=== PATIENT | female | born 1965 | race African-American/Black ===

== ENCOUNTER 2016-05-31 12:00 | Inpatient (IN) ==
[2016-05-31] MEDS ORDERED: FUROSEMIDE 40 MG/4 ML VIAL IV STA (12:17)
[2016-05-31 12:36] LABS: Basophils % 0.5 % (0.0-0.8); Eosinophils # 0.1 10*3/uL (0.0-0.87); Eosinophils % 2.2 % (0.00-10.9); Hematocrit 29.2 VOL% (35.7-47.0); Immature Granulocytes % 0.2 %; Immature Granulocytes Absolute 0.01 #; Lymphocytes # 0.8 10*3/uL (1.4-4.0); Lymphocytes % 12.9 % (21.3-54.2); Mean Corpuscular HGB Conc 30.8 GM/DL (32-36); Mean Corpuscular Hemoglobin 29 PG (27-34); Mean Corpuscular Volume 95.1 FL (87-102); Mean Platelet Volume 9.9 FL (9.6-12.0); Monocytes # 0.4 10*3/uL (0.11-0.8); Monocytes % 6.7 % (1.7-12.7); Neutrophils # 4.9 10*3/uL (1.4-7.4); Neutrophils % 77.5 % (38.7-73.9); Platelet Count 226 10*3/uL (130-400); Red Blood Count 3.07 10*6/uL (3.8-5.5); Red Cell Distribution Width 15.6 % (9.3-17.3); White Blood Count 6.3 10*3/uL (4.5-13.71)
[2016-05-31] MEDS ORDERED: FUROSEMIDE 40 MG/4 ML VIAL ONE (12:42)
--- NOTE | 2016-05-31 12:50 | XRay Report ---
Exam: XR chest 1V portable Indication: Cardiomegaly, shortness of breath, history of heart failure Comparison study: 03/14/16 chest radiograph Findings: Cardiac silhouette is enlarged, similar to prior. Patchy perihilar and basilar interstitial and airspace opacities are similar to slightly increased from prior and likely represent edema changes. There is no pneumothorax or significant pleural effusion identified. Osseous structures appear stable from prior. Impression: Similar cardiomegaly with findings suggestive of underlying interstitial edema. Infectious or inflammatory infiltrates can't be excluded but favored to be less likely. PROCEDURE INTERPRETED AT [facility] DEPARTMENT OF RADIOLOGY Final Report Signed by: Derek Neff
[2016-05-31 13:17] LABS: Calcium 8.5 MG/DL (8.5-10.1); Magnesium 2.5 MG/DL (1.8-2.4); Osmolality,Calculated 299.1 MOS/KG (273-304); Potassium 4.8 MMOL/L (3.5-5.1)
[2016-05-31 13:36] LABS: Apearance,Urine Slightly Hazy (Clear); Bacteria,Urine Many /HPF (Few); Bilirubin,Urine Negative (Negative); Blood, Urine Moderate mg/dL (Negative); Glucose,Urine (UA) 150 mg/dL (Negative); Ketones,Urine Negative (Negative); Mucus,Urine Occasional /LPF (Occasional); Nitrite,Urine Negative (Negative); Protein,Urine >=500 MG/DL; RBC,Urine 35 /HPF (0-4); Urine Color Yellow (Yellow); Urine Specific Gravity 1.012 (1.001-1.035); Urine Urobilinogen < 2.0 EU/DL (0.2-1.0); WBC,Urine 9 /HPF (0-6)
[2016-05-31] MEDS ORDERED: hydrALAZINE 20 MG/1 ML VIAL IV STA (13:53)
[2016-05-31] MEDS ORDERED: hydrALAZINE 20 MG/1 ML VIAL ONE ×2 (13:54→15:49)
--- NOTE | 2016-05-31 14:16 | Emergency Department Note ---
Stanley Romero Brooke, am scribing for, and in the presence of, Robert Huddleston M.D. 12:24. Karo Romero Howard T, M.D., personally performed the services described in this documentation, ascribed by Lana Angel in my presence, and it is both accurate and complete [id number] . Arrival - Arrival Chief Complaint: Shortness of Breath Stated Complaint: dyspnea times 4 days ED Nursing Triage Note: Patient reports shortness of breath times four days which increased today. She does not wear oxygen at home. she reports persistent coughing and wheezing. She does have a history of chronic bronchitis Mode of Arrival: Stretcher Limitations: No Limitations Source: Patient, RN Notes Reviewed Time Seen by Provider: 05/31/16 12:11 - History of Present Illness HPI Narrative: Patient is a 50 year old female who presents to the ED with c/o SOB. Patient says she has been having trouble with the SOB for a "while" but it just recently worsened. She says she feels like she is smothering. Patient says she has breathing treatments and an inhaler that she does use, at home, but does not have home oxygen. Patient says she has heart failure "sometimes" and is currently "full of fluid." She takes 40mg lasix TID and has already taken two doses today. Patient also complains of having a cough and chills but denies having any fever. She says her abdomen is sore from coughing so much. She denies any recent sickness and says she has had her flu shot. Patient has PMHx of CHF, HTN, congenital heart disease, depression, diabetes, dyslipidemia, RA, peripheral neuropathy, bronchitis, COPD, obstructive sleep apnea, PE, pneumonia , renal failure, bladder problems, GERD, and osteoporosis. Patient says she is up to date on all of her medications. Her Contact Lens Lathe Operator is Dr. Ashley. Allergies/Adverse Reactions: Allergies Allergy/AdvReac Type Severity Reaction Status Date / Time daptomycin Allergy RASH Verified 03/14/16 22:32 Home Medications: Home Medications Medication Instructions Recorded Confirmed Type Allopurinol [Zyloprim] 100 mg PO DAILY 01/03/15 03/15/16 History Apixaban [Eliquis] 5 mg PO BID 01/03/15 03/15/16 History Carvedilol [Coreg] 25 mg PO BID 01/03/15 03/15/16 History Efavirenz [Sustiva] 600 mg PO BEDTIME 01/03/15 03/15/16 History Fluticasone/Salmeterol 250-50 2 puff INH PRN PRN 01/03/15 03/15/16 History [Advair 250-50] Gabapentin Cap/Tab [Neurontin 300 mg PO TID 01/03/15 03/15/16 History Cap/Tab] Glimepiride [Amaryl] 8 mg PO BID W/MEALS 01/03/15 03/15/16 History HYDROcodone/ACETAMIN 10-325 [[place] 1 tablet PO QID PRN 01/03/15 03/15/16 History 10-325] lamiVUDine TAB [Epivir Tab] 300 mg PO DAILY 01/03/15 03/15/16 History Albuterol Sulfate [Ventolin HFA] 2 puff INH Q4H PRN #1 inhaler 01/06/15 Rx Isosorbide Mononitrate [Imdur] 60 mg PO DAILY #30 tablet 01/06/15 03/15/16 Rx Insulin Glargine [Lantus] 40 unit SUBCUT BEDTIME 03/13/15 03/15/16 History guaiFENesin/CODEINE [Robitussin AC] 10 ml PO Q4H PRN #120 ml 03/17/15 03/15/16 Rx Bumetanide Tab [Bumex Tab] 2 mg PO TID 04/27/15 03/15/16 History Cyclobenzaprine [Flexeril] 10 mg PO TID PRN 04/27/15 03/15/16 History Tenofovir Disoproxil Fumarate 300 mg PO DAILY W/BREAKFAST 04/27/15 03/15/16 History [Viread] hydrALAZINE TAB [Apresoline Tab] 100 mg PO BID 04/27/15 03/15/16 History Ciprofloxacin Tab [Cipro Tab] 500 mg PO DAILY #10 tablet 03/18/16 Rx Review of System - Review of System 12 point system: reviewed and no additional remarkable complaints except as stated - Review of System Constitutional: Present: chills. Absent: fever Respiratory: Present: cough, respiratory distress (SOB) Cardiovascular: Present: edema ("Full of fluid") Gastrointestinal: Present: abdominal pain (sore from coughing) Skin: Absent: rash Medical,Surgical,& Family Hx - Medical History Cardio: History of: Congenital Heart Disease, CHF, Hypertension No history of: Pacemaker, PVD, Valvular Heart Disease, Cardiovascular Problems Psychological: History of: Depression No history of: Anxiety Disorders, ADHD, Behavior Problems, Bipolar Disorder, Previous Suicide Attempt, Psychiatric/Substance Abuse Tx, Schizophrenia, Violent Behavior, Psychiatric Problems Neurology: History of: Peripheral Neuropathy No history of: Brain Aneurysm, Cerebral Hemorrhage, Cerebrovascular Accident , Cerebral Palsy, Dementia, Migraine, Multiple Sclerosis, Parkinson's Disease, Seizures, TIA, Vertigo, Neurologocal Cancer Endocrine: History of: Diabetes Mellitus (IDDM), Diabetes Mellitus (NIDDM), Dyslipidemia No history of: Thyroid Disorder, Endocrine Cancer, Endocrine Problems Rheumatology: History of;: Rheumatoid Arthritis No history of;: Psoriasis, Sjogrens, Systemic Lupus Erythematosus Respiratory: History of: Bronchitis, COPD, Obstructive Sleep Apnea, Pulmonary Embolism, Pneumonia, Respiratory Problems No history of: Intubation, Lung Cancer Renal: History of: Renal Failure No history of: Renal (Kidney) Cancer, Dialysis, Renal Problems Genitourinary: History of: Bladder Problem No history of: Kidney Stones, Recurring Urinary Tract Infections, Genitourinary Cancer, Problems Gastrointestinal: History of: GERD No history of: Crohn's Disease, Diverticulitis/ Diverticulosis, Esophageal Varices, Gastrointestinal Bleed, Liver Problems, Pancreatitis, Polyps, Gastrointestinal Cancer, GI Problems Musculoskeletal: History of: Back/Neck Problems, Osteoporosis No history of: Amputation Hematology: No history of: Anemia, Blood Transfusion Reaction (blood transfusions but no reactions), Bleeding Problems, Clotting Problems, Sickle Cell Disease, Hematologic Cancer, Blood Disorders Reproductive: History of: Sexually Transmitted Disorders (HIV Pos.) Other: No history of: Anesthesia Reactions, Anaphylaxis, Cancer, Eczema, HIV, Malignant Hyperthermia, MRSA, Vancomycin-Resistant Enterococci, Skin Problems, Miscellaneous Medical Problems - Surgical History Cardiac Surgeries: Patient Denies: Femoral-Popliteal Bypass Graft, Cardiac Catheterization, Cardiac Surgery, Carotid Endarterectomy, Internal Defibrillator, Vascular Access Devices Thoracic Surgeries: Patient denies;: Kidney (Renal Surgery), Lithotripsy, Nephrectomy, Organ Transplant, Lobectomy Neurologic Surgeries: Patient denies: Brain Aneurysm, Cerebral Hemorrhage, Neurologic Surgery HEENT Surgeries: Patient denies: Carotid Endarterectomy, Thyroid Surgery Abdominal Surgeries: Surgical HX of: Abdominal Surgery Patient denies: Appendectomy, Cholecystectomy, Colonoscopy, Gastric Bypass Surgery, EGD, Hernia Repair, Splenectomy Reproductive Surgeries: Surgical HX of;: Breast Surgery (multiple abcesses), Section Patient denies;: Cystoscopy, Dilation and Curettage, Genitourinary Surgery, Gynecologic Surgery, Hysterectomy, Tubal Ligation Orthopedic Surgeries: Patient denies;: Implanted Devices, Orthopedic Surgery, Spinal Surgery, Total Hip Replacement, Total Knee Replacement - Family History Family History: Reports;: Family Diabetes (MOTHER), Family Hypertension Denies;: Family Anesthesia Reaction, Family Psychiatric Problems, Family Stroke - Social History Smoking Status: Never smoker Frequency of Alcohol Use: None Type of Drug Use: None Exam Vital Signs: Vital Signs Temperature 98.0 F 05/31/16 12:01 Pulse Rate 93 H 05/31/16 13:52 Respiratory Rate 24 05/31/16 13:52 Blood Pressure 205/106 05/31/16 13:52 O2 Sat by Pulse Oximetry 100 05/31/16 13:52 - General General appearance: alert, in no apparent distress - Head Head exam: Present: atraumatic, normocephalic - Eye Eye exam: Present: normal appearance, PERRL, EOMI - ENT ENT exam: Present: normal exam - Neck Neck exam: Present: normal inspection - Chest Chest inspection: Present: normal inspection, symmetric chest wall rise - Respiratory Respiratory exam: Present: rales - Cardiovascular Cardiovascular exam: Present: regular rate, normal rhythm, normal heart sounds - Abdominal Exam Abdominal exam: Present: soft. Absent: distention, tenderness - Extremities Exam Extremities exam: Present: normal inspection - Back Exam Back exam: Present: normal inspection - Neurological Exam Neurological exam: Present: alert, oriented X3 - Psychiatric Psychiatric exam: Present: normal affect, normal mood - Skin Skin exam: Present: warm, dry, intact, normal color Course Course Narrative: Medical surgeon making: Patient appears stable for now but given symptoms and history will recommend overnight observation and treatment to provide additional breathing treatments and maximize home treatment. Discussed with hospitalist to evaluate the patient. Results - Labs CBC & BMP: 05/31/16 12:33 05/31/16 12:33 Lab Results: I have reviewed the patients labs Labs: Laboratory Tests 05/31/16 12:33 RBC 3.07 L Hgb 9.0 L Hct 29.2 L MCHC 30.8 L Neut % (Auto) 77.5 H Lymph % (Auto) 12.9 L Lymph # (Auto) 0.8 L Laboratory Tests 05/31/16 05/31/16 12:33 12:33 BUN 39 H Creatinine 1.90 H Glucose 235 H Magnesium 2.5 H B-Natriuretic Peptide 647 H Laboratory Tests 05/31/16 12:22 Urine Urobilinogen < 2.0 H - Diagnostic Findings Procedure: Chest x-ray: report reviewed by me (Similar cadiomegaly with findings suggestive of underlying interstitial edema. Infectious or inflammatory infiltrates can't be excluded but favored to be less likely.) Disposition Clinical Impression: Acute exacerbation of chronic obstructive airways disease, Dyspnea or other respiratory complaints Case discussed with: patient Disposition: Disch/Xfer-Ipshort Term Hos Condition: Stable Time of Disposition: 14:16
[2016-05-31] MEDS ORDERED: ONDANSETRON 4 MG/2 ML VIAL IV PRN (14:41)
[2016-05-31] MEDS ORDERED: ACETAMINOPHEN 325 MG TABLET PO PRN (14:41)
[2016-05-31] MEDS ORDERED: hydrALAZINE 20 MG/1 ML VIAL IV PRN (14:41)
[2016-05-31] MEDS ORDERED: ALBUTEROL 2.5 MG/3 ML NEB RESP TX PRN (15:43)
[2016-05-31] MEDS ORDERED: ACETAMINOPHEN 325 MG TABLET ONE (15:55)
[2016-05-31] MEDS ORDERED: GLUCAGON 1 MG VIAL IM PRN (15:57)
[2016-05-31] MEDS ORDERED: DEXTROSE 50% 25 GM/50 ML VIAL IV PRN (15:57)
--- NOTE | 2016-05-31 15:58 | Hospitalist History & Physical ---
<Michelle North - Last Filed: 05/31/16 15:50> Assessment and Plan - Time spent with patient Time spent with patient: Greater than 30 minutes (due to assessment, plan and documentation.) (1) Fluid overload Status: Acute Assessment and plan: lasix 80 mg IV BID cardiology consultation echo Current Visit: Yes (2) CKD (chronic kidney disease) stage 3, GFR 30-59 ml/min Status: Acute Current Visit: Yes (3) HIV (human immunodeficiency virus infection) Status: Chronic Assessment and plan: continue home medications Current Visit: No (4) Morbid obesity Status: Chronic Current Visit: No Qualifiers: Obesity type: with alveolar hypoventilation Qualified Code(s): E66.2 - Morbid (severe) obesity with alveolar hypoventilation History of Present Illness Chief complaint: sob History of present illness: Ms. Jalloh is a 50 year old female who presented today with shortness of breath. She states that her Shortness of breath started on Saturday and is worse today. She has audible wheezing noted. She does give a history of being type 2 diabetic, hypertensive, arthritic, and HIV +. She states that she has been cold but no documented fever. She is coughing up thick brown sputum. She is hypertensive at 230/134 today. She denies taking her medication this morning. She has a stage 2 decubitus to her left breast. She has recently had a Mammogram and subsequent biopsy. She gives a history of questionable CHF and saw Dr. Brown and states that she was told that she has no CHF and changed her BP medications. Her sugars typically run 160's to 170's per her report but was 260 this morning. She takes 70/30, Lantus, and glipizide for diabetic management. She states that "nothing makes her breathing better". She has expiratory wheezes noted to right side and left sided rhonchi in the bases and diminished lung sounds throughout. Heart sounds normal. She does complain of some left lower quadrant abdominal tenderness and states that she recently had an ultrasound done for "swelling". Blanco has been placed and is draining clear yellow urine. She does complain of some abdominal tenderness but relates this to coughing. She lives at home by herself, but does not work as she is disabled. She will be admitted and given IV lasix 80 mg IV BID, labs in AM, cardiology consultation. Further plan and addendum to follow by Dr. Viktoriya Sanchez. Home Medications Medication Instructions Recorded Confirmed Type Allopurinol [Zyloprim] 100 mg PO DAILY 01/03/15 05/31/16 History Apixaban [Eliquis] 5 mg PO BID 01/03/15 05/31/16 History Carvedilol [Coreg] 25 mg PO BID W/MEALS 01/03/15 05/31/16 History Efavirenz [Sustiva] 600 mg PO BEDTIME 01/03/15 05/31/16 History Gabapentin Cap/Tab [Neurontin 300 mg PO TID 01/03/15 05/31/16 History Cap/Tab] Glimepiride [Amaryl] 8 mg PO BID W/MEALS 01/03/15 05/31/16 History HYDROcodone/ACETAMIN 10-325 [[place] 1 tablet PO QID PRN 01/03/15 05/31/16 History 10-325] lamiVUDine TAB [Epivir Tab] 300 mg PO DAILY 01/03/15 05/31/16 History Albuterol Sulfate [Ventolin HFA] 2 puff INH Q4H PRN #1 inhaler 01/06/15 Rx Insulin Glargine [Lantus] 20 unit SUBCUT BEDTIME 03/13/15 05/31/16 History Cyclobenzaprine [Flexeril] 10 mg PO TID PRN 04/27/15 05/31/16 History Tenofovir Disoproxil Fumarate 300 mg PO DAILY W/BREAKFAST 04/27/15 05/31/16 History [Viread] Isosorb Dinit/Hydralazine HCl 1 tablet PO TID 05/31/16 05/31/16 History [Bidil Tablet] hydrALAZINE TAB [Apresoline Tab] 50 mg PO BID 05/31/16 05/31/16 History Allergies Allergy/AdvReac Type Severity Reaction Status Date / Time daptomycin Allergy RASH Verified 03/14/16 22:32 Medical,Surgical,& Family Hx - Medical History Cardio: History of: Congenital Heart Disease, CHF, Hypertension No history of: Pacemaker, PVD, Valvular Heart Disease, Cardiovascular Problems Psychological: History of: Depression No history of: Anxiety Disorders, ADHD, Behavior Problems, Bipolar Disorder, Previous Suicide Attempt, Psychiatric/Substance Abuse Tx, Schizophrenia, Violent Behavior, Psychiatric Problems Neurology: History of: Peripheral Neuropathy No history of: Brain Aneurysm, Cerebral Hemorrhage, Cerebrovascular Accident , Cerebral Palsy, Dementia, Migraine, Multiple Sclerosis, Parkinson's Disease, Seizures, TIA, Vertigo, Neurologocal Cancer Endocrine: History of: Diabetes Mellitus (IDDM), Diabetes Mellitus (NIDDM), Dyslipidemia No history of: Thyroid Disorder, Endocrine Cancer, Endocrine Problems Rheumatology: History of;: Rheumatoid Arthritis No history of;: Psoriasis, Sjogrens, Systemic Lupus Erythematosus Respiratory: History of: Bronchitis, COPD, Obstructive Sleep Apnea, Pulmonary Embolism, Pneumonia, Respiratory Problems No history of: Intubation, Lung Cancer Renal: History of: Renal Failure No history of: Renal (Kidney) Cancer, Dialysis, Renal Problems Genitourinary: History of: Bladder Problem No history of: Kidney Stones, Recurring Urinary Tract Infections, Genitourinary Cancer, Problems Gastrointestinal: History of: GERD No history of: Crohn's Disease, Diverticulitis/ Diverticulosis, Esophageal Varices, Gastrointestinal Bleed, Liver Problems, Pancreatitis, Polyps, Gastrointestinal Cancer, GI Problems Musculoskeletal: History of: Back/Neck Problems, Osteoporosis No history of: Amputation Hematology: No history of: Anemia, Blood Transfusion Reaction (blood transfusions but no reactions), Bleeding Problems, Clotting Problems, Sickle Cell Disease, Hematologic Cancer, Blood Disorders Reproductive: History of: Sexually Transmitted Disorders (HIV Pos.) Other: No history of: Anesthesia Reactions, Anaphylaxis, Cancer, Eczema, HIV, Malignant Hyperthermia, MRSA, Vancomycin-Resistant Enterococci, Skin Problems, Miscellaneous Medical Problems - Surgical History Cardiac Surgeries: Patient Denies: Femoral-Popliteal Bypass Graft, Cardiac Catheterization, Cardiac Surgery, Carotid Endarterectomy, Internal Defibrillator, Vascular Access Devices Thoracic Surgeries: Patient denies;: Kidney (Renal Surgery), Lithotripsy, Nephrectomy, Organ Transplant, Lobectomy Neurologic Surgeries: Patient denies: Brain Aneurysm, Cerebral Hemorrhage, Neurologic Surgery HEENT Surgeries: Patient denies: Carotid Endarterectomy, Thyroid Surgery Abdominal Surgeries: Surgical HX of: Abdominal Surgery Patient denies: Appendectomy, Cholecystectomy, Colonoscopy, Gastric Bypass Surgery, EGD, Hernia Repair, Splenectomy Reproductive Surgeries: Surgical HX of;: Breast Surgery (multiple abcesses), Section Patient denies;: Cystoscopy, Dilation and Curettage, Genitourinary Surgery, Gynecologic Surgery, Hysterectomy, Tubal Ligation Orthopedic Surgeries: Patient denies;: Implanted Devices, Orthopedic Surgery, Spinal Surgery, Total Hip Replacement, Total Knee Replacement - Family History Family History: Reports;: Family Diabetes (MOTHER), Family Hypertension Denies;: Family Anesthesia Reaction, Family Psychiatric Problems, Family Stroke - Social History Smoking Status: Never smoker Frequency of Alcohol Use: None Type of Drug Use: None Marital Status: Single Lives With:: Alone Functional capacity: independent ambulation - Constitutional Constitutional: Present: chills. Absent: fever(s) - EENT Eyes: Present: blurry vision. Absent: diplopia Ears: Absent: decreased hearing, tinnitus Nose, mouth and throat: Absent: dysphagia, headache(s) - Cardiovascular Cardiovascular: Present: dyspnea, dyspnea on exertion, edema. Absent: chest pain at rest, palpitations - Respiratory Respiratory: Absent: cough, dyspnea, hemoptysis - Gastrointestinal Gastrointestinal: Present: abdominal pain (LLQ tenderness. ). Absent: nausea, vomiting - Genitourinary Genitourinary: Absent: dysuria, flank pain - Musculoskeletal Musculoskeletal: Absent: arthralgias, back pain - Neurological Neurological: Absent: confusion, dizziness - Psychiatric Psychiatric: Absent: anxiety, confusion, depression - Endocrine Endocrine: Absent: cold intolerance, heat intolerance - Hematologic/Lymphatic Hematologic/Lymphatic: Absent: easy bleeding, easy bruising Exam - Constitutional Vitals: Period Temp Pulse Resp BP Sys/[place] Pulse Ox Last 24 Hr 98.0 F-98.0 F 91-97 19-26 160-207/92-130 96-100 General appearance: mild distress, morbidly obese - Head Head exam: Present: normal inspection, normocephalic - Eye Eye exam: Present: EOMI. Absent: scleral icterus Pupils: Present: JARAD, normal accommodation - ENT ENT exam: Present: normal exam, normal oropharynx - Neck Neck exam: Present: normal inspection. Absent: lymphadenopathy - Respiratory Respiratory exam: Present: decreased breath sounds, prolonged expiratory phase, rhonchi, wheezes - Cardiovascular Cardiovascular exam: Present: JVD, tachycardia. Absent: carotid bruit - GI/Abdominal GI/Abdominal exam: Present: normal bowel sounds, tenderness (LLQ tenderness. ) - Extremities Exam Extremities exam: Present: normal inspection, edema - Back Exam Back exam: Present: normal inspection. Absent: muscle spasm - Neurological Exam Neurological exam: Present: alert, oriented X3 - Psychiatric Psychiatric exam: Present: normal affect, normal mood - Skin Skin exam: Present: normal color, warm, dry, intact Results - Labs CBC & BMP: 05/31/16 12:33 05/31/16 12:33 Lab Results: I have reviewed the past 24 hour labs Quality Measures - VTE Contraindication to Pharmacological VTE Prophylaxis: Already on Theraputic Agent , No Prophylaxis Needed <Viktoriya Sanchez - Last Filed: 05/31/16 16:34> Assessment and Plan - Time spent with patient Time spent with patient: Greater than 30 minutes (1) Abscess of breast, right Status: Acute Assessment and plan: Consider surgery consult. Add antibiotics Current Visit: Yes (2) Acute exacerbation of congestive heart failure Status: Acute Assessment and plan: start lasix and aldactone. cardiology consult EF 2014 was 40% Current Visit: Yes Qualifiers: Congestive heart failure type: combined Qualified Code(s): I50.43 - Acute on chronic combined systolic (congestive) and diastolic (congestive) heart failure (3) Dyspnea Status: Acute Current Visit: Yes Qualifiers: Dyspnea type: shortness of breath Qualified Code(s): R06.02 - Shortness of breath (4) HIV (human immunodeficiency virus infection) Status: Chronic Current Visit: No (5) Morbid obesity Status: Chronic Current Visit: No Qualifiers: Obesity type: with alveolar hypoventilation Qualified Code(s): E66.2 - Morbid (severe) obesity with alveolar hypoventilation (6) Diabetes mellitus Status: Chronic Current Visit: No Qualifiers: Diabetes mellitus type: type 2 Diabetes mellitus complication status: with kidney complications Diabetes mellitus complication detail: with chronic kidney disease Diabetes mellitus terminal block assembler insulin use: with mcfp use Chronic kidney disease stage: stage 3 (moderate) Qualified Code(s): E11.22 - Type 2 diabetes mellitus with diabetic chronic kidney disease; N18.3 - Chronic kidney disease, stage 3 (moderate); Z79.4 - group home (current) use of insulin (7) CKD (chronic kidney disease) stage 3, GFR 30-59 ml/min Status: Chronic Current Visit: Yes History of Present Illness History of present illness: Ms. Jalloh is a 50 year old female presented to the emergency department today with shortness of breath and lower extremity edema. She was found to be very hypertensive. She has a echocardiogram from December 2014 showing an ejection fraction of 40% with hypokinesis globally. She reports being on Bumex at home in the past. She appears to have acute decompensated systolic congestive heart failure with pulmonary edema and shortness of breath. She is working hard to breathe and is in moderate respiratory distress. She is requiring supplemental oxygen. She has received IV Lasix 80 mg in the emergency department and has good urine output in the Blanco catheter. She is being admitted to the hospitalist service to monitored bed with a consultation for cardiology and repeat doses of IV Lasix for continued diuresis. I also added Aldactone. Repeat cardiac enzymes in a.m. labs have been ordered. The patient has chronic kidney disease stage III with a baseline creatinine of approximately 2. Her medical history is complicated by diabetes hypertension questionable congestive heart failure as well as HIV. I have seen and examined the patient in dependently in the emergency department at the time of her admission. I agree with the above history of present illness as well as the physical exam and assessment and plan as dictated by Michelle North. 12 point system: reviewed and no additional remarkable complaints except as stated Exam - Constitutional Vitals: Period Temp Pulse Resp BP Sys/[place] Pulse Ox Last 24 Hr 98.0 F-99.8 F 91-97 19-26 160-207/92-130 96-100 - Respiratory Respiratory exam: Present: other (left breast with induration, open wound, drainage and pain. ) - Extremities Exam Extremities exam: Present: edema - Psychiatric Psychiatric exam: Present: anxious - Skin Skin exam: Present: diaphoretic Results - Labs CBC & BMP: 05/31/16 12:33 05/31/16 12:33 Lab Results: I have reviewed the past 24 hour labs - Diagnostic Findings Procedure: Chest x-ray: image reviewed by me, report reviewed by me
[2016-05-31] MEDS: CARVEDILOL 25 MG TABLET PO SCH (17:52)
[2016-05-31] MEDS: GLIMEPIRIDE 4 MG TABLET PO SCH (17:52)
[2016-05-31] MEDS: FUROSEMIDE 40 MG/4 ML VIAL IV SCH (17:52)
[2016-05-31] MEDS: cefTRIAXone 1,000 MG in SODIUM CHLORIDE 0.9% 100 ML IV SCH (17:53)
[2016-05-31] MEDS: INSULIN LISPRO 100 UNIT/ML SUBCUT SCH ×2 (17:53→22:22)
[2016-05-31 19:05] LABS: Troponin I Only 0.018 NG/ML (0.00-0.045)
[2016-05-31 19:38] LABS: Troponin I Only 0.016 NG/ML (0.00-0.045)
--- NOTE | 2016-05-31 19:39 | Cardiology Consult Note ---
History of Present Illness - Data of Consult Patient: new to practice Consult date: 05/31/16 - Consult Narrative History of present illness: Cardiology consult 50-year-old woman morbidly obese, admitted with congestive heart failure and anasarca. The patient weighs 470 pounds. Chest x-ray shows cardiomegaly with cephalization of flow and CHF. BNP level 647. The patient has a documented cardiomyopathy. Echo Doppler done January 03, 2015 when she was last admitted with heart failure showed ejection fraction of 40% with a dilated right ventricle PA pressure 45 and mildly dilated left atrium. EKG shows sinus rhythm with ST-T wave changes only. The patient is HIV positive. She has a history of pulmonary embolus and takes Eliquis 5 mg twice daily. The patient has chronic hypertension. She is a type II diabetic. The Patient is a lifetime non-smoker and nondrinker. The patient is 5 feet 9 inches tall weighs 470 pounds. She had a left breast biopsy last Saturday and is waiting to hear the results. She has chronic renal failure. Creatinine 1.9 BUN 39 today. The patient lives in [place]. She never . She spends most of her time in bed. She can walk a few steps with a walker only. She does have daytime sleepiness and frequent headaches. Sleep apnea is suspected. Lab data today shows Sodium 142 potassium 4.8 chloride 107 CO2 25 BUN 39 creatinine 1.9 Magnesium 2.5 BNP 647 Hemoglobin 9.0 hematocrit 29.2 white count 6.3 Blood pressure is 160/80. O2 sat 98% on 2 L. She is awake and alert. She is edentulous. Neck veins cannot be assessed. No carotid bruit. Decreased breath sounds with rhonchi in the bases. Rhythm is regular. Heart tones distant. No murmur. The abdomen is morbidly obese with multiple striae A. Liver edge cannot be palpated. Femoral pulses are 1+ and deep. She has anasarca of both legs. Impression Recurrent CHF Cardiomyopathy with EF 40% by echo January 03, 2015 Morbid obesity, 5 feet 9 inches tall, 470 pounds Chronic hypertension Type 2 diabetes Status post left breast biopsy last May 23 HIV-positive Arthritis Anasarca Chronic debility Chronic renal failure BUN 39 creatinine 1.9 History of pulmonary embolus on Eliquis 5 mg twice daily Obstructive sleep apnea suspected Plan IV Lasix Supplemental O2 as needed Echo Doppler BMP in a.m. Consult Dr. Lerner for sleep study evaluation CC: Viktoriya Sanchez MD - Home Medications and Allergies Home Medications: Home Medications Medication Instructions Recorded Confirmed Type Allopurinol [Zyloprim] 100 mg PO DAILY 01/03/15 05/31/16 History Apixaban [Eliquis] 5 mg PO BID 01/03/15 05/31/16 History Carvedilol [Coreg] 25 mg PO BID W/MEALS 01/03/15 05/31/16 History Efavirenz [Sustiva] 600 mg PO BEDTIME 01/03/15 05/31/16 History Gabapentin Cap/Tab [Neurontin 300 mg PO TID 01/03/15 05/31/16 History Cap/Tab] Glimepiride [Amaryl] 8 mg PO BID W/MEALS 01/03/15 05/31/16 History HYDROcodone/ACETAMIN 10-325 [[place] 1 tablet PO QID PRN 01/03/15 05/31/16 History 10-325] lamiVUDine TAB [Epivir Tab] 300 mg PO DAILY 01/03/15 05/31/16 History Albuterol Sulfate [Ventolin HFA] 2 puff INH Q4H PRN #1 inhaler 01/06/15 Rx Insulin Glargine [Lantus] 20 unit SUBCUT BEDTIME 03/13/15 05/31/16 History Cyclobenzaprine [Flexeril] 10 mg PO TID PRN 04/27/15 05/31/16 History Tenofovir Disoproxil Fumarate 300 mg PO DAILY W/BREAKFAST 04/27/15 05/31/16 History [Viread] Insulin Aspart Prot/Asp 70/30 45 unit SUBCUT QPM 05/31/16 05/31/16 History [NovoLOG Mix 70/30] Insulin Aspart Prot/Asp 70/30 50 unit SUBCUT QAM 05/31/16 05/31/16 History [NovoLOG Mix 70/30] Isosorb Dinit/Hydralazine HCl 1 tablet PO TID 05/31/16 05/31/16 History [Bidil Tablet] hydrALAZINE TAB [Apresoline Tab] 50 mg PO BID 05/31/16 05/31/16 History Allergies/Adverse Reactions: Allergies Allergy/AdvReac Type Severity Reaction Status Date / Time daptomycin Allergy RASH Verified 03/14/16 22:32 Medical,Surgical,& Family Hx - Medical History Cardio: History of: Congenital Heart Disease, CHF, Hypertension No history of: Pacemaker, PVD, Valvular Heart Disease, Cardiovascular Problems Psychological: History of: Depression No history of: Anxiety Disorders, ADHD, Behavior Problems, Bipolar Disorder, Previous Suicide Attempt, Psychiatric/Substance Abuse Tx, Schizophrenia, Violent Behavior, Psychiatric Problems Neurology: History of: Peripheral Neuropathy No history of: Brain Aneurysm, Cerebral Hemorrhage, Cerebrovascular Accident , Cerebral Palsy, Dementia, Migraine, Multiple Sclerosis, Parkinson's Disease, Seizures, TIA, Vertigo, Neurologocal Cancer Endocrine: History of: Diabetes Mellitus (IDDM), Diabetes Mellitus (NIDDM), Dyslipidemia No history of: Thyroid Disorder, Endocrine Cancer, Endocrine Problems Rheumatology: History of;: Rheumatoid Arthritis No history of;: Psoriasis, Sjogrens, Systemic Lupus Erythematosus Respiratory: History of: Bronchitis, COPD, Obstructive Sleep Apnea, Pulmonary Embolism, Pneumonia, Respiratory Problems No history of: Intubation, Lung Cancer Renal: History of: Renal Failure No history of: Renal (Kidney) Cancer, Dialysis, Renal Problems Genitourinary: History of: Bladder Problem No history of: Kidney Stones, Recurring Urinary Tract Infections, Genitourinary Cancer, Problems Gastrointestinal: History of: GERD No history of: Crohn's Disease, Diverticulitis/ Diverticulosis, Esophageal Varices, Gastrointestinal Bleed, Liver Problems, Pancreatitis, Polyps, Gastrointestinal Cancer, GI Problems Musculoskeletal: History of: Back/Neck Problems, Osteoporosis No history of: Amputation Hematology: No history of: Anemia, Blood Transfusion Reaction (blood transfusions but no reactions), Bleeding Problems, Clotting Problems, Sickle Cell Disease, Hematologic Cancer, Blood Disorders Reproductive: History of: Sexually Transmitted Disorders (HIV Pos.) Other: No history of: Anesthesia Reactions, Anaphylaxis, Cancer, Eczema, HIV, Malignant Hyperthermia, MRSA, Vancomycin-Resistant Enterococci, Skin Problems, Miscellaneous Medical Problems - Surgical History Cardiac Surgeries: Patient Denies: Femoral-Popliteal Bypass Graft, Cardiac Catheterization, Cardiac Surgery, Carotid Endarterectomy, Internal Defibrillator, Vascular Access Devices Thoracic Surgeries: Patient denies;: Kidney (Renal Surgery), Lithotripsy, Nephrectomy, Organ Transplant, Lobectomy Neurologic Surgeries: Patient denies: Brain Aneurysm, Cerebral Hemorrhage, Neurologic Surgery HEENT Surgeries: Patient denies: Carotid Endarterectomy, Thyroid Surgery Abdominal Surgeries: Surgical HX of: Abdominal Surgery Patient denies: Appendectomy, Cholecystectomy, Colonoscopy, Gastric Bypass Surgery, EGD, Hernia Repair, Splenectomy Reproductive Surgeries: Surgical HX of;: Breast Surgery (multiple abcesses), Section Patient denies;: Cystoscopy, Dilation and Curettage, Genitourinary Surgery, Gynecologic Surgery, Hysterectomy, Tubal Ligation Orthopedic Surgeries: Patient denies;: Implanted Devices, Orthopedic Surgery, Spinal Surgery, Total Hip Replacement, Total Knee Replacement - Family History Family History: Reports;: Family Diabetes (MOTHER), Family Hypertension Denies;: Family Anesthesia Reaction, Family Psychiatric Problems, Family Stroke - Social History Smoking Status: Never smoker Frequency of Alcohol Use: None Type of Drug Use: None Physical Examination Vital Signs Temp Pulse Resp BP Pulse Ox 98.0 F 95 H 22 175/108 96 05/31/16 12:01 05/31/16 12:01 05/31/16 12:01 05/31/16 12:01 05/31/16 12:01 Result/EKG - Labs CBC & BMP: 05/31/16 12:33 05/31/16 12:33 Labs: Laboratory Results - last 24 hr 05/31/16 05/31/16 17:44 18:22 POC Glucose 217 H Total Creatine Kinase 173 CK-MB (CK-2) < 1.0 Troponin I 0.018 Quality Measures - VTE Contraindication to Pharmacological VTE Prophylaxis: Already on Theraputic Agent , No Prophylaxis Needed Specialty Discharge - Follow Up or Referrals - Discharge Medications No Action lamiVUDine TAB [Epivir Tab] 300 mg PO DAILY Efavirenz [Sustiva] 600 mg PO BEDTIME Carvedilol [Coreg] 25 mg PO BID W/MEALS Apixaban [Eliquis] 5 mg PO BID Allopurinol [Zyloprim] 100 mg PO DAILY HYDROcodone/ACETAMIN 10-325 [[place] 10-325] 1 tablet PO QID PRN PRN Reason: Pain Glimepiride [Amaryl] 8 mg PO BID W/MEALS Gabapentin Cap/Tab [Neurontin Cap/Tab] 300 mg PO TID Albuterol Sulfate [Ventolin HFA] 2 puff INH Q4H PRN #1 inhaler PRN Reason: Shortness Of Breath/Wheezing Insulin Glargine [Lantus] 20 unit SUBCUT BEDTIME Tenofovir Disoproxil Fumarate [Viread] 300 mg PO DAILY W/BREAKFAST Cyclobenzaprine [Flexeril] 10 mg PO TID PRN PRN Reason: Pain hydrALAZINE TAB [Apresoline Tab] 50 mg PO BID Isosorb Dinit/Hydralazine HCl [Bidil Tablet] 1 tablet PO TID Insulin Aspart Prot/Asp 70/30 [NovoLOG Mix 70/30] 50 unit SUBCUT QAM Insulin Aspart Prot/Asp 70/30 [NovoLOG Mix 70/30] 45 unit SUBCUT QPM
[2016-05-31] MEDS ORDERED: hydrALAZINE 25 MG TABLET PO SCH (21:00)
[2016-05-31] MEDS ORDERED: EFAVIRENZ 600 MG PO SCH (21:00)
[2016-05-31] MEDS: SPIRONOLACTONE 50 MG TABLET PO SCH (21:25)
[2016-05-31] MEDS: APIXABAN 5 MG TABLET PO SCH (21:25)
[2016-05-31] MEDS: INSULIN GLARGINE 100 UNIT/ML SUBCUT SCH (21:25)
[2016-05-31] MEDS: GABAPENTIN 300 MG CAPSULE PO SCH (21:25)
[2016-05-31] MEDS: ISOSORBIDE DINITRATE 20 MG TABLET PO SCH (22:22)
[2016-05-31 22:56] LABS: Troponin I Only 0.016 NG/ML (0.00-0.045)
[2016-06-01 05:28] LABS: Basophils % 0.2 % (0.0-0.8); Eosinophils # 0.1 10*3/uL (0.0-0.87); Hematocrit 25.6 VOL% (35.7-47.0); Hemoglobin 7.7 GM/DL (12.0-16.0); Immature Granulocytes % 0.2 %; Immature Granulocytes Absolute 0.01 #; Mean Corpuscular HGB Conc 30.1 GM/DL (32-36); Mean Corpuscular Hemoglobin 29 PG (27-34); Mean Corpuscular Volume 95.2 FL (87-102); Mean Platelet Volume 10.1 FL (9.6-12.0); Monocytes # 0.5 10*3/uL (0.11-0.8); Monocytes % 12.1 % (1.7-12.7); Neutrophils # 2.8 10*3/uL (1.4-7.4); Neutrophils % 63.5 % (38.7-73.9); Platelet Count 201 10*3/uL (130-400); Red Blood Count 2.69 10*6/uL (3.8-5.5); Red Cell Distribution Width 15.7 % (9.3-17.3); White Blood Count 4.5 10*3/uL (4.5-13.71)
[2016-06-01 06:08] LABS: Albumin 2.8 G/DL (3.4-5.0); Bilirubin,Total 0.4 MG/DL (0.2-1.0); Calcium 7.9 MG/DL (8.5-10.1); Magnesium 2.4 MG/DL (1.8-2.4); Potassium 4.9 MMOL/L (3.5-5.1); Risk Ratio 2.4; VLDL CHOLESTEROL 14.8 MG/DL
[2016-06-01 06:09] LABS: Troponin I Only 0.017 NG/ML (0.00-0.045)
[2016-06-01 06:24] LABS: Free T4 (Free Thyroxine) 0.93 NG/DL (0.76-1.46); Thyroid Stimulating Hormone 1.41 uIU/ml (0.358-3.74)
[2016-06-01] MEDS ORDERED: TENOFOVIR DISOPROXIL FUMARATE 300 MG PO SCH (08:00)
--- NOTE | 2016-06-01 08:29 | XRay Report ---
Referring Physician: Viktoriya Sanchez Exam: XR chest 1V portable Date: June 01, 2016 at 7:16 AM Reason: Shortness of breath Comparison: Chest one view portable May 31, 2016 Findings: The cardiac silhouette is again enlarged. The pulmonary vasculature and interstitial markings are prominent bilaterally, suggesting mild pulmonary edema. However, an infectious process is not excluded. No pneumothorax is identified, but there may be minimal bilateral pleural fluid. The osseous structures appear stable. Impression: There has been no significant change. PROCEDURE INTERPRETED AT [facility] [place] DEPARTMENT OF RADIOLOGY Final Report Signed by: Dr. Duke Garcia
[2016-06-01] MEDS ORDERED: LAMIVUDINE 300 MG PO SCH (09:00)
[2016-06-01] MEDS ORDERED: FUROSEMIDE 40 MG/4 ML VIAL IV SCH (09:00)
[2016-06-01] MEDS ORDERED: AZITHROMYCIN 250 MG TABLET PO ONE (09:32)
--- NOTE | 2016-06-01 09:35 | Hospitalist Progress Note ---
Assessment and Plan (1) Abscess of breast, right Status: Acute Assessment and plan: Consider surgery consult. Add antibiotics Current Visit: Yes (2) Acute exacerbation of congestive heart failure Status: Acute Assessment and plan: Continue lasix and aldactone. cardiology consult reviewed EF 2014 was 40% Current Visit: Yes Qualifiers: Congestive heart failure type: combined Qualified Code(s): I50.43 - Acute on chronic combined systolic (congestive) and diastolic (congestive) heart failure (3) Dyspnea Status: Acute Assessment and plan: Improving with diuresis with Lasix. Current Visit: Yes Qualifiers: Dyspnea type: shortness of breath Qualified Code(s): R06.02 - Shortness of breath (4) HIV (human immunodeficiency virus infection) Status: Chronic Assessment and plan: Continue home medications Current Visit: No (5) Morbid obesity Status: Chronic Current Visit: No Qualifiers: Obesity type: with alveolar hypoventilation Qualified Code(s): E66.2 - Morbid (severe) obesity with alveolar hypoventilation (6) Diabetes mellitus Status: Chronic Current Visit: No Qualifiers: Diabetes mellitus type: type 2 Diabetes mellitus complication status: with kidney complications Diabetes mellitus complication detail: with chronic kidney disease Diabetes mellitus long-term insulin use: with terminal operations manager use Chronic kidney disease stage: stage 3 (moderate) Qualified Code(s): E11.22 - Type 2 diabetes mellitus with diabetic chronic kidney disease; N18.3 - Chronic kidney disease, stage 3 (moderate); Z79.4 - intermediate project manager (current) use of insulin (7) CKD (chronic kidney disease) stage 3, GFR 30-59 ml/min Status: Chronic Current Visit: Yes Hospitalist: Subjective Interval history: Seen and examined. She continues to have shortness of breath. She is responding well to Lasix. Chest x-ray without significant improvement. Cardiology consult reviewed. Temperatures have been mildly elevated 99.6. Exam - Constitutional Vitals: Period Temp Pulse Resp BP Sys/[place] Pulse Ox Last 24 Hr 99.0 F-100.9 F 82-98 14-28 127-218/68-133 98-100 General appearance: mild distress, morbidly obese - Head Head exam: Present: normal inspection, normocephalic - Eye Eye exam: Present: EOMI Pupils: Present: JARAD - Respiratory Respiratory exam: Present: rales, wheezes - Cardiovascular Cardiovascular exam: Present: regular rate and rhythm - GI/Abdominal GI/Abdominal exam: Present: normal bowel sounds, soft. Absent: tenderness - Extremities Exam Extremities exam: Present: edema - Neurological Exam Neurological exam: Present: alert, oriented X3 - Psychiatric Psychiatric exam: Present: normal affect, normal mood - Skin Skin exam: Present: normal color, warm Results - Labs CBC & BMP: 06/01/16 04:19 06/01/16 04:19 Lab Results: I have reviewed the past 24 hour labs Quality Measures - VTE Contraindication to Pharmacological VTE Prophylaxis: Already on Theraputic Agent , No Prophylaxis Needed Specialty Discharge - Follow Up or Referrals - Discharge Medications No Action RX: lamiVUDine TAB [Epivir Tab] 300 mg PO DAILY RX: Efavirenz [Sustiva] 600 mg PO BEDTIME RX: Carvedilol [Coreg] 25 mg PO BID W/MEALS RX: Apixaban [Eliquis] 5 mg PO BID RX: Allopurinol [Zyloprim] 100 mg PO DAILY RX: HYDROcodone/ACETAMIN 10-325 [[place] 10-325] 1 tablet PO QID PRN PRN Reason: Pain RX: Glimepiride [Amaryl] 8 mg PO BID W/MEALS RX: Gabapentin Cap/Tab [Neurontin Cap/Tab] 300 mg PO TID RX: Albuterol Sulfate [Ventolin HFA] 2 puff INH Q4H PRN #1 inhaler PRN Reason: Shortness Of Breath/Wheezing RX: Insulin Glargine [Lantus] 20 unit SUBCUT BEDTIME RX: Tenofovir Disoproxil Fumarate [Viread] 300 mg PO DAILY W/BREAKFAST RX: Cyclobenzaprine [Flexeril] 10 mg PO TID PRN PRN Reason: Pain hydrALAZINE TAB [Apresoline Tab] 50 mg PO BID RX: Isosorb Dinit/Hydralazine HCl [Bidil Tablet] 1 tablet PO TID Insulin Aspart Prot/Asp 70/30 [NovoLOG Mix 70/30] 50 unit SUBCUT QAM Insulin Aspart Prot/Asp 70/30 [NovoLOG Mix 70/30] 45 unit SUBCUT QPM
[2016-06-01] MEDS: GABAPENTIN 300 MG CAPSULE PO SCH ×3 (09:36→23:00)
[2016-06-01] MEDS: CARVEDILOL 25 MG TABLET PO SCH ×2 (09:37→17:02)
[2016-06-01] MEDS: SPIRONOLACTONE 50 MG TABLET PO SCH ×2 (09:37→22:58)
[2016-06-01] MEDS: GLIMEPIRIDE 4 MG TABLET PO SCH ×2 (09:37→17:02)
[2016-06-01] MEDS: PANTOPRAZOLE 40 MG TABLET PO SCH (09:38)
[2016-06-01] MEDS: APIXABAN 5 MG TABLET PO SCH ×2 (09:38→22:58)
[2016-06-01] MEDS: ALLOPURINOL 100 MG TABLET PO SCH (09:39)
[2016-06-01] MEDS: FUROSEMIDE 40 MG/4 ML VIAL IV SCH ×2 (09:39→17:02)
--- NOTE | 2016-06-01 10:20 | Cardiology Progress Note ---
Marianela Romero April, RN, am scribing for, and in the presence of, Nelson Ingacio MD 10:19. Cardiology - PN: Subj Interval history: Resting in bed in no acute distress, oxygen in use via NBP. She is still dyspneic, but she reports that it is a little better. She denies any chest pain except she says her chest is sore from coughing. Her I's & O's since admission have been negative and her BNP is down to 557, her BUN and creatinine are up a bit to 40 and 2.0. She is getting Lasix 80mg IV bid. Her troponins have been negative. H&H is down to 7.7 and 25.6. Currently she is in sinus rhythm with heart rates in the 80's. Cardiology addendum. Patient examined and chart reviewed. Cardiomyopathy and CHF Morbid obesity 470 pounds Obstructive sleep apnea suspected EF 40% by echo December 2014 Chronic hypertension Diabetes Anemia Chronic renal failure creatinine 2.0 BUN 40 today UTI. UA shows pyuria and bacteria Plan Echo Doppler Dr. Lerner to see for sleep study evaluation Urine culture pending IV Lasix Labs in a.m. Exam (Progress Note) - Constitutional Vitals: Period Temp Pulse Resp BP Sys/[place] Pulse Ox Last 24 Hr 99.0 F-100.9 F 82-98 14-28 127-218/68-133 98-100 General appearance: no acute distress, morbidly obese - Neck Neck exam: Absent: tenderness - Respiratory Respiratory exam: Present: chest wall tenderness (from cough), rhonchi, other ( oxygen in use). Absent: accessory muscle use - Cardiovascular Cardiovascular exam: Present: regular rate and rhythm - GI/Abdominal GI/Abdominal exam: Present: normal bowel sounds, soft. Absent: distended, tenderness - Extremities Exam Extremities exam: Present: edema (2+-3+ to ble), other (good pulses to all extremities) - Neurological Exam Neurological exam: Present: alert, oriented X3 - Psychiatric Psychiatric exam: Present: normal mood - Skin Skin exam: Present: warm, dry Result/EKG - Labs CBC & BMP: 06/01/16 04:19 06/01/16 04:19 Lab Results: I have reviewed the past 24 hour labs Labs: Laboratory Results - last 24 hr 05/31/16 05/31/16 05/31/16 17:44 18:22 18:22 WBC RBC Hgb Hct MCV MCH MCHC RDW Plt Count MPV Neut % (Auto) Lymph % (Auto) Bibb % (Auto) Eos % (Auto) Baso % (Auto) Neut # (Auto) Lymph # (Auto) Bibb # (Auto) Eos # (Auto) Baso # (Auto) Immature Gran % Nucleated RBC % Immature Gran # Nucleated RBCs # Sodium Potassium Chloride Carbon Dioxide Anion Gap BUN Creatinine GFR Calculation BUN/Creatinine Ratio Glucose POC Glucose 217 H Calculated Osmolality Calcium Magnesium Total Bilirubin AST ALT Alkaline Phosphatase Total Creatine Kinase 166 173 CK-MB (CK-2) 1.2 < 1.0 Troponin I 0.016 0.018 B-Natriuretic Peptide Total Protein Albumin Globulin Albumin/Globulin Ratio Triglycerides Cholesterol LDL Cholesterol VLDL Cholesterol HDL Cholesterol Heart Disease Risk Ratio Free T4 TSH 3rd Generation 05/31/16 05/31/16 06/01/16 21:23 21:39 04:19 WBC RBC Hgb Hct MCV MCH MCHC RDW Plt Count MPV Neut % (Auto) Lymph % (Auto) Bibb % (Auto) Eos % (Auto) Baso % (Auto) Neut # (Auto) Lymph # (Auto) Bibb # (Auto) Eos # (Auto) Baso # (Auto) Immature Gran % Nucleated RBC % Immature Gran # Nucleated RBCs # Sodium Potassium Chloride Carbon Dioxide Anion Gap BUN Creatinine GFR Calculation BUN/Creatinine Ratio Glucose POC Glucose 208 H Calculated Osmolality Calcium Magnesium Total Bilirubin AST ALT Alkaline Phosphatase Total Creatine Kinase 156 139 CK-MB (CK-2) < 1.0 < 1.0 Troponin I 0.016 0.017 B-Natriuretic Peptide Total Protein Albumin Globulin Albumin/Globulin Ratio Triglycerides Cholesterol LDL Cholesterol VLDL Cholesterol HDL Cholesterol Heart Disease Risk Ratio Free T4 TSH 3rd Generation 06/01/16 06/01/16 06/01/16 04:19 04:19 04:19 WBC 4.5 RBC 2.69 L Hgb 7.7 L Hct 25.6 L MCV 95.2 MCH 29 MCHC 30.1 L RDW 15.7 Plt Count 201 MPV 10.1 Neut % (Auto) 63.5 Lymph % (Auto) 22.0 Bibb % (Auto) 12.1 Eos % (Auto) 2.0 Baso % (Auto) 0.2 Neut # (Auto) 2.8 Lymph # (Auto) 1.0 L Bibb # (Auto) 0.5 Eos # (Auto) 0.1 Baso # (Auto) 0.0 Immature Gran % 0.2 Nucleated RBC % 0.0 Immature Gran # 0.01 Nucleated RBCs # 0.00 Sodium 143 Potassium 4.9 Chloride 108 H Carbon Dioxide 24 Anion Gap 15.9 H BUN 40 H Creatinine 2.00 H GFR Calculation 56 BUN/Creatinine Ratio 20.00 Glucose 128 H POC Glucose Calculated Osmolality 296.0 Calcium 7.9 L Magnesium 2.4 Total Bilirubin 0.40 AST 16 ALT 22 Alkaline Phosphatase 144 H Total Creatine Kinase CK-MB (CK-2) Troponin I B-Natriuretic Peptide 557 H Total Protein 6.0 L Albumin 2.8 L Globulin 3.2 Albumin/Globulin Ratio 0.8 L Triglycerides 74 Cholesterol 137 LDL Cholesterol 72.0 VLDL Cholesterol 14.8 HDL Cholesterol 57 Heart Disease Risk Ratio 2.40 Free T4 TSH 3rd Generation 06/01/16 04:19 WBC RBC Hgb Hct MCV MCH MCHC RDW Plt Count MPV Neut % (Auto) Lymph % (Auto) Bibb % (Auto) Eos % (Auto) Baso % (Auto) Neut # (Auto) Lymph # (Auto) Bibb # (Auto) Eos # (Auto) Baso # (Auto) Immature Gran % Nucleated RBC % Immature Gran # Nucleated RBCs # Sodium Potassium Chloride Carbon Dioxide Anion Gap BUN Creatinine GFR Calculation BUN/Creatinine Ratio Glucose POC Glucose Calculated Osmolality Calcium Magnesium Total Bilirubin AST ALT Alkaline Phosphatase Total Creatine Kinase CK-MB (CK-2) Troponin I B-Natriuretic Peptide Total Protein Albumin Globulin Albumin/Globulin Ratio Triglycerides Cholesterol LDL Cholesterol VLDL Cholesterol HDL Cholesterol Heart Disease Risk Ratio Free T4 0.93 TSH 3rd Generation 1.410 - EKG EKG results: interpreted by me EKG shows: sinus rhythm Quality Measures - VTE Contraindication to Pharmacological VTE Prophylaxis: Already on Theraputic Agent , No Prophylaxis Needed Specialty Discharge - Follow Up or Referrals - Discharge Medications No Action lamiVUDine TAB [Epivir Tab] 300 mg PO DAILY Efavirenz [Sustiva] 600 mg PO BEDTIME Carvedilol [Coreg] 25 mg PO BID W/MEALS Apixaban [Eliquis] 5 mg PO BID Allopurinol [Zyloprim] 100 mg PO DAILY HYDROcodone/ACETAMIN 10-325 [[place] 10-325] 1 tablet PO QID PRN PRN Reason: Pain Glimepiride [Amaryl] 8 mg PO BID W/MEALS Gabapentin Cap/Tab [Neurontin Cap/Tab] 300 mg PO TID Albuterol Sulfate [Ventolin HFA] 2 puff INH Q4H PRN #1 inhaler PRN Reason: Shortness Of Breath/Wheezing Insulin Glargine [Lantus] 20 unit SUBCUT BEDTIME Tenofovir Disoproxil Fumarate [Viread] 300 mg PO DAILY W/BREAKFAST Cyclobenzaprine [Flexeril] 10 mg PO TID PRN PRN Reason: Pain hydrALAZINE TAB [Apresoline Tab] 50 mg PO BID Isosorb Dinit/Hydralazine HCl [Bidil Tablet] 1 tablet PO TID Insulin Aspart Prot/Asp 70/30 [NovoLOG Mix 70/30] 50 unit SUBCUT QAM Insulin Aspart Prot/Asp 70/30 [NovoLOG Mix 70/30] 45 unit SUBCUT QPM Mateus Romero Thomas, MD, personally performed the services described in this documentation, ascribed by Jihan Bear RN in my presence, and it is both accurate and complete .
[2016-06-01] MEDS: INSULIN LISPRO 100 UNIT/ML SUBCUT SCH ×4 (11:38→22:59)
[2016-06-01] MEDS: ISOSORBIDE DINITRATE 20 MG TABLET PO SCH ×3 (12:27→22:59)
--- NOTE | 2016-06-01 13:51 | Sleep Medicine Consult ---
Assessment and Plan (1) Sleep apnea Status: Chronic Assessment and plan: I certainly agree with Dr. Ignacio that this patient needs sleep evaluation. Given her difficulty getting to and from, we will try to do HST evaluation while hospitalized. This may not be able to be done till next week if she is still hospitalized. If not, we then will proceed with outpatient polysomnography. With her pulmonary hypertension, congestive heart failure, and diabetes, sleep evaluation is certainly indicated. Current Visit: No Qualifiers: Sleep apnea type: obstructive Qualified Code(s): G47.33 - Obstructive sleep apnea (adult) (pediatric) (2) Diabetes mellitus Status: Chronic Assessment and plan: The prevalence rate for obstructive sleep apnea in patients with type 2 diabetes can be as high as 86%. Those patients with moderate to severe obstructive sleep apnea are at a greater risk for diabetic nephropathy and neuropathy. Compliance with CPAP therapy for these patients can lead to improvement in glycemic control and improvement in insulin sensitivity. Current Visit: No Qualifiers: Diabetes mellitus type: type 2 Diabetes mellitus complication status: with kidney complications Diabetes mellitus complication detail: with chronic kidney disease Diabetes mellitus rodent exterminator insulin use: with rodent exterminator use Chronic kidney disease stage: stage 3 (moderate) Qualified Code(s): E11.22 - Type 2 diabetes mellitus with diabetic chronic kidney disease; N18.3 - Chronic kidney disease, stage 3 (moderate); Z79.4 - rodent exterminator (current) use of insulin (3) Congestive heart failure Status: Acute Assessment and plan: Diagnosing and treating patients with obstructive sleep apnea who have congestive heart failure can certainly benefit management of the latter. CPAP is been shown in 3 different studies to improved ejection fraction in those with systolic dysfunction. Is also been shown to decrease the 30 day readmission rate when patients with admissions for CHF who were subsequently diagnosed with sleep apnea while hospitalized, were discharged on CPAP. Those who are compliant with CPAP therapy after discharge, had a readmission rate at 30 days of 0%. Current Visit: No History of Present Illness Chief complaint: sleep apnea History of present illness: Ms. Jalloh is a 50 year old female admitted with volume overload and congestive heart failure. She has been found to have a congestive cardiomyopathy with an ejection fraction of 40% and had evidence of pulmonary hypertension with right ventricular enlargement and a PA pressure 45. She does have a history of snoring and will awaken from sleep short of breath. She is grandly obese and spends most of her day and night in bed. Her sleep schedule is erratic and interrupted by patterns of sleeping and awake state. She does have issues with restlessness of her legs and discomfort of her legs that disturb her sleep as well. She has never been told that she stops breathing during her sleep. She does have significant past medical history of HIV positivity, diabetes mellitus , and hypertension. Home Medications Medication Instructions Recorded Confirmed Type Allopurinol [Zyloprim] 100 mg PO DAILY 01/03/15 05/31/16 History Apixaban [Eliquis] 5 mg PO BID 01/03/15 05/31/16 History Carvedilol [Coreg] 25 mg PO BID W/MEALS 01/03/15 05/31/16 History Efavirenz [Sustiva] 600 mg PO BEDTIME 01/03/15 05/31/16 History Gabapentin Cap/Tab [Neurontin 300 mg PO TID 01/03/15 05/31/16 History Cap/Tab] Glimepiride [Amaryl] 8 mg PO BID W/MEALS 01/03/15 05/31/16 History HYDROcodone/ACETAMIN 10-325 [[place] 1 tablet PO QID PRN 01/03/15 05/31/16 History 10-325] lamiVUDine TAB [Epivir Tab] 300 mg PO DAILY 01/03/15 05/31/16 History Albuterol Sulfate [Ventolin HFA] 2 puff INH Q4H PRN #1 inhaler 01/06/15 Rx Insulin Glargine [Lantus] 20 unit SUBCUT BEDTIME 03/13/15 05/31/16 History Cyclobenzaprine [Flexeril] 10 mg PO TID PRN 04/27/15 05/31/16 History Tenofovir Disoproxil Fumarate 300 mg PO DAILY W/BREAKFAST 04/27/15 05/31/16 History [Viread] Insulin Aspart Prot/Asp 70/30 45 unit SUBCUT QPM 05/31/16 05/31/16 History [NovoLOG Mix 70/30] Insulin Aspart Prot/Asp 70/30 50 unit SUBCUT QAM 05/31/16 05/31/16 History [NovoLOG Mix 70/30] Isosorb Dinit/Hydralazine HCl 1 tablet PO TID 05/31/16 05/31/16 History [Bidil Tablet] hydrALAZINE TAB [Apresoline Tab] 50 mg PO BID 05/31/16 05/31/16 History Allergies Allergy/AdvReac Type Severity Reaction Status Date / Time daptomycin Allergy RASH Verified 03/14/16 22:32 Review of systems: Notable for extremity swelling. She does occasionally awaken with headaches in the morning. Exam (Pulmonay) H&P - Constitutional Vitals: Period Temp Pulse Resp BP Sys/[place] Pulse Ox Last 24 Hr 98.9 F-100.9 F 82-98 14-28 127-218/68-133 96-100 Exam: She is alert and responsive in no acute distress. Pupils equal round reactive to light and accommodation. Extraocular movements intact. Oropharynx with class III Mallampati exam. Neck is supple without adenopathy or thyromegaly. Significant clavicular adenopathy is noted. Chest was symmetrical breath sounds without focal wheezes rhonchi or rales. Cardiac exam reveals a regular rhythm without murmur or gallop. Abdomen obese nontender without palpable hepatosplenomegaly or mass. Extremities are without clubbing cyanosis or edema. Neurologically, she is grossly intact. She moves all extremities with good strength. Medical,Surgical,& Family Hx - Medical History Cardio: History of: Congenital Heart Disease, CHF, Hypertension No history of: Pacemaker, PVD, Valvular Heart Disease, Cardiovascular Problems Psychological: History of: Depression No history of: Anxiety Disorders, ADHD, Behavior Problems, Bipolar Disorder, Previous Suicide Attempt, Psychiatric/Substance Abuse Tx, Schizophrenia, Violent Behavior, Psychiatric Problems Neurology: History of: Peripheral Neuropathy No history of: Brain Aneurysm, Cerebral Hemorrhage, Cerebrovascular Accident , Cerebral Palsy, Dementia, Migraine, Multiple Sclerosis, Parkinson's Disease, Seizures, TIA, Vertigo, Neurologocal Cancer Endocrine: History of: Diabetes Mellitus (IDDM), Diabetes Mellitus (NIDDM), Dyslipidemia No history of: Thyroid Disorder, Endocrine Cancer, Endocrine Problems Rheumatology: History of;: Rheumatoid Arthritis No history of;: Psoriasis, Sjogrens, Systemic Lupus Erythematosus Respiratory: History of: Bronchitis, COPD, Obstructive Sleep Apnea, Pulmonary Embolism, Pneumonia, Respiratory Problems No history of: Intubation, Lung Cancer Renal: History of: Renal Failure No history of: Renal (Kidney) Cancer, Dialysis, Renal Problems Genitourinary: History of: Bladder Problem No history of: Kidney Stones, Recurring Urinary Tract Infections, Genitourinary Cancer, Problems Gastrointestinal: History of: GERD No history of: Crohn's Disease, Diverticulitis/ Diverticulosis, Esophageal Varices, Gastrointestinal Bleed, Liver Problems, Pancreatitis, Polyps, Gastrointestinal Cancer, GI Problems Musculoskeletal: History of: Back/Neck Problems, Osteoporosis No history of: Amputation Hematology: No history of: Anemia, Blood Transfusion Reaction (blood transfusions but no reactions), Bleeding Problems, Clotting Problems, Sickle Cell Disease, Hematologic Cancer, Blood Disorders Reproductive: History of: Sexually Transmitted Disorders (HIV Pos.) Other: No history of: Anesthesia Reactions, Anaphylaxis, Cancer, Eczema, HIV, Malignant Hyperthermia, MRSA, Vancomycin-Resistant Enterococci, Skin Problems, Miscellaneous Medical Problems - Surgical History Cardiac Surgeries: Patient Denies: Femoral-Popliteal Bypass Graft, Cardiac Catheterization, Cardiac Surgery, Carotid Endarterectomy, Internal Defibrillator, Vascular Access Devices Thoracic Surgeries: Patient denies;: Kidney (Renal Surgery), Lithotripsy, Nephrectomy, Organ Transplant, Lobectomy Neurologic Surgeries: Patient denies: Brain Aneurysm, Cerebral Hemorrhage, Neurologic Surgery HEENT Surgeries: Patient denies: Carotid Endarterectomy, Thyroid Surgery Abdominal Surgeries: Surgical HX of: Abdominal Surgery Patient denies: Appendectomy, Cholecystectomy, Colonoscopy, Gastric Bypass Surgery, EGD, Hernia Repair, Splenectomy Reproductive Surgeries: Surgical HX of;: Breast Surgery (multiple abcesses), Section Patient denies;: Cystoscopy, Dilation and Curettage, Genitourinary Surgery, Gynecologic Surgery, Hysterectomy, Tubal Ligation Orthopedic Surgeries: Patient denies;: Implanted Devices, Orthopedic Surgery, Spinal Surgery, Total Hip Replacement, Total Knee Replacement - Family History Family History: Reports;: Family Diabetes (MOTHER), Family Hypertension Denies;: Family Anesthesia Reaction, Family Psychiatric Problems, Family Stroke - Social History Smoking Status: Never smoker Frequency of Alcohol Use: None Type of Drug Use: None Results - Labs CBC & BMP: 06/01/16 04:19 06/01/16 04:19 Lab Results: I have reviewed the past 24 hour labs Quality Measures - VTE Contraindication to Pharmacological VTE Prophylaxis: Already on Theraputic Agent , No Prophylaxis Needed Specialty Discharge - Follow Up or Referrals - Discharge Medications No Action lamiVUDine TAB [Epivir Tab] 300 mg PO DAILY Efavirenz [Sustiva] 600 mg PO BEDTIME Carvedilol [Coreg] 25 mg PO BID W/MEALS Apixaban [Eliquis] 5 mg PO BID Allopurinol [Zyloprim] 100 mg PO DAILY HYDROcodone/ACETAMIN 10-325 [[place] 10-325] 1 tablet PO QID PRN PRN Reason: Pain Glimepiride [Amaryl] 8 mg PO BID W/MEALS Gabapentin Cap/Tab [Neurontin Cap/Tab] 300 mg PO TID Albuterol Sulfate [Ventolin HFA] 2 puff INH Q4H PRN #1 inhaler PRN Reason: Shortness Of Breath/Wheezing Insulin Glargine [Lantus] 20 unit SUBCUT BEDTIME Tenofovir Disoproxil Fumarate [Viread] 300 mg PO DAILY W/BREAKFAST Cyclobenzaprine [Flexeril] 10 mg PO TID PRN PRN Reason: Pain hydrALAZINE TAB [Apresoline Tab] 50 mg PO BID Isosorb Dinit/Hydralazine HCl [Bidil Tablet] 1 tablet PO TID Insulin Aspart Prot/Asp 70/30 [NovoLOG Mix 70/30] 50 unit SUBCUT QAM Insulin Aspart Prot/Asp 70/30 [NovoLOG Mix 70/30] 45 unit SUBCUT QPM
--- NOTE | 2016-06-01 14:09 | ECHO Report ---
Venita Jalloh Exam Date: 06/01/2016 08:08 Referring Physician: Technologist: Alla Mcgowan RDCS Age: 50 Ht (in): Wt (lb): Gender: F Exam Location: [facility] Echo Indications: Dyspnea, unspecified, Cardiomyopathy, unspecified, HIV, Morbid (severe) obesity due to excess calories, IDDM, Heart failure, unspecified, Chronic kidney disease, stage 3 (moderate), Fluid overload BP: / HR: Rhythm: Technical Quality: IMPRESSIONS Technically difficult study. EF 35 %.Global hypokinesis. Grade I/IV diastolic dysfunction (abnormal relaxation filling pattern), normal to mildly elevated filling pressures. Mildly increased right ventricular size. Moderately increased right atrial size. Moderately increased left atrial size. Mildly thickened mitral valve. Trace mitral valve regurgitation. Trileaflet aortic valve. No aortic valve regurgitation. Severe tricuspid valve regurgitation. [id number]. Normal pericardium without effusion. Normal ascending aorta dimension. MEASUREMENTS (Male / Female) Normal Values 2D ECHO LV Diastolic Diameter PLAX 6.4 cm 4.2 - 5.9 / 3.9 - 5.3 cm LV Systolic Diameter PLAX 5.4 cm LV Fractional Shortening PLAX 15.4 % IVS Diastolic Thickness 1.5 cm 0.6 - 1.0 / 0.6 - 0.9 cm LVPW Diastolic Thickness 1.6 cm 0.6 - 1.0 / 0.6 - 0.9 cm RV Internal Dim ED PLAX 4.6 cm Aortic Root Diameter 3.7 cm LA Systolic Diameter LX 4.8 cm 3.0 - 4.0 / 2.7 - 3.8 cm DOPPLER TR Peak Velocity 379.0 cm/s TR Peak Gradient 57.5 mmHg FINDINGS Left Ventricle EF 35 %. Grade I/IV diastolic dysfunction (abnormal relaxation filling pattern), normal to mildly elevated filling pressures. Right Ventricle Mildly increased right ventricular size. Right Atrium Moderately increased right atrial size. Left Atrium Moderately increased left atrial size. Mitral Valve Mildly thickened mitral valve. Trace mitral valve regurgitation. Aortic Valve Trileaflet aortic valve. No aortic valve regurgitation. Tricuspid Valve Morphologically normal tricuspid valve. Severe tricuspid valve regurgitation. [id number]. Pulmonic Valve Pulmonic valve not well visualized. Pericardium Normal pericardium without effusion. Aorta Normal ascending aorta dimension. Eugenio Mateus (Electronically Signed) Final Date: 01 June 2016 14:08
[2016-06-01] MEDS: INSULIN GLARGINE 100 UNIT/ML SUBCUT SCH (22:59)
[2016-06-01] MEDS: cefTRIAXone 1,000 MG in SODIUM CHLORIDE 0.9% 100 ML IV SCH (23:00)
[2016-06-02 06:52] LABS: Calcium 7.5 MG/DL (8.5-10.1); Osmolality,Calculated 291.3 MOS/KG (273-304); Potassium 4.9 MMOL/L (3.5-5.1)
[2016-06-02] MEDS: GABAPENTIN 300 MG CAPSULE PO SCH ×3 (08:56→20:48)
[2016-06-02] MEDS: FUROSEMIDE 40 MG/4 ML VIAL IV SCH ×2 (08:56→18:33)
[2016-06-02] MEDS: AZITHROMYCIN 250 MG TABLET PO SCH (08:57)
[2016-06-02] MEDS: SPIRONOLACTONE 50 MG TABLET PO SCH ×2 (08:57→20:48)
[2016-06-02] MEDS: GLIMEPIRIDE 4 MG TABLET PO SCH ×2 (08:57→18:35)
[2016-06-02] MEDS: ALLOPURINOL 100 MG TABLET PO SCH (08:58)
[2016-06-02] MEDS: CARVEDILOL 25 MG TABLET PO SCH ×2 (08:58→18:34)
[2016-06-02] MEDS: APIXABAN 5 MG TABLET PO SCH ×2 (08:58→20:48)
[2016-06-02] MEDS: ISOSORBIDE DINITRATE 20 MG TABLET PO SCH ×3 (08:58→20:51)
[2016-06-02] MEDS: INSULIN LISPRO 100 UNIT/ML SUBCUT SCH (09:03)
[2016-06-02] MEDS: CYCLOBENZAPRINE 10 MG TABLET PO PRN (09:07)
[2016-06-02] MEDS: PANTOPRAZOLE 40 MG TABLET PO SCH (09:08)
--- NOTE | 2016-06-02 10:04 | Cardiology Progress Note ---
Cardiology - PN: Subj Interval history: Cardiology note O2 sat 97% on 2 L Blood pressure 130/80 No chest pain decreased breath sounds throughout Distant heart tones regular rhythm Morbidly obese Lab data today Sodium 141 potassium 4.9 chloride 107 CO2 25 BUN 46 creatinine 2.2 glucose 89 Echo technically difficult study with moderate global hypokinesis EF 35%, mildly dilated left atrium, dilated right ventricle and right atrium consistent with cor pulmonale, and severe TR PA pressure 60-65 with no effusion and grade 1 diastolic dysfunction Impression Cor pulmonale, severe TR due to untreated obstructive sleep apnea Cardiomyopathy EF 35% global hypokinesis Chronic hypertension Diabetes Mild chronic renal failure 470 pounds Plan Supplemental O2 Lasix BMP in a.m. Appreciate Dr. Lerner's help Exam (Progress Note) - Constitutional Vitals: Period Temp Pulse Resp BP Sys/[place] Pulse Ox Last 24 Hr 97.8 F-98.9 F 73-86 18-20 124-155/57-88 97-97 Result/EKG - Labs CBC & BMP: 06/01/16 04:19 06/02/16 06:00 Labs: Laboratory Results - last 24 hr 06/01/16 06/01/16 06/01/16 10:45 15:01 21:29 Sodium Potassium Chloride Carbon Dioxide Anion Gap BUN Creatinine GFR Calculation BUN/Creatinine Ratio Glucose POC Glucose 178 H 196 H 132 H Calculated Osmolality Calcium 06/02/16 06/02/16 06:00 06:57 Sodium 141 Potassium 4.9 Chloride 107 Carbon Dioxide 25 Anion Gap 13.9 BUN 46 H Creatinine 2.20 H GFR Calculation 50 BUN/Creatinine Ratio 20.00 Glucose 89 POC Glucose 89 Calculated Osmolality 291.3 Calcium 7.5 L Quality Measures - VTE Contraindication to Pharmacological VTE Prophylaxis: Already on Theraputic Agent , No Prophylaxis Needed Specialty Discharge - Follow Up or Referrals - Discharge Medications No Action lamiVUDine TAB [Epivir Tab] 300 mg PO DAILY Efavirenz [Sustiva] 600 mg PO BEDTIME Carvedilol [Coreg] 25 mg PO BID W/MEALS Apixaban [Eliquis] 5 mg PO BID Allopurinol [Zyloprim] 100 mg PO DAILY HYDROcodone/ACETAMIN 10-325 [[place] 10-325] 1 tablet PO QID PRN PRN Reason: Pain Glimepiride [Amaryl] 8 mg PO BID W/MEALS Gabapentin Cap/Tab [Neurontin Cap/Tab] 300 mg PO TID Albuterol Sulfate [Ventolin HFA] 2 puff INH Q4H PRN #1 inhaler PRN Reason: Shortness Of Breath/Wheezing Insulin Glargine [Lantus] 20 unit SUBCUT BEDTIME Tenofovir Disoproxil Fumarate [Viread] 300 mg PO DAILY W/BREAKFAST Cyclobenzaprine [Flexeril] 10 mg PO TID PRN PRN Reason: Pain hydrALAZINE TAB [Apresoline Tab] 50 mg PO BID Isosorb Dinit/Hydralazine HCl [Bidil Tablet] 1 tablet PO TID Insulin Aspart Prot/Asp 70/30 [NovoLOG Mix 70/30] 50 unit SUBCUT QAM Insulin Aspart Prot/Asp 70/30 [NovoLOG Mix 70/30] 45 unit SUBCUT QPM
--- NOTE | 2016-06-02 10:40 | XRay Report ---
History: Shortness of breath Date: 06/02/2016 at 6:31 AM Study: Chest x-ray AP portable Comparison exam: Chest x-ray 06/01/2016 There is continued cardiomegaly. The mediastinal contours are unchanged. The pulmonary vasculature is upper normal. There is some mild hazy density over the lung bases, more on the right, which could represent mild pulmonary edema, grossly unchanged. There is no increasing pleural effusion. The osseous structures are similar. Impression: No gross change from the previous day. PROCEDURE INTERPRETED AT [facility] DEPARTMENT OF RADIOLOGY Final Report Signed by: Dr. Alyson Watts
--- NOTE | 2016-06-02 10:53 | Hospitalist Progress Note ---
Assessment and Plan (1) Acute exacerbation of congestive heart failure Status: Acute Assessment and plan: Continue lasix and aldactone. cardiology consult reviewed EF 35% Current Visit: Yes Qualifiers: Congestive heart failure type: combined Qualified Code(s): I50.43 - Acute on chronic combined systolic (congestive) and diastolic (congestive) heart failure (2) Dyspnea Status: Acute Assessment and plan: Improving with diuresis with Lasix. Current Visit: Yes Qualifiers: Dyspnea type: shortness of breath Qualified Code(s): R06.02 - Shortness of breath (3) HIV (human immunodeficiency virus infection) Status: Chronic Assessment and plan: Continue home medications Current Visit: No (4) Morbid obesity Status: Chronic Current Visit: No Qualifiers: Obesity type: with alveolar hypoventilation Qualified Code(s): E66.2 - Morbid (severe) obesity with alveolar hypoventilation (5) Diabetes mellitus Status: Chronic Current Visit: No Qualifiers: Diabetes mellitus type: type 2 Diabetes mellitus complication status: with kidney complications Diabetes mellitus complication detail: with chronic kidney disease Diabetes mellitus buttermaker insulin use: with buttermaker use Chronic kidney disease stage: stage 3 (moderate) Qualified Code(s): E11.22 - Type 2 diabetes mellitus with diabetic chronic kidney disease; N18.3 - Chronic kidney disease, stage 3 (moderate); Z79.4 - MCFP (current) use of insulin (6) CKD (chronic kidney disease) stage 3, GFR 30-59 ml/min Status: Chronic Current Visit: Yes (7) Abscess of breast, right Status: Acute Assessment and plan: Consider surgery consult. Add antibiotics Current Visit: Yes (8) Cor pulmonale, chronic Status: Chronic Current Visit: Yes Hospitalist: Subjective Interval history: Patient seen and examined. No acute events overnight. She is upset today because her son who was also hospitalized has been having complications and had to be moved to the intensive care unit. Overall her urine output has improved. Her breathing is less labored. She has not been wearing the BiPAP machine. She is accompanied by 2 sisters in the room at the time of my evaluation. All of their questions were answered. She is showing signs of improvement. She was seen in consultation by Dr. Lerner for sleep apnea. Exam - Constitutional Vitals: Period Temp Pulse Resp BP Sys/[place] Pulse Ox Last 24 Hr 97.8 F-99.1 F 73-86 18-20 124-155/57-88 97-98 General appearance: mild distress, morbidly obese - Head Head exam: Present: normal inspection, normocephalic - Respiratory Respiratory exam: Present: decreased breath sounds, rales - Cardiovascular Cardiovascular exam: Present: regular rate and rhythm - GI/Abdominal GI/Abdominal exam: Present: normal bowel sounds, soft - Extremities Exam Extremities exam: Present: edema - Neurological Exam Neurological exam: Present: alert, oriented X3 - Psychiatric Psychiatric exam: Present: anxious, depressed - Skin Skin exam: Present: normal color, warm Results - Labs CBC & BMP: 06/01/16 04:19 06/02/16 06:00 Lab Results: I have reviewed the past 24 hour labs Quality Measures - VTE Contraindication to Pharmacological VTE Prophylaxis: Already on Theraputic Agent , No Prophylaxis Needed Specialty Discharge - Follow Up or Referrals - Discharge Medications No Action lamiVUDine TAB [Epivir Tab] 300 mg PO DAILY Efavirenz [Sustiva] 600 mg PO BEDTIME Carvedilol [Coreg] 25 mg PO BID W/MEALS Apixaban [Eliquis] 5 mg PO BID Allopurinol [Zyloprim] 100 mg PO DAILY HYDROcodone/ACETAMIN 10-325 [[place] 10-325] 1 tablet PO QID PRN PRN Reason: Pain Glimepiride [Amaryl] 8 mg PO BID W/MEALS Gabapentin Cap/Tab [Neurontin Cap/Tab] 300 mg PO TID Albuterol Sulfate [Ventolin HFA] 2 puff INH Q4H PRN #1 inhaler PRN Reason: Shortness Of Breath/Wheezing Insulin Glargine [Lantus] 20 unit SUBCUT BEDTIME Tenofovir Disoproxil Fumarate [Viread] 300 mg PO DAILY W/BREAKFAST Cyclobenzaprine [Flexeril] 10 mg PO TID PRN PRN Reason: Pain hydrALAZINE TAB [Apresoline Tab] 50 mg PO BID Isosorb Dinit/Hydralazine HCl [Bidil Tablet] 1 tablet PO TID Insulin Aspart Prot/Asp 70/30 [NovoLOG Mix 70/30] 50 unit SUBCUT QAM Insulin Aspart Prot/Asp 70/30 [NovoLOG Mix 70/30] 45 unit SUBCUT QPM
[2016-06-02] MEDS: INSULIN GLARGINE 100 UNIT/ML SUBCUT SCH (21:16)
[2016-06-02] MEDS: cefTRIAXone 1,000 MG in SODIUM CHLORIDE 0.9% 100 ML IV SCH (21:39)
[2016-06-03] MEDS: INSULIN LISPRO 100 UNIT/ML SUBCUT SCH ×7 (00:13→22:03)
[2016-06-03 06:53] LABS: Calcium 7.6 MG/DL (8.5-10.1); Osmolality,Calculated 301.8 MOS/KG (273-304); Potassium 5.2 MMOL/L (3.5-5.1)
--- NOTE | 2016-06-03 09:20 | Hospitalist Progress Note ---
Assessment and Plan (1) Acute exacerbation of congestive heart failure Status: Acute Assessment and plan: Continue lasix and aldactone. cardiology consult reviewed EF 35% reduced aldactone due to elevated potassium Current Visit: Yes Qualifiers: Congestive heart failure type: combined Qualified Code(s): I50.43 - Acute on chronic combined systolic (congestive) and diastolic (congestive) heart failure (2) Dyspnea Status: Acute Assessment and plan: Improving with diuresis with Lasix. Current Visit: Yes Qualifiers: Dyspnea type: shortness of breath Qualified Code(s): R06.02 - Shortness of breath (3) HIV (human immunodeficiency virus infection) Status: Chronic Assessment and plan: Continue home medications Current Visit: No (4) Morbid obesity Status: Chronic Current Visit: No Qualifiers: Obesity type: with alveolar hypoventilation Qualified Code(s): E66.2 - Morbid (severe) obesity with alveolar hypoventilation (5) Diabetes mellitus Status: Chronic Current Visit: No Qualifiers: Diabetes mellitus type: type 2 Diabetes mellitus complication status: with kidney complications Diabetes mellitus complication detail: with chronic kidney disease Diabetes mellitus intermodal dispatcher insulin use: with intermodal dispatcher use Chronic kidney disease stage: stage 3 (moderate) Qualified Code(s): E11.22 - Type 2 diabetes mellitus with diabetic chronic kidney disease; N18.3 - Chronic kidney disease, stage 3 (moderate); Z79.4 - longterm (current) use of insulin (6) CKD (chronic kidney disease) stage 3, GFR 30-59 ml/min Status: Chronic Current Visit: Yes (7) Abscess of breast, right Status: Acute Assessment and plan: Consider surgery consult. Add antibiotics Current Visit: Yes (8) Cor pulmonale, chronic Status: Chronic Current Visit: Yes (9) UTI (urinary tract infection) Status: Acute Assessment and plan: klebsiella in urine. sensitive to levaquin Current Visit: Yes Qualifiers: Urinary tract infection type: acute cystitis Hematuria presence: without hematuria Qualified Code(s): N30.00 - Acute cystitis without hematuria Hospitalist: Subjective Interval history: Seen and examined. Breathing better today. No acute events overnight. C/o headache. No N/V. No chest pain. Still has cough. Urine culture with klebsiella. Exam - Constitutional Vitals: Period Temp Pulse Resp BP Sys/[place] Pulse Ox Last 24 Hr 98 F-98.9 F 74-79 20-20 142-161/76-91 98-99 General appearance: no acute distress, morbidly obese - Head Head exam: Present: normal inspection, normocephalic - Respiratory Respiratory exam: Present: clear to auscultation bilaterally - Cardiovascular Cardiovascular exam: Present: regular rate and rhythm - GI/Abdominal GI/Abdominal exam: Present: normal bowel sounds, soft - Extremities Exam Extremities exam: Present: edema - Neurological Exam Neurological exam: Present: alert, oriented X3 - Psychiatric Psychiatric exam: Present: normal affect, normal mood - Skin Skin exam: Present: normal color, warm, dry Results - Labs CBC & BMP: 06/01/16 04:19 06/03/16 04:55 Lab Results: I have reviewed the past 24 hour labs - Diagnostic Findings Procedure: Chest x-ray: image reviewed by me, report reviewed by me Quality Measures - VTE Contraindication to Pharmacological VTE Prophylaxis: Already on Theraputic Agent , No Prophylaxis Needed Specialty Discharge - Follow Up or Referrals - Discharge Medications No Action lamiVUDine TAB [Epivir Tab] 300 mg PO DAILY Efavirenz [Sustiva] 600 mg PO BEDTIME Carvedilol [Coreg] 25 mg PO BID W/MEALS Apixaban [Eliquis] 5 mg PO BID Allopurinol [Zyloprim] 100 mg PO DAILY HYDROcodone/ACETAMIN 10-325 [[place] 10-325] 1 tablet PO QID PRN PRN Reason: Pain Glimepiride [Amaryl] 8 mg PO BID W/MEALS Gabapentin Cap/Tab [Neurontin Cap/Tab] 300 mg PO TID Albuterol Sulfate [Ventolin HFA] 2 puff INH Q4H PRN #1 inhaler PRN Reason: Shortness Of Breath/Wheezing Insulin Glargine [Lantus] 20 unit SUBCUT BEDTIME Tenofovir Disoproxil Fumarate [Viread] 300 mg PO DAILY W/BREAKFAST Cyclobenzaprine [Flexeril] 10 mg PO TID PRN PRN Reason: Pain hydrALAZINE TAB [Apresoline Tab] 50 mg PO BID Isosorb Dinit/Hydralazine HCl [Bidil Tablet] 1 tablet PO TID Insulin Aspart Prot/Asp 70/30 [NovoLOG Mix 70/30] 50 unit SUBCUT QAM Insulin Aspart Prot/Asp 70/30 [NovoLOG Mix 70/30] 45 unit SUBCUT QPM
[2016-06-03] MEDS: CARVEDILOL 25 MG TABLET PO SCH ×2 (09:21→17:10)
[2016-06-03] MEDS: FUROSEMIDE 40 MG/4 ML VIAL IV SCH ×2 (09:21→15:54)
[2016-06-03] MEDS: AZITHROMYCIN 250 MG TABLET PO SCH (09:21)
[2016-06-03] MEDS: ISOSORBIDE DINITRATE 20 MG TABLET PO SCH ×3 (09:21→22:04)
[2016-06-03] MEDS: GLIMEPIRIDE 4 MG TABLET PO SCH ×2 (09:22→17:10)
[2016-06-03] MEDS: ALLOPURINOL 100 MG TABLET PO SCH (09:22)
[2016-06-03] MEDS: GABAPENTIN 300 MG CAPSULE PO SCH ×3 (09:22→22:04)
[2016-06-03] MEDS: PANTOPRAZOLE 40 MG TABLET PO SCH (09:22)
[2016-06-03] MEDS: APIXABAN 5 MG TABLET PO SCH ×2 (09:22→22:03)
[2016-06-03] MEDS: SPIRONOLACTONE 50 MG TABLET PO SCH (09:23)
--- NOTE | 2016-06-03 09:56 | Cardiology Progress Note ---
Cardiology - PN: Subj Interval history: Cardiology note 50-year-old woman admitted with increased shortness of breath and weakness and heart failure. Patient is morbidly obese at 470 pounds. O2 sat 99 on 2 L. Blood pressure 146/80. Decreased breath sounds few rhonchi in both bases Distant heart tones no murmur or gallop Morbidly obese abdomen Chronic edema Lab data today Sodium 144 potassium 5.2 chloride 109 CO2 27 BUN 50 creatinine 2.20 Glucose 150 Impression Cor pulmonale with severe TR due to untreated obstructive sleep apnea Ejection fraction 35% with dilated right-sided chambers grade 1 diastolic dysfunction by recent echo Cardiomyopathy Chronic hypertension Diabetes Mild chronic renal failure Morbid obesity, 4 and 70 pounds Plan Outpatient sleep study to be scheduled by Dr. Lerner Increase hydralazine 100 mg 3 times daily Weight reduction imperative 80 mg IV Lasix twice daily BMP in a.m. Exam (Progress Note) - Constitutional Vitals: Period Temp Pulse Resp BP Sys/[place] Pulse Ox Last 24 Hr 98 F-98.9 F 74-79 20-20 142-161/76-91 98-99 Result/EKG - Labs CBC & BMP: 06/01/16 04:19 06/03/16 04:55 Labs: Laboratory Results - last 24 hr 06/02/16 06/03/16 10:53 04:55 Sodium 144 Potassium 5.2 H Chloride 109 H Carbon Dioxide 27 Anion Gap 13.2 BUN 50 H Creatinine 2.20 H GFR Calculation 50 BUN/Creatinine Ratio 22.00 H Glucose 150 H POC Glucose 120 H Calculated Osmolality 301.8 Calcium 7.6 L Quality Measures - VTE Contraindication to Pharmacological VTE Prophylaxis: Already on Theraputic Agent , No Prophylaxis Needed Specialty Discharge - Follow Up or Referrals - Discharge Medications No Action lamiVUDine TAB [Epivir Tab] 300 mg PO DAILY Efavirenz [Sustiva] 600 mg PO BEDTIME Carvedilol [Coreg] 25 mg PO BID W/MEALS Apixaban [Eliquis] 5 mg PO BID Allopurinol [Zyloprim] 100 mg PO DAILY HYDROcodone/ACETAMIN 10-325 [[place] 10-325] 1 tablet PO QID PRN PRN Reason: Pain Glimepiride [Amaryl] 8 mg PO BID W/MEALS Gabapentin Cap/Tab [Neurontin Cap/Tab] 300 mg PO TID Albuterol Sulfate [Ventolin HFA] 2 puff INH Q4H PRN #1 inhaler PRN Reason: Shortness Of Breath/Wheezing Insulin Glargine [Lantus] 20 unit SUBCUT BEDTIME Tenofovir Disoproxil Fumarate [Viread] 300 mg PO DAILY W/BREAKFAST Cyclobenzaprine [Flexeril] 10 mg PO TID PRN PRN Reason: Pain hydrALAZINE TAB [Apresoline Tab] 50 mg PO BID Isosorb Dinit/Hydralazine HCl [Bidil Tablet] 1 tablet PO TID Insulin Aspart Prot/Asp 70/30 [NovoLOG Mix 70/30] 50 unit SUBCUT QAM Insulin Aspart Prot/Asp 70/30 [NovoLOG Mix 70/30] 45 unit SUBCUT QPM
[2016-06-03] MEDS: LEVOFLOXACIN 750 MG TABLET PO SCH (11:47)
[2016-06-03] MEDS: SPIRONOLACTONE 25 MG TABLET PO SCH (22:02)
[2016-06-03] MEDS: INSULIN GLARGINE 100 UNIT/ML SUBCUT SCH (22:04)
[2016-06-04 05:54] LABS: Basophils % 0.2 % (0.0-0.8); Eosinophils # 0.3 10*3/uL (0.0-0.87); Eosinophils % 5.9 % (0.00-10.9); Hematocrit 25.9 VOL% (35.7-47.0); Hemoglobin 7.8 GM/DL (12.0-16.0); Immature Granulocytes % 0.2 %; Immature Granulocytes Absolute 0.01 #; Lymphocytes # 1.8 10*3/uL (1.4-4.0); Lymphocytes % 33.8 % (21.3-54.2); Mean Corpuscular HGB Conc 30.1 GM/DL (32-36); Mean Corpuscular Hemoglobin 28 PG (27-34); Mean Corpuscular Volume 94.2 FL (87-102); Mean Platelet Volume 9.9 FL (9.6-12.0); Monocytes # 0.5 10*3/uL (0.11-0.8); Monocytes % 8.5 % (1.7-12.7); Neutrophils # 2.8 10*3/uL (1.4-7.4); Neutrophils % 51.4 % (38.7-73.9); Platelet Count 203 10*3/uL (130-400); Red Blood Count 2.75 10*6/uL (3.8-5.5); Red Cell Distribution Width 15.6 % (9.3-17.3); White Blood Count 5.4 10*3/uL (4.5-13.71)
[2016-06-04 06:21] LABS: Calcium 7.4 MG/DL (8.5-10.1); Osmolality,Calculated 299.8 MOS/KG (273-304); Potassium 5.1 MMOL/L (3.5-5.1)
[2016-06-04] MEDS: INSULIN LISPRO 100 UNIT/ML SUBCUT SCH ×4 (08:58→22:29)
[2016-06-04] MEDS: FUROSEMIDE 40 MG/4 ML VIAL IV SCH ×2 (09:00→16:30)
--- NOTE | 2016-06-04 09:00 | Cardiology Progress Note ---
IMarianela April RN, am scribing for, and in the presence of, Alex Rolle MD 08:59. Assessment and Plan (1) Acute on chronic combined systolic and diastolic CHF, NYHA class 3 Status: Acute Assessment and plan: Clinically she is improving. Continue current management. I'm going to add nifedipine extended release to try to improve her blood pressure. This may also help improve her pulmonary hypertension. Ultimately, she is going to need to lose weight and have treatment for sleep apnea. Current Visit: Yes (2) Acute exacerbation of congestive heart failure Status: Acute Current Visit: Yes Qualifiers: Congestive heart failure type: combined Qualified Code(s): I50.43 - Acute on chronic combined systolic (congestive) and diastolic (congestive) heart failure (3) CKD (chronic kidney disease) stage 3, GFR 30-59 ml/min Status: Chronic Current Visit: Yes (4) Diabetes mellitus Status: Chronic Current Visit: No Qualifiers: Diabetes mellitus type: type 2 Diabetes mellitus complication status: with kidney complications Diabetes mellitus complication detail: with chronic kidney disease Diabetes mellitus residential insulin use: with residential use Chronic kidney disease stage: stage 3 (moderate) Qualified Code(s): E11.22 - Type 2 diabetes mellitus with diabetic chronic kidney disease; N18.3 - Chronic kidney disease, stage 3 (moderate); Z79.4 - FPC (current) use of insulin (5) HIV (human immunodeficiency virus infection) Status: Chronic Current Visit: No (6) Morbid obesity Status: Chronic Current Visit: No Qualifiers: Obesity type: with alveolar hypoventilation Qualified Code(s): E66.2 - Morbid (severe) obesity with alveolar hypoventilation (7) Sleep apnea Status: Chronic Current Visit: No Qualifiers: Sleep apnea type: obstructive Qualified Code(s): G47.33 - Obstructive sleep apnea (adult) (pediatric) (8) Hypertensive heart disease Status: Acute Current Visit: Yes (9) Poorly-controlled hypertension Status: Acute Current Visit: Yes Cardiology - PN: Subj Interval history: Resting in bed in no acute distress, oxygen in use via NBP. Reports her breathing is improved today. Denies any chest pain or palpitations. She is on Lasix 80mg IV bid, her BUN and creatinine are stable at 48 and 2.1 and her potassium is 5.1. H&H is relatatively unchanged from 06/01, todays results 7.8 and 25.9. Currently she is in sinus rhythm with heart rates in the 70's. Her blood pressure is still running a little bit high. Her previous notes, labs, and reports were reviewed today. Current Medications Acetaminophen (Tylenol Tab) 325 mg PO Q4H PRN PRN Reason: fever, headache/body aches Last Admin: 05/31/16 15:58 Dose: 325 mg Acetaminophen/Hydrocodone Bitart ([place] 5-325) 1 tablet PO Q4H PRN PRN Reason: Pain Mild (1-3) Acetaminophen/Hydrocodone Bitart ([place] 10-325) 1 tablet PO QID PRN PRN Reason: Pain Last Admin: 06/04/16 05:55 Dose: 1 tablet Albuterol Sulfate (Proventil Neb) 2.5 mg RESP TX RT Q4H PRN PRN Reason: Shortness of Breath/Wheezing Allopurinol (Zyloprim) 100 mg PO DAILY [facility] Last Admin: 06/03/16 09:22 Dose: 100 mg Apixaban (Eliquis) 5 mg PO BID [facility] Last Admin: 06/03/16 22:03 Dose: Not Given Azithromycin (Zithromax Tab) 250 mg PO DAILY [facility] Last Admin: 06/03/16 09:21 Dose: 250 mg Carvedilol (Coreg) 25 mg PO BID W/MEALS [facility] Last Admin: 06/03/16 17:10 Dose: 25 mg Cyclobenzaprine HCl (Flexeril) 10 mg PO TID PRN PRN Reason: Pain Last Admin: 06/02/16 09:07 Dose: 10 mg Dextrose/Water (D50) 25 gm IV PRN PRN PRN Reason: Hypoglycemia with IV access Docusate Sodium (Colace Cap) 100 mg PO BID PRN PRN Reason: Constipation Furosemide (Lasix Inj) 80 mg IV BID DIURETIC [facility] Last Admin: 06/03/16 15:54 Dose: 80 mg Gabapentin (Neurontin Cap/Tab) 300 mg PO TID [facility] Last Admin: 06/03/16 22:04 Dose: 300 mg Glimepiride (Amaryl) 8 mg PO BID W/MEALS [facility] Last Admin: 06/03/16 17:10 Dose: 8 mg Glucagon () 1 mg IM PRN PRN PRN Reason: Hypoglycemia w/o IV access Hydralazine HCl (Apresoline Inj) 10 mg IV Q6H PRN PRN Reason: Hypertension Last Admin: 05/31/16 15:50 Dose: 10 mg Insulin Glargine (Lantus) 40 unit SUBCUT BEDTIME [facility] Last Admin: 06/03/16 22:04 Dose: 40 unit Insulin Human Lispro (Humalog) 0 unit SUBCUT ACHS HUMPHREY PRN Reason: Protocol Last Admin: 06/03/16 22:03 Dose: Not Given Isosorbide Dinitrate (Isordil) 20 mg PO TID [facility] Last Admin: 06/03/16 22:04 Dose: 20 mg Levofloxacin (Levaquin Tab) 750 mg PO DAILY [facility] Last Admin: 06/03/16 11:47 Dose: 750 mg Non-Formulary Medication (Lamivudine Tab [Epivir Tab]) 300 mg PO DAILY [facility] Non-Formulary Medication (Tenofovir Disoproxil Fumarate [Viread]) 300 mg PO DAILY W/BREAKFAST [facility] Non-Formulary Medication (Efavirenz [Sustiva]) 600 mg PO BEDTIME [facility] Ondansetron HCl (Zofran Inj) 4 mg IV Q4H PRN PRN Reason: Nausea Pantoprazole Sodium (Protonix Tab) 40 mg PO DAILY [facility] Last Admin: 06/03/16 09:22 Dose: 40 mg Spironolactone (Aldactone) 25 mg PO BID [facility] Last Admin: 06/03/16 22:02 Dose: 25 mg Exam (Progress Note) - Constitutional Vitals: Period Temp Pulse Resp BP Sys/[place] Pulse Ox Last 24 Hr 97.6 F-99.1 F 64-77 18-21 145-162/70-87 97-100 General appearance: no acute distress, morbidly obese - Head Head exam: Present: normal inspection - Neck Neck exam: Absent: tenderness - Respiratory Respiratory exam: Present: rales, other (oxygen in use) - Cardiovascular Cardiovascular exam: Present: regular rate and rhythm - GI/Abdominal GI/Abdominal exam: Present: normal bowel sounds. Absent: tenderness - Extremities Exam Extremities exam: Present: edema (2+ BLE) - Neurological Exam Neurological exam: Present: alert, oriented X3 - Psychiatric Psychiatric exam: Present: normal mood - Skin Skin exam: Present: other (dressing to left breast dry and intact) Result/EKG - Labs CBC & BMP: 06/04/16 05:42 06/04/16 05:42 Lab Results: I have reviewed the past 24 hour labs Labs: Laboratory Results - last 24 hr 06/02/16 06/02/16 06/03/16 15:12 20:32 06:57 WBC RBC Hgb Hct MCV MCH MCHC RDW Plt Count MPV Neut % (Auto) Lymph % (Auto) Foster % (Auto) Eos % (Auto) Baso % (Auto) Neut # (Auto) Lymph # (Auto) Foster # (Auto) Eos # (Auto) Baso # (Auto) Immature Gran % Nucleated RBC % Immature Gran # Nucleated RBCs # Sodium Potassium Chloride Carbon Dioxide Anion Gap BUN Creatinine GFR Calculation BUN/Creatinine Ratio Glucose POC Glucose 146 H 135 H 132 H Calculated Osmolality Calcium 06/03/16 06/03/16 06/03/16 11:25 14:41 18:56 WBC RBC Hgb Hct MCV MCH MCHC RDW Plt Count MPV Neut % (Auto) Lymph % (Auto) Foster % (Auto) Eos % (Auto) Baso % (Auto) Neut # (Auto) Lymph # (Auto) Foster # (Auto) Eos # (Auto) Baso # (Auto) Immature Gran % Nucleated RBC % Immature Gran # Nucleated RBCs # Sodium Potassium Chloride Carbon Dioxide Anion Gap BUN Creatinine GFR Calculation BUN/Creatinine Ratio Glucose POC Glucose 144 H 175 H 142 H Calculated Osmolality Calcium 06/04/16 06/04/16 06/04/16 05:42 05:42 06:26 WBC 5.4 RBC 2.75 L Hgb 7.8 L Hct 25.9 L MCV 94.2 MCH 28 MCHC 30.1 L RDW 15.6 Plt Count 203 MPV 9.9 Neut % (Auto) 51.4 Lymph % (Auto) 33.8 Foster % (Auto) 8.5 Eos % (Auto) 5.9 Baso % (Auto) 0.2 Neut # (Auto) 2.8 Lymph # (Auto) 1.8 Foster # (Auto) 0.5 Eos # (Auto) 0.3 Baso # (Auto) 0.0 Immature Gran % 0.2 Nucleated RBC % 0.0 Immature Gran # 0.01 Nucleated RBCs # 0.00 Sodium 144 Potassium 5.1 Chloride 108 H Carbon Dioxide 27 Anion Gap 14.1 BUN 48 H Creatinine 2.10 H GFR Calculation 53 BUN/Creatinine Ratio 22.00 H Glucose 117 H POC Glucose 116 H Calculated Osmolality 299.8 Calcium 7.4 L - EKG EKG results: interpreted by me EKG shows: sinus rhythm Quality Measures - VTE Contraindication to Pharmacological VTE Prophylaxis: Already on Theraputic Agent , No Prophylaxis Needed Specialty Discharge - Follow Up or Referrals - Discharge Medications No Action lamiVUDine TAB [Epivir Tab] 300 mg PO DAILY Efavirenz [Sustiva] 600 mg PO BEDTIME Carvedilol [Coreg] 25 mg PO BID W/MEALS Apixaban [Eliquis] 5 mg PO BID Allopurinol [Zyloprim] 100 mg PO DAILY HYDROcodone/ACETAMIN 10-325 [[place] 10-325] 1 tablet PO QID PRN PRN Reason: Pain Glimepiride [Amaryl] 8 mg PO BID W/MEALS Gabapentin Cap/Tab [Neurontin Cap/Tab] 300 mg PO TID Albuterol Sulfate [Ventolin HFA] 2 puff INH Q4H PRN #1 inhaler PRN Reason: Shortness Of Breath/Wheezing Insulin Glargine [Lantus] 20 unit SUBCUT BEDTIME Tenofovir Disoproxil Fumarate [Viread] 300 mg PO DAILY W/BREAKFAST Cyclobenzaprine [Flexeril] 10 mg PO TID PRN PRN Reason: Pain hydrALAZINE TAB [Apresoline Tab] 50 mg PO BID Isosorb Dinit/Hydralazine HCl [Bidil Tablet] 1 tablet PO TID Insulin Aspart Prot/Asp 70/30 [NovoLOG Mix 70/30] 50 unit SUBCUT QAM Insulin Aspart Prot/Asp 70/30 [NovoLOG Mix 70/30] 45 unit SUBCUT QPM Sariah Romero Michael, MD, personally performed the services described in this documentation, ascribed by Jihan Bear RN in my presence, and it is both accurate and complete .
[2016-06-04] MEDS: AZITHROMYCIN 250 MG TABLET PO SCH (09:01)
[2016-06-04] MEDS: GLIMEPIRIDE 4 MG TABLET PO SCH ×2 (09:01→16:26)
[2016-06-04] MEDS: ISOSORBIDE DINITRATE 20 MG TABLET PO SCH ×3 (09:01→22:56)
[2016-06-04] MEDS: SPIRONOLACTONE 25 MG TABLET PO SCH ×2 (09:01→22:56)
[2016-06-04] MEDS: ALLOPURINOL 100 MG TABLET PO SCH (09:02)
[2016-06-04] MEDS: LEVOFLOXACIN 750 MG TABLET PO SCH (09:02)
[2016-06-04] MEDS: APIXABAN 5 MG TABLET PO SCH ×2 (09:02→22:57)
[2016-06-04] MEDS: CARVEDILOL 25 MG TABLET PO SCH ×2 (09:02→16:26)
[2016-06-04] MEDS: PANTOPRAZOLE 40 MG TABLET PO SCH (09:02)
[2016-06-04] MEDS: GABAPENTIN 300 MG CAPSULE PO SCH ×3 (09:02→22:57)
--- NOTE | 2016-06-04 09:04 | Hospitalist Progress Note ---
Assessment and Plan - Time spent with patient Time spent with patient: Less than 30 minutes (1) Acute exacerbation of congestive heart failure Status: Acute Assessment and plan: Continue lasix and aldactone. cardiology consult reviewed EF 35% reduced aldactone due to elevated potassium Current Visit: Yes Qualifiers: Congestive heart failure type: combined Qualified Code(s): I50.43 - Acute on chronic combined systolic (congestive) and diastolic (congestive) heart failure (2) Dyspnea Status: Acute Assessment and plan: Improving with diuresis with Lasix. Current Visit: Yes Qualifiers: Dyspnea type: shortness of breath Qualified Code(s): R06.02 - Shortness of breath (3) HIV (human immunodeficiency virus infection) Status: Chronic Assessment and plan: Continue home medications Current Visit: No (4) Morbid obesity Status: Chronic Current Visit: No Qualifiers: Obesity type: with alveolar hypoventilation Qualified Code(s): E66.2 - Morbid (severe) obesity with alveolar hypoventilation (5) Diabetes mellitus Status: Chronic Current Visit: No Qualifiers: Diabetes mellitus type: type 2 Diabetes mellitus complication status: with kidney complications Diabetes mellitus complication detail: with chronic kidney disease Diabetes mellitus longterm insulin use: with intermediate teacher use Chronic kidney disease stage: stage 3 (moderate) Qualified Code(s): E11.22 - Type 2 diabetes mellitus with diabetic chronic kidney disease; N18.3 - Chronic kidney disease, stage 3 (moderate); Z79.4 - adjunct faculty for medical terminology (current) use of insulin (6) CKD (chronic kidney disease) stage 3, GFR 30-59 ml/min Status: Chronic Current Visit: Yes (7) Abscess of breast, right Status: Acute Assessment and plan: Consider surgery consult. Add antibiotics Current Visit: Yes (8) Cor pulmonale, chronic Status: Chronic Current Visit: Yes (9) UTI (urinary tract infection) Status: Acute Assessment and plan: klebsiella in urine. sensitive to levaquin Current Visit: Yes Qualifiers: Urinary tract infection type: acute cystitis Hematuria presence: without hematuria Qualified Code(s): N30.00 - Acute cystitis without hematuria (10) Bronchitis Status: Acute Assessment and plan: continue z-max Current Visit: Yes Hospitalist: Subjective Interval history: Patient seen and examined. She still has a cough. No fever. Diuresis going well. Wound care consult underway. Exam - Constitutional Vitals: Period Temp Pulse Resp BP Sys/[place] Pulse Ox Last 24 Hr 97.8 F-99.1 F 74-79 20-21 145-177/72-92 97-100 General appearance: no acute distress - Head Head exam: Present: normal inspection, normocephalic - Eye Eye exam: Present: EOMI Pupils: Present: JARAD - Respiratory Respiratory exam: Present: clear to auscultation bilaterally - Cardiovascular Cardiovascular exam: Present: regular rate and rhythm - GI/Abdominal GI/Abdominal exam: Present: normal bowel sounds, soft, other (chronic changes noted with induration related to edema.). Absent: tenderness - Extremities Exam Extremities exam: Present: edema - Neurological Exam Neurological exam: Present: alert, oriented X3 - Psychiatric Psychiatric exam: Present: normal affect, normal mood - Skin Skin exam: Present: normal color, warm, dry Results - Labs CBC & BMP: 06/04/16 05:42 06/04/16 05:42 Lab Results: I have reviewed the past 24 hour labs Quality Measures - VTE Contraindication to Pharmacological VTE Prophylaxis: Already on Theraputic Agent , No Prophylaxis Needed Specialty Discharge - Follow Up or Referrals - Discharge Medications No Action lamiVUDine TAB [Epivir Tab] 300 mg PO DAILY Efavirenz [Sustiva] 600 mg PO BEDTIME Carvedilol [Coreg] 25 mg PO BID W/MEALS Apixaban [Eliquis] 5 mg PO BID Allopurinol [Zyloprim] 100 mg PO DAILY HYDROcodone/ACETAMIN 10-325 [[place] 10-325] 1 tablet PO QID PRN PRN Reason: Pain Glimepiride [Amaryl] 8 mg PO BID W/MEALS Gabapentin Cap/Tab [Neurontin Cap/Tab] 300 mg PO TID Albuterol Sulfate [Ventolin HFA] 2 puff INH Q4H PRN #1 inhaler PRN Reason: Shortness Of Breath/Wheezing Insulin Glargine [Lantus] 20 unit SUBCUT BEDTIME Tenofovir Disoproxil Fumarate [Viread] 300 mg PO DAILY W/BREAKFAST Cyclobenzaprine [Flexeril] 10 mg PO TID PRN PRN Reason: Pain hydrALAZINE TAB [Apresoline Tab] 50 mg PO BID Isosorb Dinit/Hydralazine HCl [Bidil Tablet] 1 tablet PO TID Insulin Aspart Prot/Asp 70/30 [NovoLOG Mix 70/30] 50 unit SUBCUT QAM Insulin Aspart Prot/Asp 70/30 [NovoLOG Mix 70/30] 45 unit SUBCUT QPM
[2016-06-04] MEDS: CYCLOBENZAPRINE 10 MG TABLET PO PRN ×2 (09:09→23:08)
--- NOTE | 2016-06-04 11:31 | General Surgery Consult Note ---
Assessment and Plan - Time spent with patient Time spent with patient: Less than 30 minutes (1) Abscess of breast, left Status: Acute Assessment and plan: 50AAF admitted w acute chf exacerbation and uti found to have left breast abscess. pt is hiv positive and on eliquis for history of PE. to OR in am for I& D of left breast by dr simms. he has seen and examined pt. Current Visit: Yes History of Present Illness Chief complaint: sob History of present illness: 50AAF w history of morbid obesity, CHF, COPD, htn, renal disease, dm, hiv, PE on eliquis admitted w acute chf exacerbation and uti. pt is feeling a little better today. being treated by hospitalist and cardiology. pt was noted to have left breast abscess. dr simms was consulted to evaluate. upon exam, pt has one larger area of crusting over w no drainage but some induration under wound. she has another smaller area distal to this that is more like an open skin tear. pt underwent gera by dr sage alonso in wound center of this area in [place]. no follow up noted in computer. she then saw dr hwang in breast center on 05/23 for US, biopsy, and mammogram. results showing subcutaneous focal chronic inflammation and fibrosis. pt denies pain or itchiness of the area. she states its only been there for 1 month. Home Medications Medication Instructions Recorded Confirmed Type Allopurinol [Zyloprim] 100 mg PO DAILY 01/03/15 05/31/16 History Apixaban [Eliquis] 5 mg PO BID 01/03/15 05/31/16 History Carvedilol [Coreg] 25 mg PO BID W/MEALS 01/03/15 05/31/16 History Efavirenz [Sustiva] 600 mg PO BEDTIME 01/03/15 05/31/16 History Gabapentin Cap/Tab [Neurontin 300 mg PO TID 01/03/15 05/31/16 History Cap/Tab] Glimepiride [Amaryl] 8 mg PO BID W/MEALS 01/03/15 05/31/16 History HYDROcodone/ACETAMIN 10-325 [[place] 1 tablet PO QID PRN 01/03/15 05/31/16 History 10-325] lamiVUDine TAB [Epivir Tab] 300 mg PO DAILY 01/03/15 05/31/16 History Albuterol Sulfate [Ventolin HFA] 2 puff INH Q4H PRN #1 inhaler 01/06/15 Rx Insulin Glargine [Lantus] 20 unit SUBCUT BEDTIME 03/13/15 05/31/16 History Cyclobenzaprine [Flexeril] 10 mg PO TID PRN 04/27/15 05/31/16 History Tenofovir Disoproxil Fumarate 300 mg PO DAILY W/BREAKFAST 04/27/15 05/31/16 History [Viread] Insulin Aspart Prot/Asp 70/30 45 unit SUBCUT QPM 05/31/16 05/31/16 History [NovoLOG Mix 70/30] Insulin Aspart Prot/Asp 70/30 50 unit SUBCUT QAM 05/31/16 05/31/16 History [NovoLOG Mix 70/30] Isosorb Dinit/Hydralazine HCl 1 tablet PO TID 05/31/16 05/31/16 History [Bidil Tablet] hydrALAZINE TAB [Apresoline Tab] 50 mg PO BID 05/31/16 05/31/16 History Allergies Allergy/AdvReac Type Severity Reaction Status Date / Time daptomycin Allergy RASH Verified 03/14/16 22:32 Medical,Surgical,& Family Hx - Medical History Cardio: History of: Congenital Heart Disease, CHF, Hypertension No history of: Pacemaker, PVD, Valvular Heart Disease, Cardiovascular Problems Psychological: History of: Depression No history of: Anxiety Disorders, ADHD, Behavior Problems, Bipolar Disorder, Previous Suicide Attempt, Psychiatric/Substance Abuse Tx, Schizophrenia, Violent Behavior, Psychiatric Problems Neurology: History of: Peripheral Neuropathy No history of: Brain Aneurysm, Cerebral Hemorrhage, Cerebrovascular Accident , Cerebral Palsy, Dementia, Migraine, Multiple Sclerosis, Parkinson's Disease, Seizures, TIA, Vertigo, Neurologocal Cancer Endocrine: History of: Diabetes Mellitus (IDDM), Diabetes Mellitus (NIDDM), Dyslipidemia No history of: Thyroid Disorder, Endocrine Cancer, Endocrine Problems Rheumatology: History of;: Rheumatoid Arthritis No history of;: Psoriasis, Sjogrens, Systemic Lupus Erythematosus Respiratory: History of: Bronchitis, COPD, Obstructive Sleep Apnea, Pulmonary Embolism, Pneumonia, Respiratory Problems No history of: Intubation, Lung Cancer Renal: History of: Renal Failure No history of: Renal (Kidney) Cancer, Dialysis, Renal Problems Genitourinary: History of: Bladder Problem No history of: Kidney Stones, Recurring Urinary Tract Infections, Genitourinary Cancer, Problems Gastrointestinal: History of: GERD No history of: Crohn's Disease, Diverticulitis/ Diverticulosis, Esophageal Varices, Gastrointestinal Bleed, Liver Problems, Pancreatitis, Polyps, Gastrointestinal Cancer, GI Problems Musculoskeletal: History of: Back/Neck Problems, Osteoporosis No history of: Amputation Hematology: No history of: Anemia, Blood Transfusion Reaction (blood transfusions but no reactions), Bleeding Problems, Clotting Problems, Sickle Cell Disease, Hematologic Cancer, Blood Disorders Reproductive: History of: Sexually Transmitted Disorders (HIV Pos.) Other: No history of: Anesthesia Reactions, Anaphylaxis, Cancer, Eczema, HIV, Malignant Hyperthermia, MRSA, Vancomycin-Resistant Enterococci, Skin Problems, Miscellaneous Medical Problems - Surgical History Cardiac Surgeries: Patient Denies: Femoral-Popliteal Bypass Graft, Cardiac Catheterization, Cardiac Surgery, Carotid Endarterectomy, Internal Defibrillator, Vascular Access Devices Thoracic Surgeries: Patient denies;: Kidney (Renal Surgery), Lithotripsy, Nephrectomy, Organ Transplant, Lobectomy Neurologic Surgeries: Patient denies: Brain Aneurysm, Cerebral Hemorrhage, Neurologic Surgery HEENT Surgeries: Patient denies: Carotid Endarterectomy, Thyroid Surgery Abdominal Surgeries: Surgical HX of: Abdominal Surgery Patient denies: Appendectomy, Cholecystectomy, Colonoscopy, Gastric Bypass Surgery, EGD, Hernia Repair, Splenectomy Reproductive Surgeries: Surgical HX of;: Breast Surgery (multiple abcesses), Section Patient denies;: Cystoscopy, Dilation and Curettage, Genitourinary Surgery, Gynecologic Surgery, Hysterectomy, Tubal Ligation Orthopedic Surgeries: Patient denies;: Implanted Devices, Orthopedic Surgery, Spinal Surgery, Total Hip Replacement, Total Knee Replacement - Family History Family History: Reports;: Family Diabetes (MOTHER), Family Hypertension Denies;: Family Anesthesia Reaction, Family Psychiatric Problems, Family Stroke - Social History Smoking Status: Never smoker Frequency of Alcohol Use: None Type of Drug Use: None - Constitutional Constitutional: Present: as per HPI Exam - Constitutional Vitals: Period Temp Pulse Resp BP Sys/[place] Pulse Ox Last 24 Hr 97.8 F-99.1 F 74-79 20-21 145-177/72-92 97-100 50AAF, NAD, alert and oriented chest clear cv rrr right breast large but normal, left breast w 5x2 area of scabbed over wound w some induration underneath, smaller 1x1 open area more like a skin tear w no drainage or odor abd obese, nt ext bilateral pedal edema Quality Measures - VTE Contraindication to Pharmacological VTE Prophylaxis: Already on Theraputic Agent , No Prophylaxis Needed Results - Labs CBC & BMP: 06/04/16 05:42 06/04/16 05:42 Lab Results: I have reviewed the past 24 hour labs Specialty Discharge - Follow Up or Referrals - Discharge Medications No Action lamiVUDine TAB [Epivir Tab] 300 mg PO DAILY Efavirenz [Sustiva] 600 mg PO BEDTIME Carvedilol [Coreg] 25 mg PO BID W/MEALS Apixaban [Eliquis] 5 mg PO BID Allopurinol [Zyloprim] 100 mg PO DAILY HYDROcodone/ACETAMIN 10-325 [[place] 10-325] 1 tablet PO QID PRN PRN Reason: Pain Glimepiride [Amaryl] 8 mg PO BID W/MEALS Gabapentin Cap/Tab [Neurontin Cap/Tab] 300 mg PO TID Albuterol Sulfate [Ventolin HFA] 2 puff INH Q4H PRN #1 inhaler PRN Reason: Shortness Of Breath/Wheezing Insulin Glargine [Lantus] 20 unit SUBCUT BEDTIME Tenofovir Disoproxil Fumarate [Viread] 300 mg PO DAILY W/BREAKFAST Cyclobenzaprine [Flexeril] 10 mg PO TID PRN PRN Reason: Pain hydrALAZINE TAB [Apresoline Tab] 50 mg PO BID Isosorb Dinit/Hydralazine HCl [Bidil Tablet] 1 tablet PO TID Insulin Aspart Prot/Asp 70/30 [NovoLOG Mix 70/30] 50 unit SUBCUT QAM Insulin Aspart Prot/Asp 70/30 [NovoLOG Mix 70/30] 45 unit SUBCUT QPM
--- NOTE | 2016-06-04 12:38 | Sleep Medicine Progress Note ---
Assessment and Plan (1) Sleep apnea Status: Chronic Current Visit: No Qualifiers: Sleep apnea type: obstructive Qualified Code(s): G47.33 - Obstructive sleep apnea (adult) (pediatric) (2) Diabetes mellitus Status: Chronic Current Visit: No Qualifiers: Diabetes mellitus type: type 2 Diabetes mellitus complication status: with kidney complications Diabetes mellitus complication detail: with chronic kidney disease Diabetes mellitus fpc insulin use: with printed circuit layout taper use Chronic kidney disease stage: stage 3 (moderate) Qualified Code(s): E11.22 - Type 2 diabetes mellitus with diabetic chronic kidney disease; N18.3 - Chronic kidney disease, stage 3 (moderate); Z79.4 - senior living (current) use of insulin (3) Congestive heart failure Status: Acute Current Visit: No Sleep Medicine Subjective Interval history: Plans were to proceed with HST evaluation tonight for possible sleep apnea. I reviewed the surgery note and see that the patient is to undergo surgery for a left breast abscess tomorrow. I will have to check with autocad technician's to see if the patient will be able to undergo HST evaluation due to dental discomfort from the device that does go around her chest. The issue of infection may also be problematic. If not able to do so tonight, we can reschedule later or do outpatient polysomnography. Exam (Progress Note) - Constitutional Vitals: Period Temp Pulse Resp BP Sys/[place] Pulse Ox Last 24 Hr 97.3 F-99.1 F 74-79 20-21 145-177/72-92 97-100 Results - Labs CBC & BMP: 06/04/16 05:42 06/04/16 05:42 Lab Results: I have reviewed the past 24 hour labs Specialty Discharge - Follow Up or Referrals - Discharge Medications No Action lamiVUDine TAB [Epivir Tab] 300 mg PO DAILY Efavirenz [Sustiva] 600 mg PO BEDTIME Carvedilol [Coreg] 25 mg PO BID W/MEALS Apixaban [Eliquis] 5 mg PO BID Allopurinol [Zyloprim] 100 mg PO DAILY HYDROcodone/ACETAMIN 10-325 [[place] 10-325] 1 tablet PO QID PRN PRN Reason: Pain Glimepiride [Amaryl] 8 mg PO BID W/MEALS Gabapentin Cap/Tab [Neurontin Cap/Tab] 300 mg PO TID Albuterol Sulfate [Ventolin HFA] 2 puff INH Q4H PRN #1 inhaler PRN Reason: Shortness Of Breath/Wheezing Insulin Glargine [Lantus] 20 unit SUBCUT BEDTIME Tenofovir Disoproxil Fumarate [Viread] 300 mg PO DAILY W/BREAKFAST Cyclobenzaprine [Flexeril] 10 mg PO TID PRN PRN Reason: Pain hydrALAZINE TAB [Apresoline Tab] 50 mg PO BID Isosorb Dinit/Hydralazine HCl [Bidil Tablet] 1 tablet PO TID Insulin Aspart Prot/Asp 70/30 [NovoLOG Mix 70/30] 50 unit SUBCUT QAM Insulin Aspart Prot/Asp 70/30 [NovoLOG Mix 70/30] 45 unit SUBCUT QPM
[2016-06-04] MEDS ORDERED: FUROSEMIDE 20 MG/2 ML VIAL ONE (16:05)
[2016-06-04] MEDS: INSULIN GLARGINE 100 UNIT/ML SUBCUT SCH (22:55)
[2016-06-05] MEDS: SPIRONOLACTONE 25 MG TABLET PO SCH ×2 (09:01→22:57)
[2016-06-05] MEDS: FUROSEMIDE 40 MG/4 ML VIAL IV SCH ×2 (09:01→16:30)
[2016-06-05] MEDS: ISOSORBIDE DINITRATE 20 MG TABLET PO SCH ×3 (09:01→22:57)
[2016-06-05] MEDS: CARVEDILOL 25 MG TABLET PO SCH ×2 (09:01→16:31)
[2016-06-05] MEDS: GABAPENTIN 300 MG CAPSULE PO SCH ×3 (09:02→22:57)
[2016-06-05] MEDS: LEVOFLOXACIN 750 MG TABLET PO SCH ×2 (09:02→23:07)
[2016-06-05] MEDS: GLIMEPIRIDE 4 MG TABLET PO SCH ×2 (09:02→16:31)
[2016-06-05] MEDS: APIXABAN 5 MG TABLET PO SCH ×2 (09:02→22:56)
[2016-06-05] MEDS: AZITHROMYCIN 250 MG TABLET PO SCH (09:02)
[2016-06-05] MEDS: PANTOPRAZOLE 40 MG TABLET PO SCH (09:02)
[2016-06-05] MEDS: INSULIN LISPRO 100 UNIT/ML SUBCUT SCH ×4 (09:02→22:59)
[2016-06-05] MEDS: ALLOPURINOL 100 MG TABLET PO SCH (09:03)
--- NOTE | 2016-06-05 10:32 | Hospitalist Progress Note ---
Assessment and Plan (1) Acute exacerbation of congestive heart failure Status: Acute Assessment and plan: Continue lasix and aldactone. cardiology consult reviewed EF 35% reduced aldactone due to elevated potassium Current Visit: Yes Qualifiers: Congestive heart failure type: combined Qualified Code(s): I50.43 - Acute on chronic combined systolic (congestive) and diastolic (congestive) heart failure (2) Dyspnea Status: Acute Assessment and plan: Improving with diuresis with Lasix. Current Visit: Yes Qualifiers: Dyspnea type: shortness of breath Qualified Code(s): R06.02 - Shortness of breath (3) HIV (human immunodeficiency virus infection) Status: Chronic Assessment and plan: Continue home medications Current Visit: No (4) Morbid obesity Status: Chronic Current Visit: No Qualifiers: Obesity type: with alveolar hypoventilation Qualified Code(s): E66.2 - Morbid (severe) obesity with alveolar hypoventilation (5) Diabetes mellitus Status: Chronic Current Visit: No Qualifiers: Diabetes mellitus type: type 2 Diabetes mellitus complication status: with kidney complications Diabetes mellitus complication detail: with chronic kidney disease Diabetes mellitus joint terminal attack controller insulin use: with joint terminal attack controller use Chronic kidney disease stage: stage 3 (moderate) Qualified Code(s): E11.22 - Type 2 diabetes mellitus with diabetic chronic kidney disease; N18.3 - Chronic kidney disease, stage 3 (moderate); Z79.4 - [facility] (current) use of insulin (6) CKD (chronic kidney disease) stage 3, GFR 30-59 ml/min Status: Chronic Current Visit: Yes (7) Abscess of breast, right Status: Acute Assessment and plan: Consider surgery consult. Add antibiotics Current Visit: Yes (8) Cor pulmonale, chronic Status: Chronic Current Visit: Yes (9) UTI (urinary tract infection) Status: Acute Assessment and plan: klebsiella in urine. sensitive to levaquin Current Visit: Yes Qualifiers: Urinary tract infection type: acute cystitis Hematuria presence: without hematuria Qualified Code(s): N30.00 - Acute cystitis without hematuria (10) Bronchitis Status: Acute Assessment and plan: continue z-max Current Visit: Yes (11) Abscess of breast, left Status: Acute Assessment and plan: debridement in the OR today Current Visit: Yes Hospitalist: Subjective Interval history: Ms. Jalloh is doing well this morning. Her breathing has improved dramatically. She's had a good response with Lasix diuresis. She is scheduled for the operating room this morning for debridement of her left breast. As is going to be done by Dr. Ng. She's been nothing by mouth after midnight. No acute events overnight. Exam - Constitutional Vitals: Period Temp Pulse Resp BP Sys/[place] Pulse Ox Last 24 Hr 97.3 F-99.2 F 70-82 20-20 133-177/77-87 98-99 General appearance: no acute distress - Head Head exam: Present: normal inspection, normocephalic - Respiratory Respiratory exam: Present: clear to auscultation bilaterally, decreased breath sounds - Cardiovascular Cardiovascular exam: Present: regular rate and rhythm - GI/Abdominal GI/Abdominal exam: Present: normal bowel sounds, soft - Extremities Exam Extremities exam: Absent: edema - Neurological Exam Neurological exam: Present: alert, oriented X3 - Psychiatric Psychiatric exam: Present: normal affect, normal mood - Skin Skin exam: Present: other (left breast with induration and necrotic scab) Results - Labs CBC & BMP: 06/04/16 05:42 06/04/16 05:42 Lab Results: I have reviewed the past 24 hour labs Quality Measures - VTE Contraindication to Pharmacological VTE Prophylaxis: Already on Theraputic Agent , No Prophylaxis Needed Specialty Discharge - Follow Up or Referrals - Discharge Medications No Action lamiVUDine TAB [Epivir Tab] 300 mg PO DAILY Efavirenz [Sustiva] 600 mg PO BEDTIME Carvedilol [Coreg] 25 mg PO BID W/MEALS Apixaban [Eliquis] 5 mg PO BID Allopurinol [Zyloprim] 100 mg PO DAILY HYDROcodone/ACETAMIN 10-325 [[place] 10-325] 1 tablet PO QID PRN PRN Reason: Pain Glimepiride [Amaryl] 8 mg PO BID W/MEALS Gabapentin Cap/Tab [Neurontin Cap/Tab] 300 mg PO TID Albuterol Sulfate [Ventolin HFA] 2 puff INH Q4H PRN #1 inhaler PRN Reason: Shortness Of Breath/Wheezing Insulin Glargine [Lantus] 20 unit SUBCUT BEDTIME Tenofovir Disoproxil Fumarate [Viread] 300 mg PO DAILY W/BREAKFAST Cyclobenzaprine [Flexeril] 10 mg PO TID PRN PRN Reason: Pain hydrALAZINE TAB [Apresoline Tab] 50 mg PO BID Isosorb Dinit/Hydralazine HCl [Bidil Tablet] 1 tablet PO TID Insulin Aspart Prot/Asp 70/30 [NovoLOG Mix 70/30] 50 unit SUBCUT QAM Insulin Aspart Prot/Asp 70/30 [NovoLOG Mix 70/30] 45 unit SUBCUT QPM
[2016-06-05] MEDS ORDERED: LIDOCAINE 1% 5 ML VIAL ONE (11:15)
[2016-06-05] MEDS ORDERED: KETOROLAC 30 MG/1 ML VIAL ONE (11:15)
[2016-06-05] MEDS ORDERED: ONDANSETRON 4 MG/2 ML VIAL ONE (11:15)
[2016-06-05] MEDS ORDERED: DEXAMETHASONE 10 MG/1 ML VIAL ONE (11:15)
[2016-06-05] MEDS ORDERED: PROPOFOL 200 MG/20 ML VIAL IV ONE (11:15)
--- NOTE | 2016-06-05 12:12 | Anesthesia ---
Anesthesia Post OP - Post Ansesthetic Evaluation Patient seen in post op: Yes Resp: within normal limits CV: within normal limits Mental: within normal limits Temp: within normal limits [id number]: within normal limits Nausea and Vomiting: within normal limits Pain: within normal limits
[2016-06-05] MEDS ORDERED: SEVOFLURANE 1 UNIT/15 MINUTE INH ONE (12:14)
[2016-06-05] MEDS ORDERED: MIDAZOLAM 2 MG/2 ML VIAL ONE (12:14)
[2016-06-05] MEDS ORDERED: ePHEDrine 50 MG/ML AMP ONE (12:14)
[2016-06-05] MEDS ORDERED: fentaNYL 100 MCG/2 ML VIAL ONE (12:14)
--- NOTE | 2016-06-05 12:38 | Sleep Medicine Progress Note ---
Assessment and Plan (1) Sleep apnea Status: Chronic Assessment and plan: Given that this patient had a negative HST evaluation, with a high pretest probability, she needs polysomnography in lab. False-negative rates with HST is 17%. In lab polysomnography is recommended in these cases. This will be scheduled. Current Visit: No Qualifiers: Sleep apnea type: obstructive Qualified Code(s): G47.33 - Obstructive sleep apnea (adult) (pediatric) (2) Diabetes mellitus Status: Chronic Current Visit: No Qualifiers: Diabetes mellitus type: type 2 Diabetes mellitus complication status: with kidney complications Diabetes mellitus complication detail: with chronic kidney disease Diabetes mellitus correction insulin use: with door operator use Chronic kidney disease stage: stage 3 (moderate) Qualified Code(s): E11.22 - Type 2 diabetes mellitus with diabetic chronic kidney disease; N18.3 - Chronic kidney disease, stage 3 (moderate); Z79.4 - snf (current) use of insulin (3) Congestive heart failure Status: Acute Current Visit: No Sleep Medicine Subjective Interval history: Home sleep test was done last night and did not reveal significant sleep apnea or significant oxygen desaturation. She did have some intermittent snoring. Exam (Progress Note) - Constitutional Vitals: Period Temp Pulse Resp BP Sys/[place] Pulse Ox Last 24 Hr 97.4 F-99.2 F 70-82 14-20 121-177/62-87 95-100 Results - Labs CBC & BMP: 06/04/16 05:42 06/04/16 05:42 Lab Results: I have reviewed the past 24 hour labs Specialty Discharge - Follow Up or Referrals - Discharge Medications No Action lamiVUDine TAB [Epivir Tab] 300 mg PO DAILY Efavirenz [Sustiva] 600 mg PO BEDTIME Carvedilol [Coreg] 25 mg PO BID W/MEALS Apixaban [Eliquis] 5 mg PO BID Allopurinol [Zyloprim] 100 mg PO DAILY HYDROcodone/ACETAMIN 10-325 [[place] 10-325] 1 tablet PO QID PRN PRN Reason: Pain Glimepiride [Amaryl] 8 mg PO BID W/MEALS Gabapentin Cap/Tab [Neurontin Cap/Tab] 300 mg PO TID Albuterol Sulfate [Ventolin HFA] 2 puff INH Q4H PRN #1 inhaler PRN Reason: Shortness Of Breath/Wheezing Insulin Glargine [Lantus] 20 unit SUBCUT BEDTIME Tenofovir Disoproxil Fumarate [Viread] 300 mg PO DAILY W/BREAKFAST Cyclobenzaprine [Flexeril] 10 mg PO TID PRN PRN Reason: Pain hydrALAZINE TAB [Apresoline Tab] 50 mg PO BID Isosorb Dinit/Hydralazine HCl [Bidil Tablet] 1 tablet PO TID Insulin Aspart Prot/Asp 70/30 [NovoLOG Mix 70/30] 50 unit SUBCUT QAM Insulin Aspart Prot/Asp 70/30 [NovoLOG Mix 70/30] 45 unit SUBCUT QPM
[2016-06-05] MEDS ORDERED: LACTATED RINGERS 1,000 ML IV SCH (13:00)
--- NOTE | 2016-06-05 13:50 | Operative Note ---
Date of procedure: 06/05/16 Pre-op diagnosis: infected left breast seroma Post-op diagnosis: same Procedure: Preoperative diagnosis Infected seroma left breast Postoperative diagnosis Same Procedures performed Incision and drainage of infected left breast seroma Findings There was no significant necrotic tissue and there was some fluid present in the left breast that appears slightly murky but no purulence. Cultures were sent and Isaac drain was used to connect 2 counterincisions and packed the left breast seroma cavity Complications None apparent Specimen Cultures from seroma fluid Anesthesia LMA Blood loss None Indications Super obese woman with massive breasts who I was counseled to see for necrotic wounds over the left breast with underlying fluid collections and I recommended incision and drainage in the OR. Description of procedure The patient was taken to the OR left on her hospital bed. General LMA anesthesia was administered. The left breast was prepped and draped sterilely. A timeout was called. Incision was made over the necrotic areas of the left breast there is another area that had a similar wound 10 cm away. These 2 incisions were connected and the loculations of the seroma cavity were broken up. There was some murky fluid present which cultures were taken and sent to the lab. The wound was irrigated and packed with iodoform packing gauze and a [place] drain was used to connect the 2 incisions and connected to this over the safety pin. The wound was dressed sterilely and the patient was awakened from anesthesia and transferred to recovery. Postoperative plan Continue wound care and antibiotics follow-up cultures Implants: isaac drain Anesthesia: LORENA Surgeon / Physician: Timothy Ng Estimated blood loss: minimal Specimens: other (cultures) Condition: stable Disposition: PACU Results - Labs CBC & BMP: 06/04/16 05:42 06/04/16 05:42 Discharge Plan - Discharge Medications No Action lamiVUDine TAB [Epivir Tab] 300 mg PO DAILY Efavirenz [Sustiva] 600 mg PO BEDTIME Carvedilol [Coreg] 25 mg PO BID W/MEALS Apixaban [Eliquis] 5 mg PO BID Allopurinol [Zyloprim] 100 mg PO DAILY HYDROcodone/ACETAMIN 10-325 [[place] 10-325] 1 tablet PO QID PRN PRN Reason: Pain Glimepiride [Amaryl] 8 mg PO BID W/MEALS Gabapentin Cap/Tab [Neurontin Cap/Tab] 300 mg PO TID Albuterol Sulfate [Ventolin HFA] 2 puff INH Q4H PRN #1 inhaler PRN Reason: Shortness Of Breath/Wheezing Insulin Glargine [Lantus] 20 unit SUBCUT BEDTIME Tenofovir Disoproxil Fumarate [Viread] 300 mg PO DAILY W/BREAKFAST Cyclobenzaprine [Flexeril] 10 mg PO TID PRN PRN Reason: Pain hydrALAZINE TAB [Apresoline Tab] 50 mg PO BID Isosorb Dinit/Hydralazine HCl [Bidil Tablet] 1 tablet PO TID Insulin Aspart Prot/Asp 70/30 [NovoLOG Mix 70/30] 50 unit SUBCUT QAM Insulin Aspart Prot/Asp 70/30 [NovoLOG Mix 70/30] 45 unit SUBCUT QPM - Follow Up or Referral - Forms/Instructions
--- NOTE | 2016-06-05 17:03 | Cardiology Progress Note ---
I, Jihan Bear RN, am scribing for, and in the presence of, Alex Rolle MD 17:02. Assessment and Plan (1) Acute exacerbation of congestive heart failure Status: Acute Assessment and plan: She is clinically well compensated and steadily improving. Her blood pressure is much better. I don't see any reason to make any further changes today. Current Visit: Yes Qualifiers: Congestive heart failure type: combined Qualified Code(s): I50.43 - Acute on chronic combined systolic (congestive) and diastolic (congestive) heart failure (2) CKD (chronic kidney disease) stage 3, GFR 30-59 ml/min Status: Chronic Current Visit: Yes (3) Diabetes mellitus Status: Chronic Current Visit: No Qualifiers: Diabetes mellitus type: type 2 Diabetes mellitus complication status: with kidney complications Diabetes mellitus complication detail: with chronic kidney disease Diabetes mellitus jail insulin use: with terminal operator use Chronic kidney disease stage: stage 3 (moderate) Qualified Code(s): E11.22 - Type 2 diabetes mellitus with diabetic chronic kidney disease; N18.3 - Chronic kidney disease, stage 3 (moderate); Z79.4 - rodent exterminator (current) use of insulin (4) HIV (human immunodeficiency virus infection) Status: Chronic Current Visit: No (5) Insulin dependent diabetes mellitus Status: Chronic Current Visit: No (6) Hypertensive heart disease Status: Acute Assessment and plan: I'm going to increase her nifedipine extended release to twice a day to try to improve her heart rate control [id number]. Current Visit: Yes (7) Morbid obesity Status: Chronic Current Visit: No Qualifiers: Obesity type: with alveolar hypoventilation Qualified Code(s): E66.2 - Morbid (severe) obesity with alveolar hypoventilation (8) Sleep apnea Status: Chronic Current Visit: No Qualifiers: Sleep apnea type: obstructive Qualified Code(s): G47.33 - Obstructive sleep apnea (adult) (pediatric) Cardiology - PN: Subj Interval history: Resting in bed in no acute distress, oxygen not in use. She denies any chest pain, shortness of breath, or palpitations. She was started on Nifedipine 30mg q hs and her pressures during the night were in the 150/80's and clinically she is improved significantly. Currently she is in sinus rhythm with heart rates in the 70's. She is scheduled for debridement of left breast with Dr. Ng today. Current Medications Acetaminophen (Tylenol Tab) 325 mg PO Q4H PRN PRN Reason: fever, headache/body aches Last Admin: 05/31/16 15:58 Dose: 325 mg Acetaminophen/Hydrocodone Bitart ([place] 5-325) 1 tablet PO Q4H PRN PRN Reason: Pain Mild (1-3) Acetaminophen/Hydrocodone Bitart ([place] 10-325) 1 tablet PO QID PRN PRN Reason: Pain Last Admin: 06/04/16 23:07 Dose: 1 tablet Albuterol Sulfate (Proventil Neb) 2.5 mg RESP TX RT Q4H PRN PRN Reason: Shortness of Breath/Wheezing Allopurinol (Zyloprim) 100 mg PO DAILY [facility] Last Admin: 06/05/16 09:03 Dose: Not Given Apixaban (Eliquis) 5 mg PO BID [facility] Last Admin: 06/05/16 09:02 Dose: Not Given Azithromycin (Zithromax Tab) 250 mg PO DAILY [facility] Last Admin: 06/05/16 09:02 Dose: Not Given Carvedilol (Coreg) 25 mg PO BID W/MEALS [facility] Last Admin: 06/05/16 09:01 Dose: 25 mg Cyclobenzaprine HCl (Flexeril) 10 mg PO TID PRN PRN Reason: Pain Last Admin: 06/04/16 23:08 Dose: 10 mg Dextrose/Water (D50) 25 gm IV PRN PRN PRN Reason: Hypoglycemia with IV access Docusate Sodium (Colace Cap) 100 mg PO BID PRN PRN Reason: Constipation Furosemide (Lasix Inj) 80 mg IV BID DIURETIC [facility] Last Admin: 06/05/16 09:01 Dose: 80 mg Gabapentin (Neurontin Cap/Tab) 300 mg PO TID [facility] Last Admin: 06/05/16 09:02 Dose: Not Given Glimepiride (Amaryl) 8 mg PO BID W/MEALS [facility] Last Admin: 06/05/16 09:02 Dose: Not Given Glucagon () 1 mg IM PRN PRN PRN Reason: Hypoglycemia w/o IV access Last Admin: 06/05/16 09:07 Dose: 1 mg Hydralazine HCl (Apresoline Inj) 10 mg IV Q6H PRN PRN Reason: Hypertension Last Admin: 05/31/16 15:50 Dose: 10 mg Lactated Ringer's (Lr) 1,000 mls @ 20 mls/hr IV .Q24H [facility] Stop: 06/05/16 16:32 Last Infusion: 06/05/16 12:06 Dose: 20 mls/hr Insulin Glargine (Lantus) 40 unit SUBCUT BEDTIME [facility] Last Admin: 06/04/16 22:55 Dose: 40 unit Insulin Human Lispro (Humalog) 0 unit SUBCUT ACHS [facility] PRN Reason: Protocol Last Admin: 06/05/16 11:51 Dose: Not Given Isosorbide Dinitrate (Isordil) 20 mg PO TID [facility] Last Admin: 06/05/16 09:01 Dose: 20 mg Levofloxacin (Levaquin Tab) 750 mg PO DAILY [facility] Last Admin: 06/05/16 09:02 Dose: Not Given Nifedipine (Procardia Xl) 30 mg PO BEDTIME [facility] Last Admin: 06/04/16 22:56 Dose: 30 mg Non-Formulary Medication (Lamivudine Tab [Epivir Tab]) 300 mg PO DAILY [facility] Non-Formulary Medication (Tenofovir Disoproxil Fumarate [Viread]) 300 mg PO DAILY W/BREAKFAST [facility] Non-Formulary Medication (Efavirenz [Sustiva]) 600 mg PO BEDTIME [facility] Ondansetron HCl (Zofran Inj) 4 mg IV Q4H PRN PRN Reason: Nausea Pantoprazole Sodium (Protonix Tab) 40 mg PO DAILY [facility] Last Admin: 06/05/16 09:02 Dose: Not Given Spironolactone (Aldactone) 25 mg PO BID [facility] Last Admin: 06/05/16 09:01 Dose: 25 mg Exam (Progress Note) - Constitutional Vitals: Period Temp Pulse Resp BP Sys/[place] Pulse Ox Last 24 Hr 97.3 F-99.2 F 70-82 20-20 133-177/77-87 98-99 General appearance: no acute distress, morbidly obese - Head Head exam: Present: normal inspection - Neck Neck exam: Absent: tenderness - Respiratory Respiratory exam: Present: clear to auscultation bilaterally. Absent: accessory muscle use, chest wall tenderness - Cardiovascular Cardiovascular exam: Present: regular rate and rhythm - GI/Abdominal GI/Abdominal exam: Present: normal bowel sounds, soft. Absent: tenderness - Extremities Exam Extremities exam: Present: edema (1-2+ ble) - Neurological Exam Neurological exam: Present: alert, oriented X3 - Psychiatric Psychiatric exam: Present: normal mood - Skin Skin exam: Present: warm, dry Result/EKG - Labs CBC & BMP: 06/04/16 05:42 06/04/16 05:42 Lab Results: I have reviewed the past 24 hour labs Labs: Laboratory Results - last 24 hr 06/04/16 06/04/16 06/04/16 11:36 15:39 18:33 POC Glucose 119 H 141 H 122 H 06/04/16 22:25 POC Glucose 113 H - EKG EKG results: interpreted by me EKG shows: sinus rhythm Quality Measures - VTE Contraindication to Pharmacological VTE Prophylaxis: Already on Theraputic Agent , No Prophylaxis Needed Specialty Discharge - Follow Up or Referrals - Discharge Medications No Action lamiVUDine TAB [Epivir Tab] 300 mg PO DAILY Efavirenz [Sustiva] 600 mg PO BEDTIME Carvedilol [Coreg] 25 mg PO BID W/MEALS Apixaban [Eliquis] 5 mg PO BID Allopurinol [Zyloprim] 100 mg PO DAILY HYDROcodone/ACETAMIN 10-325 [[place] 10-325] 1 tablet PO QID PRN PRN Reason: Pain Glimepiride [Amaryl] 8 mg PO BID W/MEALS Gabapentin Cap/Tab [Neurontin Cap/Tab] 300 mg PO TID Albuterol Sulfate [Ventolin HFA] 2 puff INH Q4H PRN #1 inhaler PRN Reason: Shortness Of Breath/Wheezing Insulin Glargine [Lantus] 20 unit SUBCUT BEDTIME Tenofovir Disoproxil Fumarate [Viread] 300 mg PO DAILY W/BREAKFAST Cyclobenzaprine [Flexeril] 10 mg PO TID PRN PRN Reason: Pain hydrALAZINE TAB [Apresoline Tab] 50 mg PO BID Isosorb Dinit/Hydralazine HCl [Bidil Tablet] 1 tablet PO TID Insulin Aspart Prot/Asp 70/30 [NovoLOG Mix 70/30] 50 unit SUBCUT QAM Insulin Aspart Prot/Asp 70/30 [NovoLOG Mix 70/30] 45 unit SUBCUT QPM Sariah Romero Michael, MD, personally performed the services described in this documentation, ascribed by Jihan Bear RN in my presence, and it is both accurate and complete .
[2016-06-05] MEDS: CYCLOBENZAPRINE 10 MG TABLET PO PRN (22:56)
[2016-06-05] MEDS: INSULIN GLARGINE 100 UNIT/ML SUBCUT SCH (23:00)
--- NOTE | 2016-06-06 08:10 | Event Note ---
General Surgery Progress Note Chief complaint This patient is a 50-year-old woman with morbid obesity and chronic left breast abscess treated with incision and drainage of infected seroma of the left breast on 06/05/2016 Interval history He only cultures that have returned our extended spectrum beta-lactamase Klebsiella in the urine from May 31. No cultures from the OR her back yet. She is resting comfortably this morning. Physical exam Afebrile, normal vital signs Left breast much softer than it was yesterday and there is no further significant drainage. Packing was removed. [place] drain was left in place Assessment and plan Continue antibiotics and follow cultures Continue wound care with packing once daily with iodoform. Leave [place] drain for at least 2 weeks. I'm hoping with a [place] drain at the seroma cavity will close completely and this be resolved.
--- NOTE | 2016-06-06 08:51 | Hospitalist Progress Note ---
Assessment and Plan (1) Acute exacerbation of congestive heart failure Status: Acute Assessment and plan: Continue lasix and aldactone. cardiology consult reviewed EF 35% reduced aldactone due to elevated potassium 06/06/16: patient with significant improvement. plan for d/c home tomorrow. Current Visit: Yes Qualifiers: Congestive heart failure type: combined Qualified Code(s): I50.43 - Acute on chronic combined systolic (congestive) and diastolic (congestive) heart failure (2) Dyspnea Status: Resolved Assessment and plan: Improving with diuresis with Lasix. Current Visit: Yes Qualifiers: Dyspnea type: shortness of breath Qualified Code(s): R06.02 - Shortness of breath (3) HIV (human immunodeficiency virus infection) Status: Chronic Assessment and plan: Continue home medications Current Visit: No (4) Morbid obesity Status: Chronic Current Visit: No Qualifiers: Obesity type: with alveolar hypoventilation Qualified Code(s): E66.2 - Morbid (severe) obesity with alveolar hypoventilation (5) Diabetes mellitus Status: Chronic Current Visit: No Qualifiers: Diabetes mellitus type: type 2 Diabetes mellitus complication status: with kidney complications Diabetes mellitus complication detail: with chronic kidney disease Diabetes mellitus terminal press operator insulin use: with terminal press operator use Chronic kidney disease stage: stage 3 (moderate) Qualified Code(s): E11.22 - Type 2 diabetes mellitus with diabetic chronic kidney disease; N18.3 - Chronic kidney disease, stage 3 (moderate); Z79.4 - senior living (current) use of insulin (6) CKD (chronic kidney disease) stage 3, GFR 30-59 ml/min Status: Chronic Current Visit: Yes (7) Abscess of breast, right Status: Acute Assessment and plan: S/P I&D in OR with Dr. Ng. [place] drain placed. Continue abx and follow up cultures. F/U Dr. Ng in 2 weeks. Current Visit: Yes (8) Cor pulmonale, chronic Status: Chronic Current Visit: Yes (9) UTI (urinary tract infection) Status: Acute Assessment and plan: klebsiella in urine. sensitive to levaquin Current Visit: Yes Qualifiers: Urinary tract infection type: acute cystitis Hematuria presence: without hematuria Qualified Code(s): N30.00 - Acute cystitis without hematuria (10) Bronchitis Status: Acute Assessment and plan: continue z-max Current Visit: Yes (11) Abscess of breast, left Status: Acute Assessment and plan: debridement in the OR today Current Visit: Yes Hospitalist: Subjective Interval history: Patient seen and examined. Postop day 1 status post left breast incision and drainage with placement of a [place] drain. Her breathing is much improved after IV Lasix. Surgery consult and follow-up notes reviewed. Plan for discharge home tomorrow. Exam - Constitutional Vitals: Period Temp Pulse Resp BP Sys/[place] Pulse Ox Last 24 Hr 97.4 F-98.6 F 69-96 14-22 121-164/62-90 95-100 General appearance: no acute distress - Head Head exam: Present: normal inspection, normocephalic - Eye Eye exam: Present: EOMI - Respiratory Respiratory exam: Present: clear to auscultation bilaterally - Cardiovascular Cardiovascular exam: Present: regular rate and rhythm - GI/Abdominal GI/Abdominal exam: Present: normal bowel sounds, soft - Extremities Exam Extremities exam: Present: edema (improved) - Neurological Exam Neurological exam: Present: alert, oriented X3 - Psychiatric Psychiatric exam: Present: normal affect, normal mood - Skin Skin exam: Present: normal color, warm, dry Results - Labs CBC & BMP: 06/04/16 05:42 06/04/16 05:42 Lab Results: I have reviewed the past 24 hour labs Quality Measures - VTE Contraindication to Pharmacological VTE Prophylaxis: Already on Theraputic Agent , No Prophylaxis Needed
[2016-06-06 09:12] LABS: Basophils % 0.2 % (0.0-0.8); Eosinophils % 0.2 % (0.00-10.9); Hematocrit 28.5 VOL% (35.7-47.0); Immature Granulocytes % 0.3 %; Immature Granulocytes Absolute 0.02 #; Lymphocytes # 1.4 10*3/uL (1.4-4.0); Lymphocytes % 23.8 % (21.3-54.2); Mean Corpuscular HGB Conc 31.6 GM/DL (32-36); Mean Corpuscular Hemoglobin 29 PG (27-34); Mean Corpuscular Volume 91.9 FL (87-102); Mean Platelet Volume 9.8 FL (9.6-12.0); Monocytes # 0.3 10*3/uL (0.11-0.8); Monocytes % 5.6 % (1.7-12.7); Neutrophils # 4.1 10*3/uL (1.4-7.4); Neutrophils % 69.9 % (38.7-73.9); Platelet Count 250 10*3/uL (130-400); Red Cell Distribution Width 15.3 % (9.3-17.3); White Blood Count 5.9 10*3/uL (4.5-13.71)
[2016-06-06 09:42] LABS: Calcium 8.1 MG/DL (8.5-10.1); Magnesium 2.4 MG/DL (1.8-2.4); Osmolality,Calculated 300.3 MOS/KG (273-304); Potassium 5.4 MMOL/L (3.5-5.1)
[2016-06-06] MEDS: INSULIN LISPRO 100 UNIT/ML SUBCUT SCH ×4 (11:55→21:20)
[2016-06-06] MEDS: GABAPENTIN 300 MG CAPSULE PO SCH ×3 (11:57→21:33)
[2016-06-06] MEDS: AZITHROMYCIN 250 MG TABLET PO SCH (11:58)
[2016-06-06] MEDS: ISOSORBIDE DINITRATE 20 MG TABLET PO SCH ×3 (11:58→21:11)
[2016-06-06] MEDS: CYCLOBENZAPRINE 10 MG TABLET PO PRN ×2 (11:58→16:51)
[2016-06-06] MEDS: PANTOPRAZOLE 40 MG TABLET PO SCH (11:58)
[2016-06-06] MEDS: GLIMEPIRIDE 4 MG TABLET PO SCH ×2 (11:59→16:50)
[2016-06-06] MEDS: SPIRONOLACTONE 25 MG TABLET PO SCH ×2 (11:59→21:10)
[2016-06-06] MEDS: APIXABAN 5 MG TABLET PO SCH ×2 (12:00→21:11)
[2016-06-06] MEDS: LEVOFLOXACIN 750 MG TABLET PO SCH (12:00)
[2016-06-06] MEDS: CARVEDILOL 25 MG TABLET PO SCH ×2 (12:00→16:51)
[2016-06-06] MEDS: DOCUSATE SODIUM 100 MG CAPSULE PO PRN (12:01)
[2016-06-06] MEDS: ALLOPURINOL 100 MG TABLET PO SCH (12:01)
[2016-06-06] MEDS: FUROSEMIDE 40 MG/4 ML VIAL IV SCH ×2 (12:03→16:53)
--- NOTE | 2016-06-06 14:54 | Cardiology Progress Note ---
I, Jihan Bear RN, am scribing for, and in the presence of, Alex Rolle MD 14:53. Assessment and Plan (1) Acute exacerbation of congestive heart failure Status: Acute Assessment and plan: Clinically she is dramatically better. Continue current management. She should be able to be discharged home tomorrow. I'm going to drop off of her case. Feel free to call for any cardiac-related questions. Current Visit: Yes Qualifiers: Congestive heart failure type: combined Qualified Code(s): I50.43 - Acute on chronic combined systolic (congestive) and diastolic (congestive) heart failure (2) CKD (chronic kidney disease) stage 3, GFR 30-59 ml/min Status: Chronic Current Visit: Yes (3) Diabetes mellitus Status: Chronic Current Visit: No Qualifiers: Diabetes mellitus type: type 2 Diabetes mellitus complication status: with kidney complications Diabetes mellitus complication detail: with chronic kidney disease Diabetes mellitus local company intermodal truck driver insulin use: with care home use Chronic kidney disease stage: stage 3 (moderate) Qualified Code(s): E11.22 - Type 2 diabetes mellitus with diabetic chronic kidney disease; N18.3 - Chronic kidney disease, stage 3 (moderate); Z79.4 - senior care (current) use of insulin (4) HIV (human immunodeficiency virus infection) Status: Chronic Current Visit: No (5) Hypertensive heart disease Status: Acute Assessment and plan: I'm going to increase her nifedipine extended release to twice a day to try to improve her heart rate control [id number]. Current Visit: Yes (6) Insulin dependent diabetes mellitus Status: Chronic Current Visit: No (7) Morbid obesity Status: Chronic Current Visit: No Qualifiers: Obesity type: with alveolar hypoventilation Qualified Code(s): E66.2 - Morbid (severe) obesity with alveolar hypoventilation (8) Sleep apnea Status: Chronic Current Visit: No Qualifiers: Sleep apnea type: obstructive Qualified Code(s): G47.33 - Obstructive sleep apnea (adult) (pediatric) Cardiology - PN: Subj Interval history: Resting in bed in no acute distress, oxygen in use via NBP. She continues to feel significantly that her. She Denies any chest pain, shortness of breath, or palpitations. She is in sinus rhythm with heart rates in the 70's. Throughout the night, rates ranged in the 70-80's. She had I&D of left breast with Dr. Ng yesterday. Current Medications Acetaminophen (Tylenol Tab) 325 mg PO Q4H PRN PRN Reason: fever, headache/body aches Last Admin: 05/31/16 15:58 Dose: 325 mg Acetaminophen/Hydrocodone Bitart ([place] 5-325) 1 tablet PO Q4H PRN PRN Reason: Pain Mild (1-3) Acetaminophen/Hydrocodone Bitart ([place] 10-325) 1 tablet PO QID PRN PRN Reason: Pain Last Admin: 06/05/16 22:57 Dose: 1 tablet Albuterol Sulfate (Proventil Neb) 2.5 mg RESP TX RT Q4H PRN PRN Reason: Shortness of Breath/Wheezing Allopurinol (Zyloprim) 100 mg PO DAILY [facility] Last Admin: 06/05/16 09:03 Dose: Not Given Apixaban (Eliquis) 5 mg PO BID [facility] Last Admin: 06/05/16 22:56 Dose: 5 mg Azithromycin (Zithromax Tab) 250 mg PO DAILY [facility] Last Admin: 06/05/16 09:02 Dose: Not Given Carvedilol (Coreg) 25 mg PO BID W/MEALS [facility] Last Admin: 06/05/16 16:31 Dose: 25 mg Cyclobenzaprine HCl (Flexeril) 10 mg PO TID PRN PRN Reason: Pain Last Admin: 06/05/16 22:56 Dose: 10 mg Dextrose/Water (D50) 25 gm IV PRN PRN PRN Reason: Hypoglycemia with IV access Docusate Sodium (Colace Cap) 100 mg PO BID PRN PRN Reason: Constipation Furosemide (Lasix Inj) 80 mg IV BID DIURETIC [facility] Last Admin: 06/05/16 16:30 Dose: 80 mg Gabapentin (Neurontin Cap/Tab) 300 mg PO TID [facility] Last Admin: 06/05/16 22:57 Dose: 300 mg Glimepiride (Amaryl) 8 mg PO BID W/MEALS [facility] Last Admin: 06/05/16 16:31 Dose: 8 mg Glucagon () 1 mg IM PRN PRN PRN Reason: Hypoglycemia w/o IV access Last Admin: 06/05/16 09:07 Dose: 1 mg Hydralazine HCl (Apresoline Inj) 10 mg IV Q6H PRN PRN Reason: Hypertension Last Admin: 05/31/16 15:50 Dose: 10 mg Insulin Glargine (Lantus) 40 unit SUBCUT BEDTIME [facility] Last Admin: 06/05/16 23:00 Dose: 40 unit Insulin Human Lispro (Humalog) 0 unit SUBCUT ACHS [facility] PRN Reason: Protocol Last Admin: 06/05/16 22:59 Dose: 12 unit Isosorbide Dinitrate (Isordil) 20 mg PO TID [facility] Last Admin: 06/05/16 22:57 Dose: 20 mg Levofloxacin (Levaquin Tab) 750 mg PO DAILY [facility] Last Admin: 06/05/16 23:07 Dose: 750 mg Nifedipine (Procardia Xl) 30 mg PO BID [facility] Last Admin: 06/05/16 22:56 Dose: 30 mg Non-Formulary Medication (Lamivudine Tab [Epivir Tab]) 300 mg PO DAILY [facility] Non-Formulary Medication (Tenofovir Disoproxil Fumarate [Viread]) 300 mg PO DAILY W/BREAKFAST [facility] Non-Formulary Medication (Efavirenz [Sustiva]) 600 mg PO BEDTIME [facility] Ondansetron HCl (Zofran Inj) 4 mg IV Q4H PRN PRN Reason: Nausea Pantoprazole Sodium (Protonix Tab) 40 mg PO DAILY [facility] Last Admin: 06/05/16 09:02 Dose: Not Given Spironolactone (Aldactone) 25 mg PO BID [facility] Last Admin: 06/05/16 22:57 Dose: 25 mg Exam (Progress Note) - Constitutional Vitals: Period Temp Pulse Resp BP Sys/[place] Pulse Ox Last 24 Hr 97.4 F-98.6 F 69-96 14-22 121-164/62-90 95-100 General appearance: no acute distress, morbidly obese - Head Head exam: Present: normal inspection - Neck Neck exam: Absent: tenderness - Respiratory Respiratory exam: Present: clear to auscultation bilaterally, other (oxygen in use). Absent: accessory muscle use, chest wall tenderness - Cardiovascular Cardiovascular exam: Present: regular rate and rhythm - GI/Abdominal GI/Abdominal exam: Present: normal bowel sounds, soft. Absent: distended, tenderness - Extremities Exam Extremities exam: Present: edema (1-2+ ble) - Neurological Exam Neurological exam: Present: alert, oriented X3 - Psychiatric Psychiatric exam: Present: normal mood - Skin Skin exam: Present: warm, dry Result/EKG - Labs CBC & BMP: 06/06/16 09:03 06/06/16 09:03 Lab Results: I have reviewed the past 24 hour labs Labs: Laboratory Results - last 24 hr 06/05/16 06/05/16 06/05/16 08:23 10:01 15:24 POC Glucose 60 L 93 148 H 06/05/16 19:21 POC Glucose 304 H - EKG EKG results: interpreted by me EKG shows: sinus rhythm Quality Measures - VTE Contraindication to Pharmacological VTE Prophylaxis: Already on Theraputic Agent , No Prophylaxis Needed I, Alex Rolle MD, personally performed the services described in this documentation, ascribed by Jihan Bear RN in my presence, and it is both accurate and complete 454 .
[2016-06-06] MEDS: INSULIN GLARGINE 100 UNIT/ML SUBCUT SCH (21:11)
--- NOTE | 2016-06-07 08:07 | Discharge Summary ---
Hospital Course - Hospital Course Hospital Course: Ms. Jalloh is a 50 year old female presented to the emergency department today with shortness of breath and lower extremity edema. She was found to be very hypertensive. She has a echocardiogram from December 2014 showing an ejection fraction of 40% with hypokinesis globally. She reports being on Bumex at home in the past. She appears to have acute decompensated systolic congestive heart failure with pulmonary edema and shortness of breath. She is working hard to breathe and is in moderate respiratory distress. She is requiring supplemental oxygen. She has received IV Lasix 80 mg in the emergency department and has good urine output in the Blanco catheter. She is being admitted to the hospitalist service to monitored bed with a consultation for cardiology and repeat doses of IV Lasix for continued diuresis. I also added Aldactone. Repeat cardiac enzymes in a.m. labs have been ordered. The patient has chronic kidney disease stage III with a baseline creatinine of approximately 2. Her medical history is complicated by diabetes hypertension questionable congestive heart failure as well as HIV. Ms. Jalloh was admitted with a primary diagnosis of acute on chronic congestive heart failure exacerbation thought to be left-sided and systolic. The patient had a repeat echocardiogram showing an ejection fraction of 35% with global hypokinesis. She was seen in consultation by cardiology. She underwent aggressive diuresis with IV Lasix and Aldactone. She continued to improve during the course of the hospitalization. She also had a left breast abscess that was evaluated by general surgery and was taken to the operating room for debridement and [place] drain placement. She was also found to have a Klebsiella urinary tract infection and received Levaquin. Her respirations are no longer labored. She is tolerating a regular diet. Her pain is controlled. She is stable and ready for discharge home. She'll need to follow-up with Dr. Ng in 2 weeks for evaluation of the [place] drain in the left breast abscess. She'll continue Levaquin for her urinary tract infection and left breast abscess. Total discharge time for this patient including [id number] time, clinical documentation, medication reconciliation and discharge planning were 48 minutes. - Time spent with patient Time with patient DS: Greater than 30 minutes Diagnosis - Discharge Diagnosis (1) Acute exacerbation of congestive heart failure Status: Acute (2) Abscess of breast, left Status: Acute (3) UTI (urinary tract infection) Status: Acute (4) Dyspnea Status: Resolved (5) HIV (human immunodeficiency virus infection) Status: Chronic (6) Morbid obesity Status: Chronic (7) Diabetes mellitus Status: Chronic (8) CKD (chronic kidney disease) stage 3, GFR 30-59 ml/min Status: Chronic (9) Cor pulmonale, chronic Status: Chronic (10) Bronchitis Status: Acute Discharge Plan - Discharge Data Disposition: Disch To Home/Self Care Condition at Discharge: Stable Discharge Diet: diabetic diet Activity: as per physical therapy Hygiene: no restrictions - Discharge Medications New Furosemide Tab [Lasix Tab] 40 mg PO DAILY #30 tablet Furosemide Tab [Lasix Tab] 80 mg PO DAILY #30 tablet HYDROcodone/CHLORPHEN ER SUSP [Tussionex] 5 ml PO BID #120 udcup Levofloxacin Tab [Levaquin Tab] 750 mg PO DAILY #7 tablet NIFEdipine XL TAB [Procardia Xl] 30 mg PO BID #60 tablet Spironolactone [Aldactone] 25 mg PO BID #60 tablet Continue lamiVUDine TAB [Epivir Tab] 300 mg PO DAILY Efavirenz [Sustiva] 600 mg PO BEDTIME Carvedilol [Coreg] 25 mg PO BID W/MEALS Apixaban [Eliquis] 5 mg PO BID Allopurinol [Zyloprim] 100 mg PO DAILY HYDROcodone/ACETAMIN 10-325 [[place] 10-325] 1 tablet PO QID PRN PRN Reason: Pain Glimepiride [Amaryl] 8 mg PO BID W/MEALS Gabapentin Cap/Tab [Neurontin Cap/Tab] 300 mg PO TID Albuterol Sulfate [Ventolin HFA] 2 puff INH Q4H PRN #1 inhaler PRN Reason: Shortness Of Breath/Wheezing Insulin Glargine [Lantus] 20 unit SUBCUT BEDTIME Tenofovir Disoproxil Fumarate [Viread] 300 mg PO DAILY W/BREAKFAST Cyclobenzaprine [Flexeril] 10 mg PO TID PRN PRN Reason: Pain hydrALAZINE TAB [Apresoline Tab] 50 mg PO BID Isosorb Dinit/Hydralazine HCl [Bidil Tablet] 1 tablet PO TID Insulin Aspart Prot/Asp 70/30 [NovoLOG Mix 70/30] 50 unit SUBCUT QAM Insulin Aspart Prot/Asp 70/30 [NovoLOG Mix 70/30] 45 unit SUBCUT QPM - Follow Up or Referral Follow Up: Timothy Ng MD [Physician] - Lucy Brown MD [Physician] - - Forms/Instructions Exam - Constitutional Vitals: Period Temp Pulse Resp BP Sys/[place] Pulse Ox Last 24 Hr 97.2 F-978 F 77-83 20-22 120-167/53-97 96-100 General appearance: no acute distress, morbidly obese - Respiratory Respiratory exam: Present: clear to auscultation bilaterally - Cardiovascular Cardiovascular exam: Present: regular rate and rhythm - GI/Abdominal GI/Abdominal exam: Present: normal bowel sounds, soft. Absent: tenderness, rebound Discharge Results Procedures and tests throughout hospitalization: Pending Orders 06/05/16 11:50 Abscess Culture Routine Anaerobic Culture Routine Labs on day of discharge: Labs from last 24 hours 06/06/16 06/06/16 06/06/16 20:48 15:02 10:38 WBC RBC Hgb Hct MCV MCH MCHC RDW Plt Count MPV Neut % (Auto) Lymph % (Auto) [place]hing % (Auto) Eos % (Auto) Baso % (Auto) Neut # (Auto) Lymph # (Auto) [place] # (Auto) Eos # (Auto) Baso # (Auto) Immature Gran % Nucleated RBC % Immature Gran # Nucleated RBCs # Sodium Potassium Chloride Carbon Dioxide Anion Gap BUN Creatinine GFR Calculation BUN/Creatinine Ratio Glucose POC Glucose 236 H 252 H 225 H Calculated Osmolality Calcium Magnesium 06/06/16 06/06/16 06/06/16 09:03 09:03 08:01 WBC 5.9 RBC 3.10 L Hgb 9.0 L Hct 28.5 L MCV 91.9 MCH 29 MCHC 31.6 L RDW 15.3 Plt Count 250 D MPV 9.8 Neut % (Auto) 69.9 Lymph % (Auto) 23.8 [place]hing % (Auto) 5.6 Eos % (Auto) 0.2 Baso % (Auto) 0.2 Neut # (Auto) 4.1 Lymph # (Auto) 1.4 Pershing # (Auto) 0.3 Eos # (Auto) 0.0 Baso # (Auto) 0.0 Immature Gran % 0.3 Nucleated RBC % 0.0 Immature Gran # 0.02 Nucleated RBCs # 0.00 Sodium 141 Potassium 5.4 H Chloride 105 Carbon Dioxide 26 Anion Gap 15.4 H BUN 52 H Creatinine 2.10 H GFR Calculation 53 BUN/Creatinine Ratio 24.00 H Glucose 213 H POC Glucose 203 H Calculated Osmolality 300.3 Calcium 8.1 L Magnesium 2.4 Preliminary micro results at discharge 06/05/16 11:50 Abscess Culture - Preliminary Breast - Left No growth at 24 hours DS: Provider Date of admission: 05/31/16 14:41 Primary care physician: . No PCP Attending physician on admission: Viktoriya Sanchez MD Consults: 05/31/16 15:56 Consult to Physician [CONS] Routine Comment: CHF Consulting Provider: Lucy Brown Consulting Provider Notified: Yes Person Notified: hafsa Date Notified: 05/31/16 Time Notified: 16:14 05/31/16 16:32 Consult to Pharmacy [CONS] Routine Reason for Pharmacy Consult: Adjust Meds Renal Funct 05/31/16 17:38 Consult to Pastoral Services [CONS] Routine Comment: Pastoral Screen: Request Assistant Finance Director Visit Pastoral Screen Source of Request: Patient 06/04/16 08:51 Consult to Physician [CONS] Routine Comment: Abscess left breast Consulting Provider: Timothy Ng 06/04/16 11:18 Consult to Anesthesiology [CONS] Routine Consulting Provider: Reason for Anesthesiology: Pre-op Clearance Discharging clinician: Viktoriya Sanchez MD Expected date of discharge: 06/07/16
--- NOTE | 2016-06-07 08:12 | General Surgery Progress Note ---
Subjective Patient reports: Present: no new complaints, feels better, pain is less, afebrile Exam - Constitutional Vitals: Period Temp Pulse Resp BP Sys/[place] Pulse Ox Last 24 Hr 97.2 F-978 F 77-83 20-22 120-167/53-97 96-100 General appearance: no acute distress, morbidly obese - Head Head exam: Present: normal inspection - Eye Eye exam: Present: EOMI Pupils: Present: JARAD - ENT ENT exam: Present: normal exam Mouth exam: Present: normal external inspection, normal voice - Neck Neck exam: Present: normal inspection, trachea midline - Respiratory Respiratory exam: Present: clear to auscultation bilaterally. Absent: accessory muscle use, chest wall tenderness - Cardiovascular Cardiovascular exam: Present: RRR. Absent: systolic murmur, tachycardia - GI/Abdominal GI/Abdominal exam: Present: soft. Absent: tenderness - Extremities Exam Extremities exam: Present: normal inspection - Neurological Exam Neurological exam: Present: alert, oriented X3 Speech: Present: normal - Skin Skin exam: Present: normal color, warm, other (left breast is much softer than yesterday. [place] drain is in place. Packing was removed. No pus or erythema.) Results - Labs CBC & BMP: 06/06/16 09:03 06/06/16 09:03 Quality Measures - VTE Contraindication to Pharmacological VTE Prophylaxis: Already on Theraputic Agent , No Prophylaxis Needed Specialty Discharge - Follow Up or Referrals Follow up with: Timothy Ng MD [Physician] - 1 Week
[2016-06-07] MEDS: INSULIN LISPRO 100 UNIT/ML SUBCUT SCH (08:57)
[2016-06-07] MEDS: ISOSORBIDE DINITRATE 20 MG TABLET PO SCH (08:58)
[2016-06-07] MEDS: GLIMEPIRIDE 4 MG TABLET PO SCH (08:59)
[2016-06-07] MEDS: CARVEDILOL 25 MG TABLET PO SCH (08:59)
[2016-06-07] MEDS: PANTOPRAZOLE 40 MG TABLET PO SCH (09:00)
[2016-06-07] MEDS: CYCLOBENZAPRINE 10 MG TABLET PO PRN (09:00)
[2016-06-07] MEDS: GABAPENTIN 300 MG CAPSULE PO SCH (09:00)
[2016-06-07] MEDS: AZITHROMYCIN 250 MG TABLET PO SCH (09:00)
[2016-06-07] MEDS: APIXABAN 5 MG TABLET PO SCH (09:01)
[2016-06-07] MEDS: LEVOFLOXACIN 750 MG TABLET PO SCH (09:01)
[2016-06-07] MEDS: ALLOPURINOL 100 MG TABLET PO SCH (09:01)
[2016-06-07] MEDS: SPIRONOLACTONE 25 MG TABLET PO SCH (09:02)
[2016-06-07] MEDS: DOCUSATE SODIUM 100 MG CAPSULE PO PRN (09:02)
[2016-06-07] MEDS: FUROSEMIDE 40 MG/4 ML VIAL IV SCH (09:02)
[2016-06-07 23:31] VITALS: BP 145/78
== END 2016-06-07 15:30 | disposition home or self-care (01) | DRG 194 ==
LOC: EDUNIT# → N.ED 12:00 → N.EDINP 14:41 → N.2E 16:17
PROVIDERS: ADMIT Family Medicine; ATTEND Family Medicine

== ENCOUNTER 2016-07-08 17:48 | Inpatient (IN) ==
[2016-07-08] MEDS ORDERED: FUROSEMIDE 100 MG/10 ML VIAL IV STA (18:41)
[2016-07-08] MEDS ORDERED: ALBUTEROL/IPRATROPIUM 3 ML NEB RESP TX STA (18:41)
[2016-07-08] MEDS ORDERED: FUROSEMIDE 20 MG/2 ML VIAL ONE (18:53)
[2016-07-08] MEDS ORDERED: FUROSEMIDE 40 MG/4 ML VIAL ONE (18:53)
--- NOTE | 2016-07-08 19:00 | EKG Report ---
Stationary ECG Study [facility] ER Test Date: 07/08/2016 6:59:10 PM Pat Name: SNEHA MOJICA Department: Room: Gender: F Nba Player: : 1965 Requested by: Lizbeth Friedman Order Number: [id number] Reading MD: HUNTER CRONIN Intervals [place] Rate: 93 P: 65 [place]: 182 QRS: -9 QRSD: 115 T: 267 QT: 354 QTc: 405 Interpretive Statements SINUS RHYTHM MILD INTRAVENTRICULAR CONDUCTION DELAY NONSPECIFIC T-WAVE ABNORMALITY Electronically Signed On 07-12-16 07:31:45 BUSINESS ANALYTICS SPECIALIST by HUNTER CRONIN [email or web address]
--- NOTE | 2016-07-08 19:10 | XRay Report ---
History: Shortness of breath Date: 07/08/2016 Study: Chest x-ray AP portable Comparison exam: Chest x-ray June 18, 2016 There is cardiomegaly. There is mild pulmonary vascular engorgement. There is no mediastinal mass. There is some mild hazy pulmonary edema in the perihilar regions. There is trace pleural effusion in the right minor fissure. The osseous structures are unchanged. Impression: Cardiomegaly and evidence of CHF with some mild perihilar pulmonary edema PROCEDURE INTERPRETED AT [facility] DEPARTMENT OF RADIOLOGY Final Report Signed by: Dr. Alyson Watts
[2016-07-08 19:29] LABS: Basophils % 0.4 % (0.0-0.8); Eosinophils # 0.3 10*3/uL (0.0-0.87); Eosinophils % 4.4 % (0.00-10.9); Hematocrit 28.9 VOL% (35.7-47.0); Immature Granulocytes % 0.3 %; Immature Granulocytes Absolute 0.02 #; Lymphocytes # 1.7 10*3/uL (1.4-4.0); Lymphocytes % 23.1 % (21.3-54.2); Mean Corpuscular HGB Conc 31.1 GM/DL (32-36); Mean Corpuscular Hemoglobin 29 PG (27-34); Mean Corpuscular Volume 93.2 FL (87-102); Mean Platelet Volume 9.8 FL (9.6-12.0); Monocytes # 0.4 10*3/uL (0.11-0.8); Monocytes % 6.1 % (1.7-12.7); Neutrophils # 4.8 10*3/uL (1.4-7.4); Neutrophils % 65.7 % (38.7-73.9); Platelet Count 199 T/CUMM (130-400); Red Cell Distribution Width 17.5 % (9.3-17.3); White Blood Count 7.2 T/CUMM (4-12)
[2016-07-08 19:34] LABS: Apearance,Urine CLEAR (Clear); Bilirubin,Urine Negative (Negative); Blood, Urine Small mg/dL (Negative); Glucose,Urine (UA) 50 mg/dL (Negative); Hyaline Casts,Urine 1 /LPF (0-3); Ketones,Urine Negative (Negative); Mucus,Urine Occasional /LPF (Occasional); Nitrite,Urine Negative (Negative); Protein,Urine >=500 MG/DL; RBC,Urine 22 /HPF (0-4); Urine Color Yellow (Yellow); Urine Specific Gravity 1.013 (1.001-1.035); Urine Urobilinogen < 2.0 EU/DL (0.2-1.0); WBC,Urine 3 /HPF (0-6)
[2016-07-08 20:08] LABS: Alanine Aminotransferase 28 U/L (13-56); Albumin 3.1 G/DL (3.4-5.0); Alkaline Phosphatase 142 U/L (45-117); Aspartate Amino Transferase 24 U/L (0-37); Bilirubin,Total < 0.39 MG/DL (0.2-1.0); Blood Urea Nitrogen 32 MG/DL (7-18); Calcium 8.5 MG/DL (8.5-10.1); Glucose 124 MG/DL (74-106); Magnesium 2.4 MG/DL (1.8-2.4); Osmolality,Calculated 301.3 MOS/KG (273-304); Potassium 4.3 MMOL/L (3.5-5.1); Sodium 148 MMOL/L (136-145); Total Protein 6.7 G/DL (6.4-8.3); Troponin I Only < 0.015 NG/ML (0.00-0.045)
--- NOTE | 2016-07-08 21:56 | Emergency Department Note ---
Joan Romero Gwan, am scribing for, and in the presence of, Lizbeth Friedman DO 18:51. Elder Romero Catherine, DO, personally performed the services described in this documentation, ascribed by Vincent Franco in my presence, and it is both accurate and complete . Arrival - Arrival Chief Complaint: Shortness of Breath Stated Complaint: SOB AND WORSENING ED Nursing Triage Note: PT WAS DISCHARGED FROM SWING BED ON SATURDAY. PT WAS THERE FOR SOB. PT REPORTS SHE IS GETTING PROGRESSIVLY WORSE. PT IS ON [employer] [facility] Mode of Arrival: Stretcher Limitations: No Limitations Source: Patient, Old Records Reviewed, RN Notes Reviewed Time Seen by Provider: 07/08/16 18:36 - History of Present Illness HPI Narrative: Pt is a 50 y/o female, with a hx of HIV/CHF/COPD, who presents to the ED with a c/o SOB and LE edema/pain. Patient stated that she has been at [facility] in the swing bed and that she was discharged 07/03/2016. Her associated sxs have been soreness all over and that her sxs worsens when she lays flat. She continued to note that she has been having this problem for a while but, tonight her sxs began to worsen prompting her visit to the ED for further evaluation. Patient confirmed that she has been compliant with all of her prescribed medications and that she is followed by Dr. Trujillo and Dr. Brown. She denies any hx of heart attack, fever, or use of home O2. Pt has a PMHx of HTN, congenital heart disease, depression, peripheral neuropathy, NIDDM, dyslipidemia, RA, bronchitis, renal failure, obstructive sleep apnea, pulmonary embolism. No other problems/complaints reported in ED. patient reports that she is here because she cant breath Onset (ago): day(s) Consistency: constant Severity: moderate Severity scale (1-10): 4 Quality: fullness Allergies/Adverse Reactions: Allergies Allergy/AdvReac Type Severity Reaction Status Date / Time daptomycin Allergy Unknown RASH Verified 06/18/16 19:41 Home Medications: Home Medications Medication Instructions Recorded Confirmed Type Apixaban [Eliquis] 5 mg PO BID 01/03/15 07/08/16 History Carvedilol [Coreg] 25 mg PO BID W/MEALS 01/03/15 07/08/16 History Efavirenz [Sustiva] 600 mg PO BEDTIME 01/03/15 07/08/16 History Gabapentin Cap/Tab [Neurontin 300 mg PO TID 01/03/15 07/08/16 History Cap/Tab] Glimepiride [Amaryl] 8 mg PO BID W/MEALS 01/03/15 07/08/16 History HYDROcodone/ACETAMIN 10-325 [[place] 1 tablet PO QID PRN 01/03/15 07/08/16 History 10-325] lamiVUDine TAB [Epivir Tab] 300 mg PO DAILY 01/03/15 07/08/16 History Albuterol Sulfate [Ventolin HFA] 2 puff INH Q4H PRN #1 inhaler 01/06/15 Rx Cyclobenzaprine [Flexeril] 10 mg PO TID PRN 04/27/15 07/08/16 History Tenofovir Disoproxil Fumarate 300 mg PO DAILY W/BREAKFAST 04/27/15 07/08/16 History [Viread] Insulin Aspart Prot/Asp 70/30 45 unit SUBCUT QPM 05/31/16 07/08/16 History [NovoLOG Mix 70/30] Insulin Aspart Prot/Asp 70/30 50 unit SUBCUT QAM 05/31/16 07/08/16 History [NovoLOG Mix 70/30] Isosorb Dinit/Hydralazine HCl 1 tablet PO TID 05/31/16 07/08/16 History [Bidil Tablet] NIFEdipine XL TAB [Procardia Xl] 30 mg PO BID #60 tablet 06/07/16 07/08/16 Rx Spironolactone [Aldactone] 25 mg PO BID #60 tablet 06/07/16 07/08/16 Rx Acetaminophen Tab [Tylenol Tab] 325 mg PO Q4H PRN #0 tablet 06/20/16 07/08/16 Rx Lactulose Liquid [Chronulac] 20 gm PO Q4H PRN #0 udcup 06/20/16 07/08/16 Rx Furosemide [Furosemide] 40 mg PO BID 07/08/16 07/08/16 History Multivitamin (Intrinsic) 1 capsule PO BID 07/08/16 07/08/16 History [Trinsicon] Sertraline [Zoloft] 50 mg PO DAILY 07/08/16 07/08/16 History Review of System - Review of System 12 point system: reviewed and no additional remarkable complaints except as stated - Review of System Constitutional: Absent: chills, diaphoresis Respiratory: Present: as per HPI, other (SOB) Cardiovascular: Present: dyspnea on exertion, orthopnea, edema. Absent: chest pain, palpitations, syncope Gastrointestinal: Absent: nausea, vomiting, diarrhea, constipation Musculoskeletal: Present: as per HPI, leg pain (both legs hurt to touch and are swollen) Skin: Absent: rash, lesions Neurological: Absent: headache, weakness Psychiatric: Absent: anxiety, depression Medical,Surgical,& Family Hx - Medical History Cardio: History of: Congenital Heart Disease, CHF, Hypertension No history of: Pacemaker, PVD, Valvular Heart Disease, Cardiovascular Problems Psychological: History of: Depression No history of: Anxiety Disorders, ADHD, Behavior Problems, Bipolar Disorder, Previous Suicide Attempt, Psychiatric/Substance Abuse Tx, Schizophrenia, Violent Behavior, Psychiatric Problems Neurology: History of: Peripheral Neuropathy No history of: Brain Aneurysm, Cerebral Hemorrhage, Cerebrovascular Accident , Cerebral Palsy, Dementia, Migraine, Multiple Sclerosis, Parkinson's Disease, Seizures, TIA, Vertigo, Neurologocal Cancer Endocrine: History of: Diabetes Mellitus (NIDDM), Dyslipidemia No history of: Thyroid Disorder, Endocrine Cancer, Endocrine Problems Rheumatology: History of;: Rheumatoid Arthritis No history of;: Psoriasis, Sjogrens, Systemic Lupus Erythematosus Respiratory: History of: Bronchitis, COPD, Obstructive Sleep Apnea, Pulmonary Embolism, Pneumonia, Respiratory Problems No history of: Intubation, Lung Cancer Renal: History of: Renal Failure No history of: Renal (Kidney) Cancer, Dialysis, Renal Problems Genitourinary: History of: Bladder Problem No history of: Kidney Stones, Recurring Urinary Tract Infections, Genitourinary Cancer, Problems Gastrointestinal: History of: GERD No history of: Crohn's Disease, Diverticulitis/ Diverticulosis, Esophageal Varices, Gastrointestinal Bleed, Liver Problems, Pancreatitis, Polyps, Gastrointestinal Cancer, GI Problems Musculoskeletal: History of: Back/Neck Problems, Osteoporosis No history of: Amputation Hematology: No history of: Anemia, Blood Transfusion Reaction (blood transfusions but no reactions), Bleeding Problems, Clotting Problems, Sickle Cell Disease, Hematologic Cancer, Blood Disorders Reproductive: History of: Sexually Transmitted Disorders (HIV Pos.) Other: No history of: Anesthesia Reactions, Anaphylaxis, Cancer, Eczema, HIV, Malignant Hyperthermia, MRSA, Vancomycin-Resistant Enterococci, Skin Problems, Miscellaneous Medical Problems - Surgical History Cardiac Surgeries: Patient Denies: Femoral-Popliteal Bypass Graft, Cardiac Catheterization, Cardiac Surgery, Carotid Endarterectomy, Internal Defibrillator, Vascular Access Devices Thoracic Surgeries: Patient denies;: Kidney (Renal Surgery), Lithotripsy, Nephrectomy, Organ Transplant, Lobectomy Neurologic Surgeries: Patient denies: Brain Aneurysm, Cerebral Hemorrhage, Neurologic Surgery HEENT Surgeries: Patient denies: Carotid Endarterectomy, Thyroid Surgery Abdominal Surgeries: Surgical HX of: Abdominal Surgery Patient denies: Appendectomy, Cholecystectomy, Colonoscopy, Gastric Bypass Surgery, EGD, Hernia Repair, Splenectomy Reproductive Surgeries: Surgical HX of;: Breast Surgery (multiple abcesses), Section Patient denies;: Cystoscopy, Dilation and Curettage, Genitourinary Surgery, Gynecologic Surgery, Hysterectomy, Tubal Ligation Orthopedic Surgeries: Patient denies;: Implanted Devices, Orthopedic Surgery, Spinal Surgery, Total Hip Replacement, Total Knee Replacement - Family History Family History: Reports;: Family Diabetes (MOTHER), Family Hypertension Denies;: Family Anesthesia Reaction, Family Psychiatric Problems, Family Stroke - Social History Smoking Status: Unknown if ever smoked Have you smoked in the last 12 months: No Frequency of Alcohol Use: None Type of Drug Use: None Marital Status: Unknown Functional capacity: bed bound Exam Vital Signs: Vital Signs Temperature 97.2 F L 07/08/16 21:00 Pulse Rate 95 H 07/08/16 21:00 Respiratory Rate 22 07/08/16 21:00 Blood Pressure 167/94 07/08/16 21:00 O2 Sat by Pulse Oximetry 99 07/08/16 19:06 - General General appearance: alert, obese (morbidly) - Head Head exam: Present: atraumatic, normocephalic - Eye Eye exam: Present: normal appearance, PERRL, EOMI - ENT ENT exam: Present: normal exam, normal oropharynx, mucous membranes moist, TM's normal bilaterally, normal external ear exam - Neck Neck exam: Present: full ROM - Chest Chest inspection: Present: symmetric chest wall rise - Respiratory Respiratory exam: Present: rales, other (decreased breath sounds ) - Cardiovascular Cardiovascular exam: Present: regular rate, normal rhythm, normal heart sounds. Absent: murmur, rubs, gallop - Abdominal Exam Abdominal exam: Present: soft, other (morbid obesity). Absent: tenderness, guarding, rebound - Extremities Exam Extremities exam: Present: pedal edema, other (+3 LE edema) - Back Exam Back exam: Present: normal inspection - Neurological Exam Neurological exam: Present: alert, oriented X3, CN II-XII intact - Skin Skin exam: Present: warm, dry Course - Consultations Consultation #1: Dr. Castillo Time: 21:55 Results - Labs CBC & BMP: 07/08/16 18:54 07/08/16 18:54 Lab Results: I have reviewed the patients labs Labs: Laboratory Tests 07/08/16 07/08/16 18:54 18:54 WBC 7.2 RBC 3.10 L Hgb 9.0 L Hct 28.9 L MCHC 31.1 L RDW 17.5 H Plt Count 199 Urine pH 5.0 Ur Specific [place] 1.013 Urine Protein >=500 Urine Glucose (UA) 50 Urine Blood Small Urine Urobilinogen < 2.0 H Urine RBC 22 Urine WBC 3 Hyaline Casts 1 Urine Mucus Occasional Laboratory Tests 07/08/16 18:54 Sodium 148 H Potassium 4.3 Chloride 113 H Carbon Dioxide 24 Anion Gap 15.3 H BUN 32 H Creatinine 1.80 H Glucose 124 H Alkaline Phosphatase 142 H Albumin 3.1 L Globulin 3.6 H Albumin/Globulin Ratio 0.8 L Laboratory Tests 07/08/16 18:54 B-Natriuretic Peptide 285 H - EKG EKG results: interpreted by ERMD - Impressions no acute findings - Diagnostic Findings Procedure: Chest x-ray: report reviewed by me (Cardiomegaly and evidence of CHF with some mild perihilar pulmonary edema. ) Disposition Clinical Impression: Acute exacerbation of CHF (congestive heart failure) Case discussed with: patient Disposition: Still a Patient Condition: Stable Time of Disposition: 21:56
--- NOTE | 2016-07-08 23:58 | Hospitalist History & Physical ---
Assessment and Plan (1) Acute exacerbation of congestive heart failure Status: Acute Current Visit: No Qualifiers: Congestive heart failure type: combined Qualified Code(s): I50.43 - Acute on chronic combined systolic (congestive) and diastolic (congestive) heart failure (2) Dyspnea Status: Resolved Current Visit: No Qualifiers: Dyspnea type: shortness of breath Qualified Code(s): R06.02 - Shortness of breath (3) HIV (human immunodeficiency virus infection) Status: Chronic Current Visit: No (4) Morbid obesity Status: Chronic Current Visit: No Qualifiers: Obesity type: with alveolar hypoventilation Qualified Code(s): E66.2 - Morbid (severe) obesity with alveolar hypoventilation (5) Chronic anticoagulation Status: Chronic Current Visit: No (6) Debility Status: Acute Assessment and plan: We'll plan for this patient we'll be admitting her to a monitored bed. Will check cardiac enzymes. We'll continue with IV diuresis. We'll consult cardiology to make sure that her heart status is optimized. At 238 kg her ability to regain a functional status is very poor. We'll continue other home medications as appropriate Current Visit: No History of Present Illness Chief complaint: shortness of breath History of present illness: Ms. Jalloh is a 50 year old female multiple medical problems including diastolic heart failure, HIV infection, and general debility who was just recently discharged from [facility] bed 5 days ago. Patient reports that she really hasn't gotten any better. She said she was given 2 medications to get fluid off. She says that she's can't not get the fluid off and that she is really worried about it. She gets short of breath with the least exertion. She feels like her swelling is increasing. She has symptoms of proximal nocturnal dyspnea. She has very poor home situation. She basically has to take care of herself. She is 238 kg and has very poor functioning ability. She had a recent echo last month showed an ejection fraction of 35%. I was consulted to admit her Home Medications Medication Instructions Recorded Confirmed Type Apixaban [Eliquis] 5 mg PO BID 01/03/15 07/08/16 History Carvedilol [Coreg] 25 mg PO BID W/MEALS 01/03/15 07/08/16 History Efavirenz [Sustiva] 600 mg PO BEDTIME 01/03/15 07/08/16 History Gabapentin Cap/Tab [Neurontin 300 mg PO TID 01/03/15 07/08/16 History Cap/Tab] Glimepiride [Amaryl] 8 mg PO BID W/MEALS 01/03/15 07/08/16 History HYDROcodone/ACETAMIN 10-325 [[place] 1 tablet PO QID PRN 01/03/15 07/08/16 History 10-325] lamiVUDine TAB [Epivir Tab] 300 mg PO DAILY 01/03/15 07/08/16 History Albuterol Sulfate [Ventolin HFA] 2 puff INH Q4H PRN #1 inhaler 01/06/15 Rx Cyclobenzaprine [Flexeril] 10 mg PO TID PRN 04/27/15 07/08/16 History Tenofovir Disoproxil Fumarate 300 mg PO DAILY W/BREAKFAST 04/27/15 07/08/16 History [Viread] Insulin Aspart Prot/Asp 70/30 45 unit SUBCUT QPM 05/31/16 07/08/16 History [NovoLOG Mix 70/30] Insulin Aspart Prot/Asp 70/30 50 unit SUBCUT QAM 05/31/16 07/08/16 History [NovoLOG Mix 70/30] Isosorb Dinit/Hydralazine HCl 1 tablet PO TID 05/31/16 07/08/16 History [Bidil Tablet] NIFEdipine XL TAB [Procardia Xl] 30 mg PO BID #60 tablet 06/07/16 07/08/16 Rx Spironolactone [Aldactone] 25 mg PO BID #60 tablet 06/07/16 07/08/16 Rx Acetaminophen Tab [Tylenol Tab] 325 mg PO Q4H PRN #0 tablet 06/20/16 07/08/16 Rx Lactulose Liquid [Chronulac] 20 gm PO Q4H PRN #0 udcup 06/20/16 07/08/16 Rx Furosemide [Furosemide] 40 mg PO BID 07/08/16 07/08/16 History Multivitamin (Intrinsic) 1 capsule PO BID 07/08/16 07/08/16 History [Trinsicon] Sertraline [Zoloft] 50 mg PO DAILY 07/08/16 07/08/16 History Allergies Allergy/AdvReac Type Severity Reaction Status Date / Time daptomycin Allergy Unknown RASH Verified 06/18/16 19:41 Medical,Surgical,& Family Hx - Medical History Cardio: History of: Congenital Heart Disease, CHF, Hypertension No history of: Pacemaker, PVD, Valvular Heart Disease, Cardiovascular Problems Psychological: History of: Depression No history of: Anxiety Disorders, ADHD, Behavior Problems, Bipolar Disorder, Previous Suicide Attempt, Psychiatric/Substance Abuse Tx, Schizophrenia, Violent Behavior, Psychiatric Problems Neurology: History of: Peripheral Neuropathy No history of: Brain Aneurysm, Cerebral Hemorrhage, Cerebrovascular Accident , Cerebral Palsy, Dementia, Migraine, Multiple Sclerosis, Parkinson's Disease, Seizures, TIA, Vertigo, Neurologocal Cancer Endocrine: History of: Diabetes Mellitus (NIDDM), Dyslipidemia No history of: Thyroid Disorder, Endocrine Cancer, Endocrine Problems Rheumatology: History of;: Rheumatoid Arthritis No history of;: Psoriasis, Sjogrens, Systemic Lupus Erythematosus Respiratory: History of: Bronchitis, COPD, Obstructive Sleep Apnea, Pulmonary Embolism, Pneumonia, Respiratory Problems No history of: Intubation, Lung Cancer Renal: History of: Renal Failure No history of: Renal (Kidney) Cancer, Dialysis, Renal Problems Genitourinary: History of: Bladder Problem No history of: Kidney Stones, Recurring Urinary Tract Infections, Genitourinary Cancer, Problems Gastrointestinal: History of: GERD No history of: Crohn's Disease, Diverticulitis/ Diverticulosis, Esophageal Varices, Gastrointestinal Bleed, Liver Problems, Pancreatitis, Polyps, Gastrointestinal Cancer, GI Problems Musculoskeletal: History of: Back/Neck Problems, Osteoporosis No history of: Amputation Hematology: No history of: Anemia, Blood Transfusion Reaction (blood transfusions but no reactions), Bleeding Problems, Clotting Problems, Sickle Cell Disease, Hematologic Cancer, Blood Disorders Reproductive: History of: Sexually Transmitted Disorders (HIV Pos.) Other: No history of: Anesthesia Reactions, Anaphylaxis, Cancer, Eczema, HIV, Malignant Hyperthermia, MRSA, Vancomycin-Resistant Enterococci, Skin Problems, Miscellaneous Medical Problems - Surgical History Cardiac Surgeries: Patient Denies: Femoral-Popliteal Bypass Graft, Cardiac Catheterization, Cardiac Surgery, Carotid Endarterectomy, Internal Defibrillator, Vascular Access Devices Thoracic Surgeries: Patient denies;: Kidney (Renal Surgery), Lithotripsy, Nephrectomy, Organ Transplant, Lobectomy Neurologic Surgeries: Patient denies: Brain Aneurysm, Cerebral Hemorrhage, Neurologic Surgery HEENT Surgeries: Patient denies: Carotid Endarterectomy, Thyroid Surgery Abdominal Surgeries: Surgical HX of: Abdominal Surgery Patient denies: Appendectomy, Cholecystectomy, Colonoscopy, Gastric Bypass Surgery, EGD, Hernia Repair, Splenectomy Reproductive Surgeries: Surgical HX of;: Breast Surgery (multiple abcesses), Section Patient denies;: Cystoscopy, Dilation and Curettage, Genitourinary Surgery, Gynecologic Surgery, Hysterectomy, Tubal Ligation Orthopedic Surgeries: Patient denies;: Implanted Devices, Orthopedic Surgery, Spinal Surgery, Total Hip Replacement, Total Knee Replacement - Family History Family History: Reports;: Family Diabetes (MOTHER), Family Hypertension Denies;: Family Anesthesia Reaction, Family Psychiatric Problems, Family Stroke - Social History Smoking Status: Unknown if ever smoked Frequency of Alcohol Use: None Type of Drug Use: None 12 point system: reviewed and no additional remarkable complaints except as stated Exam - Constitutional Vitals: Period Temp Pulse Resp BP Sys/[place] Pulse Ox Last 24 Hr 97.2 F-97.2 F 93-95 20-34 167-167/94-109 94-99 - General General appearance: alert, obese (morbidly) - Head Head exam: Present: atraumatic, normocephalic - Eye Eye exam: Present: normal appearance, PERRL, EOMI - ENT ENT exam: Present: normal exam, normal oropharynx, mucous membranes moist, TM's normal bilaterally, normal external ear exam - Neck Neck exam: Present: full ROM - Chest Chest inspection: Present: symmetric chest wall rise - Respiratory Respiratory exam: Present: rales, other (decreased breath sounds ) - Cardiovascular Cardiovascular exam: Present: regular rate, normal rhythm, normal heart sounds. Absent: murmur, rubs, gallop - Abdominal Exam Abdominal exam: Present: soft, other (morbid obesity). Absent: tenderness, guarding, rebound - Extremities Exam Extremities exam: Present: pedal edema, other (+3 LE edema) - Back Exam Back exam: Present: normal inspection - Neurological Exam Neurological exam: Present: alert, oriented X3, CN II-XII intact - Skin Skin exam: Present: warm, dry Results - Labs CBC & BMP: 07/08/16 18:54 07/08/16 18:54
[2016-07-09] MEDS ORDERED: DEXTROSE 50% 25 GM/50 ML VIAL IV PRN (00:03)
[2016-07-09] MEDS ORDERED: MAGNESIUM SULF RIDER 2 GM in PREMIX 1 EACH IV PRN (00:03)
[2016-07-09] MEDS ORDERED: MAGNESIUM SULF RIDER 4 GM in PREMIX 1 EACH IV PRN (00:03)
[2016-07-09] MEDS ORDERED: GLUCAGON 1 MG VIAL IM PRN (00:03)
[2016-07-09] MEDS ORDERED: LACTULOSE 20 GM/30 ML UDCUP PO PRN (00:11)
[2016-07-09] MEDS ORDERED: ALBUTEROL 2.5 MG/3 ML NEB RESP TX PRN (00:11)
[2016-07-09] MEDS ORDERED: cloNIDine 0.1 MG TABLET ONE ×2 (01:56→01:57)
[2016-07-09] MEDS ORDERED: cloNIDine 0.1 MG TABLET PO STA (02:05)
[2016-07-09] MEDS: CYCLOBENZAPRINE 10 MG TABLET PO PRN (03:16)
[2016-07-09 05:26] LABS: Basophils % 0.5 % (0.0-0.8); Eosinophils # 0.3 10*3/uL (0.0-0.87); Eosinophils % 4.6 % (0.00-10.9); Hematocrit 28.2 VOL% (35.7-47.0); Hemoglobin 8.7 GM/DL (12.0-16.0); Immature Granulocytes % 0.2 %; Immature Granulocytes Absolute 0.01 #; Lymphocytes # 1.4 10*3/uL (1.4-4.0); Lymphocytes % 22.6 % (21.3-54.2); Mean Corpuscular HGB Conc 30.9 GM/DL (32-36); Mean Corpuscular Hemoglobin 29 PG (27-34); Mean Corpuscular Volume 93.1 FL (87-102); Mean Platelet Volume 10.1 FL (9.6-12.0); Monocytes # 0.4 10*3/uL (0.11-0.8); Monocytes % 6.2 % (1.7-12.7); Neutrophils % 65.9 % (38.7-73.9); Platelet Count 202 T/CUMM (130-400); Red Blood Count 3.03 MC/CUMM (3.8-5.5); Red Cell Distribution Width 17.3 % (9.3-17.3); White Blood Count 6.1 T/CUMM (4-12)
[2016-07-09 05:58] LABS: Calcium 8.4 MG/DL (8.5-10.1); Osmolality,Calculated 304.3 MOS/KG (273-304); Potassium 4.4 MMOL/L (3.5-5.1)
[2016-07-09 06:00] LABS: Troponin I Only < 0.015 NG/ML (0.00-0.045)
[2016-07-09] MEDS: FUROSEMIDE 40 MG/4 ML VIAL IV SCH ×2 (09:53→15:32)
[2016-07-09] MEDS: SERTRALINE 50 MG TABLET PO SCH (09:53)
[2016-07-09] MEDS: CARVEDILOL 25 MG TABLET PO SCH ×2 (09:53→17:39)
[2016-07-09] MEDS: MULTIVITAMIN (CENTRUM) TABLET PO SCH ×2 (09:53→21:35)
[2016-07-09] MEDS: GLIMEPIRIDE 4 MG TABLET PO SCH ×2 (09:54→17:39)
[2016-07-09] MEDS: TENOFOVIR 300 MG PO SCH (09:54)
[2016-07-09] MEDS: GABAPENTIN 300 MG CAPSULE PO SCH ×3 (09:54→21:36)
[2016-07-09] MEDS: ISOSORBIDE DINITRATE 20 MG TABLET PO SCH ×3 (09:54→21:35)
[2016-07-09] MEDS: LAMIVUDINE 300 MG PO SCH (09:54)
[2016-07-09] MEDS: hydrALAZINE 25 MG TABLET PO SCH ×3 (09:54→21:36)
[2016-07-09] MEDS: APIXABAN 5 MG TABLET PO SCH ×2 (09:55→21:36)
[2016-07-09] MEDS: SPIRONOLACTONE 25 MG TABLET PO SCH ×2 (09:55→21:36)
[2016-07-09 12:39] LABS: Troponin I Only 0.017 NG/ML (0.00-0.045)
--- NOTE | 2016-07-09 13:17 | Hospitalist Progress Note ---
Assessment and Plan (1) HTN (hypertension) Status: Chronic Assessment and plan: Blood pressure is above optimal we will continue to monitor she has been on diuretics and other multiple medications. Current Visit: Yes (2) Acute exacerbation of CHF (congestive heart failure) Status: Acute Assessment and plan: Patient has decompensated CHF T [place] factorial with the poor compliance. In addition her symptoms contributed by valvular disorder ,pulmonary hypertension and morbid obesity. Continue current dialysis but to follow the chemistry as patient has mild hyponatremia. Patient is being followed by cardiology and will follow the recommendations Current Visit: Yes (3) Acute renal failure Status: Acute Assessment and plan: Patient has acute renal failure on presentation probably cardiorenal with the vascular congestion. It seems that the renal function has improved since admission. Continue to monitor Current Visit: No (4) Diabetes mellitus Status: Chronic Assessment and plan: Continue monitoring blood sugar Current Visit: No (5) Anemia Status: Chronic Assessment and plan: Patient had chronic anemia with some fluctuation but overall stable. Current Visit: Yes Hospitalist: Subjective Interval history: Ms. Jalloh is a 50 year old -[place] female with h/o congestive heart failure recent echo showed ejection lv fraction of 35% with diastolic dysfunction severe tricuspid regurgitation and PAP 60-65mmHg, morbid obesity , uncontrolled hypertension, type 2 diabetes, HIV-positive, arthritis, chronic debility, chronic renal failure, history of pulmonary embolus, suspected sleep apnea , anxiety, depression, peripheral neuropathy, prior pulmonary embolism, chronic anticoagulation, osteoporosis. She will recently just discharged from [facility] bed 5 days ago. She presented to hospital with the swelling in lower extremities along with the orthopnea and PND with discharge with exertion. She claims she has been taking her medications. Questioning reveals that she has not been compliant with diet. At home they have been using canned vegetables and to prepare food. She continued to have a dyspnea . she been on intravenous Lasix and actually had 1400 mL of urine output since this morning. Cardiology being consulted and the recommendation is pending Exam - Constitutional Vitals: Period Temp Pulse Resp BP Sys/[place] Pulse Ox Last 24 Hr 97.3 F-98.9 F 84-98 18-20 151-195/82-118 91-97 General appearance: mild distress, morbidly obese - Respiratory Respiratory exam: Present: rales (equal air entry with the rhonchi bilaterally with some the bases), rhonchi - Cardiovascular Cardiovascular exam: Present: regular rate and rhythm. Absent: tachycardia - GI/Abdominal GI/Abdominal exam: Present: normal bowel sounds, soft. Absent: tenderness - Extremities Exam Extremities exam: Present: edema (bilateral 3+ edema of lower extremities with pitting) - Neurological Exam Neurological exam: Present: alert, oriented X3 Results - Labs CBC & BMP: 07/09/16 04:31 07/09/16 04:31
[2016-07-09] MEDS: ONDANSETRON 4 MG/2 ML VIAL IV PRN (13:52)
--- NOTE | 2016-07-09 15:40 | Sleep Medicine Consult ---
Assessment and Plan (1) Suspected sleep apnea Status: Acute Assessment and plan: We will proceed with HST evaluation again and if positive utilize this for therapy prescription of CPAP. If negative, she will need in lab polysomnography. Hopefully she will comply with recommendations. Current Visit: No History of Present Illness Chief complaint: apnea History of present illness: Ms. Jalloh is a 50 year old female known to the sleep clinic. I recently saw her in sleep consultation while hospitalized in May and after undergoing a negative home sleep test while hospitalized, she was set up for outpatient sleep study. This was scheduled for June 13. The patient did not show for her evaluation and was contacted by phone. She explained that she a constitution party had a sleep test while hospitalized and stated that she did not want a sleep study done after she was offered another opportunity for sleep study June 14. I had explained to her the end, that there is a false negative rate of 17% and that repeat sleep study should be done in the sleep lab by polysomnography. She states that she is here because of fluid retention and I explained to her that this probably could be related to untreated sleep apnea. I explained that we are making an effort to help her and that she should help us help her. We can go ahead and repeat the home sleep test while here in hospitalized. If positive, this will satisfy diagnostic criteria I think for Medicaid and hopefully we will be able to go ahead and institute therapy. We will proceed with HST but if negative again, we will need in lab polysomnography to exclude sleep apnea completely. Home Medications Medication Instructions Recorded Confirmed Type Apixaban [Eliquis] 5 mg PO BID 01/03/15 07/09/16 History Carvedilol [Coreg] 25 mg PO BID W/MEALS 01/03/15 07/09/16 History Efavirenz [Sustiva] 600 mg PO BEDTIME 01/03/15 07/09/16 History Gabapentin Cap/Tab [Neurontin 300 mg PO TID 01/03/15 07/09/16 History Cap/Tab] Glimepiride [Amaryl] 8 mg PO BID W/MEALS 01/03/15 07/09/16 History HYDROcodone/ACETAMIN 10-325 [[place] 1 tablet PO QID PRN 01/03/15 07/09/16 History 10-325] lamiVUDine TAB [Epivir Tab] 300 mg PO DAILY 01/03/15 07/09/16 History Albuterol Sulfate [Ventolin HFA] 2 puff INH Q4H PRN #1 inhaler 01/06/15 Rx Cyclobenzaprine [Flexeril] 10 mg PO TID PRN 04/27/15 07/09/16 History Tenofovir Disoproxil Fumarate 300 mg PO DAILY W/BREAKFAST 04/27/15 07/09/16 History [Viread] Insulin Aspart Prot/Asp 70/30 45 unit SUBCUT QPM 05/31/16 07/09/16 History [NovoLOG Mix 70/30] Insulin Aspart Prot/Asp 70/30 50 unit SUBCUT QAM 05/31/16 07/09/16 History [NovoLOG Mix 70/30] Isosorb Dinit/Hydralazine HCl 1 tablet PO TID 05/31/16 07/09/16 History [Bidil Tablet] NIFEdipine XL TAB [Procardia Xl] 30 mg PO BID #60 tablet 06/07/16 07/09/16 Rx Spironolactone [Aldactone] 25 mg PO BID #60 tablet 06/07/16 07/09/16 Rx Acetaminophen Tab [Tylenol Tab] 325 mg PO Q4H PRN #0 tablet 06/20/16 07/09/16 Rx Lactulose Liquid [Chronulac] 20 gm PO Q4H PRN #0 udcup 06/20/16 07/09/16 Rx Furosemide [Furosemide] 40 mg PO BID 07/08/16 07/09/16 History Multivitamin (Intrinsic) 1 capsule PO BID 07/08/16 07/09/16 History [Trinsicon] Sertraline [Zoloft] 50 mg PO DAILY 07/08/16 07/09/16 History Allopurinol [Zyloprim] 100 mg PO DAILY 07/09/16 07/09/16 History Aspirin [Ecotrin] 81 mg PO DAILY 07/09/16 07/09/16 History Allergies Allergy/AdvReac Type Severity Reaction Status Date / Time daptomycin Allergy Unknown RASH Verified 06/18/16 19:41 Exam (P[place]mon[place]) H&P - Constitutional Vitals: Period Temp Pulse Resp BP Sys/[place] Pulse Ox Last 24 Hr 97.3 F-98.9 F 84-98 18-20 151-195/82-118 91-97 Exam: She is alert and responsive. She is on nasal cannula O2. Oropharynx with class IV Mallampati exam. Neck is large supple without adenopathy. Chest with good breath sounds bilaterally without wheeze or rhonchi. Cardiac exam reveals a regular rhythm without murmur or gallop. Abdomen obese nontender without palpable hepatosplenomegaly or mass. Extremities are without increased clubbing , cyanosis, or edema. Neurologically, she is grossly intact. She moves all extremities with good strength. Medical,Surgical,& Family Hx - Medical History Cardio: History of: Congenital Heart Disease, CHF, Hypertension No history of: Pacemaker, PVD, Valvular Heart Disease, Cardiovascular Problems Psychological: History of: Depression No history of: Anxiety Disorders, ADHD, Behavior Problems, Bipolar Disorder, Previous Suicide Attempt, Psychiatric/Substance Abuse Tx, Schizophrenia, Violent Behavior, Psychiatric Problems Neurology: History of: Peripheral Neuropathy No history of: Brain Aneurysm, Cerebral Hemorrhage, Cerebrovascular Accident , Cerebral Palsy, Dementia, Migraine, Multiple Sclerosis, Parkinson's Disease, Seizures, TIA, Vertigo, Neurologocal Cancer Endocrine: History of: Diabetes Mellitus (IDDM), Diabetes Mellitus (NIDDM), Dyslipidemia No history of: Thyroid Disorder, Endocrine Cancer, Endocrine Problems Rheumatology: History of;: Rheumatoid Arthritis No history of;: Psoriasis, Sjogrens, Systemic Lupus Erythematosus Respiratory: History of: Bronchitis, COPD, Obstructive Sleep Apnea, Pulmonary Embolism, Pneumonia, Respiratory Problems No history of: Intubation, Lung Cancer Renal: History of: Renal Failure No history of: Renal (Kidney) Cancer, Dialysis, Renal Problems Genitourinary: History of: Bladder Problem No history of: Kidney Stones, Recurring Urinary Tract Infections, Genitourinary Cancer, Problems Gastrointestinal: History of: GERD No history of: Crohn's Disease, Diverticulitis/ Diverticulosis, Esophageal Varices, Gastrointestinal Bleed, Liver Problems, Pancreatitis, Polyps, Gastrointestinal Cancer, GI Problems Musculoskeletal: History of: Back/Neck Problems, Osteoporosis No history of: Amputation Hematology: No history of: Anemia, Blood Transfusion Reaction (blood transfusions but no reactions), Bleeding Problems, Clotting Problems, Sickle Cell Disease, Hematologic Cancer, Blood Disorders Reproductive: History of: Sexually Transmitted Disorders (HIV Pos.) Other: No history of: Anesthesia Reactions, Anaphylaxis, Cancer, Eczema, HIV, Malignant Hyperthermia, MRSA, Vancomycin-Resistant Enterococci, Skin Problems, Miscellaneous Medical Problems - Surgical History Cardiac Surgeries: Patient Denies: Femoral-Popliteal Bypass Graft, Cardiac Catheterization, Cardiac Surgery, Carotid Endarterectomy, Internal Defibrillator, Vascular Access Devices Thoracic Surgeries: Patient denies;: Kidney (Renal Surgery), Lithotripsy, Nephrectomy, Organ Transplant, Lobectomy Neurologic Surgeries: Patient denies: Brain Aneurysm, Cerebral Hemorrhage, Neurologic Surgery HEENT Surgeries: Patient denies: Carotid Endarterectomy, Thyroid Surgery Abdominal Surgeries: Surgical HX of: Abdominal Surgery Patient denies: Appendectomy, Cholecystectomy, Colonoscopy, Gastric Bypass Surgery, EGD, Hernia Repair, Splenectomy Reproductive Surgeries: Surgical HX of;: Breast Surgery (multiple abcesses), Section Patient denies;: Cystoscopy, Dilation and Curettage, Genitourinary Surgery, Gynecologic Surgery, Hysterectomy, Tubal Ligation Orthopedic Surgeries: Patient denies;: Implanted Devices, Orthopedic Surgery, Spinal Surgery, Total Hip Replacement, Total Knee Replacement - Family History Family History: Reports;: Family Diabetes (MOTHER), Family Hypertension Denies;: Family Anesthesia Reaction, Family Psychiatric Problems, Family Stroke - Social History Smoking Status: Unknown if ever smoked Frequency of Alcohol Use: None Type of Drug Use: None Results - Labs CBC & BMP: 07/09/16 04:31 07/09/16 04:31 Lab Results: I have reviewed the past 24 hour labs
[2016-07-09] MEDS: CAPTOPRIL 6.25 MG TABLET PO SCH ×2 (17:38→21:35)
[2016-07-09] MEDS: EFAVIRENZ 600 MG PO SCH (21:35)
--- NOTE | 2016-07-09 23:16 | Cardiology Consult Note ---
I, Dariana Wilson, TABITHA, am scribing for, and in the presence of, Alton Pineda MD 23:04. Assessment and Plan - Time spent with patient Time spent with patient: Greater than 30 minutes (1) Acute exacerbation of CHF (congestive heart failure) Status: Acute Assessment and plan: Echo 05/31/16 revealed ejection fraction 35% with grade I/IV diastolic dysfunction. BNP 385. She is receiving Lasix 40mg IV twice dailyas well as spironolactone 25 mg orally twice daily. She is morbidly obese and does not get around much at home which compounds her numerous medical issues. It is unclear whether she followed up with the sleep lab here for her suspected sleep apnea. She may also require adjustment of her blood pressure medication for optimal blood pressure control. Her heart failure is out of proportion to her LVEF 35%, suggesting at least part is diastolic dysfunction and/or related to untreated obstructive sleep apnea. I recommended that we reconsult Dr. Lerner to consider optimal treatment. She apparently did not calm to her appointment for a sleep study. After discussing importance of treating sleep apnea, She is willing. We will reconsult him. Without treatment for untreated obstructive sleep apnea, her prognosis is very poor. I went over the above thoughts. The patient voices understanding and agrees with the plan. Current Visit: Yes (2) Dyspnea Status: Acute Current Visit: No Qualifiers: Dyspnea type: shortness of breath Qualified Code(s): R06.02 - Shortness of breath (3) Cardiomyopathy Status: Acute Current Visit: No (4) Debility Status: Acute Current Visit: No (5) Morbid obesity Status: Acute Current Visit: No (6) Poorly-controlled hypertension Status: Acute Current Visit: No (7) Suspected sleep apnea Status: Acute Current Visit: No (8) Chronic anticoagulation Status: Chronic Current Visit: No (9) Diabetes mellitus Status: Chronic Current Visit: No Qualifiers: Diabetes mellitus type: type 2 Diabetes mellitus complication status: with kidney complications Diabetes mellitus complication detail: with chronic kidney disease Diabetes mellitus penitentiary insulin use: with termite control service representative use Chronic kidney disease stage: stage 3 (moderate) Qualified Code(s): E11.22 - Type 2 diabetes mellitus with diabetic chronic kidney disease; N18.3 - Chronic kidney disease, stage 3 (moderate); Z79.4 - skilled nursing (current) use of insulin (10) HIV (human immunodeficiency virus infection) Status: Chronic Current Visit: No History of Present Illness - Data of Consult Patient: new to practice Consult date: 07/09/16 Requesting Physician: Gregory Castillo - Consult Narrative Reason for consult: CHF exacerbation History of present illness: Ms. Jalloh is a 50 year old -Uz[place] female with a history of recurrent congestive heart failure, cardiomyopathy, morbid obesity, uncontrolled hypertension, type 2 diabetes, HIV-positive, arthritis, chronic debility, chronic renal failure, history of pulmonary embolus, suspected sleep apnea, anxiety, depression, peripheral neuropathy, prior pulmonary embolism, chronic anticoagulation, osteoporosis. She has risk factors significant for: hypertension, diabetes, morbid obesity, sedentary lifestyle. She has never been a smoker. Her primary care provider is Nancy James NP. She also sees Dr. Guzman for her kidneys. She tells me that "the lady doctor" is her heart doctor, but I can find no record where she has been seen by any of our physicians at the [facility]. She has been seen in consultation during previous admissions by Dr. Edwards and Dr. Ignacio. She lives alone and never . She spends much of her time in bed and tells me she can walk very short distances with her walker. She presented to the emergency room yesterday complaining of shortness of breath that has not improved and edema. She was recently discharged from a swingbed facility at [facility] 6 days ago. Much of her history is taken from her records as she is a poor historian. She tells me that she has had trouble with her breathing "for quite a while" but is unable to specify a length of time. She has moderate conversational dyspnea and reports she has noticed an increase in swelling in her abdomen and thighs. Her feet are also extremely edematous. She also tells me she has to sleep sitting up at night because she feels like she cannot breathe laying down and she occasionally "hurts in her chest" when she feels like she can't breathe. She is unable to describe this discomfort to me other than telling me "it just hurts" and it usually bothers her beneath bilateral breasts. BNP on admission was 385. Chest x-ray shows cardiomegaly and evidence of CHF with mild perihilar pulmonary edema. Her troponins are negative thus far. Creatinine is 1.6 today which is a bit below her baseline and BUN is 31. She is anemic with H&H of 8.7 and 28.2 today. No signs of overt bleeding. She is in sinus rhythm with well controlled rate. Echocardiogram done on 05/31/16 revealed ejection fraction of 35% with Grade I/IV diastolic dysfunction, trace mitral regurgitation, severe tricuspid regurgitation, no aortic regurgitation, and PAP 60-65mmHg. CC: Terrell Monreal M.D. - Home Medications and Allergies Home Medications: Home Medications Medication Instructions Recorded Confirmed Type Apixaban [Eliquis] 5 mg PO BID 01/03/15 07/09/16 History Carvedilol [Coreg] 25 mg PO BID W/MEALS 01/03/15 07/09/16 History Efavirenz [Sustiva] 600 mg PO BEDTIME 01/03/15 07/09/16 History Gabapentin Cap/Tab [Neurontin 300 mg PO TID 01/03/15 07/09/16 History Cap/Tab] Glimepiride [Amaryl] 8 mg PO BID W/MEALS 01/03/15 07/09/16 History HYDROcodone/ACETAMIN 10-325 [Berne 1 tablet PO QID PRN 01/03/15 07/09/16 History 10-325] lamiVUDine TAB [Epivir Tab] 300 mg PO DAILY 01/03/15 07/09/16 History Albuterol Sulfate [Ventolin HFA] 2 puff INH Q4H PRN #1 inhaler 01/06/15 Rx Cyclobenzaprine [Flexeril] 10 mg PO TID PRN 04/27/15 07/09/16 History Tenofovir Disoproxil Fumarate 300 mg PO DAILY W/BREAKFAST 04/27/15 07/09/16 History [Viread] Insulin Aspart Prot/Asp 70/30 45 unit SUBCUT QPM 05/31/16 07/09/16 History [NovoLOG Mix 70/30] Insulin Aspart Prot/Asp 70/30 50 unit SUBCUT QAM 05/31/16 07/09/16 History [NovoLOG Mix 70/30] Isosorb Dinit/Hydralazine HCl 1 tablet PO TID 05/31/16 07/09/16 History [Bidil Tablet] NIFEdipine XL TAB [Procardia Xl] 30 mg PO BID #60 tablet 06/07/16 07/09/16 Rx Spironolactone [Aldactone] 25 mg PO BID #60 tablet 06/07/16 07/09/16 Rx Acetaminophen Tab [Tylenol Tab] 325 mg PO Q4H PRN #0 tablet 06/20/16 07/09/16 Rx Lactulose Liquid [Chronulac] 20 gm PO Q4H PRN #0 udcup 06/20/16 07/09/16 Rx Furosemide [Furosemide] 40 mg PO BID 07/08/16 07/09/16 History Multivitamin (Intrinsic) 1 capsule PO BID 07/08/16 07/09/16 History [Trinsicon] Sertraline [Zoloft] 50 mg PO DAILY 07/08/16 07/09/16 History Allopurinol [Zyloprim] 100 mg PO DAILY 07/09/16 07/09/16 History Aspirin [Ecotrin] 81 mg PO DAILY 07/09/16 07/09/16 History Allergies/Adverse Reactions: Allergies Allergy/AdvReac Type Severity Reaction Status Date / Time daptomycin Allergy Unknown RASH Verified 06/18/16 19:41 - Constitutional Constitutional: Present: daytime sleepiness. Absent: anorexia, chills, fatigue , fever(s), headache(s), lethargy, malaise, weakness, weight gain, weight loss - EENT Eyes: Absent: blurry vision, diplopia, loss of vision Ears: Absent: decreased hearing, ear discharge, ear pain Nose, mouth and throat: Absent: dysphagia, epistaxis, headache(s), hoarseness, lip swelling, nasal congestion, neck mass, neck pain, sinus pressure, sore throat, throat swelling, tongue swelling, vertigo - Cardiovascular Cardiovascular: Present: as per HPI, dyspnea, edema, palpitations. Absent: chest pain with activity, claudication - Respiratory Respiratory: Present: dyspnea, wheezing. Absent: hemoptysis, pain on inspiration - Gastrointestinal Gastrointestinal: Absent: abdominal pain, constipation, diarrhea, dysphagia, heartburn, hematemesis, hematochezia, loose stools, melena, nausea, vomiting - Genitourinary Genitourinary: Absent: difficulty urinating, dysuria, flank pain, urinary frequency, urinary hesitancy - Musculoskeletal Musculoskeletal: Present: limited range of motion (due to habitus). Absent: arthralgias, back pain, joint swelling, muscle cramps, muscle weakness, myalgias - Neurological Neurological: Present: abnormal gait (does not walk frequently due to habitus). Absent: abnormal speech, behavioral changes, confusion, convulsions, disequilibrium, dizziness, focal weakness, frequent falls, headache(s), memory loss, numbness, paresthesias, radicular pain, syncope, tremor(s) - Psychiatric Psychiatric: Absent: anxiety, confusion, depression, memory loss, panic attacks - Endocrine Endocrine: Absent: cold intolerance, fatigue, heat intolerance, polydipsia, polyphagia - Hematologic/Lymphatic Hematologic/Lymphatic: Absent: easy bleeding, easy bruising, lymphadenopathy Medical,Surgical,& Family Hx - Medical History Cardio: History of: Congenital Heart Disease, CHF, Hypertension No history of: Pacemaker, PVD, Valvular Heart Disease, Cardiovascular Problems Psychological: History of: Depression No history of: Anxiety Disorders, ADHD, Behavior Problems, Bipolar Disorder, Previous Suicide Attempt, Psychiatric/Substance Abuse Tx, Schizophrenia, Violent Behavior, Psychiatric Problems Neurology: History of: Peripheral Neuropathy No history of: Brain Aneurysm, Cerebral Hemorrhage, Cerebrovascular Accident , Cerebral Palsy, Dementia, Migraine, Multiple Sclerosis, Parkinson's Disease, Seizures, TIA, Vertigo, Neurologocal Cancer Endocrine: History of: Diabetes Mellitus (IDDM), Diabetes Mellitus (NIDDM), Dyslipidemia No history of: Thyroid Disorder, Endocrine Cancer, Endocrine Problems Rheumatology: History of;: Rheumatoid Arthritis No history of;: Psoriasis, Sjogrens, Systemic Lupus Erythematosus Respiratory: History of: Bronchitis, COPD, Obstructive Sleep Apnea, Pulmonary Embolism, Pneumonia, Respiratory Problems No history of: Intubation, Lung Cancer Renal: History of: Renal Failure No history of: Renal (Kidney) Cancer, Dialysis, Renal Problems Genitourinary: History of: Bladder Problem No history of: Kidney Stones, Recurring Urinary Tract Infections, Genitourinary Cancer, Problems Gastrointestinal: History of: GERD No history of: Crohn's Disease, Diverticulitis/ Diverticulosis, Esophageal Varices, Gastrointestinal Bleed, Liver Problems, Pancreatitis, Polyps, Gastrointestinal Cancer, GI Problems Musculoskeletal: History of: Back/Neck Problems, Osteoporosis No history of: Amputation Hematology: No history of: Anemia, Blood Transfusion Reaction (blood transfusions but no reactions), Bleeding Problems, Clotting Problems, Sickle Cell Disease, Hematologic Cancer, Blood Disorders Reproductive: History of: Sexually Transmitted Disorders (HIV Pos.) Other: No history of: Anesthesia Reactions, Anaphylaxis, Cancer, Eczema, HIV, Malignant Hyperthermia, MRSA, Vancomycin-Resistant Enterococci, Skin Problems, Miscellaneous Medical Problems - Surgical History Cardiac Surgeries: Patient Denies: Femoral-Popliteal Bypass Graft, Cardiac Catheterization, Cardiac Surgery, Carotid Endarterectomy, Internal Defibrillator, Vascular Access Devices Thoracic Surgeries: Patient denies;: Kidney (Renal Surgery), Lithotripsy, Nephrectomy, Organ Transplant, Lobectomy Neurologic Surgeries: Patient denies: Brain Aneurysm, Cerebral Hemorrhage, Neurologic Surgery HEENT Surgeries: Patient denies: Carotid Endarterectomy, Thyroid Surgery Abdominal Surgeries: Surgical HX of: Abdominal Surgery Patient denies: Appendectomy, Cholecystectomy, Colonoscopy, Gastric Bypass Surgery, EGD, Hernia Repair, Splenectomy Reproductive Surgeries: Surgical HX of;: Breast Surgery (multiple abcesses), Section Patient denies;: Cystoscopy, Dilation and Curettage, Genitourinary Surgery, Gynecologic Surgery, Hysterectomy, Tubal Ligation Orthopedic Surgeries: Patient denies;: Implanted Devices, Orthopedic Surgery, Spinal Surgery, Total Hip Replacement, Total Knee Replacement - Family History Family History: Reports;: Family Diabetes (MOTHER), Family Hypertension Denies;: Family Anesthesia Reaction, Family Psychiatric Problems, Family Stroke - Social History Smoking Status: Unknown if ever smoked Frequency of Alcohol Use: None Type of Drug Use: None Physical Examination Vital Signs Temp Pulse Resp BP Pulse Ox 97.2 F L 95 H 20 167/109 94 L 07/08/16 17:49 07/08/16 17:49 07/08/16 17:49 07/08/16 17:49 07/08/16 17:49 General: Present: Other (moderate conversational dyspnea noted; appears chronically ill) HEENT: Present: Normocephaly, Mucus Membranes Moist Neck: Present: Supple Neck, Midline Trachea, No Masses, No Bruit Cardiac: Present: Reg Rate and Rhythm, No Murmur Lungs: Present: Wheezes (audible), Other (diffuse bibasilar crackles) Neuro: Present: Grossly Intact. Absent: Resting Tremor, Essential Tremor Abdomen: Present: Soft, Active Bowel Sounds, Non-Tender Skin: Present: Clear. Absent: Rash Musculoskeletal: Present: Decreased Range of Motion (limited due to habitus), No Fluid Collection, No Pain Gait: Present: Poor Gait Extremities: Present: No Clubbing, No Cyanosis, Normal Upper Extr. Pulses, Normal Lower Extr. Pulses, +3 Edema (pitting to BLE and lower abdominal panniculus) Result/EKG - Labs CBC & BMP: 07/09/16 04:31 07/09/16 04:31 Lab Results: I have reviewed the past 24 hour labs Labs: Laboratory Results - last 24 hr 07/09/16 07/09/16 07/09/16 04:31 04:31 04:31 WBC 6.1 RBC 3.03 L Hgb 8.7 L Hct 28.2 L MCV 93.1 MCH 29 MCHC 30.9 L RDW 17.3 Plt Count 202 MPV 10.1 Neut % (Auto) 65.9 Lymph % (Auto) 22.6 [place] % (Auto) 6.2 Eos % (Auto) 4.6 Baso % (Auto) 0.5 Neut # (Auto) 4.0 Lymph # (Auto) 1.4 [place] # (Auto) 0.4 Eos # (Auto) 0.3 Baso # (Auto) 0.0 Immature Gran % 0.2 Nucleated RBC % 0.0 Immature Gran # 0.01 Nucleated RBCs # 0.00 Sodium 148 H Potassium 4.4 Chloride 114 H Carbon Dioxide 22 Anion Gap 16.4 H BUN 31 H Creatinine 1.60 H GFR Calculation 75 BUN/Creatinine Ratio 19.00 Glucose 163 H Calculated Osmolality 304.3 H Calcium 8.4 L Magnesium Total Creatine Kinase 158 CK-MB (CK-2) 1.2 Troponin I < 0.015 07/09/16 04:31 WBC RBC Hgb Hct MCV MCH MCHC RDW Plt Count MPV Neut % (Auto) Lymph % (Auto) [place] % (Auto) Eos % (Auto) Baso % (Auto) Neut # (Auto) Lymph # (Auto) [place] # (Auto) Eos # (Auto) Baso # (Auto) Immature Gran % Nucleated RBC % Immature Gran # Nucleated RBCs # Sodium Potassium Chloride Carbon Dioxide Anion Gap BUN Creatinine GFR Calculation BUN/Creatinine Ratio Glucose Calculated Osmolality Calcium Magnesium 2.4 Total Creatine Kinase CK-MB (CK-2) Troponin I - EKG EKG results: interpreted by me, sinus rhythm (with nonspecific T-wave abnormality) I, Alton Pineda MD, personally performed the services described in this documentation, ascribed by Dariana Wilson RN in my presence, and it is both accurate and complete .
[2016-07-10 06:09] LABS: Basophils % 0.3 % (0.0-0.8); Eosinophils # 0.2 10*3/uL (0.0-0.87); Eosinophils % 4.1 % (0.00-10.9); Hematocrit 25.3 VOL% (35.7-47.0); Hemoglobin 7.9 GM/DL (12.0-16.0); Immature Granulocytes % 0.2 %; Immature Granulocytes Absolute 0.01 #; Lymphocytes # 1.8 10*3/uL (1.4-4.0); Lymphocytes % 30.2 % (21.3-54.2); Mean Corpuscular HGB Conc 31.2 GM/DL (32-36); Mean Corpuscular Hemoglobin 29 PG (27-34); Mean Corpuscular Volume 93.7 FL (87-102); Mean Platelet Volume 10.2 FL (9.6-12.0); Monocytes # 0.4 10*3/uL (0.11-0.8); Monocytes % 6.3 % (1.7-12.7); Neutrophils # 3.5 10*3/uL (1.4-7.4); Neutrophils % 58.9 % (38.7-73.9); Platelet Count 178 T/CUMM (130-400); Red Cell Distribution Width 17.3 % (9.3-17.3); White Blood Count 5.9 T/CUMM (4-12)
[2016-07-10 06:36] LABS: Calcium 8.1 MG/DL (8.5-10.1); Osmolality,Calculated 299.4 MOS/KG (273-304); Potassium 4.6 MMOL/L (3.5-5.1)
[2016-07-10] MEDS: CAPTOPRIL 6.25 MG TABLET PO SCH ×3 (09:33→20:26)
[2016-07-10] MEDS: APIXABAN 5 MG TABLET PO SCH ×2 (09:34→20:26)
[2016-07-10] MEDS: GLIMEPIRIDE 4 MG TABLET PO SCH ×2 (09:34→17:10)
[2016-07-10] MEDS: CARVEDILOL 25 MG TABLET PO SCH ×2 (09:34→17:10)
[2016-07-10] MEDS: SERTRALINE 50 MG TABLET PO SCH (09:35)
[2016-07-10] MEDS: ISOSORBIDE DINITRATE 20 MG TABLET PO SCH ×3 (09:35→20:26)
[2016-07-10] MEDS: GABAPENTIN 300 MG CAPSULE PO SCH ×3 (09:35→20:26)
[2016-07-10] MEDS: MULTIVITAMIN (CENTRUM) TABLET PO SCH ×2 (09:35→20:26)
[2016-07-10] MEDS: hydrALAZINE 25 MG TABLET PO SCH ×3 (09:35→20:26)
[2016-07-10] MEDS: SPIRONOLACTONE 25 MG TABLET PO SCH ×2 (09:35→20:26)
[2016-07-10] MEDS: TENOFOVIR 300 MG PO SCH (09:36)
[2016-07-10] MEDS: LAMIVUDINE 300 MG PO SCH (09:36)
[2016-07-10] MEDS: FUROSEMIDE 40 MG/4 ML VIAL IV SCH ×2 (09:43→16:38)
[2016-07-10] MEDS: CYCLOBENZAPRINE 10 MG TABLET PO PRN ×2 (10:10→20:26)
[2016-07-10] MEDS: ONDANSETRON 4 MG/2 ML VIAL IV PRN (10:14)
--- NOTE | 2016-07-10 12:34 | Sleep Medicine Progress Note ---
Assessment and Plan (1) Suspected sleep apnea Status: Acute Assessment and plan: We will schedule her for outpatient polysomnography. Hopefully she will keep her appointment. However, 2 negative HST evaluations are stronger evidence against sleep apnea as a contributing factor to her recurrent admissions and congestive heart failure. Current Visit: No Sleep Medicine Subjective Interval history: Patient underwent HST evaluation last night. Again, this study did not reveal significant sleep apnea. I reviewed this study personally and she had a normal AHI of only 2 without significant O2 desaturation. I did, I do think that she should undergo in lab polysomnography. I explained this to her at length, again. There is a 70% false negative rate for HST evaluation for sleep apnea. In lab polysomnography is the best way to exclude sleep apnea and a high pretest probability patient like Ms. Jalloh. Exam (Progress Note) - Constitutional Vitals: Period Temp Pulse Resp BP Sys/[place] Pulse Ox Last 24 Hr 97.7 F-99.5 F 77-85 18-20 134-169/71-97 97-99 Results - Labs CBC & BMP: 07/10/16 05:43 07/10/16 05:43 Lab Results: I have reviewed the past 24 hour labs
--- NOTE | 2016-07-10 13:32 | Hospitalist Progress Note ---
Assessment and Plan (1) HTN (hypertension) Status: Chronic Assessment and plan: Blood pressure is is better than yesterday. Current Visit: Yes (2) Acute exacerbation of CHF (congestive heart failure) Status: Acute Assessment and plan: Patient has presented with decompensated CHF and multi factorial with the poor compliance. In addition her symptoms contributed by valvular disorder , pulmonary hypertension and morbid obesity. Will continue current dose of a Lasix will add a dose of metolazone before Lasix this evening Current Visit: Yes (3) Diabetes mellitus Status: Chronic Assessment and plan: Continue monitoring blood sugar Current Visit: No (4) Anemia Status: Chronic Assessment and plan: Patient had chronic anemia with some fluctuation. Hemoglobin is low at today than yesterday and is dropping for last couple days. will keep monitoring check stool Hemoccult Current Visit: Yes (5) Chronic kidney disease Status: Chronic Assessment and plan: I documented acute kidney injury yesterday in fact patient has chronic kidney disease and creatinine is better than her previous admissions will continue to monitor Current Visit: Yes (6) Hypernatremia Status: Acute Assessment and plan: Mild hypernatremia actually improving but has overall volume excess will watch. Probably poor redistribution of edema fluid Current Visit: Yes Hospitalist: Subjective Interval history: Ms. Jalloh is a 50 year old -[place]osotho female with h/o congestive heart failure recent echo showed ejection lv fraction of 35% with diastolic dysfunction severe tricuspid regurgitation and PAP 60-65mmHg, morbid obesity , uncontrolled hypertension, type 2 diabetes, HIV-positive, arthritis, chronic debility, chronic renal failure, history of pulmonary embolus, suspected sleep apnea , anxiety, depression, peripheral neuropathy, prior pulmonary embolism, chronic anticoagulation, osteoporosis. She will recently just discharged from [facility] bed 5 days ago. She presented to hospital with the swelling in lower extremities along with the orthopnea and PND with discharge with exertion. She claims she has been taking her medications. Questioning reveals that she has not been compliant with diet. At home they have been using canned vegetables and to prepare food. She continued to have a dyspnea . she been on intravenous Lasix and actually had 1400 mL of urine output since this morning. Cardiology being consulted and the recommendation is pending Patient was seen by cardiology service and to recommend to have sleep studies. Patient underwent HST evaluation last night but this study did not reveal significant sleep apnea. outpatient polysomnography is planned by Dr. Lerner. Her urine output is fair. Since the 17th morning she had about 1000 mL of 4 urine output in 5 hours. She does not report any worsening dyspnea is still worried about swelling Exam - Constitutional Vitals: Period Temp Pulse Resp BP Sys/B[place]ne Pulse Ox Last 24 Hr 97.7 F-99.5 F 77-85 18-20 134-169/71-97 97-99 General appearance: no acute distress, morbidly obese - Respiratory Respiratory exam: Present: clear to auscultation bilaterally, rales (some faint rales at the bases may be present). Absent: rhonchi - Cardiovascular Cardiovascular exam: Present: regular rate and rhythm. Absent: tachycardia - GI/Abdominal GI/Abdominal exam: Present: normal bowel sounds, soft. Absent: tenderness - Neurological Exam Neurological exam: Present: alert, oriented X3 Results - Labs CBC & BMP: 07/10/16 05:43 07/10/16 05:43 Lab Results: I have reviewed the past 24 hour labs
--- NOTE | 2016-07-10 15:14 | General Surgery Progress Note ---
Assessment and Plan - Time spent with patient Time spent with patient: Less than 30 minutes (1) Abscess of breast, left Status: Acute Assessment and plan: 50 obese AAF w multiple medical problems admitted w CHF exacerbation. she requested dr simms come and evaluate her breast while she was here. pt had gone to OR on 06/05/16 for infected left breast hematoma by dr simms. he saw her in follow up on her next hospital admission on 06/19 where her breast had looked better. at that time he dc the isaac drain and wanted to see her in 2 wks for follow up. pt never made an appt and now has been readmitted. pts wbc are ok and she is afebrile. she has no complaints from the breast. upon exam, the breast looks good. the wound has healed up w no cellulitis or induration. her lateral and central breast have a lipodermatosclerotic look to it. will check another breast US to compare to the last one, looking for any fluctuance. if this is ok, pt does not need to follow up w dr simms in clinic but she is to keep her mammogram appt in december. if US is abnormal, dr simms will evaluate and make further recommendations. dr simms has seen and examined pt. Current Visit: No Exam - Constitutional Vitals: Period Temp Pulse Resp BP Sys/B[place]ne Pulse Ox Last 24 Hr 97.7 F-99.5 F 77-85 18-20 134-169/71-97 97-99 Results - Labs CBC & BMP: 07/10/16 05:43 07/10/16 05:43
[2016-07-10] MEDS: EFAVIRENZ 600 MG PO SCH (20:27)
--- NOTE | 2016-07-10 23:53 | Cardiology Progress Note ---
I, Dariana Wilson, TABITHA, am scribing for, and in the presence of, Alton Pineda MD 23:52. Assessment and Plan - Time spent with patient Time spent with patient: Less than 30 minutes (1) Acute exacerbation of CHF (congestive heart failure) Status: Acute Assessment and plan: 07/09/16: Echo 05/31/16 revealed ejection fraction 35% with grade I/IV diastolic dysfunction. BNP 385. She is receiving Lasix 40mg IV twice dailyas well as spironolactone 25 mg orally twice daily. She is morbidly obese and does not get around much at home which compounds her numerous medical issues. It is unclear whether she followed up with the sleep lab here for her suspected sleep apnea. She may also require adjustment of her blood pressure medication for optimal blood pressure control. Her heart failure is out of proportion to her LVEF 35%, suggesting at least part is diastolic dysfunction and/or related to untreated obstructive sleep apnea. I recommended that we reconsult Dr. Lerner to consider optimal treatment. She apparently did not calm to her appointment for a sleep study. After discussing importance of treating sleep apnea, She is willing. We will reconsult him. Without treatment for untreated obstructive sleep apnea, her prognosis is very poor. I went over the above thoughts. The patient voices understanding and agrees with the plan. 07/10/16: Patient was seen in consultation by sleep medicine. It is not felt at this time that sleep apnea is extruding factor to her recurrent admissions for congestive heart failure, however she will be set up for outpatient polysomnography. Hopefully she will keep this appointment as she did not follow up the last time. We will continue her diuretics and try to pull fluid off. Creatinine remained stable at 1.6.The patient asked about hemodialysis being used to remove the fluid. Her creatinine is not high enough for that intervention. I suppose she could use ultrafiltration, but will probably not be of benefit long-term to her. Current Visit: Yes (2) Dyspnea Status: Acute Current Visit: No Qualifiers: Dyspnea type: shortness of breath Qualified Code(s): R06.02 - Shortness of breath (3) Cardiomyopathy Status: Acute Current Visit: No (4) Debility Status: Acute Current Visit: No (5) Morbid obesity Status: Acute Current Visit: No (6) Poorly-controlled hypertension Status: Acute Current Visit: No (7) Suspected sleep apnea Status: Acute Current Visit: No (8) Chronic anticoagulation Status: Chronic Current Visit: No (9) Diabetes mellitus Status: Chronic Current Visit: No Qualifiers: Diabetes mellitus type: type 2 Diabetes mellitus complication status: with kidney complications Diabetes mellitus complication detail: with chronic kidney disease Diabetes mellitus fci insulin use: with fci use Chronic kidney disease stage: stage 3 (moderate) Qualified Code(s): E11.22 - Type 2 diabetes mellitus with diabetic chronic kidney disease; N18.3 - Chronic kidney disease, stage 3 (moderate); Z79.4 - care home (current) use of insulin (10) HIV (human immunodeficiency virus infection) Status: Chronic Current Visit: No Cardiology - PN: Subj Interval history: Ms. Jalloh is looking better today although she denies feeling better. She reports her breathing is only better today because she is sitting up. Sleep medicine saw her in consultation yesterday and does not feel her sleep apnea is significantly contributing to her issues but she will be set up for polysomnography as an outpatient if she will keep her appointment. Ms. Jalloh insists that she needs dialysis "to get all this fluid off." Her renal function is mildly improved since admission. Creatinine is 1.6. I do not think she understands the complexities of her other comorbidities. Her puppet master is Dr. Guzman. We can certainly arrange for her to follow up with him once she is discharged. Exam (Progress Note) - Constitutional Vitals: Period Temp Pulse Resp BP Sys/Browne Pulse Ox Last 24 Hr 97.7 F-99.5 F 77-85 18-20 134-169/71-97 97-99 Exam: General: Present: Other (moderate conversational dyspnea noted; appears chronically ill) HEENT: Present: Normocephaly, Mucus Membranes Moist Neck: Present: Supple Neck, Midline Trachea, No Masses, No Bruit Cardiac: Present: Reg Rate and Rhythm, No Murmur Lungs: Present: Clear to auscultation bilaterally, decreased breath sounds ( bilateral bases) Neuro: Present: Grossly Intact. Absent: Resting Tremor, Essential Tremor Abdomen: Present: Soft, Active Bowel Sounds, Non-Tender Skin: Present: Clear. Absent: Rash Musculoskeletal: Present: Decreased Range of Motion (limited due to habitus), No Fluid Collection, No Pain Gait: Present: Poor Gait Extremities: Present: No Clubbing, No Cyanosis, Normal Upper Extr. Pulses, Normal Lower Extr. Pulses, +3 Edema (pitting to BLE and lower abdominal panniculus) Result/EKG - Labs CBC & BMP: 07/10/16 05:43 07/10/16 05:43 Lab Results: I have reviewed the past 24 hour labs Labs: Laboratory Results - last 24 hr 07/09/16 07/09/16 07/10/16 17:13 20:22 05:43 WBC 5.9 RBC 2.70 L Hgb 7.9 L Hct 25.3 L MCV 93.7 MCH 29 MCHC 31.2 L RDW 17.3 Plt Count 178 MPV 10.2 Neut % (Auto) 58.9 Lymph % (Auto) 30.2 Ellis % (Auto) 6.3 Eos % (Auto) 4.1 Baso % (Auto) 0.3 Neut # (Auto) 3.5 Lymph # (Auto) 1.8 Ellis # (Auto) 0.4 Eos # (Auto) 0.2 Baso # (Auto) 0.0 Immature Gran % 0.2 Nucleated RBC % 0.0 Immature Gran # 0.01 Nucleated RBCs # 0.00 Sodium Potassium Chloride Carbon Dioxide Anion Gap BUN Creatinine GFR Calculation BUN/Creatinine Ratio Glucose POC Glucose 147 H 160 H Calculated Osmolality Calcium 07/10/16 07/10/16 05:43 07:45 WBC RBC Hgb Hct MCV MCH MCHC RDW Plt Count MPV Neut % (Auto) Lymph % (Auto) Ellis % (Auto) Eos % (Auto) Baso % (Auto) Neut # (Auto) Lymph # (Auto) Ellis # (Auto) Eos # (Auto) Baso # (Auto) Immature Gran % Nucleated RBC % Immature Gran # Nucleated RBCs # Sodium 147 H Potassium 4.6 Chloride 113 H Carbon Dioxide 26 Anion Gap 12.6 BUN 30 H Creatinine 1.60 H GFR Calculation 75 BUN/Creatinine Ratio 18.00 Glucose 132 H POC Glucose 140 H Calculated Osmolality 299.4 Calcium 8.1 L - EKG EKG results: interpreted by me, sinus rhythm I, Alton Pineda MD, personally performed the services described in this documentation, ascribed by Dariana Wilson RN in my presence, and it is both accurate and complete 352 .
[2016-07-11 06:36] LABS: Calcium 7.8 MG/DL (8.5-10.1); Osmolality,Calculated 300.4 MOS/KG (273-304); Potassium 4.7 MMOL/L (3.5-5.1)
[2016-07-11] MEDS: GABAPENTIN 300 MG CAPSULE PO SCH ×3 (09:13→21:35)
[2016-07-11] MEDS: MULTIVITAMIN (CENTRUM) TABLET PO SCH ×2 (09:13→21:35)
[2016-07-11] MEDS: SPIRONOLACTONE 25 MG TABLET PO SCH ×2 (09:14→21:35)
[2016-07-11] MEDS: CAPTOPRIL 6.25 MG TABLET PO SCH ×3 (09:14→21:35)
[2016-07-11] MEDS: ISOSORBIDE DINITRATE 20 MG TABLET PO SCH ×3 (09:14→21:35)
[2016-07-11] MEDS: APIXABAN 5 MG TABLET PO SCH ×2 (09:14→21:35)
[2016-07-11] MEDS: GLIMEPIRIDE 4 MG TABLET PO SCH ×2 (09:15→18:17)
[2016-07-11] MEDS: CARVEDILOL 25 MG TABLET PO SCH ×2 (09:15→18:17)
[2016-07-11] MEDS: hydrALAZINE 25 MG TABLET PO SCH ×3 (09:15→21:35)
[2016-07-11] MEDS: SERTRALINE 50 MG TABLET PO SCH (09:16)
[2016-07-11] MEDS: LAMIVUDINE 300 MG PO SCH (09:16)
[2016-07-11] MEDS: TENOFOVIR 300 MG PO SCH (09:17)
[2016-07-11] MEDS: FUROSEMIDE 40 MG/4 ML VIAL IV SCH ×2 (09:21→18:18)
--- NOTE | 2016-07-11 11:40 | Hospitalist Progress Note ---
Assessment and Plan (1) HTN (hypertension) Status: Chronic Assessment and plan: Blood pressure is overall controlled Current Visit: Yes (2) Acute exacerbation of CHF (congestive heart failure) Status: Acute Assessment and plan: Patient has presented with volume overlaod /decompensated CHF and multi factorial with the poor compliance. In addition her symptoms contributed by valvular disorder ,pulmonary hypertension and morbid obesity. last echo revealed ejection fraction 35% with grade I/IV diastolic dysfunction , severe TR and PAP 60 - 65 mmhg . She has not so low albumin but ahs proteinuria. I modesta order repeat albumin level and urine protein and creat ratio for quantification Will continue current lasix get i/o accurately. I will increase lasix 80 mg bid ask help to get metolazone 5 mg prior to lasix . Hope she will able to tolerate watch renal function and lytes ordered for am Current Visit: Yes (3) Diabetes mellitus Status: Chronic Assessment and plan: Continue monitoring blood sugar Current Visit: No (4) Anemia Status: Chronic Assessment and plan: Patient had chronic anemia with some drop in hemoglobin and hematocrit, last couple days. I will do stool Hemoccult again start Protonix order anemia profile Current Visit: Yes (5) Chronic kidney disease Status: Chronic Assessment and plan: patient has chronic kidney disease and stable over all Current Visit: Yes (6) Hypernatremia Status: Acute Assessment and plan: Mild hypernatremia stabe will watch. Probably poor redistribution of edema fluid Current Visit: Yes Hospitalist: Subjective Interval history: Ms. Jalloh is a 50 year old -[place] female with h/o congestive heart failure recent echo showed ejection lv fraction of 35% with diastolic dysfunction severe tricuspid regurgitation and PAP 60-65mmHg, morbid obesity , uncontrolled hypertension, type 2 diabetes, HIV-positive, arthritis, chronic debility, chronic renal failure, history of pulmonary embolus, suspected sleep apnea , anxiety, depression, peripheral neuropathy, prior pulmonary embolism, chronic anticoagulation, osteoporosis. She will recently just discharged from [facility] bed [facility] days ago. She presented to hospital with the swelling in lower extremities along with the orthopnea and PND with discharge with exertion. She claims she has been taking her medications. Questioning reveals that she has not been compliant with diet. At home they have been using canned vegetables and to prepare food. Noted patient was seen by Dr. Ng on her request as she recently had an infected left breast hematoma and underwent incision and drainage. He feels that the infection has resolved and plan to get ultrasound to compare the results from previous one but patient has no fever She is still complaining of dyspnea. I'm not sure about the accuracy of I / patient says she is only 2-3 times a day. Exam - Constitutional Vitals: Period Temp Pulse Resp BP Sys/Browne Pulse Ox Last 24 Hr 97.0 F-99.5 F 69-77 18-20 127-151/60-81 97-100 General appearance: no acute distress, morbidly obese - Respiratory Respiratory exam: Present: clear to auscultation bilaterally. Absent: rales, rhonchi - GI/Abdominal GI/Abdominal exam: Present: normal bowel sounds, soft. Absent: tenderness - Extremities Exam Extremities exam: Present: edema (bilateral 3+ lower extremity edema and some abdominal wall edema present) - Neurological Exam Neurological exam: Present: alert, oriented X3 Results - Labs CBC & BMP: 07/10/16 05:43 07/11/16 05:03 Lab Results: I have reviewed the past 24 hour labs
[2016-07-11] MEDS: CYCLOBENZAPRINE 10 MG TABLET PO PRN ×2 (13:07→21:43)
[2016-07-11] MEDS: PANTOPRAZOLE 40 MG VIAL IV SCH ×2 (13:07→21:45)
[2016-07-11] MEDS ORDERED: metOLazone 5 MG TABLET PO ONE (15:00)
--- NOTE | 2016-07-11 16:15 | Ultrasound Report ---
LEFT BREAST ULTRASOUND Date of study: 07/09/2016 12:04 AM History: 50-year-old female with prior left breast abscess about 1 month ago. Ultrasound was requested for follow-up. The patient is status post a punch biopsy of the skin of the left breast performed May 23, 2016 with benign results of focal chronic inflammation and fibrosis. The patient has severe congestive heart failure. Comparison: Left breast ultrasound exam from May 23, 2016. Real-time ultrasound of the entire left breast was performed including all 4 quadrants, the subareolar region and the axilla. Multiple grayscale images were captured demonstrating diffuse edema of the breast with skin thickening measuring up to 13 mm (at the 9:00 position 2 cm from the nipple). No discrete fluid collection indicative of a seroma or abscess is visualized. No axillary adenopathy is noted. IMPRESSION: BI-RADS Category 2 - benign findings. Annual screening mammography is recommended. There is diffuse edema of the left breast without evidence of abscess. The patient is due for annual bilateral screening in December 2016. Ultrasound images were captured and stored. Patient information is entered into a reminder system with a target due date for the next mammogram. PROCEDURE INTERPRETED AT [facility] DEPARTMENT OF RADIOLOGY Final Report Signed by: Dr. Zaina Miguel
[2016-07-11] MEDS: EFAVIRENZ 600 MG PO SCH (21:42)
--- NOTE | 2016-07-11 22:09 | Cardiology Progress Note ---
I, Alix Cortez, TABITHA, am scribing for, and in the presence of, Alton Pineda MD 22:09. Assessment and Plan (1) Acute exacerbation of congestive heart failure Status: Acute Assessment and plan: 07/09/16: Echo 05/31/16 revealed ejection fraction 35% with grade I/IV diastolic dysfunction. BNP 385. She is receiving Lasix 40mg IV twice dailyas well as spironolactone 25 mg orally twice daily. She is morbidly obese and does not get around much at home which compounds her numerous medical issues. It is unclear whether she followed up with the sleep lab here for her suspected sleep apnea. She may also require adjustment of her blood pressure medication for optimal blood pressure control. Her heart failure is out of proportion to her LVEF 35%, suggesting at least part is diastolic dysfunction and/or related to untreated obstructive sleep apnea. I recommended that we reconsult Dr. Lerner to consider optimal treatment. She apparently did not calm to her appointment for a sleep study. After discussing importance of treating sleep apnea, She is willing. We will reconsult him. Without treatment for untreated obstructive sleep apnea, her prognosis is very poor. I went over the above thoughts. The patient voices understanding and agrees with the plan. 07/10/16: Patient was seen in consultation by sleep medicine. It is not felt at this time that sleep apnea is extruding factor to her recurrent admissions for congestive heart failure, however she will be set up for outpatient polysomnography. Hopefully she will keep this appointment as she did not follow up the last time. We will continue her diuretics and try to pull fluid off. Creatinine remained stable at 1.6.The patient asked about hemodialysis being used to remove the fluid. Her creatinine is not high enough for that intervention. I suppose she could use ultrafiltration, but will probably not be of benefit long-term to her. 07/11/16-plan/recommendations: Still hurts all over. Unknown as to the cause. Maybe is some type of myositis or fibromyalgia. Still has generalized edema. I emphasized to her the importance of following up with Dr. Lerner with a sleep study because this very well could be part of her problem, obstructive sleep apnea which is untreated. Current Visit: No Qualifiers: Congestive heart failure type: combined Qualified Code(s): I50.43 - Acute on chronic combined systolic (congestive) and diastolic (congestive) heart failure (2) Dyspnea Status: Acute Current Visit: No Qualifiers: Dyspnea type: shortness of breath Qualified Code(s): R06.02 - Shortness of breath (3) Morbid obesity Status: Chronic Assessment and plan: Counseled patient on the importance of weight loss. Current Visit: No Qualifiers: Obesity type: with alveolar hypoventilation Qualified Code(s): E66.2 - Morbid (severe) obesity with alveolar hypoventilation (4) Cardiomyopathy Status: Chronic Assessment and plan: Echo 05/31/16 revealed ejection fraction 35% with grade I/IV diastolic dysfunction. Current Visit: No (5) Suspected sleep apnea Status: Acute Assessment and plan: Being evaluated by Dr. Lerner. Current Visit: No (6) Poorly-controlled hypertension Status: Chronic Assessment and plan: This is well controlled today will continue with current plan of care. Current Visit: No (7) Diabetes mellitus Status: Chronic Assessment and plan: Management per hospitalist. Current Visit: No (8) Debility Status: Chronic Current Visit: No Cardiology - PN: Subj Interval history: Patient is clinically better today. She is in no acute distress and requiring oxygen at 2 L nasal cannula. Reports her breathing is better today. She is being diuresed with 60 mg of Lasix IV twice daily. However, her weight is unchanged from admission. She denies chest pain and palpitations. She has significant lower extremity edema. She is in normal sinus rhythm with heart rate in the 70s without any arrhythmias or ectopy noted. Vital signs are stable. Her creatinine today is 1.8 with a BUN of 32. Exam (Progress Note) - Constitutional Vitals: Period Temp Pulse Resp BP Sys/Browne Pulse Ox Last 24 Hr 97.0 F-98.7 F 69-76 18-20 127-151/60-85 97-100 General appearance: no acute distress, morbidly obese - Head Head exam: Present: normal inspection, normocephalic, atraumatic - Respiratory Respiratory exam: Present: clear to auscultation bilaterally, decreased breath sounds (Decreased breath sounds to bilateral lung bases.). Absent: rales, rhonchi, stridor, wheezes - Cardiovascular Cardiovascular exam: Present: regular rate and rhythm. Absent: gallop, rubs, systolic murmur - GI/Abdominal GI/Abdominal exam: Present: normal bowel sounds, soft. Absent: firm, tenderness - Extremities Exam Extremities exam: Present: edema (3+ edema noted to bilateral lower extremities) . Absent: calf tenderness - Neurological Exam Neurological exam: Present: alert, oriented X3 - Psychiatric Psychiatric exam: Present: normal affect, normal mood. Absent: agitated, anxious Result/EKG - Labs CBC & BMP: 07/10/16 05:43 07/11/16 05:03 Lab Results: I have reviewed the past 24 hour labs Labs: Laboratory Results - last 24 hr 07/10/16 07/10/16 07/11/16 15:19 19:30 05:03 Sodium 147 H Potassium 4.7 Chloride 111 H Carbon Dioxide 26 Anion Gap 14.7 BUN 32 H Creatinine 1.80 H GFR Calculation 65 BUN/Creatinine Ratio 17.00 Glucose 139 H POC Glucose 152 H 169 H Calculated Osmolality 300.4 Calcium 7.8 L 07/11/16 07/11/16 07:35 11:30 Sodium Potassium Chloride Carbon Dioxide Anion Gap BUN Creatinine GFR Calculation BUN/Creatinine Ratio Glucose POC Glucose 145 H 151 H Calculated Osmolality Calcium - EKG EKG results: interpreted by me, sinus rhythm I, Alton Pineda MD, personally performed the services described in this documentation, ascribed by Alix Cortez RN in my presence, and it is both accurate and complete .
[2016-07-12 05:00] LABS: Basophils % 0.4 % (0.0-0.8); Eosinophils # 0.3 10*3/uL (0.0-0.87); Eosinophils % 5.3 % (0.00-10.9); Hematocrit 24.5 VOL% (35.7-47.0); Hemoglobin 7.6 GM/DL (12.0-16.0); Lymphocytes # 1.7 10*3/uL (1.4-4.0); Lymphocytes % 31.9 % (21.3-54.2); Mean Corpuscular Hemoglobin 30 PG (27-34); Mean Platelet Volume 10.1 FL (9.6-12.0); Monocytes # 0.4 10*3/uL (0.11-0.8); Monocytes % 6.6 % (1.7-12.7); Neutrophils # 2.9 10*3/uL (1.4-7.4); Neutrophils % 55.8 % (38.7-73.9); Platelet Count 196 T/CUMM (130-400); Red Blood Count 2.58 MC/CUMM (3.8-5.5); Red Cell Distribution Width 17.1 % (9.3-17.3); White Blood Count 5.3 T/CUMM (4-12)
[2016-07-12 05:35] LABS: Calcium 7.9 MG/DL (8.5-10.1); Osmolality,Calculated 301.4 MOS/KG (273-304); Potassium 4.7 MMOL/L (3.5-5.1)
[2016-07-12 05:42] LABS: % Iron Saturation 13.4 % (18-50); Albumin 2.5 G/DL (3.4-5.0); Ferritin 185.9 ng/ml (8-252)
[2016-07-12 05:43] LABS: Folate 16.2 NG/ML (5.4-24.0); Vitamin B12 770 PG/ML (211-911)
[2016-07-12 06:08] LABS: Sedimentation Rate-Westergren 104 MM/HR (0-30)
--- NOTE | 2016-07-12 06:33 | Event Note ---
Breast ultrasound results reviewed. BI-RADS 2 category. Patient has already had a skin biopsy that was benign. Unless something changes that she can discuss that and have her annual screening test in December. Please call back with any further questions. There is no need for further follow-up with me.
[2016-07-12 07:59] LABS: Hemoglobin A1 (Alkaline) 97.2 % (96.5-98.5); Hemoglobin A2 (Alkaline) 2.8 % (1.5-3.5)
[2016-07-12] MEDS: GLIMEPIRIDE 4 MG TABLET PO SCH ×2 (08:47→17:19)
[2016-07-12] MEDS: CAPTOPRIL 6.25 MG TABLET PO SCH ×3 (08:47→22:09)
[2016-07-12] MEDS: ISOSORBIDE DINITRATE 20 MG TABLET PO SCH ×3 (08:48→22:09)
[2016-07-12] MEDS: SPIRONOLACTONE 25 MG TABLET PO SCH ×2 (08:48→22:10)
[2016-07-12] MEDS: MULTIVITAMIN (CENTRUM) TABLET PO SCH ×2 (08:48→22:09)
[2016-07-12] MEDS: CARVEDILOL 25 MG TABLET PO SCH ×2 (08:49→17:19)
[2016-07-12] MEDS: APIXABAN 5 MG TABLET PO SCH ×2 (08:49→22:09)
[2016-07-12] MEDS: GABAPENTIN 300 MG CAPSULE PO SCH ×3 (08:49→22:09)
[2016-07-12] MEDS: SERTRALINE 50 MG TABLET PO SCH (08:50)
[2016-07-12] MEDS: hydrALAZINE 25 MG TABLET PO SCH ×3 (08:51→22:10)
[2016-07-12] MEDS: CYCLOBENZAPRINE 10 MG TABLET PO PRN ×2 (08:52→22:09)
[2016-07-12] MEDS: LAMIVUDINE 300 MG PO SCH (08:53)
[2016-07-12] MEDS: TENOFOVIR 300 MG PO SCH (08:54)
[2016-07-12] MEDS: ONDANSETRON 4 MG/2 ML VIAL IV PRN (08:55)
[2016-07-12] MEDS: PANTOPRAZOLE 40 MG VIAL IV SCH ×2 (08:58→22:10)
[2016-07-12] MEDS: FUROSEMIDE 40 MG/4 ML VIAL IV SCH ×2 (09:01→17:20)
--- NOTE | 2016-07-12 09:14 | Hospitalist Progress Note ---
Assessment and Plan (1) Cardiomyopathy Status: Chronic Assessment and plan: Echocardiogram shows LVEF 35% RVSP 60-65 mmHg Current Visit: No (2) Morbid obesity Status: Chronic Assessment and plan: Being evaluated for MONET, HST negative with out patient sleep study planned. Current Visit: No (3) Insulin dependent diabetes mellitus Status: Chronic Assessment and plan: Proteinuria with reduced GFR Current Visit: No Hospitalist: Subjective Interval history: 50 yo female with morbid obesity, diabetes mellitus with reduced GFR and heavy proteinuria, pulmonary hypertension with RVSP of 60-65 mmHg, presented with edema. LVEF 35%. She is undergoing diuresis with loop and thiazide diuretics. Exam - Constitutional Vitals: Period Temp Pulse Resp BP Sys/Browne Pulse Ox Last 24 Hr 97.6 F-98.8 F 73-75 16-20 135-152/67-85 99-100 General appearance: morbidly obese - Respiratory Respiratory exam: Present: clear to auscultation bilaterally. Absent: rales, rhonchi, wheezes - Cardiovascular Cardiovascular exam: Present: regular rate and rhythm - Extremities Exam Extremities exam: Present: edema - Neurological Exam Neurological exam: Present: alert, oriented X3 Results - Labs CBC & BMP: 07/12/16 04:05 07/12/16 04:05 Labs: albumen 2.5 iron 25/186 (13.4%)
--- NOTE | 2016-07-12 10:45 | Gastrointestinal Consult Note ---
<Kelsea Tang - Last Filed: 07/12/16 10:39> Assessment and Plan (1) Anemia Status: Chronic Assessment and plan: 07/12-Findings of decreased in hemoglobin from 9 to 7.6 since admission in absence of overt bleeding. Hx of anemia with transfusions in past per patient. Baseline noted between 7.7 and 9.0. No prior endoscopy history. On Eliquis. Iron studies are low. Obtain stool for occult blood. Plan and addendum to follow by Dr Damon. Current Visit: Yes History of Present Illness Chief complaint: Anemia History of present illness: Ms. Jalloh is a 50 year old female who was admitted to the hospital with onset of SOB. Pt has a history of morbid obesity, HIV, heart failure (EF 35%). She states that several days ago she had worsening SOB and came to the hospital for further evaluation. She states that she was discharged from swing bed a few days prior to this admission however felt like she did not really recover very well. She has continued swelling, edema and becomes SOB with minimal activity. Pt was noted to have a drop in her hemoglobin from admission. She states she has been anemic in the past and has had blood transfusions for this. She has never had endoscopic workup for this in the past. She is noted to be on Eliquis which pt states was started years ago for a blood clot in her lung. She was on Coumadin initially and then changed to Eliquis. She was discharged from our facility approx 3 weeks ago with a hemoglobin of 8.4. Looking back over past recent admissions her hemoglobin has ranged from 7.7 to 9.0. SHe has not had a blood transfusion as of recent. She cannot recall if she has had any melena or hematochezia. No report of weight loss other than fluid fluctuations. She states she has had some epigastric discomfort for the last several weeks, but does not relate this to occurring with eating. She did take Aleve and ibuprofen until recently, at twice per day, until it was stopped by her PCP. Home Medications Medication Instructions Recorded Confirmed Type Apixaban [Eliquis] 5 mg PO BID 01/03/15 07/09/16 History Carvedilol [Coreg] 25 mg PO BID W/MEALS 01/03/15 07/09/16 History Efavirenz [Sustiva] 600 mg PO BEDTIME 01/03/15 07/09/16 History Gabapentin Cap/Tab [Neurontin 300 mg PO TID 01/03/15 07/09/16 History Cap/Tab] Glimepiride [Amaryl] 8 mg PO BID W/MEALS 01/03/15 07/09/16 History HYDROcodone/ACETAMIN 10-325 [[place] 1 tablet PO QID PRN 01/03/15 07/09/16 History 10-325] lamiVUDine TAB [Epivir Tab] 300 mg PO DAILY 01/03/15 07/09/16 History Albuterol Sulfate [Ventolin HFA] 2 puff INH Q4H PRN #1 inhaler 01/06/15 Rx Cyclobenzaprine [Flexeril] 10 mg PO TID PRN 04/27/15 07/09/16 History Tenofovir Disoproxil Fumarate 300 mg PO DAILY W/BREAKFAST 04/27/15 07/09/16 History [Viread] Insulin Aspart Prot/Asp 70/30 45 unit SUBCUT QPM 05/31/16 07/09/16 History [NovoLOG Mix 70/30] Insulin Aspart Prot/Asp 70/30 50 unit SUBCUT QAM 05/31/16 07/09/16 History [NovoLOG Mix 70/30] Isosorb Dinit/Hydralazine HCl 1 tablet PO TID 05/31/16 07/09/16 History [Bidil Tablet] NIFEdipine XL TAB [Procardia Xl] 30 mg PO BID #60 tablet 06/07/16 07/09/16 Rx Spironolactone [Aldactone] 25 mg PO BID #60 tablet 06/07/16 07/09/16 Rx Acetaminophen Tab [Tylenol Tab] 325 mg PO Q4H PRN #0 tablet 06/20/16 07/09/16 Rx Lactulose Liquid [Chronulac] 20 gm PO Q4H PRN #0 udcup 06/20/16 07/09/16 Rx Furosemide [Furosemide] 40 mg PO BID 07/08/16 07/09/16 History Multivitamin (Intrinsic) 1 capsule PO BID 07/08/16 07/09/16 History [Trinsicon] Sertraline [Zoloft] 50 mg PO DAILY 07/08/16 07/09/16 History Allopurinol [Zyloprim] 100 mg PO DAILY 07/09/16 07/09/16 History Aspirin [Ecotrin] 81 mg PO DAILY 07/09/16 07/09/16 History Allergies Allergy/AdvReac Type Severity Reaction Status Date / Time daptomycin Allergy Unknown RASH Verified 06/18/16 19:41 Medical,Surgical,& Family Hx - Medical History Cardio: History of: Congenital Heart Disease, CHF, Hypertension No history of: Pacemaker, PVD, Valvular Heart Disease, Cardiovascular Problems Psychological: History of: Depression No history of: Anxiety Disorders, ADHD, Behavior Problems, Bipolar Disorder, Previous Suicide Attempt, Psychiatric/Substance Abuse Tx, Schizophrenia, Violent Behavior, Psychiatric Problems Neurology: History of: Peripheral Neuropathy No history of: Brain Aneurysm, Cerebral Hemorrhage, Cerebrovascular Accident , Cerebral Palsy, Dementia, Migraine, Multiple Sclerosis, Parkinson's Disease, Seizures, TIA, Vertigo, Neurologocal Cancer Endocrine: History of: Diabetes Mellitus (IDDM), Diabetes Mellitus (NIDDM), Dyslipidemia No history of: Thyroid Disorder, Endocrine Cancer, Endocrine Problems Rheumatology: History of;: Rheumatoid Arthritis No history of;: Psoriasis, Sjogrens, Systemic Lupus Erythematosus Respiratory: History of: Bronchitis, COPD, Obstructive Sleep Apnea, Pulmonary Embolism, Pneumonia, Respiratory Problems No history of: Intubation, Lung Cancer Renal: History of: Renal Failure No history of: Renal (Kidney) Cancer, Dialysis, Renal Problems Genitourinary: History of: Bladder Problem No history of: Kidney Stones, Recurring Urinary Tract Infections, Genitourinary Cancer, Problems Gastrointestinal: History of: GERD No history of: Crohn's Disease, Diverticulitis/ Diverticulosis, Esophageal Varices, Gastrointestinal Bleed, Liver Problems, Pancreatitis, Polyps, Gastrointestinal Cancer, GI Problems Musculoskeletal: History of: Back/Neck Problems, Osteoporosis No history of: Amputation Hematology: No history of: Anemia, Blood Transfusion Reaction (blood transfusions but no reactions), Bleeding Problems, Clotting Problems, Sickle Cell Disease, Hematologic Cancer, Blood Disorders Reproductive: History of: Sexually Transmitted Disorders (HIV Pos.) Other: No history of: Anesthesia Reactions, Anaphylaxis, Cancer, Eczema, HIV, Malignant Hyperthermia, MRSA, Vancomycin-Resistant Enterococci, Skin Problems, Miscellaneous Medical Problems - Surgical History Cardiac Surgeries: Patient Denies: Femoral-Popliteal Bypass Graft, Cardiac Catheterization, Cardiac Surgery, Carotid Endarterectomy, Internal Defibrillator, Vascular Access Devices Thoracic Surgeries: Patient denies;: Kidney (Renal Surgery), Lithotripsy, Nephrectomy, Organ Transplant, Lobectomy Neurologic Surgeries: Patient denies: Brain Aneurysm, Cerebral Hemorrhage, Neurologic Surgery HEENT Surgeries: Patient denies: Carotid Endarterectomy, Thyroid Surgery Abdominal Surgeries: Surgical HX of: Abdominal Surgery Patient denies: Appendectomy, Cholecystectomy, Colonoscopy, Gastric Bypass Surgery, EGD, Hernia Repair, Splenectomy Reproductive Surgeries: Surgical HX of;: Breast Surgery (multiple abcesses), Section Patient denies;: Cystoscopy, Dilation and Curettage, Genitourinary Surgery, Gynecologic Surgery, Hysterectomy, Tubal Ligation Orthopedic Surgeries: Patient denies;: Implanted Devices, Orthopedic Surgery, Spinal Surgery, Total Hip Replacement, Total Knee Replacement - Family History Family History: Reports;: Family Diabetes (MOTHER), Family Hypertension Denies;: Family Anesthesia Reaction, Family Psychiatric Problems, Family Stroke - Social History Smoking Status: Unknown if ever smoked Frequency of Alcohol Use: None Type of Drug Use: None 12 point system: reviewed and no additional remarkable complaints except as stated - Constitutional Constitutional: Present: as per HPI - EENT Eyes: Present: as per HPI Ears: Present: as per HPI Nose, mouth and throat: Present: as per HPI - Cardiovascular Cardiovascular: Present: as per HPI, dyspnea - Respiratory Respiratory: Present: as per HPI - Gastrointestinal Gastrointestinal: Present: as per HPI, abdominal pain - Genitourinary Genitourinary: Present: as per HPI - Musculoskeletal Musculoskeletal: Present: as per HPI - Neurological Neurological: Present: as per HPI - Psychiatric Psychiatric: Present: as per HPI - Endocrine Endocrine: Present: as per HPI - Hematologic/Lymphatic Hematologic/Lymphatic: Present: as per HPI Exam - Constitutional Vitals: Period Temp Pulse Resp BP Sys/[place]ne Pulse Ox Last 24 Hr 97.6 F-98.8 F 73-75 16-20 135-152/67-85 99-100 General appearance: no acute distress, morbidly obese - Head Head exam: Present: normal inspection, normocephalic - Eye Eye exam: Present: other (lids and conjunctiva unremarkable). Absent: scleral icterus - ENT ENT exam: Present: normal exam, normal oropharynx - Neck Neck exam: Present: normal inspection - Respiratory Respiratory exam: Present: clear to auscultation bilaterally. Absent: prolonged expiratory phase, rales, rhonchi, wheezes - Cardiovascular Cardiovascular exam: Present: regular rate and rhythm. Absent: diastolic murmur , JVD, systolic murmur - GI/Abdominal GI/Abdominal exam: Present: normal bowel sounds, soft. Absent: ascites, distended, mass, organomegaly, tenderness - Extremities Exam Extremities exam: Present: normal inspection, full ROM - Back Exam Back exam: Present: normal inspection - Neurological Exam Neurological exam: Present: alert, oriented X3 - Psychiatric Psychiatric exam: Present: normal affect, normal mood - Skin Skin exam: Present: normal color, warm, dry Results - Labs CBC & BMP: 07/12/16 04:05 07/12/16 04:05 Lab Results: I have reviewed the past 24 hour labs <Tolu Damon - Last Filed: 07/12/16 18:28> History of Present Illness History of present illness: Ms. Jalloh is a 50 year old female Exam - Constitutional Vitals: Period Temp Pulse Resp BP Sys/Browne Pulse Ox Last 24 Hr 98.3 F-99.5 F 73-82 16-20 114-153/68-83 94-100 Results - Labs CBC & BMP: 07/12/16 04:05 07/12/16 04:05
--- NOTE | 2016-07-12 14:54 | Cardiology Progress Note ---
I, Alix Cortez, TABITHA, am scribing for, and in the presence of, Alton Pineda MD 14:54. Assessment and Plan (1) Acute exacerbation of congestive heart failure Status: Acute Assessment and plan: 07/09/16: Echo 05/31/16 revealed ejection fraction 35% with grade I/IV diastolic dysfunction. BNP 385. She is receiving Lasix 40mg IV twice dailyas well as spironolactone 25 mg orally twice daily. She is morbidly obese and does not get around much at home which compounds her numerous medical issues. It is unclear whether she followed up with the sleep lab here for her suspected sleep apnea. She may also require adjustment of her blood pressure medication for optimal blood pressure control. Her heart failure is out of proportion to her LVEF 35%, suggesting at least part is diastolic dysfunction and/or related to untreated obstructive sleep apnea. I recommended that we reconsult Dr. Lerner to consider optimal treatment. She apparently did not calm to her appointment for a sleep study. After discussing importance of treating sleep apnea, She is willing. We will reconsult him. Without treatment for untreated obstructive sleep apnea, her prognosis is very poor. I went over the above thoughts. The patient voices understanding and agrees with the plan. 07/10/16: Patient was seen in consultation by sleep medicine. It is not felt at this time that sleep apnea is extruding factor to her recurrent admissions for congestive heart failure, however she will be set up for outpatient polysomnography. Hopefully she will keep this appointment as she did not follow up the last time. We will continue her diuretics and try to pull fluid off. Creatinine remained stable at 1.6.The patient asked about hemodialysis being used to remove the fluid. Her creatinine is not high enough for that intervention. I suppose she could use ultrafiltration, but will probably not be of benefit long-term to her. 07/12/16: Plan/recommendation: Continue diuresis. She is considering, strongly, will following up for sleep apnea. Regarding her generalized tenderness/pain to touch, I wonder if it could relate to her HIV medications. No overt heart failure. Current Visit: No Qualifiers: Congestive heart failure type: combined Qualified Code(s): I50.43 - Acute on chronic combined systolic (congestive) and diastolic (congestive) heart failure (2) Dyspnea Status: Acute Assessment and plan: See plan of care above. Current Visit: No Qualifiers: Dyspnea type: shortness of breath Qualified Code(s): R06.02 - Shortness of breath (3) Morbid obesity Status: Chronic Assessment and plan: Counseled patient on the importance of weight loss. Current Visit: No Qualifiers: Obesity type: with alveolar hypoventilation Qualified Code(s): E66.2 - Morbid (severe) obesity with alveolar hypoventilation (4) Cardiomyopathy Status: Chronic Assessment and plan: Echo 05/31/16 revealed ejection fraction 35% with grade I/IV diastolic dysfunction. Current Visit: No (5) Suspected sleep apnea Status: Acute Assessment and plan: Being evaluated by Dr. Lerner. Current Visit: No (6) Poorly-controlled hypertension Status: Chronic Assessment and plan: This is well controlled today will continue with current plan of care. Current Visit: No (7) Diabetes mellitus Status: Chronic Assessment and plan: Management per hospitalist. Current Visit: No (8) Debility Status: Chronic Current Visit: No (9) Anemia Status: Chronic Assessment and plan: This is being worked up per GI. Current Visit: Yes Cardiology - PN: Subj Interval history: Patient is slow to improve. She continues to complain of dyspnea. However, she does report that this has improved slightly. She denies chest pain and palpitations. She is not requiring any oxygen and is in no respiratory distress. Her weight is unchanged from yesterday. She is receiving 60 mg of Lasix IV twice daily. She is being evaluated by GI for her anemia. Iron studies were noted to be low. Her H&H this morning was 7.6 and 24.5. She has not had any overt bleeding. They plan to check her stool for occult blood. The patient tells me that she has a long history of anemia and has had multiple blood transfusions in the past. She is in sinus rhythm with heart rate in the 70s without any overt arrhythmias or ectopy noted. Vital signs are stable. Review of labs demonstrate a creatinine of 1.9. Exam (Progress Note) - Constitutional Vitals: Period Temp Pulse Resp BP Sys/B[place]ne Pulse Ox Last 24 Hr 97.6 F-98.8 F 73-75 16-20 135-152/67-85 99-100 General appearance: no acute distress, morbidly obese - Head Head exam: Present: normal inspection, normocephalic, atraumatic - Respiratory Respiratory exam: Present: clear to auscultation bilaterally, wheezes. Absent: accessory muscle use, chest wall tenderness, rales, rhonchi, stridor - Cardiovascular Cardiovascular exam: Present: regular rate and rhythm. Absent: bradycardia, gallop, rubs, systolic murmur, tachycardia - GI/Abdominal GI/Abdominal exam: Present: normal bowel sounds, soft. Absent: tenderness - Extremities Exam Extremities exam: Present: normal inspection, calf tenderness, edema (3+ bilateral lower extremity edema.) - Neurological Exam Neurological exam: Present: alert, oriented X3 - Psychiatric Psychiatric exam: Present: normal affect, normal mood. Absent: agitated, anxious, depressed - Skin Skin exam: Present: normal color, warm, dry Result/EKG - Labs CBC & BMP: 07/12/16 04:05 07/12/16 04:05 Lab Results: I have reviewed the past 24 hour labs Labs: Laboratory Results - last 24 hr 07/11/16 07/11/16 07/12/16 11:30 15:14 04:05 WBC RBC Hgb Hct MCV MCH MCHC RDW Plt Count MPV Neut % (Auto) Lymph % (Auto) [place] % (Auto) Eos % (Auto) Baso % (Auto) Neut # (Auto) Lymph # (Auto) [place] # (Auto) Eos # (Auto) Baso # (Auto) Immature Gran % Nucleated RBC % Immature Gran # Nucleated RBCs # Anemia Panel Interp ESR Westergren Absolute Retic Percent Retic Retic Hgb Equivalent Hemoglobin A1 Hemoglobin A2 Hgb ELP Interp Sodium 147 H Potassium 4.7 Chloride 110 H Carbon Dioxide 26 Anion Gap 15.7 H BUN 33 H Creatinine 1.90 H GFR Calculation 61 BUN/Creatinine Ratio 17.00 Glucose 149 H POC Glucose 151 H 163 H Calculated Osmolality 301.4 Calcium 7.9 L Iron TIBC % Saturation Ferritin Albumin Vitamin B12 Folate EULALIA (IgG-AHG) EULALIA, Polyspecific 07/12/16 07/12/16 07/12/16 04:05 04:05 04:05 WBC 5.3 RBC 2.58 L Hgb 7.6 L Hct 24.5 L MCV 95.0 MCH 30 MCHC 31.0 L RDW 17.1 Plt Count 196 MPV 10.1 Neut % (Auto) 55.8 Lymph % (Auto) 31.9 [place] % (Auto) 6.6 Eos % (Auto) 5.3 Baso % (Auto) 0.4 Neut # (Auto) 2.9 Lymph # (Auto) 1.7 [place] # (Auto) 0.4 Eos # (Auto) 0.3 Baso # (Auto) 0.0 Immature Gran % 0.0 Nucleated RBC % 0.0 Immature Gran # 0.00 Nucleated RBCs # 0.00 Anemia Panel Interp ESR Westergren 104 H Absolute Retic 0.0 Percent Retic 1.1 Retic Hgb Equivalent 31.6 Hemoglobin A1 97.2 Hemoglobin A2 2.8 Hgb ELP Interp Sodium Potassium Chloride Carbon Dioxide Anion Gap BUN Creatinine GFR Calculation BUN/Creatinine Ratio Glucose POC Glucose Calculated Osmolality Calcium Iron 25 L TIBC 186 L % Saturation 13.4 L Ferritin 185.9 Albumin 2.5 L Vitamin B12 770 Folate 16.2 EULALIA (IgG-AHG) EULALIA, Polyspecific 07/12/16 07/12/16 05:26 07:37 WBC RBC Hgb Hct MCV MCH MCHC RDW Plt Count MPV Neut % (Auto) Lymph % (Auto) [place] % (Auto) Eos % (Auto) Baso % (Auto) Neut # (Auto) Lymph # (Auto) [place] # (Auto) Eos # (Auto) Baso # (Auto) Immature Gran % Nucleated RBC % Immature Gran # Nucleated RBCs # Anemia Panel Interp ESR [place] Absolute Retic Percent Retic Retic Hgb Equivalent Hemoglobin A1 Hemoglobin A2 Hgb ELP Interp Sodium Potassium Chloride Carbon Dioxide Anion Gap BUN Creatinine GFR Calculation BUN/Creatinine Ratio Glucose POC Glucose 124 H Calculated Osmolality Calcium Iron TIBC % Saturation Ferritin Albumin Vitamin B12 Folate EULALIA (IgG-AHG) Negative EULALIA, Polyspecific Negative - EKG EKG results: interpreted by me, sinus rhythm I, Alton Pineda MD, personally performed the services described in this documentation, ascribed by Alix Cortez, RN in my presence, and it is both accurate and complete [id number] .
[2016-07-12] MEDS: EFAVIRENZ 600 MG PO SCH (22:08)
[2016-07-13 05:45] LABS: Calcium 8.2 MG/DL (8.5-10.1); Osmolality,Calculated 295.7 MOS/KG (273-304); Potassium 4.8 MMOL/L (3.5-5.1)
--- NOTE | 2016-07-13 07:50 | Hospitalist Progress Note ---
Assessment and Plan (1) Cardiomyopathy Status: Chronic Assessment and plan: Echocardiogram shows LVEF 35% RVSP 60-65 mmHg Current Visit: No (2) Morbid obesity Status: Chronic Assessment and plan: Being evaluated for MONET, HST negative with out patient sleep study planned. Current Visit: No (3) Insulin dependent diabetes mellitus Status: Chronic Assessment and plan: Proteinuria with reduced GFR, protein quanitation requested and pending. Current Visit: No Hospitalist: Subjective Interval history: 50 yo female morbidly obese; diabetic with reduced GFR and heavy proteinuria demonstrating on echocardiogram an LVEF of 35% and RVSP of 60 to 65 mmHg presented with edema (recurrent). She is on IV loop diuretic and oral thiazide with stable GFR. Exam - Constitutional Vitals: Period Temp Pulse Resp BP Sys/[place] Pulse Ox Last 24 Hr 97.5 F-99.5 F 71-82 16-20 114-153/68-81 93-100 General appearance: morbidly obese - Respiratory Respiratory exam: Present: clear to auscultation bilaterally. Absent: rales, rhonchi, wheezes - Cardiovascular Cardiovascular exam: Present: regular rate and rhythm - Extremities Exam Extremities exam: Present: edema - Neurological Exam Neurological exam: Present: alert, oriented X3 Results - Labs CBC & BMP: 07/12/16 04:05 07/13/16 04:03
[2016-07-13] MEDS: CAPTOPRIL 6.25 MG TABLET PO SCH ×3 (10:14→22:05)
[2016-07-13] MEDS: ISOSORBIDE DINITRATE 20 MG TABLET PO SCH ×3 (10:14→22:04)
[2016-07-13] MEDS: MULTIVITAMIN (CENTRUM) TABLET PO SCH ×2 (10:14→22:04)
[2016-07-13] MEDS: GABAPENTIN 300 MG CAPSULE PO SCH ×3 (10:14→22:04)
[2016-07-13] MEDS: SPIRONOLACTONE 25 MG TABLET PO SCH ×2 (10:15→22:04)
[2016-07-13] MEDS: CARVEDILOL 25 MG TABLET PO SCH ×2 (10:15→17:34)
[2016-07-13] MEDS: APIXABAN 5 MG TABLET PO SCH (10:15)
[2016-07-13] MEDS: GLIMEPIRIDE 4 MG TABLET PO SCH ×2 (10:15→17:34)
[2016-07-13] MEDS: PANTOPRAZOLE 40 MG VIAL IV SCH ×2 (10:16→22:08)
[2016-07-13] MEDS: SERTRALINE 50 MG TABLET PO SCH (10:16)
[2016-07-13] MEDS: hydrALAZINE 25 MG TABLET PO SCH ×3 (10:16→22:04)
[2016-07-13] MEDS: FUROSEMIDE 40 MG/4 ML VIAL IV SCH ×2 (10:16→15:59)
[2016-07-13] MEDS: TENOFOVIR 300 MG PO SCH (10:17)
[2016-07-13] MEDS: LAMIVUDINE 300 MG PO SCH (10:17)
[2016-07-13] MEDS: CYCLOBENZAPRINE 10 MG TABLET PO PRN (10:21)
--- NOTE | 2016-07-13 13:43 | Gastrointestinal Progress Note ---
<Kelsea Tang - Last Filed: 07/13/16 13:41> Assessment and Plan (1) Anemia Status: Chronic Assessment and plan: 07/13-No repeat labwork today. Will recheck H/H today. No overt bleeding .Plan and addendum to follow by Dr Damon. 07/12-Findings of decreased in hemoglobin from 9 to 7.6 since admission in absence of overt bleeding. Hx of anemia with transfusions in past per patient. Baseline noted between 7.7 and 9.0. No prior endoscopy history. On Eliquis. Iron studies are low. Obtain stool for occult blood. Plan and addendum to follow by Dr Damon. Current Visit: Yes Gastroenterology - PN: Subj Interval history: CC: Anemia Pt is seen, sitting up in bed. States she is feeling well this morning. She has no complaints at present time. Denies any abdominal pain, nausea or vomiting. She is tolerating her diet well. Abdomen is soft, nontender. No repeat lab noted for today. Pt is breathing some better at this time. ROS: Denies SOB or chest pain Exam (Progress Note) - Constitutional Vitals: Period Temp Pulse Resp BP Sys/B[place]ne Pulse Ox Last 24 Hr 97.5 F-99.5 F 71-82 16-20 114-150/68-84 93-100 General appearance: normal weight, no acute distress - Head Head exam: Present: normal inspection, normocephalic - Eye Eye exam: Present: other (lids and conjuncitva unremarkable). Absent: scleral icterus - ENT ENT exam: Present: normal exam, normal oropharynx - Neck Neck exam: Present: normal inspection - Respiratory Respiratory exam: Present: clear to auscultation bilaterally. Absent: rales, rhonchi, wheezes - Cardiovascular Cardiovascular exam: Present: regular rate and rhythm. Absent: diastolic murmur , JVD, systolic murmur - GI/Abdominal GI/Abdominal exam: Present: normal bowel sounds, soft. Absent: ascites, distended, hernia, mass, organomegaly, tenderness - Extremities Exam Extremities exam: Present: normal inspection, full ROM - Back Exam Back exam: Present: normal inspection - Neurological Exam Neurological exam: Present: alert, oriented X3 - Psychiatric Psychiatric exam: Present: normal affect, normal mood - Skin Skin exam: Present: normal color, warm, dry Results - Labs CBC & BMP: 02/16/17 04:05 07/13/16 04:03 Lab Results: I have reviewed the past 24 hour labs <Tolu Damon - Last Filed: 07/13/16 15:05> Exam (Progress Note) - Constitutional Vitals: Period Temp Pulse Resp BP Sys/B[place]ne Pulse Ox Last 24 Hr 97.5 F-99.5 F 71-82 16-20 114-150/68-84 93-100 Results - Labs CBC & BMP: 07/13/16 13:51 07/13/16 04:03
[2016-07-13 14:14] LABS: Hematocrit 26.7 VOL% (35.7-47.0); Hemoglobin 8.1 GM/DL (12.0-16.0)
[2016-07-13] MEDS: DESITIN 4OZ/NYSTATIN 15 GRAM MIXTURE PASTE TOP SCH ×2 (15:59→22:04)
[2016-07-13] MEDS: EFAVIRENZ 600 MG PO SCH (22:04)
[2016-07-14 05:26] LABS: Calcium 8.2 MG/DL (8.5-10.1); Osmolality,Calculated 294.8 MOS/KG (273-304); Potassium 4.9 MMOL/L (3.5-5.1)
[2016-07-14] MEDS: CYCLOBENZAPRINE 10 MG TABLET PO PRN ×3 (06:33→21:41)
[2016-07-14] MEDS: CAPTOPRIL 6.25 MG TABLET PO SCH ×3 (10:23→21:39)
[2016-07-14] MEDS: MULTIVITAMIN (CENTRUM) TABLET PO SCH ×2 (10:24→21:39)
[2016-07-14] MEDS: CARVEDILOL 25 MG TABLET PO SCH ×2 (10:24→18:05)
[2016-07-14] MEDS: GLIMEPIRIDE 4 MG TABLET PO SCH ×2 (10:24→18:05)
[2016-07-14] MEDS: hydrALAZINE 25 MG TABLET PO SCH ×3 (10:24→21:39)
[2016-07-14] MEDS: GABAPENTIN 300 MG CAPSULE PO SCH ×3 (10:24→21:39)
[2016-07-14] MEDS: FUROSEMIDE 40 MG/4 ML VIAL IV SCH ×3 (10:25→21:45)
[2016-07-14] MEDS: PANTOPRAZOLE 40 MG VIAL IV SCH ×2 (10:25→21:47)
[2016-07-14] MEDS: SERTRALINE 50 MG TABLET PO SCH (10:25)
[2016-07-14] MEDS: SPIRONOLACTONE 25 MG TABLET PO SCH ×2 (10:25→21:39)
[2016-07-14] MEDS: LAMIVUDINE 300 MG PO SCH (10:26)
[2016-07-14] MEDS: TENOFOVIR 300 MG PO SCH (10:26)
[2016-07-14] MEDS: ISOSORBIDE DINITRATE 20 MG TABLET PO SCH ×3 (10:27→21:39)
[2016-07-14] MEDS: DESITIN 4OZ/NYSTATIN 15 GRAM MIXTURE PASTE TOP SCH ×2 (10:27→21:49)
--- NOTE | 2016-07-14 12:55 | Hospitalist Progress Note ---
Assessment and Plan (1) Acute exacerbation of congestive heart failure Status: Acute Current Visit: No Qualifiers: Congestive heart failure type: combined Qualified Code(s): I50.43 - Acute on chronic combined systolic (congestive) and diastolic (congestive) heart failure (2) Dyspnea Status: Acute Current Visit: Yes Qualifiers: Dyspnea type: shortness of breath Qualified Code(s): R06.02 - Shortness of breath (3) Congestive heart failure Status: Acute Current Visit: No (4) BMI 64.8 Status: Chronic Current Visit: No (5) HIV (human immunodeficiency virus infection) Status: Chronic Current Visit: Yes (6) Morbid obesity Status: Chronic Current Visit: No Qualifiers: Obesity type: with alveolar hypoventilation Qualified Code(s): E66.2 - Morbid (severe) obesity with alveolar hypoventilation (7) Dyspnea or other respiratory complaints Status: Acute Current Visit: No (8) Volume overload Status: Acute Current Visit: No (9) Cardiomyopathy Status: Chronic Current Visit: Yes Hospitalist: Subjective Interval history: denies any specific complaints. Still has edema and some point tenderness. She states she's been getting up and using a bedside commode. In hospital sleep apnea study was negative per pulmonary. Assessment and plan for 07/14/2016 Anemia with heme-negative stool Congestive heart failure with systolic dysfunction Competent of diastolic dysfunction Morbid obesity Chronic kidney disease HIV stable Certainly this is multifactorial. We will increase Lasix to 3 times a day to see if he can get her to diurese a little more. I'm also reluctant to keep holding her anticoagulation with history of pulmonary emboli. I will start on low-dose Lovenox which can easily be stopped if endoscopy is scheduled. For now will continue to hold elequis Exam - Constitutional Vitals: Period Temp Pulse Resp BP Sys/[place] Pulse Ox Last 24 Hr 97.4 F-98.5 F 72-76 16-20 120-161/57-86 95-99 Exam: Gen.: In no acute distress Head and neck: Pupils are reactive neck is supple Cardiovascular: S1-S2 with regular rate and rhythm Respiratory: Lungs are clear to auscultation and percussion Abdomen: Morbidly obese Extremities: Positive edema Neuro: Grossly intact Results - Labs CBC & BMP: 07/14/16 03:33 07/14/16 03:33 Lab Results: I have reviewed the past 24 hour labs
[2016-07-14] MEDS: ENOXAPARIN 30 MG/0.3 ML SYRINGE SUBCUT SCH (13:27)
[2016-07-14] MEDS: EFAVIRENZ 600 MG PO SCH (21:40)
--- NOTE | 2016-07-14 23:39 | Cardiology Progress Note ---
I, Jihan Bear RN, am scribing for, and in the presence of, Alton Pineda MD 23:24. Assessment and Plan (1) Acute exacerbation of CHF (congestive heart failure) Status: Acute Assessment and plan: 07/09/16: Echo 05/31/16 revealed ejection fraction 35% with grade I/IV diastolic dysfunction. BNP 385. She is receiving Lasix 40mg IV twice dailyas well as spironolactone 25 mg orally twice daily. She is morbidly obese and does not get around much at home which compounds her numerous medical issues. It is unclear whether she followed up with the sleep lab here for her suspected sleep apnea. She may also require adjustment of her blood pressure medication for optimal blood pressure control. Her heart failure is out of proportion to her LVEF 35%, suggesting at least part is diastolic dysfunction and/or related to untreated obstructive sleep apnea. I recommended that we reconsult Dr. Lerner to consider optimal treatment. She apparently did not calm to her appointment for a sleep study. After discussing importance of treating sleep apnea, She is willing. We will reconsult him. Without treatment for untreated obstructive sleep apnea, her prognosis is very poor. I went over the above thoughts. The patient voices understanding and agrees with the plan. 07/10/16: Patient was seen in consultation by sleep medicine. It is not felt at this time that sleep apnea is extruding factor to her recurrent admissions for congestive heart failure, however she will be set up for outpatient polysomnography. Hopefully she will keep this appointment as she did not follow up the last time. We will continue her diuretics and try to pull fluid off. Creatinine remained stable at 1.6.The patient asked about hemodialysis being used to remove the fluid. Her creatinine is not high enough for that intervention. I suppose she could use ultrafiltration, but will probably not be of benefit long-term to her. 07/11/16-plan/recommendations: Still hurts all over. Unknown as to the cause. Maybe is some type of myositis or fibromyalgia. Still has generalized edema. I emphasized to her the importance of following up with Dr. Lerner with a sleep study because this very well could be part of her problem, obstructive sleep apnea which is untreated. 07/12/16: Plan/recommendation: Continue diuresis. She is considering, strongly, will following up for sleep apnea. Regarding her generalized tenderness/pain to touch, I wonder if it could relate to her HIV medications. No overt heart failure. 07/13/16 --plan/recommendations: Okay with me for being off eliquis in anticipation of the anemia evaluation. He'll be done by GI medicine. she has not had more shortness breath or chest pain. No overt heart failure. She is edematous. She for GI workup early next week. We'll restart the eliquis after the GI workup is completed unless there is a contraindication. We'll watch for signs and symptoms of recurrent PTE off the eliquis. [I, Dr. Alton Pineda, did see the patient on the day of 07/13/16 and was involved in the interview, examination, and management of this patient. I'm finishing the note at this point.] Current Visit: Yes (2) Dyspnea Status: Acute Current Visit: Yes Qualifiers: Dyspnea type: shortness of breath Qualified Code(s): R06.02 - Shortness of breath (3) Suspected sleep apnea Status: Acute Current Visit: Yes (4) Cardiomyopathy Status: Chronic Current Visit: Yes (5) Debility Status: Chronic Current Visit: Yes (6) Diabetes mellitus Status: Chronic Current Visit: Yes (7) HIV (human immunodeficiency virus infection) Status: Chronic Current Visit: Yes (8) Morbid obesity Status: Chronic Current Visit: Yes (9) Poorly-controlled hypertension Status: Chronic Current Visit: Yes Cardiology - PN: Subj Interval history: Resting in bed in no acute distress, oxygen in use via NBP. Reports her breathing maybe a little better. Continues to complain of generalized tenderness to touch. She tells me that they are planning to hold her Eliquis in anticipation of a scope Saturday or Saturday. H&H continues to be low, stool negative for occult blood. Exam (Progress Note) - Constitutional Vitals: Period Temp Pulse Resp BP Sys/[place] Pulse Ox Last 24 Hr 97.5 F-99.5 F 71-82 16-20 114-150/68-84 93-100 General appearance: no acute distress, morbidly obese - Head Head exam: Absent: abrasion, hematoma - Eye Eye exam: Absent: periorbital swelling, laceration to eyelids - Neck Neck exam: Absent: tenderness - Respiratory Respiratory exam: Present: wheezes, other (oxygen via NBP). Absent: accessory muscle use, chest wall tenderness - Cardiovascular Cardiovascular exam: Present: regular rate and rhythm - GI/Abdominal GI/Abdominal exam: Present: normal bowel sounds, tenderness, soft. Absent: distended - Extremities Exam Extremities exam: Present: edema (3+ to bilateral lower extremities) - Neurological Exam Neurological exam: Present: alert, oriented X3 - Psychiatric Psychiatric exam: Present: normal affect, normal mood - Skin Skin exam: Present: warm, dry Result/EKG - Labs CBC & BMP: 07/14/16 03:33 07/14/16 03:33 Lab Results: I have reviewed the past 24 hour labs Labs: Laboratory Results - last 24 hr 07/12/16 07/13/16 07/13/16 19:27 04:03 08:02 Sodium 145 Potassium 4.8 Chloride 109 H Carbon Dioxide 28 Anion Gap 12.8 BUN 33 H Creatinine 1.90 H GFR Calculation 61 BUN/Creatinine Ratio 17.00 Glucose 117 H POC Glucose 160 H 122 H Calculated Osmolality 295.7 Calcium 8.2 L - EKG EKG results: interpreted by me EKG shows: sinus rhythm IMiriam Dale, MD, personally performed the services described in this documentation, ascribed by Jihan Bear RN in my presence, and it is both accurate and complete [id number] .
--- NOTE | 2016-07-14 23:43 | Cardiology Progress Note ---
Assessment and Plan (1) Acute exacerbation of CHF (congestive heart failure) Status: Acute Assessment and plan: 07/09/16: Echo 05/31/16 revealed ejection fraction 35% with grade I/IV diastolic dysfunction. BNP 385. She is receiving Lasix 40mg IV twice dailyas well as spironolactone 25 mg orally twice daily. She is morbidly obese and does not get around much at home which compounds her numerous medical issues. It is unclear whether she followed up with the sleep lab here for her suspected sleep apnea. She may also require adjustment of her blood pressure medication for optimal blood pressure control. Her heart failure is out of proportion to her LVEF 35%, suggesting at least part is diastolic dysfunction and/or related to untreated obstructive sleep apnea. I recommended that we reconsult Dr. Lerner to consider optimal treatment. She apparently did not calm to her appointment for a sleep study. After discussing importance of treating sleep apnea, She is willing. We will reconsult him. Without treatment for untreated obstructive sleep apnea, her prognosis is very poor. I went over the above thoughts. The patient voices understanding and agrees with the plan. 07/10/16: Patient was seen in consultation by sleep medicine. It is not felt at this time that sleep apnea is extruding factor to her recurrent admissions for congestive heart failure, however she will be set up for outpatient polysomnography. Hopefully she will keep this appointment as she did not follow up the last time. We will continue her diuretics and try to pull fluid off. Creatinine remained stable at 1.6.The patient asked about hemodialysis being used to remove the fluid. Her creatinine is not high enough for that intervention. I suppose she could use ultrafiltration, but will probably not be of benefit long-term to her. 07/11/16-plan/recommendations: Still hurts all over. Unknown as to the cause. Maybe is some type of myositis or fibromyalgia. Still has generalized edema. I emphasized to her the importance of following up with Dr. Lerner with a sleep study because this very well could be part of her problem, obstructive sleep apnea which is untreated. 07/12/16: Plan/recommendation: Continue diuresis. She is considering, strongly, will following up for sleep apnea. Regarding her generalized tenderness/pain to touch, I wonder if it could relate to her HIV medications. No overt heart failure. 07/13/16 --plan/recommendations: Okay with me for being off eliquis in anticipation of the anemia evaluation. He'll be done by GI medicine. she has not had more shortness breath or chest pain. No overt heart failure. She is edematous. She for GI workup early next week. We'll restart the eliquis after the GI workup is completed unless there is a contraindication. We'll watch for signs and symptoms of recurrent PTE off the eliquis. 07/14/16-plan/recommendations: Some shortness breath. No worse. No chest pain. No signs or symptoms to suggest a recurrent PE. 4 anemia workup by GI on Saturday, I presume. We'll restart the eliquis soon after the GI workup. Current Visit: Yes (2) Dyspnea Status: Acute Assessment and plan: See plan of care above. Current Visit: Yes Qualifiers: Dyspnea type: shortness of breath Qualified Code(s): R06.02 - Shortness of breath (3) Suspected sleep apnea Status: Acute Assessment and plan: Being evaluated by Dr. Lerner. Current Visit: Yes (4) Cardiomyopathy Status: Chronic Assessment and plan: Echo 05/31/16 revealed ejection fraction 35% with grade I/IV diastolic dysfunction. Current Visit: Yes (5) Debility Status: Chronic Current Visit: Yes (6) Diabetes mellitus Status: Chronic Assessment and plan: Management per hospitalist. Current Visit: Yes (7) HIV (human immunodeficiency virus infection) Status: Chronic Current Visit: Yes (8) Morbid obesity Status: Chronic Current Visit: Yes (9) Poorly-controlled hypertension Status: Chronic Assessment and plan: This is well controlled today will continue with current plan of care. Current Visit: Yes Cardiology - PN: Subj Interval history: no cp; no less sob Exam (Progress Note) - Constitutional Vitals: Period Temp Pulse Resp BP Sys/[place] Pulse Ox Last 24 Hr 97.6 F-98.1 F 73-76 16-20 139-170/68-86 95-98 Exam: General: Present: Other (moderate conversational dyspnea noted; appears chronically ill) HEENT: Present: Normocephaly, Mucus Membranes Moist Neck: Present: Supple Neck, Midline Trachea, No Masses, No Bruit Cardiac: Present: Reg Rate and Rhythm, No Murmur Lungs: Present: Clear to auscultation bilaterally, decreased breath sounds ( bilateral bases) Neuro: Present: Grossly Intact. Absent: Resting Tremor, Essential Tremor Abdomen: Present: Soft, Active Bowel Sounds, Non-Tender Skin: Present: Clear. Absent: Rash Musculoskeletal: Present: Decreased Range of Motion (limited due to habitus), No Fluid Collection, No Pain Gait: Present: Poor Gait Extremities: Present: No Clubbing, No Cyanosis, Normal Upper Extr. Pulses, Normal Lower Extr. Pulses, +3 Edema (pitting to BLE and lower abdominal panniculus) Result/EKG - Labs CBC & BMP: 07/14/16 03:33 07/14/16 03:33 Lab Results: I have reviewed the past 24 hour labs Labs: Laboratory Results - last 24 hr 07/14/16 07/14/16 07/14/16 03:33 03:33 07:37 Hgb 7.5 L Sodium 144 Potassium 4.9 Chloride 108 H Carbon Dioxide 28 Anion Gap 12.9 BUN 35 H Creatinine 2.00 H GFR Calculation 57 BUN/Creatinine Ratio 17.00 Glucose 118 H POC Glucose 117 H Calculated Osmolality 294.8 Calcium 8.2 L 07/14/16 07/14/16 07/14/16 11:30 15:34 20:04 Hgb Sodium Potassium Chloride Carbon Dioxide Anion Gap BUN Creatinine GFR Calculation BUN/Creatinine Ratio Glucose POC Glucose 159 H 156 H 154 H Calculated Osmolality Calcium - EKG EKG results: interpreted by me
[2016-07-15 04:34] LABS: Basophils % 0.3 % (0.0-0.8); Eosinophils # 0.2 10*3/uL (0.0-0.87); Eosinophils % 3.8 % (0.00-10.9); Hematocrit 27.7 VOL% (35.7-47.0); Hemoglobin 8.3 GM/DL (12.0-16.0); Immature Granulocytes % 0.2 %; Immature Granulocytes Absolute 0.01 #; Lymphocytes # 1.7 10*3/uL (1.4-4.0); Lymphocytes % 30.2 % (21.3-54.2); Mean Corpuscular Hemoglobin 29 PG (27-34); Mean Corpuscular Volume 96.2 FL (87-102); Mean Platelet Volume 10.1 FL (9.6-12.0); Monocytes # 0.4 10*3/uL (0.11-0.8); Monocytes % 6.8 % (1.7-12.7); Neutrophils # 3.4 10*3/uL (1.4-7.4); Neutrophils % 58.7 % (38.7-73.9); Platelet Count 220 T/CUMM (130-400); Red Blood Count 2.88 MC/CUMM (3.8-5.5); Red Cell Distribution Width 16.6 % (9.3-17.3); White Blood Count 5.7 T/CUMM (4-12)
[2016-07-15 04:52] LABS: Calcium 8.5 MG/DL (8.5-10.1); Magnesium 2.3 MG/DL (1.8-2.4); Osmolality,Calculated 295.8 MOS/KG (273-304); Potassium 4.5 MMOL/L (3.5-5.1)
[2016-07-15] MEDS: TENOFOVIR 300 MG PO SCH (10:11)
[2016-07-15] MEDS: LAMIVUDINE 300 MG PO SCH (10:12)
[2016-07-15] MEDS: ISOSORBIDE DINITRATE 20 MG TABLET PO SCH ×3 (10:14→22:26)
[2016-07-15] MEDS: GABAPENTIN 300 MG CAPSULE PO SCH ×3 (10:14→22:26)
[2016-07-15] MEDS: hydrALAZINE 25 MG TABLET PO SCH ×3 (10:15→22:26)
[2016-07-15] MEDS: SERTRALINE 50 MG TABLET PO SCH (10:15)
[2016-07-15] MEDS: CARVEDILOL 25 MG TABLET PO SCH ×2 (10:15→17:32)
[2016-07-15] MEDS: GLIMEPIRIDE 4 MG TABLET PO SCH ×2 (10:15→17:32)
[2016-07-15] MEDS: CAPTOPRIL 6.25 MG TABLET PO SCH ×3 (10:15→22:26)
[2016-07-15] MEDS: MULTIVITAMIN (CENTRUM) TABLET PO SCH ×2 (10:15→22:26)
[2016-07-15] MEDS: PANTOPRAZOLE 40 MG VIAL IV SCH ×2 (10:16→22:27)
[2016-07-15] MEDS: SPIRONOLACTONE 25 MG TABLET PO SCH ×2 (10:16→22:26)
[2016-07-15] MEDS: FUROSEMIDE 40 MG/4 ML VIAL IV SCH ×3 (10:17→22:27)
[2016-07-15] MEDS: DESITIN 4OZ/NYSTATIN 15 GRAM MIXTURE PASTE TOP SCH ×2 (10:19→22:43)
--- NOTE | 2016-07-15 10:19 | Hospitalist Progress Note ---
Assessment and Plan (1) Acute exacerbation of congestive heart failure Status: Acute Current Visit: No Qualifiers: Congestive heart failure type: combined Qualified Code(s): I50.43 - Acute on chronic combined systolic (congestive) and diastolic (congestive) heart failure (2) Dyspnea Status: Acute Current Visit: Yes Qualifiers: Dyspnea type: shortness of breath Qualified Code(s): R06.02 - Shortness of breath (3) Congestive heart failure Status: Acute Current Visit: No (4) BMI 64.8 Status: Chronic Current Visit: No (5) HIV (human immunodeficiency virus infection) Status: Chronic Current Visit: Yes (6) Morbid obesity Status: Chronic Current Visit: No Qualifiers: Obesity type: with alveolar hypoventilation Qualified Code(s): E66.2 - Morbid (severe) obesity with alveolar hypoventilation (7) Dyspnea or other respiratory complaints Status: Acute Current Visit: No (8) Volume overload Status: Acute Current Visit: No (9) Cardiomyopathy Status: Chronic Current Visit: Yes Hospitalist: Subjective Interval history: Breathing a little easier. No specific complaints. Assessment and plan for 07/15/2016: Acute exacerbation of congestive heart failure and volume overload Morbid obesity Possible competent of obstructive sleep apnea History off pulmonary emboli Anemia Patient was on eliquis which is on hold for anemia and possible endoscopy. Beats started on low-dose Lovenox. GI will decide if they want to do the endoscopy or not. I did increase her Lasix and she is diuresed a little better. We last physical therapy to see her. Hopefully switch to oral Lasix tomorrow and discharge in the next 48 hours. Exam - Constitutional Vitals: Period Temp Pulse Resp BP Sys/[place] Pulse Ox Last 24 Hr 97.4 F-98.6 F 75-77 18-20 133-170/64-86 92-100 Exam: Gen.: In no acute distress Head and neck: Pupils are reactive neck is supple Cardiovascular: S1-S2 with regular rate and rhythm Respiratory: Lungs are clear to auscultation and percussion Abdomen: Morbidly obese Extremities: Positive edema Neuro: Grossly intact Results - Labs CBC & BMP: 07/15/16 03:54 07/15/16 03:54 Lab Results: I have reviewed the past 24 hour labs
[2016-07-15] MEDS: ENOXAPARIN 30 MG/0.3 ML SYRINGE SUBCUT SCH (13:36)
[2016-07-15] MEDS: CYCLOBENZAPRINE 10 MG TABLET PO PRN (22:26)
[2016-07-15] MEDS: EFAVIRENZ 600 MG PO SCH (22:28)
--- NOTE | 2016-07-15 23:09 | Cardiology Progress Note ---
Assessment and Plan (1) Acute exacerbation of CHF (congestive heart failure) Status: Acute Assessment and plan: 07/09/16: Echo 05/31/16 revealed ejection fraction 35% with grade I/IV diastolic dysfunction. BNP 385. She is receiving Lasix 40mg IV twice dailyas well as spironolactone 25 mg orally twice daily. She is morbidly obese and does not get around much at home which compounds her numerous medical issues. It is unclear whether she followed up with the sleep lab here for her suspected sleep apnea. She may also require adjustment of her blood pressure medication for optimal blood pressure control. Her heart failure is out of proportion to her LVEF 35%, suggesting at least part is diastolic dysfunction and/or related to untreated obstructive sleep apnea. I recommended that we reconsult Dr. Lerner to consider optimal treatment. She apparently did not calm to her appointment for a sleep study. After discussing importance of treating sleep apnea, She is willing. We will reconsult him. Without treatment for untreated obstructive sleep apnea, her prognosis is very poor. I went over the above thoughts. The patient voices understanding and agrees with the plan. 07/10/16: Patient was seen in consultation by sleep medicine. It is not felt at this time that sleep apnea is extruding factor to her recurrent admissions for congestive heart failure, however she will be set up for outpatient polysomnography. Hopefully she will keep this appointment as she did not follow up the last time. We will continue her diuretics and try to pull fluid off. Creatinine remained stable at 1.6.The patient asked about hemodialysis being used to remove the fluid. Her creatinine is not high enough for that intervention. I suppose she could use ultrafiltration, but will probably not be of benefit long-term to her. 07/11/16-plan/recommendations: Still hurts all over. Unknown as to the cause. Maybe is some type of myositis or fibromyalgia. Still has generalized edema. I emphasized to her the importance of following up with Dr. Lerner with a sleep study because this very well could be part of her problem, obstructive sleep apnea which is untreated. 07/12/16: Plan/recommendation: Continue diuresis. She is considering, strongly, will following up for sleep apnea. Regarding her generalized tenderness/pain to touch, I wonder if it could relate to her HIV medications. No overt heart failure. 07/13/16 --plan/recommendations: Okay with me for being off eliquis in anticipation of the anemia evaluation. He'll be done by GI medicine. she has not had more shortness breath or chest pain. No overt heart failure. She is edematous. She for GI workup early next week. We'll restart the eliquis after the GI workup is completed unless there is a contraindication. We'll watch for signs and symptoms of recurrent PTE off the eliquis. 07/14/16-plan/recommendations: Some shortness breath. No worse. No chest pain. No signs or symptoms to suggest a recurrent PE. 4 anemia workup by GI on Saturday, I presume. We'll restart the eliquis soon after the GI workup. 07/15/16-plan/recommendation: Remains off the anticoagulant. For GI workup seen. Cardiovascular status is relatively stable. Current Visit: Yes (2) Dyspnea Status: Acute Assessment and plan: See plan of care above. Current Visit: Yes Qualifiers: Dyspnea type: shortness of breath Qualified Code(s): R06.02 - Shortness of breath (3) Suspected sleep apnea Status: Acute Assessment and plan: Being evaluated by Dr. Lerner. Current Visit: Yes (4) Cardiomyopathy Status: Chronic Assessment and plan: Echo 05/31/16 revealed ejection fraction 35% with grade I/IV diastolic dysfunction. Current Visit: Yes (5) Debility Status: Chronic Current Visit: Yes (6) Diabetes mellitus Status: Chronic Assessment and plan: Management per hospitalist. Current Visit: Yes (7) HIV (human immunodeficiency virus infection) Status: Chronic Current Visit: Yes (8) Morbid obesity Status: Chronic Current Visit: Yes (9) Poorly-controlled hypertension Status: Chronic Assessment and plan: This is well controlled today will continue with current plan of care. Current Visit: Yes Cardiology - PN: Subj Interval history: No chest pain. Her shortness breath is slightly better. Exam (Progress Note) - Constitutional Vitals: Period Temp Pulse Resp BP Sys/[place] Pulse Ox Last 24 Hr 97.4 F-99.2 F 71-78 18-20 133-153/64-84 92-100 Exam: General: Present: Other (moderate conversational dyspnea noted; appears chronically ill) HEENT: Present: Normocephaly, Mucus Membranes Moist Neck: Present: Supple Neck, Midline Trachea, No Masses, No Bruit Cardiac: Present: Reg Rate and Rhythm, No Murmur Lungs: Present: Clear to auscultation bilaterally, decreased breath sounds ( bilateral bases) Neuro: Present: Grossly Intact. Absent: Resting Tremor, Essential Tremor Abdomen: Present: Soft, Active Bowel Sounds, Non-Tender Skin: Present: Clear. Absent: Rash Musculoskeletal: Present: Decreased Range of Motion (limited due to habitus), No Fluid Collection, No Pain Gait: Present: Poor Gait Extremities: Present: No Clubbing, No Cyanosis, Normal Upper Extr. Pulses, Normal Lower Extr. Pulses, +3 Edema (pitting to BLE and lower abdominal panniculus) Result/EKG - Labs CBC & BMP: 07/15/16 03:54 07/15/16 03:54 Lab Results: I have reviewed the past 24 hour labs Labs: Laboratory Results - last 24 hr 07/15/16 07/15/16 07/15/16 03:54 03:54 07:32 WBC 5.7 RBC 2.88 L Hgb 8.3 L Hct 27.7 L MCV 96.2 MCH 29 MCHC 30.0 L RDW 16.6 Plt Count 220 MPV 10.1 Neut % (Auto) 58.7 Lymph % (Auto) 30.2 [place] % (Auto) 6.8 Eos % (Auto) 3.8 Baso % (Auto) 0.3 Neut # (Auto) 3.4 Lymph # (Auto) 1.7 [place] # (Auto) 0.4 Eos # (Auto) 0.2 Baso # (Auto) 0.0 Immature Gran % 0.2 Nucleated RBC % 0.0 Immature Gran # 0.01 Nucleated RBCs # 0.00 Sodium 144 Potassium 4.5 Chloride 107 Carbon Dioxide 29 Anion Gap 12.5 BUN 37 H Creatinine 1.90 H GFR Calculation 61 BUN/Creatinine Ratio 19.00 Glucose 124 H POC Glucose 92 Calculated Osmolality 295.8 Calcium 8.5 Magnesium 2.3 07/15/16 07/15/16 11:56 15:43 WBC RBC Hgb Hct MCV MCH MCHC RDW Plt Count MPV Neut % (Auto) Lymph % (Auto) [place] % (Auto) Eos % (Auto) Baso % (Auto) Neut # (Auto) Lymph # (Auto) [place] # (Auto) Eos # (Auto) Baso # (Auto) Immature Gran % Nucleated RBC % Immature Gran # Nucleated RBCs # Sodium Potassium Chloride Carbon Dioxide Anion Gap BUN Creatinine GFR Calculation BUN/Creatinine Ratio Glucose POC Glucose 126 H 116 H Calculated Osmolality Calcium Magnesium
[2016-07-16 05:53] LABS: Basophils % 0.4 % (0.0-0.8); Eosinophils # 0.2 10*3/uL (0.0-0.87); Eosinophils % 3.5 % (0.00-10.9); Hematocrit 25.4 VOL% (35.7-47.0); Hemoglobin 7.8 GM/DL (12.0-16.0); Immature Granulocytes % 0.2 %; Immature Granulocytes Absolute 0.01 #; Lymphocytes # 1.6 10*3/uL (1.4-4.0); Lymphocytes % 33.1 % (21.3-54.2); Mean Corpuscular HGB Conc 30.7 GM/DL (32-36); Mean Corpuscular Hemoglobin 29 PG (27-34); Mean Corpuscular Volume 93.4 FL (87-102); Mean Platelet Volume 9.9 FL (9.6-12.0); Monocytes # 0.3 10*3/uL (0.11-0.8); Monocytes % 6.8 % (1.7-12.7); Neutrophils # 2.7 10*3/uL (1.4-7.4); Platelet Count 216 T/CUMM (130-400); Red Blood Count 2.72 MC/CUMM (3.8-5.5); Red Cell Distribution Width 16.7 % (9.3-17.3); White Blood Count 4.9 T/CUMM (4-12)
[2016-07-16] MEDS: MULTIVITAMIN (CENTRUM) TABLET PO SCH ×2 (09:46→21:40)
[2016-07-16] MEDS: CAPTOPRIL 6.25 MG TABLET PO SCH ×3 (09:46→21:40)
[2016-07-16] MEDS: GABAPENTIN 300 MG CAPSULE PO SCH ×3 (09:47→21:40)
[2016-07-16] MEDS: SPIRONOLACTONE 25 MG TABLET PO SCH ×2 (09:47→21:40)
[2016-07-16] MEDS: ISOSORBIDE DINITRATE 20 MG TABLET PO SCH ×3 (09:47→21:40)
[2016-07-16] MEDS: CYCLOBENZAPRINE 10 MG TABLET PO PRN ×2 (09:47→17:06)
[2016-07-16] MEDS: hydrALAZINE 25 MG TABLET PO SCH ×3 (09:48→21:40)
[2016-07-16] MEDS: CARVEDILOL 25 MG TABLET PO SCH ×2 (09:48→17:05)
[2016-07-16] MEDS: GLIMEPIRIDE 4 MG TABLET PO SCH ×2 (09:48→17:01)
[2016-07-16] MEDS: TENOFOVIR 300 MG PO SCH (09:49)
[2016-07-16] MEDS: LAMIVUDINE 300 MG PO SCH (09:49)
[2016-07-16] MEDS: SERTRALINE 50 MG TABLET PO SCH (09:49)
[2016-07-16] MEDS: DESITIN 4OZ/NYSTATIN 15 GRAM MIXTURE PASTE TOP SCH ×2 (09:49→21:42)
[2016-07-16] MEDS: FUROSEMIDE 40 MG/4 ML VIAL IV SCH (09:50)
--- NOTE | 2016-07-16 09:52 | Hospitalist Progress Note ---
Assessment and Plan (1) Acute exacerbation of congestive heart failure Status: Acute Current Visit: No Qualifiers: Congestive heart failure type: combined Qualified Code(s): I50.43 - Acute on chronic combined systolic (congestive) and diastolic (congestive) heart failure (2) Dyspnea Status: Acute Current Visit: Yes Qualifiers: Dyspnea type: shortness of breath Qualified Code(s): R06.02 - Shortness of breath (3) Congestive heart failure Status: Acute Current Visit: No (4) BMI 64.8 Status: Chronic Current Visit: No (5) HIV (human immunodeficiency virus infection) Status: Chronic Current Visit: Yes (6) Morbid obesity Status: Chronic Current Visit: No Qualifiers: Obesity type: with alveolar hypoventilation Qualified Code(s): E66.2 - Morbid (severe) obesity with alveolar hypoventilation (7) Dyspnea or other respiratory complaints Status: Acute Current Visit: No (8) Volume overload Status: Acute Current Visit: No (9) Cardiomyopathy Status: Chronic Current Visit: Yes Hospitalist: Subjective Interval history: Overall looks and feels better. I discussed with a swing bed versus going home. She feels she can have do well with some therapy but might be able to go home. We are is waiting on GI to see if they want to do an endoscopy. They were going to evaluate her today. She was on eliquis which has been on hold. I did put on low-dose Lovenox since she has prior history of PEs. This is on hold now pending GI evaluation. Her heme stool was negative. Assessment and plan for 07/16/2016: Congestive heart failure with morbid obesity Obesity hypoventilation syndrome HIV Anemia Transition to oral Lasix today at 60 mg twice a day. If GI does not plan to do further endoscopy will resume her eliquis. Also consulted administrator social welfare for possible swing bed versus home. PT evaluation is also being done. Exam - Constitutional Vitals: Period Temp Pulse Resp BP Sys/[place] Pulse Ox Last 24 Hr 97.6 F-99.2 F 71-81 18-21 106-163/56-77 94-98 Exam: Gen.: In no acute distress Head and neck: Pupils are reactive neck is supple Cardiovascular: S1-S2 with regular rate and rhythm Respiratory: Lungs are clear to auscultation and percussion Abdomen: Morbidly obese Extremities: Positive edema Neuro: Grossly intact Results - Labs CBC & BMP: 07/16/16 05:29 07/15/16 03:54 Lab Results: I have reviewed the past 24 hour labs
[2016-07-16] MEDS: PANTOPRAZOLE 40 MG VIAL IV SCH ×2 (09:53→21:40)
--- NOTE | 2016-07-16 10:28 | Gastrointestinal Progress Note ---
<Kelsea Tang - Last Filed: 07/16/16 10:23> Assessment and Plan (1) Anemia Status: Chronic Assessment and plan: 07/16-Hgb 7.8, no overt bleeding. Plan for EGD tomorrow if remains stable. Plan and addendum to follow by DR damno. 07/13-No repeat labwork today. Will recheck H/H today. No overt bleeding .Plan and addendum to follow by Dr Damon. 07/12-Findings of decreased in hemoglobin from 9 to 7.6 since admission in absence of overt bleeding. Hx of anemia with transfusions in past per patient. Baseline noted between 7.7 and 9.0. No prior endoscopy history. On Eliquis. Iron studies are low. Obtain stool for occult blood. Plan and addendum to follow by Dr Damon. Current Visit: Yes Gastroenterology - PN: Subj Interval history: CC: Anemia Pt is seen, sitting up in bed, son at side. States she is breathing a little better at this time. She denies any abdominal pain, nausea or vomiting. Her hemoglobin is noted at present to be at 7.8 without overt bleeding. She has not been transfused as of yet. She states she is breathing better and feels like she can lie flat for a procedure now. We will tentatively plan for upper endoscopy on tomorrow if she continues to improve. She is also wanting to proceed with the colonoscopy as well if necessary. Abdomen is soft, nontender. ROS: Denies SOB or chest pain Exam (Progress Note) - Constitutional Vitals: Period Temp Pulse Resp BP Sys/[place] Pulse Ox Last 24 Hr 97.6 F-99.2 F 71-81 18-21 106-163/56-77 94-98 General appearance: no acute distress, morbidly obese - Head Head exam: Present: normal inspection, normocephalic - Eye Eye exam: Present: other (lids and conjunctiva unremarkable). Absent: scleral icterus - ENT ENT exam: Present: normal exam, normal oropharynx - Neck Neck exam: Present: normal inspection - Respiratory Respiratory exam: Present: clear to auscultation bilaterally. Absent: rales, rhonchi, wheezes - Cardiovascular Cardiovascular exam: Present: regular rate and rhythm. Absent: diastolic murmur , JVD, systolic murmur - GI/Abdominal GI/Abdominal exam: Present: normal bowel sounds, soft. Absent: ascites, distended, mass, organomegaly, tenderness - Extremities Exam Extremities exam: Present: normal inspection, full ROM - Back Exam Back exam: Present: normal inspection - Neurological Exam Neurological exam: Present: alert, oriented X3 - Psychiatric Psychiatric exam: Present: normal affect, normal mood - Skin Skin exam: Present: normal color, warm, dry Results - Labs CBC & BMP: 07/16/16 05:29 07/15/16 03:54 Lab Results: I have reviewed the past 24 hour labs <Tolu Damon - Last Filed: 07/16/16 18:12> Exam (Progress Note) - Constitutional Vitals: Period Temp Pulse Resp BP Sys/[place]ne Pulse Ox Last 24 Hr 97.6 F-98.3 F 71-81 18-21 106-163/56-82 96-98 Results - Labs CBC & BMP: 07/16/16 05:29 07/15/16 03:54
[2016-07-16] MEDS: FUROSEMIDE 40 MG TABLET PO SCH (17:00)
--- NOTE | 2016-07-16 19:00 | Cardiology Progress Note ---
Diego Romero Rachel, RN, am scribing for, and in the presence of, Inocente Ashley MD 18:59. Assessment and Plan (1) Acute exacerbation of congestive heart failure Status: Acute Assessment and plan: 50y BF with NICM LVEF 35%, PHTN, severe TR, h/o PE, HUIV, obesity, symptomatic anemia due to susp GIB. CKD. -Anemia. EGD tomorrow. -Blood pressure and heart rate is well controlled. She is not symptomatic at rest. -She has severe pulmonary hypertension with severe TR. History of remote PE. This could be a remnant of this, or pulmonary vascular disease related to HIV. She does not seem to have severe diastolic dysfunction. When her acute issues resolve, a right heart catheterization and chest CT angiogram can be pursued to assess etiology of PHTN and look for reversible etiology, - may be done as outpatient. -OK to hold anticoagulation until bleeding is ruled out. She is moderate cardiac risk for EGD Current Visit: No Qualifiers: Congestive heart failure type: combined Qualified Code(s): I50.43 - Acute on chronic combined systolic (congestive) and diastolic (congestive) heart failure (2) Dyspnea Status: Acute Assessment and plan: This is clinically stable. Continue current plan of care. Current Visit: Yes Qualifiers: Dyspnea type: shortness of breath Qualified Code(s): R06.02 - Shortness of breath (3) Morbid obesity Status: Chronic Assessment and plan: Counseled patient on the importance of weight loss. Current Visit: No Qualifiers: Obesity type: with alveolar hypoventilation Qualified Code(s): E66.2 - Morbid (severe) obesity with alveolar hypoventilation (4) Cardiomyopathy Status: Chronic Assessment and plan: Echo 05/31/16 revealed ejection fraction 35% with grade I/IV diastolic dysfunction. Current Visit: Yes (5) Suspected sleep apnea Status: Acute Assessment and plan: This was evaluated by Dr. Lerner. He plans to work her up outpatient. Current Visit: Yes (6) Poorly-controlled hypertension Status: Chronic Assessment and plan: This is well controlled today will continue with current plan of care. Current Visit: Yes (7) Diabetes mellitus Status: Chronic Assessment and plan: Management per hospitalist. Continue current plan of care. Current Visit: Yes (8) Debility Status: Chronic Current Visit: Yes (9) Anemia Status: Chronic Assessment and plan: This is being worked up per GI. Plans for EGD tomorrow. Karen is on hold, will plan to restart after EGD if no contraindications noted. Current Visit: Yes Cardiology - PN: Subj Interval history: Patient is resting in bed in no acute distress. Patient is currently requiring oxygen at 2 L nasal cannula. She tells me that her shortness of breath is much better today. Her H&H is noted to be 7.8 and 25.4 today without any overt bleeding. Her stools have been negative for occult blood 2. GI is following and plans to do EGD in the morning. Her Karen has been on hold since July 13. She denies chest pain and palpitations. She continues to complain of generalized aching all over. She also continues to complain of abdominal pain, this is tender to palpation. Her vital signs are stable today. She is currently in sinus rhythm with heart rates in the 70s without any overt arrhythmias or ectopy noted. Exam (Progress Note) - Constitutional Vitals: Period Temp Pulse Resp BP Sys/[place] Pulse Ox Last 24 Hr 97.6 F-99.2 F 71-81 18-21 106-163/56-77 94-98 General appearance: no acute distress, morbidly obese - Head Head exam: Present: normal inspection, normocephalic, atraumatic - Eye Eye exam: Absent: conjunctival injection Pupils: Absent: dilated - ENT ENT exam: Present: normal external ear exam - Neck Neck exam: Present: normal inspection - Respiratory Respiratory exam: Present: clear to auscultation bilaterally. Absent: accessory muscle use, chest wall tenderness, rales, rhonchi, stridor, wheezes - Cardiovascular Cardiovascular exam: Present: regular rate and rhythm. Absent: bradycardia, gallop, rubs, tachycardia - GI/Abdominal GI/Abdominal exam: Present: normal bowel sounds, tenderness, soft. Absent: distended, firm - Extremities Exam Extremities exam: Present: normal capillary refill, calf tenderness, edema (3+ bilateral lower extremity edema) - Neurological Exam Neurological exam: Present: alert, oriented X3 - Psychiatric Psychiatric exam: Present: normal affect, normal mood. Absent: agitated, anxious, depressed - Skin Skin exam: Present: normal color, warm, dry Result/EKG - Labs CBC & BMP: 07/16/16 05:29 07/15/16 03:54 Lab Results: I have reviewed the past 24 hour labs Labs: Laboratory Results - last 24 hr 07/15/16 07/15/16 07/15/16 07:32 11:56 15:43 WBC RBC Hgb Hct MCV MCH MCHC RDW Plt Count MPV Neut % (Auto) Lymph % (Auto) [place] % (Auto) Eos % (Auto) Baso % (Auto) Neut # (Auto) Lymph # (Auto) [place] # (Auto) Eos # (Auto) Baso # (Auto) Immature Gran % Nucleated RBC % Immature Gran # Nucleated RBCs # POC Glucose 92 126 H 116 H 07/16/16 07/16/16 05:29 07:44 WBC 4.9 RBC 2.72 L Hgb 7.8 L Hct 25.4 L MCV 93.4 MCH 29 MCHC 30.7 L RDW 16.7 Plt Count 216 MPV 9.9 Neut % (Auto) 56.0 Lymph % (Auto) 33.1 [place] % (Auto) 6.8 Eos % (Auto) 3.5 Baso % (Auto) 0.4 Neut # (Auto) 2.7 Lymph # (Auto) 1.6 [place] # (Auto) 0.3 Eos # (Auto) 0.2 Baso # (Auto) 0.0 Immature Gran % 0.2 Nucleated RBC % 0.0 Immature Gran # 0.01 Nucleated RBCs # 0.00 POC Glucose 106 - EKG EKG results: interpreted by me, sinus rhythm I, Inocente Ashley MD, personally performed the services described in this documentation, ascribed by Alix Cortez RN in my presence, and it is both accurate and complete [id number] .
[2016-07-16] MEDS: EFAVIRENZ 600 MG PO SCH (21:41)
[2016-07-17 04:57] LABS: Basophils % 0.6 % (0.0-0.8); Eosinophils # 0.2 10*3/uL (0.0-0.87); Eosinophils % 3.1 % (0.00-10.9); Hematocrit 25.8 VOL% (35.7-47.0); Hemoglobin 8.1 GM/DL (12.0-16.0); Lymphocytes # 1.4 10*3/uL (1.4-4.0); Lymphocytes % 26.6 % (21.3-54.2); Mean Corpuscular HGB Conc 31.4 GM/DL (32-36); Mean Corpuscular Hemoglobin 29 PG (27-34); Mean Corpuscular Volume 92.1 FL (87-102); Monocytes # 0.4 10*3/uL (0.11-0.8); Neutrophils # 3.2 10*3/uL (1.4-7.4); Neutrophils % 61.7 % (38.7-73.9); Platelet Count 211 T/CUMM (130-400); Red Cell Distribution Width 16.6 % (9.3-17.3); White Blood Count 5.1 T/CUMM (4-12)
[2016-07-17 05:30] LABS: Calcium 8.3 MG/DL (8.5-10.1); Magnesium 2.2 MG/DL (1.8-2.4); Osmolality,Calculated 298.7 MOS/KG (273-304); Potassium 4.5 MMOL/L (3.5-5.1)
--- NOTE | 2016-07-17 08:13 | Hospitalist Progress Note ---
Assessment and Plan (1) Cardiomyopathy Status: Chronic Assessment and plan: Echocardiogram shows LVEF 35% RVSP 60-65 mmHg Current Visit: Yes (2) Morbid obesity Status: Chronic Assessment and plan: Being evaluated for MONET, HST negative with out patient sleep study planned. Current Visit: Yes (3) Insulin dependent diabetes mellitus Status: Chronic Assessment and plan: Proteinuria with reduced GFR, protein quanitation requested and pending. Current Visit: No (4) Anemia Status: Chronic Assessment and plan: Progressive during the hospital stay with % iron saturation of 13 with normal ferritin, B12, and folate. Current Visit: Yes Hospitalist: Subjective Interval history: 50 yo female morbid obesity with diabetes mellitus reduced GFR with heavy proteinuria and echocardiographic LVEF of 35% and RVSP of 60 mmHg. Is being treated for recurrent volume expansion. Developed anemia and is anticipated for endoscopic evaluation. Exam - Constitutional Vitals: Period Temp Pulse Resp BP Sys/[place] Pulse Ox Last 24 Hr 97.7 F-98.2 F 73-80 20-20 128-149/61-84 96-98 General appearance: morbidly obese - Respiratory Respiratory exam: Present: clear to auscultation bilaterally. Absent: rales, rhonchi, wheezes - Cardiovascular Cardiovascular exam: Present: regular rate and rhythm - GI/Abdominal GI/Abdominal exam: Absent: organomegaly, tenderness - Extremities Exam Extremities exam: Present: edema - Neurological Exam Neurological exam: Present: alert, oriented X3 Results - Labs CBC & BMP: 07/17/16 04:42 07/17/16 04:42
[2016-07-17] MEDS: DESITIN 4OZ/NYSTATIN 15 GRAM MIXTURE PASTE TOP SCH ×2 (08:30→23:12)
[2016-07-17] MEDS ORDERED: LIDOCAINE 2% 5 ML VIAL ONE (11:52)
[2016-07-17] MEDS ORDERED: PROPOFOL 200 MG/20 ML VIAL IV ONE (11:52)
--- NOTE | 2016-07-17 12:07 | History and Physical Update ---
History and Physical Update - Physical Exam Mental Status: alert and oriented Heart: regular rate and rhythm Lung: clear to auscultation Abdomen: within normal limits Vitals: within normal limits
--- NOTE | 2016-07-17 12:10 | Operative Note ---
Date of procedure: 07/17/16 Pre-op diagnosis: iron deficiency anemia Procedure: EGD 50-year-old female with iron deficiency anemia morbidly obese with high risk for endoscopy although breathing much better at this time we'll proceed with EGD to further evaluate. Informed consent was obtained the patient. She was sedated with Mac anesthesia per anesthesia protocol. Placed in supine position the head of bed elevated 30 the Olympus flexible video upper endoscope certain lower cavity under direct vision the esophagus intubated. Findings esophagus-normal esophageal mucosa throughout. Small hiatal hernia is seen. Stomach-normal insufflation normal mucosa to direct retroflex views of the body , fundus, cardia antral stomach. Pylorus-normal Duodenum-normal from above the duodenum to the third portion of the duodenum. The procedure terminated patient our procedure well she's discharge covering good condition. Postop diagnosis #1 iron deficiency anemia no source for anemia identified on upper endoscopy. Patient is high risk for any surgical intervention given her cor pulmonale in severe shortness of breath we'll discuss further with her regarding risks, benefits and alternatives of colonoscopy which we will tentatively scheduled for if she wishes to proceed. Anesthesia: MAC Surgeon / Physician: Tolu Damon Estimated blood loss: none Specimens: none sent Condition: stable Disposition: post procedure unit Results - Labs CBC & BMP: 07/17/16 04:42 07/17/16 04:42 Discharge Plan - Discharge Medications No Action lamiVUDine TAB [Epivir Tab] 300 mg PO DAILY Efavirenz [Sustiva] 600 mg PO BEDTIME Carvedilol [Coreg] 25 mg PO BID W/MEALS Apixaban [Eliquis] 5 mg PO BID HYDROcodone/ACETAMIN 10-325 [[place] 10-325] 1 tablet PO QID PRN PRN Reason: Pain Glimepiride [Amaryl] 8 mg PO BID W/MEALS Gabapentin Cap/Tab [Neurontin Cap/Tab] 300 mg PO TID Albuterol Sulfate [Ventolin HFA] 2 puff INH Q4H PRN #1 inhaler PRN Reason: Shortness Of Breath/Wheezing Tenofovir Disoproxil Fumarate [Viread] 300 mg PO DAILY W/BREAKFAST Cyclobenzaprine [Flexeril] 10 mg PO TID PRN PRN Reason: Pain Acetaminophen Tab [Tylenol Tab] 325 mg PO Q4H PRN #0 tablet PRN Reason: fever, headache/body aches Sertraline [Zoloft] 50 mg PO DAILY Furosemide [Furosemide] 40 mg PO BID Multivitamin (Intrinsic) [Trinsicon] 1 capsule PO BID Isosorb Dinit/Hydralazine HCl [Bidil Tablet] 1 tablet PO TID Insulin Aspart Prot/Asp 70/30 [NovoLOG Mix 70/30] 50 unit SUBCUT QAM Insulin Aspart Prot/Asp 70/30 [NovoLOG Mix 70/30] 45 unit SUBCUT QPM NIFEdipine XL TAB [Procardia Xl] 30 mg PO BID #60 tablet Spironolactone [Aldactone] 25 mg PO BID #60 tablet Lactulose Liquid [Chronulac] 20 gm PO Q4H PRN #0 udcup PRN Reason: Constipation Aspirin [Ecotrin] 81 mg PO DAILY Allopurinol [Zyloprim] 100 mg PO DAILY - Follow Up or Referral - Forms/Instructions
[2016-07-17] MEDS: CARVEDILOL 25 MG TABLET PO SCH ×2 (12:12→18:27)
[2016-07-17] MEDS: GLIMEPIRIDE 4 MG TABLET PO SCH ×2 (12:12→18:25)
[2016-07-17] MEDS: hydrALAZINE 25 MG TABLET PO SCH ×2 (12:13→14:41)
[2016-07-17] MEDS: SPIRONOLACTONE 25 MG TABLET PO SCH ×2 (12:13→23:12)
[2016-07-17] MEDS: CAPTOPRIL 6.25 MG TABLET PO SCH ×3 (12:13→23:12)
[2016-07-17] MEDS: FUROSEMIDE 40 MG TABLET PO SCH ×2 (12:13→18:27)
[2016-07-17] MEDS: ISOSORBIDE DINITRATE 20 MG TABLET PO SCH ×3 (12:14→23:11)
[2016-07-17] MEDS: MULTIVITAMIN (CENTRUM) TABLET PO SCH ×2 (12:14→23:11)
[2016-07-17] MEDS: GABAPENTIN 300 MG CAPSULE PO SCH ×3 (12:14→23:11)
[2016-07-17] MEDS: PANTOPRAZOLE 40 MG VIAL IV SCH ×2 (12:14→23:11)
--- NOTE | 2016-07-17 12:15 | Anesthesia ---
Anesthesia Post OP - Post Ansesthetic Evaluation Patient seen in post op: Yes Resp: within normal limits CV: within normal limits Mental: within normal limits Temp: within normal limits [id number]: within normal limits Nausea and Vomiting: within normal limits Pain: within normal limits
[2016-07-17] MEDS: SERTRALINE 50 MG TABLET PO SCH (14:38)
[2016-07-17] MEDS: LAMIVUDINE 300 MG PO SCH (14:39)
[2016-07-17] MEDS: TENOFOVIR 300 MG PO SCH (14:39)
--- NOTE | 2016-07-17 17:42 | Cardiology Progress Note ---
Diego Romero Rachel, RN, am scribing for, and in the presence of, Inocente Ashley MD 17:42. Assessment and Plan (1) Acute exacerbation of congestive heart failure Status: Acute Assessment and plan: 50y BF with NICM LVEF 35%, PHTN, severe TR, h/o PE, HUIV, obesity, symptomatic anemia due to susp GIB. CKD. -Anemia. EGD did not identify bleeding source. Colonoscopy planned. Hold anticoagulation for now. -Blood pressure elevated. Increase hydralazine to 50 mg tid -She has severe pulmonary hypertension with severe TR. History of remote PE. This could be a remnant of this, or pulmonary vascular disease related to HIV. She does not seem to have severe diastolic dysfunction. When her acute issues resolve, a right heart catheterization and chest CT angiogram can be pursued to assess etiology of PHTN and look for reversible etiology, - may be done as outpatient. Current Visit: No Qualifiers: Congestive heart failure type: combined Qualified Code(s): I50.43 - Acute on chronic combined systolic (congestive) and diastolic (congestive) heart failure (2) Dyspnea Status: Acute Assessment and plan: This is clinically stable. Continue current plan of care. Current Visit: Yes Qualifiers: Dyspnea type: shortness of breath Qualified Code(s): R06.02 - Shortness of breath (3) Morbid obesity Status: Chronic Assessment and plan: Counseled patient on the importance of weight loss. Current Visit: No Qualifiers: Obesity type: with alveolar hypoventilation Qualified Code(s): E66.2 - Morbid (severe) obesity with alveolar hypoventilation (4) Cardiomyopathy Status: Chronic Assessment and plan: Echo 05/31/16 revealed ejection fraction 35% with grade I/IV diastolic dysfunction. Current Visit: Yes (5) Suspected sleep apnea Status: Acute Assessment and plan: This was evaluated by Dr. Lerner. He plans to work her up outpatient. Current Visit: Yes (6) Poorly-controlled hypertension Status: Chronic Assessment and plan: This is well controlled today will continue with current plan of care. Current Visit: Yes (7) Diabetes mellitus Status: Chronic Assessment and plan: Management per hospitalist. Continue current plan of care. Current Visit: Yes (8) Debility Status: Chronic Current Visit: Yes (9) Anemia Status: Chronic Assessment and plan: This is being worked up per GI. Current Visit: Yes Cardiology - PN: Subj Interval history: Patient is resting in bed in no acute distress. She is currently requiring O2 at 2L via NC. She is status post EGD today. No source for anemia was identified. GI plans to do C-scope for further evaluation of patient's anemia. Karen continues to be on hold. Her H&H is 8.1 and 25.8. She has been without overt bleeding. She is without all cardiac complaints. She is currently in sinus rhythm with heart rates in the 80's. Exam (Progress Note) - Constitutional Vitals: Period Temp Pulse Resp BP Sys/[place] Pulse Ox Last 24 Hr 97.8 F-98.8 F 73-90 16-20 128-168/61-95 93-99 General appearance: no acute distress, morbidly obese - Head Head exam: Present: normal inspection, normocephalic, atraumatic - Respiratory Respiratory exam: Present: clear to auscultation bilaterally. Absent: accessory muscle use, chest wall tenderness, rales, rhonchi, stridor, wheezes - Cardiovascular Cardiovascular exam: Present: regular rate and rhythm. Absent: bradycardia, gallop, rubs, tachycardia - GI/Abdominal GI/Abdominal exam: Present: normal bowel sounds, tenderness, soft. Absent: distended, firm, mass - Extremities Exam Extremities exam: Present: normal capillary refill, calf tenderness, edema (3+ bilateral lower extremity edema ) - Neurological Exam Neurological exam: Present: alert, oriented X3 - Psychiatric Psychiatric exam: Present: normal affect, normal mood. Absent: agitated, anxious - Skin Skin exam: Present: normal color, warm, dry Result/EKG - Labs CBC & BMP: 07/17/16 04:42 07/17/16 04:42 Lab Results: I have reviewed the past 24 hour labs Labs: Laboratory Results - last 24 hr 07/16/16 07/17/16 07/17/16 19:36 04:42 04:42 WBC 5.1 RBC 2.80 L Hgb 8.1 L Hct 25.8 L MCV 92.1 MCH 29 MCHC 31.4 L RDW 16.6 Plt Count 211 MPV 10.0 Neut % (Auto) 61.7 Lymph % (Auto) 26.6 [place] % (Auto) 8.0 Eos % (Auto) 3.1 Baso % (Auto) 0.6 Neut # (Auto) 3.2 Lymph # (Auto) 1.4 [place] # (Auto) 0.4 Eos # (Auto) 0.2 Baso # (Auto) 0.0 Immature Gran % 0.0 Nucleated RBC % 0.0 Immature Gran # 0.00 Nucleated RBCs # 0.00 Sodium 145 Potassium 4.5 Chloride 106 Carbon Dioxide 29 Anion Gap 14.5 BUN 37 H Creatinine 1.80 H GFR Calculation 65 BUN/Creatinine Ratio 20.00 Glucose 136 H POC Glucose 161 H Calculated Osmolality 298.7 Calcium 8.3 L Magnesium 2.2 07/17/16 07:43 WBC RBC Hgb Hct MCV MCH MCHC RDW Plt Count MPV Neut % (Auto) Lymph % (Auto) [place] % (Auto) Eos % (Auto) Baso % (Auto) Neut # (Auto) Lymph # (Auto) [place] # (Auto) Eos # (Auto) Baso # (Auto) Immature Gran % Nucleated RBC % Immature Gran # Nucleated RBCs # Sodium Potassium Chloride Carbon Dioxide Anion Gap BUN Creatinine GFR Calculation BUN/Creatinine Ratio Glucose POC Glucose 137 H Calculated Osmolality Calcium Magnesium - EKG EKG results: interpreted by me, sinus rhythm I, Inocente Ashley MD, personally performed the services described in this documentation, ascribed by Alix Cortez RN in my presence, and it is both accurate and complete [id number] .
[2016-07-17] MEDS: ACETAMINOPHEN 325 MG TABLET PO PRN ×2 (18:26→23:10)
[2016-07-17] MEDS: CYCLOBENZAPRINE 10 MG TABLET PO PRN (18:27)
[2016-07-17] MEDS: ONDANSETRON 4 MG/2 ML VIAL IV PRN (23:10)
[2016-07-17] MEDS: EFAVIRENZ 600 MG PO SCH (23:14)
[2016-07-18 04:59] LABS: Basophils % 0.6 % (0.0-0.8); Eosinophils # 0.1 10*3/uL (0.0-0.87); Eosinophils % 2.7 % (0.00-10.9); Hematocrit 24.5 VOL% (35.7-47.0); Hemoglobin 7.8 GM/DL (12.0-16.0); Immature Granulocytes % 0.4 %; Immature Granulocytes Absolute 0.02 #; Lymphocytes # 1.4 10*3/uL (1.4-4.0); Lymphocytes % 27.5 % (21.3-54.2); Mean Corpuscular HGB Conc 31.8 GM/DL (32-36); Mean Corpuscular Hemoglobin 30 PG (27-34); Mean Corpuscular Volume 92.8 FL (87-102); Mean Platelet Volume 9.7 FL (9.6-12.0); Monocytes # 0.4 10*3/uL (0.11-0.8); Monocytes % 7.6 % (1.7-12.7); Neutrophils # 3.1 10*3/uL (1.4-7.4); Neutrophils % 61.2 % (38.7-73.9); Platelet Count 212 T/CUMM (130-400); Red Blood Count 2.64 MC/CUMM (3.8-5.5); Red Cell Distribution Width 16.9 % (9.3-17.3); White Blood Count 5.1 T/CUMM (4-12)
--- NOTE | 2016-07-18 07:14 | Hospitalist Progress Note ---
Assessment and Plan (1) Cardiomyopathy Status: Chronic Assessment and plan: Echocardiogram shows LVEF 35% RVSP 60-65 mmHg Current Visit: Yes (2) Morbid obesity Status: Chronic Assessment and plan: Being evaluated for MONET, HST negative with out patient sleep study planned. Current Visit: Yes (3) Insulin dependent diabetes mellitus Status: Chronic Assessment and plan: Proteinuria with reduced GFR, protein quanitation requested and pending. Current Visit: No (4) Anemia Status: Chronic Assessment and plan: Progressive during the hospital stay with % iron saturation of 13 with normal ferritin, B12, and folate. Current Visit: Yes Hospitalist: Subjective Interval history: 50 yo female with admission for edema, recurrent. She is diabetic with reduced GFR and proteinuria, LVEF of 35%, and RVSP of 60 mmHg. She underwent esophagoduodenoscopy yesterday for anemia with no bleeding sites. She is on active treatment for HIV with iron, folate, and B12 unremarkable. She continues to undergo diuresis with continued complaints of swelling. Exam - Constitutional Vitals: Period Temp Pulse Resp BP Sys/[place] Pulse Ox Last 24 Hr 97.1 F-98.8 F 77-90 16-20 139-187/63-97 90-99 General appearance: morbidly obese - Respiratory Respiratory exam: Present: clear to auscultation bilaterally. Absent: rales, rhonchi, wheezes - Cardiovascular Cardiovascular exam: Present: regular rate and rhythm - GI/Abdominal GI/Abdominal exam: Present: normal bowel sounds - Extremities Exam Extremities exam: Present: edema (sacral) - Neurological Exam Neurological exam: Present: alert, oriented X3 Results - Labs CBC & BMP: 07/18/16 04:42 07/17/16 04:42
[2016-07-18] MEDS: CAPTOPRIL 6.25 MG TABLET PO SCH ×3 (08:45→21:15)
[2016-07-18] MEDS: ISOSORBIDE DINITRATE 20 MG TABLET PO SCH ×3 (08:45→21:15)
[2016-07-18] MEDS: MULTIVITAMIN (CENTRUM) TABLET PO SCH ×2 (08:45→21:15)
[2016-07-18] MEDS: GABAPENTIN 300 MG CAPSULE PO SCH ×3 (08:46→21:16)
[2016-07-18] MEDS: FUROSEMIDE 40 MG TABLET PO SCH ×2 (08:46→17:27)
[2016-07-18] MEDS: SPIRONOLACTONE 25 MG TABLET PO SCH ×2 (08:46→21:15)
[2016-07-18] MEDS: CARVEDILOL 25 MG TABLET PO SCH ×2 (08:47→17:27)
[2016-07-18] MEDS: GLIMEPIRIDE 4 MG TABLET PO SCH ×2 (08:47→17:27)
[2016-07-18] MEDS: CYCLOBENZAPRINE 10 MG TABLET PO PRN ×2 (08:47→21:24)
[2016-07-18] MEDS: SERTRALINE 50 MG TABLET PO SCH (08:47)
[2016-07-18] MEDS: TENOFOVIR 300 MG PO SCH (08:48)
[2016-07-18] MEDS: DESITIN 4OZ/NYSTATIN 15 GRAM MIXTURE PASTE TOP SCH ×2 (08:48→21:24)
[2016-07-18] MEDS: LAMIVUDINE 300 MG PO SCH (08:48)
[2016-07-18] MEDS: PANTOPRAZOLE 40 MG VIAL IV SCH ×2 (08:48→21:14)
--- NOTE | 2016-07-18 11:08 | Gastrointestinal Progress Note ---
<Kelsea Tang - Last Filed: 07/18/16 11:02> Assessment and Plan (1) Anemia Status: Chronic Assessment and plan: 07/18-Hgb 7.8. EGD w/o findings of anemia source. Tentative plan for colonoscopy tomorrow, pt wishes to proceed. Plan and addendum to follow by DR Damon . 07/16-Hgb 7.8, no overt bleeding. Plan for EGD tomorrow if remains stable. Plan and addendum to follow by DR damon. 07/13-No repeat labwork today. Will recheck H/H today. No overt bleeding .Plan and addendum to follow by Dr Damon. 07/12-Findings of decreased in hemoglobin from 9 to 7.6 since admission in absence of overt bleeding. Hx of anemia with transfusions in past per patient. Baseline noted between 7.7 and 9.0. No prior endoscopy history. On Eliquis. Iron studies are low. Obtain stool for occult blood. Plan and addendum to follow by Dr Damon. Current Visit: Yes Gastroenterology - PN: Subj Interval history: CC: Anemia Pt is seen, sitting up in bed. States she is feeling fairly well today. She underwent EGD on yesterday with no findings of source of anemia. Discussion of possible colonoscopy noted however this is contingent on further discussion and agreement with cardiology to proceed. Pt is wishing to proceed on tomorrow with colonoscopy. Will transition back to clear liquids at this time in preparation for proceeding on tomorrow. Abdomen is soft, nontender. Hemoglobin 7.8. ROS: Denies SOB or chest pain Exam (Progress Note) - Constitutional Vitals: Period Temp Pulse Resp BP Sys/[place] Pulse Ox Last 24 Hr 97.1 F-98.8 F 75-85 16-20 139-187/63-97 90-98 General appearance: normal weight, no acute distress - Head Head exam: Present: normal inspection, normocephalic - Eye Eye exam: Present: other (lids and conjunctiva unremarakble). Absent: scleral icterus - ENT ENT exam: Present: normal exam, normal oropharynx - Neck Neck exam: Present: normal inspection - Respiratory Respiratory exam: Present: clear to auscultation bilaterally. Absent: rales, rhonchi, wheezes - Cardiovascular Cardiovascular exam: Present: regular rate and rhythm. Absent: diastolic murmur , JVD, systolic murmur - GI/Abdominal GI/Abdominal exam: Present: normal bowel sounds, soft. Absent: ascites, distended, mass, organomegaly, tenderness - Extremities Exam Extremities exam: Present: normal inspection, full ROM - Back Exam Back exam: Present: normal inspection - Neurological Exam Neurological exam: Present: alert, oriented X3 - Psychiatric Psychiatric exam: Present: normal affect, normal mood - Skin Skin exam: Present: normal color, warm, dry Results - Labs CBC & BMP: 07/18/16 04:42 07/17/16 04:42 Lab Results: I have reviewed the past 24 hour labs <Tolu Damon - Last Filed: 07/18/16 18:12> Exam (Progress Note) - Constitutional Vitals: Period Temp Pulse Resp BP Sys/[place] Pulse Ox Last 24 Hr 97.1 F-99.5 F 72-83 16-20 139-156/63-97 90-100 Results - Labs CBC & BMP: 07/18/16 04:42 07/17/16 04:42
--- NOTE | 2016-07-18 13:13 | Cardiology Progress Note ---
Diego Romero Rachel, RN, am scribing for, and in the presence of, Inocente Ashley MD 13:12. Assessment and Plan (1) Acute exacerbation of congestive heart failure Status: Acute Assessment and plan: 50y BF with NICM LVEF 35%, PHTN, severe TR, h/o PE, HIV, obesity, symptomatic anemia due to susp GIB. CKD. -Anemia. EGD did not identify bleeding source. Colonoscopy planned. Hold anticoagulation for now. -Blood pressure improving. Cont hydralazine to 50 mg tid -Diuresed well. Cont to monitor electrolytes -She has severe pulmonary hypertension with severe TR. History of remote PE. This could be a remnant of this, or pulmonary vascular disease related to HIV. She does not seem to have severe diastolic dysfunction. When her acute issues resolve, a right heart catheterization and chest CT angiogram can be pursued to assess etiology of PHTN and look for reversible etiology, - may be done as outpatient. 07/18/16 Current Visit: No Qualifiers: Congestive heart failure type: combined Qualified Code(s): I50.43 - Acute on chronic combined systolic (congestive) and diastolic (congestive) heart failure (2) Dyspnea Status: Acute Assessment and plan: This is clinically stable. Continue current plan of care. Current Visit: Yes Qualifiers: Dyspnea type: shortness of breath Qualified Code(s): R06.02 - Shortness of breath (3) Morbid obesity Status: Chronic Assessment and plan: Counseled patient on the importance of weight loss. Current Visit: No Qualifiers: Obesity type: with alveolar hypoventilation Qualified Code(s): E66.2 - Morbid (severe) obesity with alveolar hypoventilation (4) Cardiomyopathy Status: Chronic Assessment and plan: Echo 05/31/16 revealed ejection fraction 35% with grade I/IV diastolic dysfunction. Current Visit: Yes (5) Suspected sleep apnea Status: Acute Assessment and plan: This was evaluated by Dr. Lerner. He plans to work her up outpatient. Current Visit: Yes (6) Poorly-controlled hypertension Status: Chronic Assessment and plan: This is well controlled today will continue with current plan of care. Current Visit: Yes (7) Diabetes mellitus Status: Chronic Assessment and plan: Management per hospitalist. Continue current plan of care. Current Visit: Yes (8) Debility Status: Chronic Current Visit: Yes (9) Anemia Status: Chronic Assessment and plan: This is being worked up per GI. Current Visit: Yes Cardiology - PN: Subj Interval history: Patient was seen on telemetry lying in bed in no acute distress. Patient is currently not requiring any oxygen. She is without any cardiac complaints today. She is for a C-scope tomorrow for further evaluation of patient's anemia. Karen continues to be on hold. She has been without any overt bleeding overnight. She complains of abdominal pain today, tenderness noted with palpitation. H&H today is 24.5 and 7.8. She is currently is sinus rhythm with heart rates in the 80's without any overt arrhythmias or ectopy noted. It is ok for patient to undergo c-scope tomorrow from a cardiology standpoint. C/o abd pain today. Diuresed well Exam (Progress Note) - Constitutional Vitals: Period Temp Pulse Resp BP Sys/[place] Pulse Ox Last 24 Hr 97.1 F-98.8 F 75-85 16-20 139-187/63-97 90-99 General appearance: no acute distress, morbidly obese - Head Head exam: Present: normal inspection, normocephalic, atraumatic - Eye Eye exam: Absent: conjunctival injection Pupils: Absent: dilated - ENT ENT exam: Present: normal external ear exam - Respiratory Respiratory exam: Present: clear to auscultation bilaterally. Absent: accessory muscle use, chest wall tenderness, rales, rhonchi, stridor, wheezes - Cardiovascular Cardiovascular exam: Present: regular rate and rhythm. Absent: bradycardia, gallop, rubs, tachycardia - GI/Abdominal GI/Abdominal exam: Present: normal bowel sounds, tenderness, soft. Absent: distended, firm - Extremities Exam Extremities exam: Present: calf tenderness, edema (3+ bilateral lower extremity edema ) - Neurological Exam Neurological exam: Present: alert, oriented X3 - Psychiatric Psychiatric exam: Present: normal affect, normal mood. Absent: agitated, anxious, depressed - Skin Skin exam: Present: warm, dry. Absent: erythema, rash, urticaria Result/EKG - Labs CBC & BMP: 07/18/16 04:42 07/17/16 04:42 Lab Results: I have reviewed the past 24 hour labs Labs: Laboratory Results - last 24 hr 07/17/16 07/18/16 07/18/16 15:52 04:42 07:37 WBC 5.1 RBC 2.64 L Hgb 7.8 L Hct 24.5 L MCV 92.8 MCH 30 MCHC 31.8 L RDW 16.9 Plt Count 212 MPV 9.7 Neut % (Auto) 61.2 Lymph % (Auto) 27.5 [place] % (Auto) 7.6 Eos % (Auto) 2.7 Baso % (Auto) 0.6 Neut # (Auto) 3.1 Lymph # (Auto) 1.4 [place] # (Auto) 0.4 Eos # (Auto) 0.1 Baso # (Auto) 0.0 Immature Gran % 0.4 Nucleated RBC % 0.0 Immature Gran # 0.02 Nucleated RBCs # 0.00 POC Glucose 127 H 164 H - EKG EKG results: interpreted by me, sinus rhythm IGabi Attila, MD, personally performed the services described in this documentation, ascribed by Alix Cortez RN in my presence, and it is both accurate and complete 312 .
[2016-07-18] MEDS: ENOXAPARIN 40 MG/0.4 ML SYRINGE SUBCUT SCH (15:04)
[2016-07-18] MEDS: EFAVIRENZ 600 MG PO SCH (21:14)
[2016-07-19 05:39] LABS: Calcium 8.6 MG/DL (8.5-10.1); Potassium 4.5 MMOL/L (3.5-5.1)
--- NOTE | 2016-07-19 07:44 | Hospitalist Progress Note ---
Assessment and Plan (1) Cardiomyopathy Status: Chronic Assessment and plan: Echocardiogram shows LVEF 35% RVSP 60-65 mmHg Current Visit: Yes (2) Morbid obesity Status: Chronic Assessment and plan: Being evaluated for MONET, HST negative with out patient sleep study planned. Current Visit: Yes (3) Insulin dependent diabetes mellitus Status: Chronic Assessment and plan: Proteinuria with reduced GFR, protein quanitation requested and pending. Current Visit: No (4) Anemia Status: Chronic Assessment and plan: Progressive during the hospital stay with % iron saturation of 13 with normal ferritin, B12, and folate. Current Visit: Yes Hospitalist: Subjective Interval history: 50 yo female with admission for recurrent edema. She is diabetic with reduced GFR and heavy proteinuria, LVEF of 35%, and RVSP of 60 mmHg (obesity and possible MONET as well as HIV). She is being diuresed. Also progressive anemia with iron saturation of 13% with normal B12 and folate levels with negative EGD 07/17. She is for colonoscopy. No new complaints, she was to be seen at pain management clinic today and appointment has been cancelled. Exam - Constitutional Vitals: Period Temp Pulse Resp BP Sys/[place] Pulse Ox Last 24 Hr 97.0 F-99.5 F 72-75 16-20 140-152/70-87 94-100 General appearance: morbidly obese - Respiratory Respiratory exam: Present: clear to auscultation bilaterally. Absent: rales, rhonchi, wheezes - Cardiovascular Cardiovascular exam: Present: regular rate and rhythm - GI/Abdominal GI/Abdominal exam: Present: normal bowel sounds - Extremities Exam Extremities exam: Present: edema (sacral) - Neurological Exam Neurological exam: Present: alert, oriented X3 - Psychiatric Psychiatric exam: Present: normal affect, normal mood Results - Labs CBC & BMP: 07/18/16 04:42 07/19/16 04:26
[2016-07-19] MEDS: CAPTOPRIL 6.25 MG TABLET PO SCH ×3 (09:34→21:50)
[2016-07-19] MEDS: TENOFOVIR 300 MG PO SCH (09:34)
[2016-07-19] MEDS: LAMIVUDINE 300 MG PO SCH (09:34)
[2016-07-19] MEDS: SPIRONOLACTONE 25 MG TABLET PO SCH ×2 (09:35→21:50)
[2016-07-19] MEDS: GLIMEPIRIDE 4 MG TABLET PO SCH ×2 (09:35→17:57)
[2016-07-19] MEDS: CARVEDILOL 25 MG TABLET PO SCH ×2 (09:35→17:57)
[2016-07-19] MEDS: ISOSORBIDE DINITRATE 20 MG TABLET PO SCH ×3 (09:35→21:50)
[2016-07-19] MEDS: GABAPENTIN 300 MG CAPSULE PO SCH ×3 (09:35→21:50)
[2016-07-19] MEDS: MULTIVITAMIN (CENTRUM) TABLET PO SCH ×2 (09:35→21:51)
[2016-07-19] MEDS: CYCLOBENZAPRINE 10 MG TABLET PO PRN ×2 (09:35→21:50)
[2016-07-19] MEDS: DESITIN 4OZ/NYSTATIN 15 GRAM MIXTURE PASTE TOP SCH (09:36)
[2016-07-19] MEDS: SERTRALINE 50 MG TABLET PO SCH (09:36)
[2016-07-19] MEDS: FUROSEMIDE 40 MG TABLET PO SCH ×2 (09:36→17:57)
[2016-07-19] MEDS: PANTOPRAZOLE 40 MG VIAL IV SCH ×2 (09:36→21:50)
--- NOTE | 2016-07-19 10:40 | Gastrointestinal Progress Note ---
<Kelsea Tang - Last Filed: 07/19/16 10:38> Assessment and Plan (1) Anemia Status: Chronic Assessment and plan: 07/19-labs pending for today. Plan for c-scope tomorrow. Plan and addendum to follow by Dr Damon 07/18-Hgb 7.8. EGD w/o findings of anemia source. Tentative plan for colonoscopy tomorrow, pt wishes to proceed. Plan and addendum to follow by DR Damon . 07/16-Hgb 7.8, no overt bleeding. Plan for EGD tomorrow if remains stable. Plan and addendum to follow by DR damon. 07/13-No repeat labwork today. Will recheck H/H today. No overt bleeding .Plan and addendum to follow by Dr Damon. 07/12-Findings of decreased in hemoglobin from 9 to 7.6 since admission in absence of overt bleeding. Hx of anemia with transfusions in past per patient. Baseline noted between 7.7 and 9.0. No prior endoscopy history. On Eliquis. Iron studies are low. Obtain stool for occult blood. Plan and addendum to follow by Dr Damon. Current Visit: Yes Gastroenterology - PN: Subj Interval history: CC: Anemia Pt is seen up in bed receiving am care. She states she is feeling better today. She denies any abdominal pain. She denies any overt bleeding. Abdomen is soft, nontender. She has started clear liquid diet. Hemoglobin not rechecked today. Labs still pending. Will plan to start prep and proceed with colonoscopy tomorrow morning. ROS: Denies SOB or chest pain Exam (Progress Note) - Constitutional Vitals: Period Temp Pulse Resp BP Sys/[place] Pulse Ox Last 24 Hr 97.0 F-99.5 F 72-76 16-20 140-155/72-87 99-100 General appearance: no acute distress, morbidly obese - Head Head exam: Present: normal inspection, normocephalic - Eye Eye exam: Present: other (lids and conjunctiva unremarkable). Absent: scleral icterus - ENT ENT exam: Present: normal exam, normal oropharynx - Neck Neck exam: Present: normal inspection - Respiratory Respiratory exam: Present: clear to auscultation bilaterally. Absent: rales, rhonchi, wheezes - Cardiovascular Cardiovascular exam: Present: regular rate and rhythm. Absent: diastolic murmur , JVD, systolic murmur - GI/Abdominal GI/Abdominal exam: Present: normal bowel sounds, soft. Absent: ascites, distended, mass, organomegaly, tenderness - Extremities Exam Extremities exam: Present: normal inspection, full ROM - Back Exam Back exam: Present: normal inspection - Neurological Exam Neurological exam: Present: alert, oriented X3 - Psychiatric Psychiatric exam: Present: normal affect, normal mood - Skin Skin exam: Present: normal color, warm, dry Results - Labs CBC & BMP: 07/18/16 04:42 07/19/16 04:26 Lab Results: I have reviewed the past 24 hour labs <Toul Damon - Last Filed: 07/19/16 17:52> Exam (Progress Note) - Constitutional Vitals: Period Temp Pulse Resp BP Sys/[place] Pulse Ox Last 24 Hr 97.0 F-98.8 F 72-78 16-20 140-156/72-94 93-100 Results - Labs CBC & BMP: 07/18/16 04:42 07/19/16 04:26
[2016-07-19] MEDS ORDERED: BISACODYL 5 MG TABLET PO ONE (12:00)
--- NOTE | 2016-07-19 14:58 | Cardiology Progress Note ---
Diego Romero Rachel RN, am scribing for, and in the presence of, Inocente Ashley MD 14:57. Assessment and Plan (1) Acute exacerbation of congestive heart failure Status: Acute Assessment and plan: 50y BF with NICM LVEF 35%, PHTN, severe TR, h/o PE, HIV, obesity, symptomatic anemia due to susp GIB. CKD. -Anemia. EGD did not identify bleeding source. Colonoscopy planned tomorrow. Hold anticoagulation for now. -Blood pressure now improving, 140s-150s. Cont hydralazine to 50 mg tid, Coreg, ACEI, nifedipine -Diuresed well. Cont to monitor electrolytes -She has severe pulmonary hypertension with severe TR. History of remote PE. This could be a remnant of this, or pulmonary vascular disease related to HIV. She does not seem to have severe diastolic dysfunction. When her acute issues resolve, a right heart catheterization and chest CT angiogram can be pursued to assess etiology of PHTN and look for reversible etiology, - may be done as outpatient. -Her cardiac risk factors were addressed and currently there are not cardiac contraindications for the colonoscopy. She is moderate cardiac risk, will follow closely Current Visit: No Qualifiers: Congestive heart failure type: combined Qualified Code(s): I50.43 - Acute on chronic combined systolic (congestive) and diastolic (congestive) heart failure (2) Dyspnea Status: Acute Current Visit: Yes Qualifiers: Dyspnea type: shortness of breath Qualified Code(s): R06.02 - Shortness of breath (3) Morbid obesity Status: Chronic Current Visit: No Qualifiers: Obesity type: with alveolar hypoventilation Qualified Code(s): E66.2 - Morbid (severe) obesity with alveolar hypoventilation (4) Cardiomyopathy Status: Chronic Current Visit: Yes (5) Suspected sleep apnea Status: Acute Current Visit: Yes (6) Poorly-controlled hypertension Status: Chronic Current Visit: Yes (7) Diabetes mellitus Status: Chronic Current Visit: Yes (8) Debility Status: Chronic Current Visit: Yes (9) Anemia Status: Chronic Assessment and plan: This is being worked up per GI. Current Visit: Yes Cardiology - PN: Subj Interval history: Patient was seen on telemetry sitting up on side of bed in no acute distress. Patient is currently not requiring any oxygen. She is without any cardiac complaints today. She is for a C-scope tomorrow for further evaluation of patient's anemia. Karen continues to be on hold. She has been without any overt bleeding overnight. She continues to complain of mild abdominal cramping. This is tender to palpation. BP continues to be mildly elevated. No CBC to review today. Creatinine is 1.6 today. She is currently sinus rhythm with heart rates in the 80's without any overt arrhythmias or ectopy noted. Will continue to monitor on telemetry. Exam (Progress Note) - Constitutional Vitals: Period Temp Pulse Resp BP Sys/[place] Pulse Ox Last 24 Hr 97.0 F-99.5 F 72-76 16-20 140-155/72-87 99-100 General appearance: no acute distress, morbidly obese - Head Head exam: Present: normal inspection, normocephalic, atraumatic - Eye Eye exam: Absent: conjunctival injection Pupils: Absent: dilated - ENT ENT exam: Present: normal external ear exam - Neck Neck exam: Present: normal inspection - Respiratory Respiratory exam: Present: clear to auscultation bilaterally. Absent: accessory muscle use, chest wall tenderness, rales, rhonchi, stridor, wheezes - Cardiovascular Cardiovascular exam: Present: regular rate and rhythm. Absent: bradycardia, gallop, rubs, tachycardia - GI/Abdominal GI/Abdominal exam: Present: normal bowel sounds, tenderness, soft. Absent: distended, firm - Extremities Exam Extremities exam: Present: normal capillary refill, edema (3+ bilateral lower extremity edema) - Neurological Exam Neurological exam: Present: alert, oriented X3 - Psychiatric Psychiatric exam: Present: normal affect, normal mood. Absent: agitated, anxious, depressed - Skin Skin exam: Present: normal color, warm, dry Result/EKG - Labs CBC & BMP: 07/18/16 04:42 07/19/16 04:26 Lab Results: I have reviewed the past 24 hour labs Labs: Laboratory Results - last 24 hr 07/18/16 07/19/16 07/19/16 15:30 04:26 07:42 Sodium 143 Potassium 4.5 Chloride 104 Carbon Dioxide 31 Anion Gap 12.5 BUN 29 H Creatinine 1.60 H GFR Calculation 74 BUN/Creatinine Ratio 18.00 Glucose 132 H POC Glucose 155 H 131 H Calculated Osmolality 292.0 Calcium 8.6 - EKG EKG results: interpreted by me Heather, Inocente Ashley MD, personally performed the services described in this documentation, ascribed by Alix Cortez RN in my presence, and it is both accurate and complete .
[2016-07-19] MEDS: ENOXAPARIN 40 MG/0.4 ML SYRINGE SUBCUT SCH (15:44)
[2016-07-19] MEDS ORDERED: POLYETHYLENE GLYCOL POWDER 255 GM BOTTLE PO ONE (18:00)
[2016-07-19] MEDS: ONDANSETRON 4 MG/2 ML VIAL IV PRN (19:39)
[2016-07-19] MEDS: EFAVIRENZ 600 MG PO SCH (21:51)
[2016-07-20] MEDS: DESITIN 4OZ/NYSTATIN 15 GRAM MIXTURE PASTE TOP SCH ×3 (00:57→20:59)
[2016-07-20 05:44] LABS: Basophils % 0.6 % (0.0-0.8); Eosinophils # 0.2 10*3/uL (0.0-0.87); Eosinophils % 3.5 % (0.00-10.9); Hematocrit 24.3 VOL% (35.7-47.0); Hemoglobin 7.6 GM/DL (12.0-16.0); Immature Granulocytes % 0.2 %; Immature Granulocytes Absolute 0.01 #; Lymphocytes # 1.4 10*3/uL (1.4-4.0); Lymphocytes % 25.5 % (21.3-54.2); Mean Corpuscular HGB Conc 31.3 GM/DL (32-36); Mean Corpuscular Hemoglobin 29 PG (27-34); Mean Corpuscular Volume 92.4 FL (87-102); Mean Platelet Volume 10.1 FL (9.6-12.0); Monocytes # 0.4 10*3/uL (0.11-0.8); Monocytes % 7.3 % (1.7-12.7); Neutrophils # 3.4 10*3/uL (1.4-7.4); Neutrophils % 62.9 % (38.7-73.9); Platelet Count 213 T/CUMM (130-400); Red Blood Count 2.63 MC/CUMM (3.8-5.5); Red Cell Distribution Width 16.5 % (9.3-17.3); White Blood Count 5.5 T/CUMM (4-12)
[2016-07-20 06:28] LABS: Calcium 8.4 MG/DL (8.5-10.1); Osmolality,Calculated 289.1 MOS/KG (273-304); Potassium 4.6 MMOL/L (3.5-5.1)
[2016-07-20] MEDS ORDERED: LIDOCAINE 2% 5 ML VIAL ONE (10:00)
[2016-07-20] MEDS ORDERED: PROPOFOL 200 MG/20 ML VIAL IV ONE (10:00)
--- NOTE | 2016-07-20 10:17 | Operative Note ---
Date of procedure: 07/20/16 Pre-op diagnosis: iron deficiency anemia Procedure: Colonoscopy with polypectomy 50-year-old female with iron deficiency anemia also has a history of cor pulmonale has been cleared by cardiology now for colonoscopy. Informed consent was obtained the patient. She was sedated with Mac anesthesia per anesthesia protocol. Patient was placed in left lateral decubitus position digital exam was without rectal mass. The Olympus flexible video colonoscope certainly canal advanced under direct vision to the level of the cecum. Withdrawal time 8 minutes Prep was fair to good. Findings: Cecum-normal with identification of ileocecal the valve and appendiceal orifice. Terminal ileum normal Ascending colon normal Transverse colon polyps 2 mid transverse colon each approximate 8 mm pedunculated and both snare removed with good hemostasis. Descending colon-normal Sigmoid colon-normal Rectum normal to direct retroflex views. The procedure terminated patient our procedure well she's discharge recovery in good condition Postop diagnosis: #1 polyps 2 follow-up path suspect benign #2 small bowel series to complete iron deficiency workup which can be done as an outpatient. I #3 I will see the patient Saturday if she is still hospitalized call coverage over the weekend if needed. Anesthesia: MAC Surgeon / Physician: Tolu Damon Estimated blood loss: none Specimens: other (transverse colon polyp 2) Condition: stable Disposition: post procedure unit Results - Labs CBC & BMP: 07/20/16 05:04 07/20/16 05:04 Discharge Plan - Discharge Medications No Action lamiVUDine TAB [Epivir Tab] 300 mg PO DAILY Efavirenz [Sustiva] 600 mg PO BEDTIME Carvedilol [Coreg] 25 mg PO BID W/MEALS Apixaban [Eliquis] 5 mg PO BID HYDROcodone/ACETAMIN 10-325 [[place] 10-325] 1 tablet PO QID PRN PRN Reason: Pain Glimepiride [Amaryl] 8 mg PO BID W/MEALS Gabapentin Cap/Tab [Neurontin Cap/Tab] 300 mg PO TID Albuterol Sulfate [Ventolin HFA] 2 puff INH Q4H PRN #1 inhaler PRN Reason: Shortness Of Breath/Wheezing Tenofovir Disoproxil Fumarate [Viread] 300 mg PO DAILY W/BREAKFAST Cyclobenzaprine [Flexeril] 10 mg PO TID PRN PRN Reason: Pain Acetaminophen Tab [Tylenol Tab] 325 mg PO Q4H PRN #0 tablet PRN Reason: fever, headache/body aches Sertraline [Zoloft] 50 mg PO DAILY Furosemide [Furosemide] 40 mg PO BID Multivitamin (Intrinsic) [Trinsicon] 1 capsule PO BID Isosorb Dinit/Hydralazine HCl [Bidil Tablet] 1 tablet PO TID Insulin Aspart Prot/Asp 70/30 [NovoLOG Mix 70/30] 50 unit SUBCUT QAM Insulin Aspart Prot/Asp 70/30 [NovoLOG Mix 70/30] 45 unit SUBCUT QPM NIFEdipine XL TAB [Procardia Xl] 30 mg PO BID #60 tablet Spironolactone [Aldactone] 25 mg PO BID #60 tablet Lactulose Liquid [Chronulac] 20 gm PO Q4H PRN #0 udcup PRN Reason: Constipation Aspirin [Ecotrin] 81 mg PO DAILY Allopurinol [Zyloprim] 100 mg PO DAILY - Follow Up or Referral - Forms/Instructions
--- NOTE | 2016-07-20 10:28 | Anesthesia ---
Anesthesia Post OP - Post Ansesthetic Evaluation Patient seen in post op: Yes Resp: within normal limits CV: within normal limits Mental: within normal limits Temp: within normal limits [id number]: within normal limits Nausea and Vomiting: within normal limits Pain: within normal limits
--- NOTE | 2016-07-20 10:30 | Anesthesia ---
Anesthesia Post OP - Post Ansesthetic Evaluation Patient seen in post op: Yes Resp: within normal limits CV: within normal limits Mental: within normal limits Temp: within normal limits [id number]: within normal limits Nausea and Vomiting: within normal limits Pain: within normal limits
[2016-07-20] MEDS: CARVEDILOL 25 MG TABLET PO SCH ×2 (10:49→17:06)
[2016-07-20] MEDS: GLIMEPIRIDE 4 MG TABLET PO SCH ×2 (10:49→17:06)
[2016-07-20] MEDS: SPIRONOLACTONE 25 MG TABLET PO SCH ×2 (10:50→20:51)
[2016-07-20] MEDS: CAPTOPRIL 6.25 MG TABLET PO SCH ×3 (10:50→20:52)
[2016-07-20] MEDS: ISOSORBIDE DINITRATE 20 MG TABLET PO SCH ×3 (10:50→20:52)
[2016-07-20] MEDS: FUROSEMIDE 40 MG TABLET PO SCH ×2 (10:50→17:05)
[2016-07-20] MEDS: MULTIVITAMIN (CENTRUM) TABLET PO SCH ×2 (10:50→20:52)
[2016-07-20] MEDS: GABAPENTIN 300 MG CAPSULE PO SCH ×3 (10:51→20:52)
[2016-07-20] MEDS: PANTOPRAZOLE 40 MG VIAL IV SCH ×2 (10:52→20:52)
--- NOTE | 2016-07-20 13:01 | Hospitalist Progress Note ---
Assessment and Plan - Time spent with patient Time spent with patient: Greater than 30 minutes (1) Acute exacerbation of congestive heart failure Status: Acute Current Visit: No Qualifiers: Congestive heart failure type: combined Qualified Code(s): I50.43 - Acute on chronic combined systolic (congestive) and diastolic (congestive) heart failure (2) Dyspnea Status: Acute Current Visit: Yes Qualifiers: Dyspnea type: shortness of breath Qualified Code(s): R06.02 - Shortness of breath (3) BMI 64.8 Status: Chronic Current Visit: No (4) Morbid obesity Status: Chronic Current Visit: No Qualifiers: Obesity type: with alveolar hypoventilation Qualified Code(s): E66.2 - Morbid (severe) obesity with alveolar hypoventilation (5) Volume overload Status: Acute Current Visit: No (6) Suspected sleep apnea Status: Acute Current Visit: Yes (7) Diabetes mellitus Status: Chronic Current Visit: No Qualifiers: Diabetes mellitus type: type 2 Diabetes mellitus complication status: with kidney complications Diabetes mellitus complication detail: with chronic kidney disease Diabetes mellitus continuous churn buttermaker insulin use: with continuous churn buttermaker use Chronic kidney disease stage: stage 3 (moderate) Qualified Code(s): E11.22 - Type 2 diabetes mellitus with diabetic chronic kidney disease; N18.3 - Chronic kidney disease, stage 3 (moderate); Z79.4 - intermediate school teacher (current) use of insulin (8) Poorly-controlled hypertension Status: Chronic Assessment and plan: She had colonoscopy with polypectomy today, no obvious bleeding identified. Monitor Hct Continue her insulin regimen Send Urine protein/Cr ration to further evaluate her proteinuria. Continue diuresis and monitor renal function Current Visit: Yes Hospitalist: Subjective Interval history: Admitted for CHF, Fe deficiency type. No source of bleeding so far. Had colonoscopy with polypectomy today. She still reports some SOB and edema - subjective as she was comfortable on [place] oxygen at rest. No fever Exam - Constitutional Vitals: Period Temp Pulse Resp BP Sys/[place] Pulse Ox Last 24 Hr 97.3 F-98.8 F 69-80 13-22 134-161/71-86 93-100 Exam: General appearance: morbidly obese - Respiratory Respiratory exam: Present: difficult to assess because of her body habitus - Cardiovascular Cardiovascular exam: Present: regular rate and rhythm - GI/Abdominal GI/Abdominal exam: Present: normal bowel sounds - Extremities Exam Extremities exam: Present: edema (sacral) - Neurological Exam Neurological exam: Present: alert, oriented X3 - Psychiatric Psychiatric exam: Present: normal affect, normal mood Results - Labs CBC & BMP: 07/20/16 05:04 07/20/16 05:04 Lab Results: I have reviewed the past 24 hour labs
[2016-07-20] MEDS: SERTRALINE 50 MG TABLET PO SCH (14:10)
[2016-07-20] MEDS: LAMIVUDINE 300 MG PO SCH (14:11)
[2016-07-20] MEDS: TENOFOVIR 300 MG PO SCH (14:11)
[2016-07-20] MEDS: ENOXAPARIN 40 MG/0.4 ML SYRINGE SUBCUT SCH (14:12)
[2016-07-20] MEDS: CYCLOBENZAPRINE 10 MG TABLET PO PRN (14:16)
--- NOTE | 2016-07-20 15:20 | Cardiology Progress Note ---
Heather, Felicitas Smyth RN, am scribing for, and in the presence of, Inocente Ashley MD 15 :14. Assessment and Plan - Time spent with patient Time spent with patient: Less than 30 minutes (1) Acute exacerbation of CHF (congestive heart failure) Status: Acute Assessment and plan: 50y BF with NICM LVEF 35%, PHTN, severe TR, h/o PE, HIV, obesity, symptomatic anemia due to suspected GIB. CKD. -Anemia. EGD and colonoscopy did not identify bleeding source. Small bowel series are planned as an outpatient. Crit is still low, trending down. She is high risk for thromboembolic complications due to history of PE, pulmonary hypertension. Unfortunately, she is also high risk for bleeding complications. At this time, I would continue to hold off anticoagulation or antiplatelets and resume if GI workup does not identify high-risk lesions and the anemia improves. -Blood pressure better controlled. Cont hydralazine 50 mg tid, Coreg, ACEI, nifedipine -Diuresed well. Cont po Lasix -She has severe pulmonary hypertension with severe TR. History of remote PE. This could be a remnant of this, or pulmonary vascular disease related to HIV, or pulm disease, MONET. She does not seem to have severe diastolic dysfunction. When her acute issues resolve, a right heart catheterization and chest CT angiogram can be pursued to assess etiology of PHTN and look for reversible etiology - may be done as outpatient. -She is not symptomatic from CHF at this time, on current medical regimen. I will sign off, follow-up with Dr. Pineda in 2 weeks. Please call with further questions. Current Visit: Yes (2) Dyspnea Status: Acute Current Visit: Yes Qualifiers: Dyspnea type: shortness of breath Qualified Code(s): R06.02 - Shortness of breath (3) Suspected sleep apnea Status: Acute Current Visit: Yes (4) Anemia Status: Chronic Current Visit: Yes (5) Cardiomyopathy Status: Chronic Current Visit: Yes (6) Debility Status: Chronic Current Visit: Yes (7) Diabetes mellitus Status: Chronic Current Visit: Yes (8) Morbid obesity Status: Chronic Current Visit: Yes (9) Poorly-controlled hypertension Status: Chronic Current Visit: Yes Cardiology - PN: Subj Interval history: Housed on tele. Post colonoscopy this morning. Polyps x 2 suspected to be benign and were sent for pathology. No CP or SOB. Anemia is stable with H/H 7.6 & 24.3 without overt signs of bleeding. Does have slight abdominal cramping, worse with palpation. Electrolytes WNL, and renal function unchanged with creatinine 1.6. SR per tele monitor with HR in 70's and no ectopy. Exam (Progress Note) - Constitutional Vitals: Period Temp Pulse Resp BP Sys/Browne Pulse Ox Last 24 Hr 97.0 F-98.8 F 69-79 13-22 134-161/71-94 93-100 Exam: General appearance: no acute distress, morbidly obese - Head Head exam: Present: normal inspection, normocephalic, atraumatic - Eye Eye exam: Absent: conjunctival injection Pupils: Absent: dilated - ENT ENT exam: Present: normal external ear exam - Neck Neck exam: Present: normal inspection - Respiratory Respiratory exam: Present: clear to auscultation bilaterally. Absent: accessory muscle use, chest wall tenderness, rales, rhonchi, stridor, wheezes - Cardiovascular Cardiovascular exam: Present: regular rate and rhythm. Absent: bradycardia, gallop, rubs, tachycardia - GI/Abdominal GI/Abdominal exam: Present: normal bowel sounds, tenderness, soft. Absent: distended, firm - Extremities Exam Extremities exam: Present: normal capillary refill, edema (4+ bilateral lower extremity edema) - Neurological Exam Neurological exam: Present: alert, oriented X3 - Psychiatric Psychiatric exam: Present: normal affect, normal mood. Absent: agitated, anxious, depressed - Skin Skin exam: Present: normal color, warm, dry Result/EKG - Labs CBC & BMP: 07/20/16 05:04 07/20/16 05:04 Lab Results: I have reviewed the past 24 hour labs Labs: Laboratory Results - last 24 hr 07/19/16 07/20/16 07/20/16 20:27 05:04 05:04 WBC 5.5 RBC 2.63 L Hgb 7.6 L Hct 24.3 L MCV 92.4 MCH 29 MCHC 31.3 L RDW 16.5 Plt Count 213 MPV 10.1 Neut % (Auto) 62.9 Lymph % (Auto) 25.5 Floyd % (Auto) 7.3 Eos % (Auto) 3.5 Baso % (Auto) 0.6 Neut # (Auto) 3.4 Lymph # (Auto) 1.4 Floyd # (Auto) 0.4 Eos # (Auto) 0.2 Baso # (Auto) 0.0 Immature Gran % 0.2 Nucleated RBC % 0.0 Immature Gran # 0.01 Nucleated RBCs # 0.00 Sodium 142 Potassium 4.6 Chloride 103 Carbon Dioxide 31 Anion Gap 12.6 BUN 27 H Creatinine 1.60 H GFR Calculation 74 BUN/Creatinine Ratio 16.00 Glucose 131 H POC Glucose 190 H Calculated Osmolality 289.1 Calcium 8.4 L 07/20/16 08:03 WBC RBC Hgb Hct MCV MCH MCHC RDW Plt Count MPV Neut % (Auto) Lymph % (Auto) Floyd % (Auto) Eos % (Auto) Baso % (Auto) Neut # (Auto) Lymph # (Auto) Floyd # (Auto) Eos # (Auto) Baso # (Auto) Immature Gran % Nucleated RBC % Immature Gran # Nucleated RBCs # Sodium Potassium Chloride Carbon Dioxide Anion Gap BUN Creatinine GFR Calculation BUN/Creatinine Ratio Glucose POC Glucose 114 H Calculated Osmolality Calcium - EKG EKG results: interpreted by me, sinus rhythm, no acute changes Specialty Discharge - Follow Up or Referrals - Speciality Discharge Instructions Cardiology Instructions: Follow up with dr. Pineda in 2 weeks IGabi Attila, MD, personally performed the services described in this documentation, ascribed by Felicitas Smyth RN in my presence, and it is both accurate and complete [id number] .
[2016-07-20] MEDS: ONDANSETRON 4 MG/2 ML VIAL IV PRN (17:07)
[2016-07-20] MEDS ORDERED: ALUMINUM/MAGNES/SIMETH MAX STR 30 ML UDCUP PO PRN (18:37)
[2016-07-20] MEDS: EFAVIRENZ 600 MG PO SCH (20:51)
[2016-07-21] MEDS: TENOFOVIR 300 MG PO SCH (08:38)
[2016-07-21] MEDS: CARVEDILOL 25 MG TABLET PO SCH ×2 (08:39→18:29)
[2016-07-21] MEDS: GLIMEPIRIDE 4 MG TABLET PO SCH ×2 (08:39→18:28)
[2016-07-21] MEDS: FUROSEMIDE 40 MG TABLET PO SCH ×2 (08:39→18:28)
[2016-07-21] MEDS: PANTOPRAZOLE 40 MG VIAL IV SCH ×2 (08:40→20:57)
[2016-07-21] MEDS: CYCLOBENZAPRINE 10 MG TABLET PO PRN ×2 (09:50→18:28)
[2016-07-21] MEDS: CAPTOPRIL 6.25 MG TABLET PO SCH ×3 (09:50→20:57)
[2016-07-21] MEDS: MULTIVITAMIN (CENTRUM) TABLET PO SCH ×2 (09:50→20:57)
[2016-07-21] MEDS: ISOSORBIDE DINITRATE 20 MG TABLET PO SCH ×3 (09:50→20:57)
[2016-07-21] MEDS: SPIRONOLACTONE 25 MG TABLET PO SCH ×2 (09:51→20:57)
[2016-07-21] MEDS: SERTRALINE 50 MG TABLET PO SCH (09:51)
[2016-07-21] MEDS: GABAPENTIN 300 MG CAPSULE PO SCH ×3 (09:51→20:57)
[2016-07-21] MEDS: LAMIVUDINE 300 MG PO SCH (09:51)
[2016-07-21] MEDS: DESITIN 4OZ/NYSTATIN 15 GRAM MIXTURE PASTE TOP SCH ×2 (12:28→21:03)
--- NOTE | 2016-07-21 13:03 | Hospitalist Progress Note ---
Assessment and Plan (1) Acute exacerbation of congestive heart failure Status: Acute Current Visit: No Qualifiers: Congestive heart failure type: combined Qualified Code(s): I50.43 - Acute on chronic combined systolic (congestive) and diastolic (congestive) heart failure (2) Dyspnea Status: Acute Current Visit: Yes Qualifiers: Dyspnea type: shortness of breath Qualified Code(s): R06.02 - Shortness of breath (3) BMI 64.8 Status: Chronic Current Visit: No (4) Morbid obesity Status: Chronic Current Visit: No Qualifiers: Obesity type: with alveolar hypoventilation Qualified Code(s): E66.2 - Morbid (severe) obesity with alveolar hypoventilation (5) Volume overload Status: Acute Current Visit: No (6) Suspected sleep apnea Status: Acute Current Visit: Yes (7) Diabetes mellitus Status: Chronic Current Visit: No Qualifiers: Diabetes mellitus type: type 2 Diabetes mellitus complication status: with kidney complications Diabetes mellitus complication detail: with chronic kidney disease Diabetes mellitus remote computer terminal operator insulin use: with remote computer terminal operator use Chronic kidney disease stage: stage 3 (moderate) Qualified Code(s): E11.22 - Type 2 diabetes mellitus with diabetic chronic kidney disease; N18.3 - Chronic kidney disease, stage 3 (moderate); Z79.4 - medical terminologist (current) use of insulin (8) Poorly-controlled hypertension Status: Chronic Assessment and plan: Monitor Hct, repeat H&H today, also check LDH and Haptoglobin to r/o hemolysis playing a role too especially since stool OB is negative and Colonospocy and EGD are negative. Continue her insulin regimen Send Urine protein/Cr ration to further evaluate her proteinuria. Continue diuresis and monitor renal function If her Hct is stable, we can DC her in a.m and she can continue work up as out patient Current Visit: Yes Hospitalist: Subjective Interval history: No new problems today, so far no obvious bleeding site has been identified Biopsy report is still pending No fever No repeat labs to evaluate whether H/H is stable Exam - Constitutional Vitals: Period Temp Pulse Resp BP Sys/Browne Pulse Ox Last 24 Hr 96.3 F-99 F 73-82 16-20 146-189/70-85 90-98 Exam: General appearance: morbidly obese - Respiratory Respiratory exam: Present: difficult to assess because of her body habitus - Cardiovascular Cardiovascular exam: Present: regular rate and rhythm - GI/Abdominal GI/Abdominal exam: Present: normal bowel sounds - Extremities Exam Extremities exam: Present: edema (sacral) - Neurological Exam Neurological exam: Present: alert, oriented X3 - Psychiatric Psychiatric exam: Present: normal affect, normal mood Results - Labs CBC & BMP: 07/20/16 05:04 07/20/16 05:04 Lab Results: I have reviewed the past 24 hour labs
[2016-07-21 13:47] LABS: Basophils % 0.3 % (0.0-0.8); Eosinophils # 0.2 10*3/uL (0.0-0.87); Eosinophils % 3.6 % (0.00-10.9); Hematocrit 26.4 VOL% (35.7-47.0); Hemoglobin 8.2 GM/DL (12.0-16.0); Immature Granulocytes % 0.2 %; Immature Granulocytes Absolute 0.01 #; Lymphocytes # 1.8 10*3/uL (1.4-4.0); Lymphocytes % 29.1 % (21.3-54.2); Mean Corpuscular HGB Conc 31.1 GM/DL (32-36); Mean Corpuscular Hemoglobin 30 PG (27-34); Monocytes # 0.4 10*3/uL (0.11-0.8); Monocytes % 6.5 % (1.7-12.7); Neutrophils # 3.7 10*3/uL (1.4-7.4); Neutrophils % 60.3 % (38.7-73.9); Platelet Count 219 T/CUMM (130-400); Red Blood Count 2.78 MC/CUMM (3.8-5.5); Red Cell Distribution Width 16.6 % (9.3-17.3); White Blood Count 6.2 T/CUMM (4-12)
[2016-07-21] MEDS: ENOXAPARIN 40 MG/0.4 ML SYRINGE SUBCUT SCH (14:07)
[2016-07-21 14:10] LABS: Alanine Aminotransferase 33 U/L (13-56); Albumin 2.9 G/DL (3.4-5.0); Alkaline Phosphatase 153 U/L (45-117); Aspartate Amino Transferase 27 U/L (0-37); Bilirubin,Total < 0.39 MG/DL (0.2-1.0); Blood Urea Nitrogen 25 MG/DL (7-18); Calcium 8.2 MG/DL (8.5-10.1); Glucose 93 MG/DL (74-106); Osmolality,Calculated 284.3 MOS/KG (273-304); Potassium 4.6 MMOL/L (3.5-5.1); Sodium 141 MMOL/L (136-145); Total Protein 6.2 G/DL (6.4-8.3)
[2016-07-21] MEDS: EFAVIRENZ 600 MG PO SCH (20:57)
[2016-07-22 04:56] LABS: Protein/Creatinine Ratio,Urine 2.5 RATIO
[2016-07-22 04:59] LABS: Basophils % 0.3 % (0.0-0.8); Eosinophils # 0.2 10*3/uL (0.0-0.87); Hematocrit 25.5 VOL% (35.7-47.0); Hemoglobin 7.7 GM/DL (12.0-16.0); Immature Granulocytes % 0.3 %; Immature Granulocytes Absolute 0.02 #; Lymphocytes # 1.6 10*3/uL (1.4-4.0); Lymphocytes % 28.1 % (21.3-54.2); Mean Corpuscular HGB Conc 30.2 GM/DL (32-36); Mean Corpuscular Hemoglobin 29 PG (27-34); Mean Corpuscular Volume 94.8 FL (87-102); Monocytes # 0.4 10*3/uL (0.11-0.8); Monocytes % 7.2 % (1.7-12.7); Neutrophils # 3.4 10*3/uL (1.4-7.4); Neutrophils % 60.1 % (38.7-73.9); Platelet Count 217 T/CUMM (130-400); Red Blood Count 2.69 MC/CUMM (3.8-5.5); Red Cell Distribution Width 16.6 % (9.3-17.3); White Blood Count 5.7 T/CUMM (4-12)
[2016-07-22] MEDS: CYCLOBENZAPRINE 10 MG TABLET PO PRN ×2 (05:04→08:32)
[2016-07-22] MEDS ORDERED: SODIUM CHLORIDE 0.9% 250 ML IV PRN (08:13)
[2016-07-22] MEDS: GLIMEPIRIDE 4 MG TABLET PO SCH ×2 (08:31→17:06)
[2016-07-22] MEDS: SPIRONOLACTONE 25 MG TABLET PO SCH ×2 (08:31→21:07)
[2016-07-22] MEDS: CAPTOPRIL 6.25 MG TABLET PO SCH ×3 (08:31→21:07)
[2016-07-22] MEDS: MULTIVITAMIN (CENTRUM) TABLET PO SCH ×2 (08:31→21:07)
[2016-07-22] MEDS: ISOSORBIDE DINITRATE 20 MG TABLET PO SCH ×3 (08:31→21:07)
[2016-07-22] MEDS: CARVEDILOL 25 MG TABLET PO SCH ×2 (08:32→17:08)
[2016-07-22] MEDS: FUROSEMIDE 40 MG TABLET PO SCH ×2 (08:32→17:06)
[2016-07-22] MEDS: SERTRALINE 50 MG TABLET PO SCH (08:32)
[2016-07-22] MEDS: TENOFOVIR 300 MG PO SCH (08:33)
[2016-07-22] MEDS: LAMIVUDINE 300 MG PO SCH (08:33)
[2016-07-22] MEDS: GABAPENTIN 300 MG CAPSULE PO SCH ×3 (08:36→21:07)
[2016-07-22] MEDS: PANTOPRAZOLE 40 MG VIAL IV SCH ×2 (08:37→21:08)
[2016-07-22] MEDS: DESITIN 4OZ/NYSTATIN 15 GRAM MIXTURE PASTE TOP SCH ×2 (08:46→21:08)
[2016-07-22 09:01] LABS: Basophils % 0.5 % (0.0-0.8); Eosinophils # 0.2 10*3/uL (0.0-0.87); Eosinophils % 3.8 % (0.00-10.9); Hematocrit 26.5 VOL% (35.7-47.0); Hemoglobin 8.2 GM/DL (12.0-16.0); Immature Granulocytes % 0.2 %; Immature Granulocytes Absolute 0.01 #; Lymphocytes # 1.7 10*3/uL (1.4-4.0); Mean Corpuscular HGB Conc 30.9 GM/DL (32-36); Mean Corpuscular Hemoglobin 29 PG (27-34); Mean Platelet Volume 10.1 FL (9.6-12.0); Monocytes # 0.4 10*3/uL (0.11-0.8); Monocytes % 6.2 % (1.7-12.7); Neutrophils # 3.4 10*3/uL (1.4-7.4); Neutrophils % 59.3 % (38.7-73.9); Platelet Count 229 T/CUMM (130-400); Red Blood Count 2.82 MC/CUMM (3.8-5.5); Red Cell Distribution Width 16.6 % (9.3-17.3); White Blood Count 5.8 T/CUMM (4-12)
[2016-07-22 09:46] LABS: Vitamin B12 1140 PG/ML (211-911)
[2016-07-22 10:12] LABS: Sedimentation Rate-Westergren 99 MM/HR (0-30)
[2016-07-22] MEDS: ENOXAPARIN 40 MG/0.4 ML SYRINGE SUBCUT SCH (13:08)
--- NOTE | 2016-07-22 14:17 | Hospitalist Progress Note ---
Assessment and Plan - Time spent with patient Time spent with patient: Greater than 30 minutes (1) Acute exacerbation of congestive heart failure Status: Acute Current Visit: No Qualifiers: Congestive heart failure type: combined Qualified Code(s): I50.43 - Acute on chronic combined systolic (congestive) and diastolic (congestive) heart failure (2) Dyspnea Status: Acute Current Visit: Yes Qualifiers: Dyspnea type: shortness of breath Qualified Code(s): R06.02 - Shortness of breath (3) BMI 64.8 Status: Chronic Current Visit: No (4) Morbid obesity Status: Chronic Current Visit: No Qualifiers: Obesity type: with alveolar hypoventilation Qualified Code(s): E66.2 - Morbid (severe) obesity with alveolar hypoventilation (5) Volume overload Status: Acute Current Visit: No (6) Suspected sleep apnea Status: Acute Current Visit: Yes (7) Diabetes mellitus Status: Chronic Current Visit: No Qualifiers: Diabetes mellitus type: type 2 Diabetes mellitus complication status: with kidney complications Diabetes mellitus complication detail: with chronic kidney disease Diabetes mellitus regional intermodal truck driver insulin use: with regional intermodal truck driver use Chronic kidney disease stage: stage 3 (moderate) Qualified Code(s): E11.22 - Type 2 diabetes mellitus with diabetic chronic kidney disease; N18.3 - Chronic kidney disease, stage 3 (moderate); Z79.4 - rn long term care (current) use of insulin (8) Poorly-controlled hypertension Status: Chronic Assessment and plan: Transfuse 2 PRBC and monitor post transfusion H&H Based on her LDH and haptoglobin, she is not hemolysis. Her stool OB is negative and Colonoscopy and EGD are negative, we have not done a small bowel series though. The only other option in this case is likely a poor bone marrow response to anemia likely due to her HIV or her HIV meds. We will repeat her retic count and if still no reactivity, then what she needs is hematology evaluation and maybe a bone marrow study Continue her insulin regimen Her proteinuria is not in the nephrotic range, it is likely due to her DM. She is already on ACEi Continue diuresis and monitor renal function Current Visit: Yes Hospitalist: Subjective Interval history: 50 year old female multiple medical problems including diastolic heart failure, HIV infection, and general debility who was just recently discharged from [facility]. She presented with shortness of breath with the least exertion. During evaluation was found to have anemia suspected to e due to GI bleed, had had both upper and lower endoscopy with no ovious bleeding. Her Hct continues to drop however. We had planned for DC to outpatient further workup but her repeat labs this morning shows some further drop in Hct. We are transfusing to get her Hct to a safe levels before DC. Her retic count was reported as 0, I dint know how reliable this is but if it is 0, then she is not having any good bone marrow response to her anemia and that may be the reason she is anemic - just not making enough blood cells. Exam - Constitutional Vitals: Period Temp Pulse Resp BP Sys/Browne Pulse Ox Last 24 Hr 97.0 F-98.6 F 73-76 16-20 133-183/64-90 96-99 Exam: General appearance: morbidly obese - Respiratory Respiratory exam: Present: difficult to assess because of her body habitus - Cardiovascular Cardiovascular exam: Present: regular rate and rhythm - GI/Abdominal GI/Abdominal exam: Present: normal bowel sounds - Extremities Exam Extremities exam: Present: edema (sacral) - Neurological Exam Neurological exam: Present: alert, oriented X3 - Psychiatric Psychiatric exam: Present: normal affect, normal mood Results - Labs CBC & BMP: 07/22/16 08:27 07/21/16 13:11 Lab Results: I have reviewed the past 24 hour labs
[2016-07-22] MEDS: ONDANSETRON 4 MG/2 ML VIAL IV PRN (17:04)
[2016-07-22] MEDS: EFAVIRENZ 600 MG PO SCH (21:07)
[2016-07-22 21:45] LABS: Hematocrit 27.9 VOL% (35.7-47.0); Hemoglobin 8.8 GM/DL (12.0-16.0)
[2016-07-23 05:48] LABS: Hemoglobin A1 (Alkaline) 97.2 % (96.5-98.5); Hemoglobin A2 (Alkaline) 2.8 % (1.5-3.5)
--- NOTE | 2016-07-23 10:04 | Gastrointestinal Progress Note ---
<Kelsea Tang - Last Filed: 07/23/16 10:01> Assessment and Plan (1) Anemia Status: Chronic Assessment and plan: 07/22-Path report pending from colonoscopy. Hgb 8.8. Small bowel FL pending for today. Plan and addendum to follow by Dr Damon. 07/19-labs pending for today. Plan for c-scope tomorrow. Plan and addendum to follow by Dr Damon 07/18-Hgb 7.8. EGD w/o findings of anemia source. Tentative plan for colonoscopy tomorrow, pt wishes to proceed. Plan and addendum to follow by DR Damon . 07/16-Hgb 7.8, no overt bleeding. Plan for EGD tomorrow if remains stable. Plan and addendum to follow by DR damon. 07/13-No repeat labwork today. Will recheck H/H today. No overt bleeding .Plan and addendum to follow by Dr Damon. 07/12-Findings of decreased in hemoglobin from 9 to 7.6 since admission in absence of overt bleeding. Hx of anemia with transfusions in past per patient. Baseline noted between 7.7 and 9.0. No prior endoscopy history. On Eliquis. Iron studies are low. Obtain stool for occult blood. Plan and addendum to follow by Dr Damon. Current Visit: Yes Gastroenterology - PN: Subj Interval history: CC: ANemia Pt is seen awake and alert. SHe is awaiting to go down for her Small bowel follow thru today. She denies any abdominal pain, nausea or vomiting. Her hemoglobin is stable at 8.8 with no overt bleeding. Abdomen is soft, nontender other than some areas on her side that she feels is related to fluid accumulation. She has been tolerating her diet at this time. ROS: Denies SOB or chest pain Exam (Progress Note) - Constitutional Vitals: Period Temp Pulse Resp BP Sys/Browne Pulse Ox Last 24 Hr 97.0 F-98.7 F 72-89 16-20 129-183/71-96 96-98 General appearance: no acute distress, morbidly obese - Head Head exam: Present: normal inspection, normocephalic - Eye Eye exam: Present: other (lids and conjunctiva unremarkable). Absent: scleral icterus - ENT ENT exam: Present: normal exam, normal oropharynx - Neck Neck exam: Present: normal inspection - Respiratory Respiratory exam: Present: clear to auscultation bilaterally. Absent: rales, rhonchi, wheezes - Cardiovascular Cardiovascular exam: Present: regular rate and rhythm. Absent: diastolic murmur , JVD, systolic murmur - GI/Abdominal GI/Abdominal exam: Present: normal bowel sounds, tenderness, soft. Absent: ascites, distended, mass, organomegaly - Extremities Exam Extremities exam: Present: normal inspection, full ROM - Back Exam Back exam: Present: normal inspection - Neurological Exam Neurological exam: Present: alert, oriented X3 - Psychiatric Psychiatric exam: Present: normal affect, normal mood - Skin Skin exam: Present: normal color, warm, dry Results - Labs CBC & BMP: 07/22/16 21:40 07/21/16 13:11 Lab Results: I have reviewed the past 24 hour labs <Tolu Damon - Last Filed: 07/23/16 17:14> Exam (Progress Note) - Constitutional Vitals: Period Temp Pulse Resp BP Sys/Browne Pulse Ox Last 24 Hr 97.1 F-98.7 F 73-89 18-20 144-167/72-87 96-98 Results - Labs CBC & BMP: 07/22/16 21:40 07/21/16 13:11
--- NOTE | 2016-07-23 11:20 | Pathology Report from [facility] ---
ACCESSION # : [id number] PATIENT NAME : Venita Jalloh ORDERING DR : JANE GRAY MD CLINICAL HX: Anemia POST-OP DX: Colon polyp transverse SPECIMEN INFO: Transverse colon polyp GROSS DESCRIPTION: The specimen is received in formalin labeled with the patient 's name and consists of multiple fragments of red-cunningham tissue measuring 1.3 x 0.8 cm in aggregate. The largest fragment is sectioned with all tissue submitted in one cassette. DIAGNOSIS FOR VENITA JALLOH: TRANSVERSE COLON BIOPSIES: Tubular adenoma. SERVICE DATE: 07/22/2016 REPORT DATE: 07/23/2016 PATHOLOGIST: Rishabh Dinero M.D. [facility]
--- NOTE | 2016-07-23 11:33 | Fluoroscopy Report ---
Exam: FL small bowel follow through Date: 07/23/2016 2:20 PM Indication: Iron deficiency anemia Comparison: None Findings: Shell Grader image was obtained. Contrast was administered in the form of barium. Degenerative changes present thoracolumbar spine. Phleboliths are present in the pelvis. Contrast traverses the small bowel and 40 minutes with spot image of the terminal ileum obtained. There is no segmentation or flocculation of the barium column. Terminal ileum is intact. No focal masses are present. Small hiatal hernia is suspected. 17 seconds fluoroscopy time utilized. Impression: 1. Normal small bowel follow-through 2. Small hiatal hernia 3. Degenerative spondylosis changes thoracolumbar spine PROCEDURE INTERPRETED AT [facility] DEPARTMENT OF RADIOLOGY Final Report Signed by: Dr. Andreas Causey
[2016-07-23] MEDS: LAMIVUDINE 300 MG PO SCH (12:38)
[2016-07-23] MEDS: ENOXAPARIN 40 MG/0.4 ML SYRINGE SUBCUT SCH (12:39)
[2016-07-23] MEDS: PANTOPRAZOLE 40 MG VIAL IV SCH ×2 (12:39→20:53)
[2016-07-23] MEDS: TENOFOVIR 300 MG PO SCH (12:39)
[2016-07-23] MEDS: FUROSEMIDE 40 MG TABLET PO SCH ×2 (12:39→16:46)
[2016-07-23] MEDS: GABAPENTIN 300 MG CAPSULE PO SCH ×3 (12:40→20:53)
[2016-07-23] MEDS: CAPTOPRIL 6.25 MG TABLET PO SCH ×3 (12:40→20:53)
[2016-07-23] MEDS: ISOSORBIDE DINITRATE 20 MG TABLET PO SCH ×3 (12:40→20:53)
[2016-07-23] MEDS: SPIRONOLACTONE 25 MG TABLET PO SCH ×2 (12:40→20:53)
[2016-07-23] MEDS: MULTIVITAMIN (CENTRUM) TABLET PO SCH ×2 (12:40→20:53)
[2016-07-23] MEDS: CARVEDILOL 25 MG TABLET PO SCH ×2 (12:41→16:46)
[2016-07-23] MEDS: SERTRALINE 50 MG TABLET PO SCH (12:41)
[2016-07-23] MEDS: DESITIN 4OZ/NYSTATIN 15 GRAM MIXTURE PASTE TOP SCH ×2 (12:41→20:58)
[2016-07-23] MEDS: GLIMEPIRIDE 4 MG TABLET PO SCH ×2 (12:41→16:46)
[2016-07-23] MEDS: CYCLOBENZAPRINE 10 MG TABLET PO PRN ×2 (15:18→20:53)
--- NOTE | 2016-07-23 18:23 | Hospitalist Progress Note ---
Assessment and Plan - Time spent with patient Time spent with patient: Greater than 30 minutes (1) Acute exacerbation of CHF (congestive heart failure) Status: Acute Assessment and plan: Appears stable currently. Current Visit: Yes (2) Anemia Status: Chronic Assessment and plan: Anemia panel indicates anemia is likely secondary to poor bone marrow production. Current Visit: Yes (3) Debility Status: Chronic Assessment and plan: Patient has been evaluated by physical therapy and attempts were made to discharge the patient to rehabilitation however this was unsuccessful, continue physical therapy. Current Visit: Yes (4) Diabetes mellitus Status: Chronic Assessment and plan: Continue current management. Current Visit: Yes (5) HIV (human immunodeficiency virus infection) Status: Chronic Assessment and plan: Continue current management Current Visit: Yes (6) History of pulmonary artery thrombosis Status: Acute Assessment and plan: Continue Eliquis. Current Visit: Yes (7) HTN (hypertension) Status: Chronic Assessment and plan: Continue current management. Well-controlled. Current Visit: Yes Hospitalist: Subjective Interval history: This is my first visit with the patient. She has no complaints currently. She is a 50-year-old female with HIV who was admitted with acute congestive heart failure. She has also received blood products for anemia which is likely due to reduced bone marrow function. She status post colonoscopy. She has had a very long stay in the hospital. Exam - Constitutional Vitals: Period Temp Pulse Resp BP Sys/Browne Pulse Ox Last 24 Hr 96.3 F-98.7 F 73-81 18-20 133-161/72-87 96-98 General appearance: no acute distress, morbidly obese - Head Head exam: Present: normocephalic, atraumatic - Eye Eye exam: Present: EOMI Pupils: Present: JARAD - ENT ENT exam: Present: normal exam - Neck Neck exam: Present: normal inspection - Respiratory Respiratory exam: Present: clear to auscultation bilaterally. Absent: rhonchi, wheezes - Cardiovascular Cardiovascular exam: Present: regular rate and rhythm. Absent: gallop, rubs, systolic murmur - GI/Abdominal GI/Abdominal exam: Present: normal bowel sounds, soft. Absent: distended, firm , guarding, tenderness, rebound - Extremities Exam Extremities exam: Present: edema. Absent: calf tenderness Results - Labs CBC & BMP: 07/22/16 21:40 07/21/16 13:11 Lab Results: I have reviewed the past 24 hour labs
[2016-07-23] MEDS: EFAVIRENZ 600 MG PO SCH (20:51)
[2016-07-23] MEDS: ACETAMINOPHEN 325 MG TABLET PO PRN (20:52)
[2016-07-24 05:38] LABS: Basophils % 0.5 % (0.0-0.8); Eosinophils # 0.2 10*3/uL (0.0-0.87); Hematocrit 28.7 VOL% (35.7-47.0); Immature Granulocytes % 0.2 %; Immature Granulocytes Absolute 0.01 #; Lymphocytes # 1.6 10*3/uL (1.4-4.0); Lymphocytes % 27.1 % (21.3-54.2); Mean Corpuscular HGB Conc 31.4 GM/DL (32-36); Mean Corpuscular Hemoglobin 29 PG (27-34); Mean Corpuscular Volume 91.7 FL (87-102); Mean Platelet Volume 9.8 FL (9.6-12.0); Monocytes # 0.4 10*3/uL (0.11-0.8); Monocytes % 6.6 % (1.7-12.7); Neutrophils # 3.7 10*3/uL (1.4-7.4); Neutrophils % 61.6 % (38.7-73.9); Platelet Count 215 T/CUMM (130-400); Red Blood Count 3.13 MC/CUMM (3.8-5.5); Red Cell Distribution Width 17.2 % (9.3-17.3)
[2016-07-24 06:09] LABS: Calcium 8.3 MG/DL (8.5-10.1); Potassium 4.6 MMOL/L (3.5-5.1)
--- NOTE | 2016-07-24 09:34 | Discharge Summary ---
<Michelle North - Last Filed: 07/24/16 10:18> Hospital Course - Hospital Course Hospital Course: Ms. Jalloh was admitted on 07/08 with acute on chronic systolic CHF, HIV and morbid obesity. She recently was discharged from swing bed 5 days prior to her admission, and doesn't feel that she is much better. Echo EF 35%. Dr. Pineda was consulted and saw on 07/09 for acute diastolic CHF. She was started on Lasix 40 mg IV BID, spironolactone 25 mg BID. She is also diabetic and has CKD 3. Dr. Zuly Lerner was admitted and saw on 07/09 for suspected sleep apnea. Her lasix had to be increased to 80 mg BID and metalzone 5 mg prior to that. She did undergo a breast ultrasound and has already had a bx that was benign. Dr. Ng felt that she could have her annual screening in December unless something changes. GI was consulted and Dr. Damon saw on 07/12 for her anemia. This is most likely consistent with anemia of chronic disease. She was taken to scope lab on 07/17 for EGD. No source of anemia was found. On , She was taken to scope lab for C scope that showed polyps x 2 that were suspected to be benign. It was recommended that a small bowel series be done to complete LINDA work up. She has improved and her labs are stable. She will be discharged home today on appropriate medications and follow up. - Time spent with patient Time with patient DS: Greater than 30 minutes (due to plan, doc and med rec.) Diagnosis - Discharge Diagnosis (1) Acute systolic CHF (congestive heart failure) Status: Acute (2) Essential hypertension Status: Chronic (3) HIV (human immunodeficiency virus infection) Status: Chronic (4) Insulin dependent diabetes mellitus Status: Chronic (5) Morbid obesity Status: Chronic (6) Sleep apnea Status: Chronic Discharge Plan - Discharge Data Disposition: Home Health Service - Discharge Medications New Furosemide Tab [Lasix Tab] 60 mg PO BID DIURETIC #90 tablet Pantoprazole Tab [Protonix Tab] 40 mg PO BID #60 tablet Continue lamiVUDine TAB [Epivir Tab] 300 mg PO DAILY Efavirenz [Sustiva] 600 mg PO BEDTIME Carvedilol [Coreg] 25 mg PO BID W/MEALS Apixaban [Eliquis] 5 mg PO BID Glimepiride [Amaryl] 8 mg PO BID W/MEALS Gabapentin Cap/Tab [Neurontin Cap/Tab] 300 mg PO TID Albuterol Sulfate [Ventolin HFA] 2 puff INH Q4H PRN #1 inhaler PRN Reason: Shortness Of Breath/Wheezing Tenofovir Disoproxil Fumarate [Viread] 300 mg PO DAILY W/BREAKFAST Cyclobenzaprine [Flexeril] 10 mg PO TID PRN PRN Reason: Pain Sertraline [Zoloft] 50 mg PO DAILY Multivitamin (Intrinsic) [Trinsicon] 1 capsule PO BID Isosorb Dinit/Hydralazine HCl [Bidil Tablet] 1 tablet PO TID NIFEdipine XL TAB [Procardia Xl] 30 mg PO BID #60 tablet Spironolactone [Aldactone] 25 mg PO BID #60 tablet Lactulose Liquid [Chronulac] 20 gm PO Q4H PRN #0 udcup PRN Reason: Constipation Allopurinol [Zyloprim] 100 mg PO DAILY Discontinued HYDROcodone/ACETAMIN 10-325 [[place] 10-325] 1 tablet PO QID PRN PRN Reason: Pain Acetaminophen Tab [Tylenol Tab] 325 mg PO Q4H PRN #0 tablet PRN Reason: fever, headache/body aches Furosemide [Furosemide] 40 mg PO BID Insulin Aspart Prot/Asp 70/30 [NovoLOG Mix 70/30] 50 unit SUBCUT QAM Insulin Aspart Prot/Asp 70/30 [NovoLOG Mix 70/30] 45 unit SUBCUT QPM Aspirin [Ecotrin] 81 mg PO DAILY - Follow Up or Referral Follow Up: Paula Trujillo MD [Primary Care Provider] - Zuly Lerner MD [Physician] - 1 Week - Forms/Instructions Exam - Constitutional Vitals: Period Temp Pulse Resp BP Sys/[place]ne Pulse Ox Last 24 Hr 96.1 F-98.0 F 16-79 16-20 133-179/64-95 90-100 Discharge Results Procedures and tests throughout hospitalization: Pending Orders 07/11/16 17:15 Occult Blood, Stool Routine 07/20/16 12:53 Urine Protein Creatinine Ratio Routine Labs on day of discharge: Labs from last 24 hours 07/24/16 07/24/16 07/24/16 07:25 05:20 05:20 WBC 6.0 RBC 3.13 L Hgb 9.0 L Hct 28.7 L MCV 91.7 MCH 29 MCHC 31.4 L RDW 17.2 Plt Count 215 MPV 9.8 Neut % (Auto) 61.6 Lymph % (Auto) 27.1 Elk % (Auto) 6.6 Eos % (Auto) 4.0 Baso % (Auto) 0.5 Neut # (Auto) 3.7 Lymph # (Auto) 1.6 Elk # (Auto) 0.4 Eos # (Auto) 0.2 Baso # (Auto) 0.0 Immature Gran % 0.2 Nucleated RBC % 0.0 Immature Gran # 0.01 Nucleated RBCs # 0.00 Sodium 143 Potassium 4.6 Chloride 104 Carbon Dioxide 31 Anion Gap 12.6 BUN 26 H Creatinine 1.80 H GFR Calculation 64 BUN/Creatinine Ratio 14.00 Glucose 126 H POC Glucose 119 H Calculated Osmolality 291.0 Calcium 8.3 L DS: Provider Date of admission: 07/09/16 00:04 Primary care physician: Paula Trujillo MD Attending physician on admission: Terrell Monreal M.D. Consults: 07/09/16 01:35 Consult to Pharmacy [CONS] Routine Reason for Pharmacy Consult: Adjust Meds Renal Funct 07/09/16 15:10 Consult to Sleep Center [CONS] Routine Reason for Sleep Center: Sleep Center Physician 07/10/16 10:04 Consult to Physician [CONS] Routine Comment: left breast- pt known to you Consulting Provider: Timothy Ng Consult to Specialist Group: Surgery Person Notified: YAHAIRA Date Notified: 07/10/16 Time Notified: 10:15 07/11/16 11:56 Consult to Physician [CONS] Routine Comment: drop h/h Consulting Provider: Tolu Damon Consulting Provider Notified: No When should Consulting Provider be notified: Now Consult to Specialist Group: Gastroenterology Consult Notification Comment: TEXTED TO CR CONSULT AT 0800 07/15/16 10:17 Consult to Physical Therapy [CONS] Routine Reason for Physical Therapy: Evaluate and Treat 07/16/16 09:49 Consult to Case Mgmt/Social Srvs [CONS] Routine Reason for Case Mgmt/Social Srvs: Swingbed/SNF/Custodial Consult Comment: please evaluate for swing bed versus home Consult to Physical Therapy [CONS] Routine Reason for Physical Therapy: Evaluate and Treat 07/24/16 09:39 Consult to Physician [CONS] Routine Comment: pt known to you Consulting Provider: Cecy Cordoba Consult to Specialist Group: Pain Management Person Notified: SPOKE WITH DR. CORDOBA Date Notified: 07/24/16 Time Notified: 09:50 Discharging clinician: Michelle North NP Expected date of discharge: 07/24/16 <Bibiana Landaverde - Last Filed: 07/24/16 12:56> Hospital Course - Hospital Course Hospital Course: History of PE two years ago and on eliquis. will do VQ and venous dopplers if negative. I will stop the eliquis Follow up with Dr Trujillo and Dr Lerner. Discharge Plan - Discharge Data Condition at Discharge: Stable Discharge Diet: diabetic diet Activity: resume usual activities as tolerated, wear oxygen at all times Hygiene: no restrictions Weight Bearing at Discharge: full weight bearing Exam - Constitutional General appearance: no acute distress, morbidly obese - Respiratory Respiratory exam: Present: clear to auscultation bilaterally. Absent: rhonchi, wheezes - Cardiovascular Cardiovascular exam: Present: regular rate and rhythm. Absent: systolic murmur - GI/Abdominal GI/Abdominal exam: Present: normal bowel sounds, soft. Absent: tenderness
[2016-07-24] MEDS: PANTOPRAZOLE 40 MG VIAL IV SCH (09:51)
[2016-07-24] MEDS: CAPTOPRIL 6.25 MG TABLET PO SCH ×2 (09:51→14:57)
[2016-07-24] MEDS: ISOSORBIDE DINITRATE 20 MG TABLET PO SCH ×2 (09:51→14:57)
[2016-07-24] MEDS: MULTIVITAMIN (CENTRUM) TABLET PO SCH (09:51)
[2016-07-24] MEDS: CYCLOBENZAPRINE 10 MG TABLET PO PRN ×2 (09:52→17:03)
[2016-07-24] MEDS: GABAPENTIN 300 MG CAPSULE PO SCH ×2 (09:52→14:57)
[2016-07-24] MEDS: SERTRALINE 50 MG TABLET PO SCH (09:52)
[2016-07-24] MEDS: GLIMEPIRIDE 4 MG TABLET PO SCH ×2 (09:52→17:00)
[2016-07-24] MEDS: SPIRONOLACTONE 25 MG TABLET PO SCH (09:52)
[2016-07-24] MEDS: FUROSEMIDE 40 MG TABLET PO SCH (09:53)
[2016-07-24] MEDS: CARVEDILOL 25 MG TABLET PO SCH ×2 (09:53→17:00)
[2016-07-24] MEDS: LAMIVUDINE 300 MG PO SCH (09:53)
[2016-07-24] MEDS: TENOFOVIR 300 MG PO SCH (09:53)
[2016-07-24 12:28] VITALS: BP 179/95
--- NOTE | 2016-07-24 13:44 | Ultrasound Report ---
Exam: US venous doppler LE BI Indication: Shortness of breath, DVT Comparison 01/03/2015 Date: 07/24/2016 12:45 PM Findings: Grayscale color flow duplex/Doppler imaging and spectral analysis waveform imaging was performed with real-time ultrasound with image stored and captured. The right common femoral, superficial femoral, popliteal saphenous veins are patent with normal augmentation and compression. There is no evidence of popliteal or Walls's cyst. Normal wave form analysis present. Normal color flow The left common femoral, superficial femoral, popliteal saphenous veins are patent with normal augmentation and compression. There is no evidence of popliteal or Walls's cyst. Normal wave form analysis present. Normal color flow Impression: 1. No DVT PROCEDURE INTERPRETED AT [facility] DEPARTMENT OF RADIOLOGY Final Report Signed by: Dr. Andreas Causey
--- NOTE | 2016-07-24 14:29 | Nuclear Medicine Report ---
Exam: Lung scan ventilation/perfusion Date: July 24, 2016 Comparison: Chest one view July 08, 2016, nuclear medicine lung scan March 12, 2015 Reason: Left lung clot still there, history of pulmonary embolism Technique: 40 mCi of technetium 99m DTPA aerosolized was administered as well as 5 mCi of technetium 99m MAA IV. Ventilation and perfusion images of both lungs were acquired. Findings: There are again small matched ventilation/perfusion defects at both lungs and defects related to cardiomegaly. However, no moderate or large mismatched perfusion defects are identified at either lung. There is mild central accumulation of radiotracer, which can be seen in COPD. Impression: There is a history of left lung clot. However, findings are most suggestive of low probability for pulmonary embolism. PROCEDURE INTERPRETED AT [facility] DEPARTMENT OF RADIOLOGY Final Report Signed by: Dr. Duke Garcia
[2016-07-24] MEDS: ENOXAPARIN 40 MG/0.4 ML SYRINGE SUBCUT SCH (14:57)
[2016-07-24] MEDS: DESITIN 4OZ/NYSTATIN 15 GRAM MIXTURE PASTE TOP SCH (14:57)
--- NOTE | 2016-07-24 16:01 | Pain Management Consult Note ---
Assessment and Plan (1) chronic pain Status: Acute Current Visit: No (2) Asthma with exacerbation Status: Acute Assessment and plan: will refill norco and cyclobenzaprine and follow up in pain clinic in one month Current Visit: No History of Present Illness Chief complaint: low back pain History of present illness: Ms. Jalloh is a 50 year old female Patient is well-known to me and sees me for chronic pain syndrome and has been treated with Antonito and cyclobenzaprine. Patient missed her last appointment and pain clinic due to recent admission due to congestive heart failure exacerbation. Patient is now being discharged to home today and requires her prescriptions to be refilled today before discharge Home Medications Medication Instructions Recorded Confirmed Type Apixaban [Eliquis] 5 mg PO BID 01/03/15 07/09/16 History Carvedilol [Coreg] 25 mg PO BID W/MEALS 01/03/15 07/09/16 History Efavirenz [Sustiva] 600 mg PO BEDTIME 01/03/15 07/09/16 History Gabapentin Cap/Tab [Neurontin 300 mg PO TID 01/03/15 07/09/16 History Cap/Tab] Glimepiride [Amaryl] 8 mg PO BID W/MEALS 01/03/15 07/09/16 History lamiVUDine TAB [Epivir Tab] 300 mg PO DAILY 01/03/15 07/09/16 History Albuterol Sulfate [Ventolin HFA] 2 puff INH Q4H PRN #1 inhaler 01/06/15 Rx Cyclobenzaprine [Flexeril] 10 mg PO TID PRN 04/27/15 07/09/16 History Tenofovir Disoproxil Fumarate 300 mg PO DAILY W/BREAKFAST 04/27/15 07/09/16 History [Viread] Isosorb Dinit/Hydralazine HCl 1 tablet PO TID 05/31/16 07/09/16 History [Bidil Tablet] NIFEdipine XL TAB [Procardia Xl] 30 mg PO BID #60 tablet 06/07/16 07/09/16 Rx Spironolactone [Aldactone] 25 mg PO BID #60 tablet 06/07/16 07/09/16 Rx Lactulose Liquid [Chronulac] 20 gm PO Q4H PRN #0 udcup 06/20/16 07/09/16 Rx Multivitamin (Intrinsic) 1 capsule PO BID 07/08/16 07/09/16 History [Trinsicon] Sertraline [Zoloft] 50 mg PO DAILY 07/08/16 07/09/16 History Allopurinol [Zyloprim] 100 mg PO DAILY 07/09/16 07/09/16 History Furosemide Tab [Lasix Tab] 60 mg PO BID DIURETIC #90 tablet 07/24/16 Rx Pantoprazole Tab [Protonix Tab] 40 mg PO BID #60 tablet 07/24/16 Rx Allergies Allergy/AdvReac Type Severity Reaction Status Date / Time daptomycin Allergy Unknown RASH Verified 06/18/16 19:41 Medical,Surgical,& Family Hx - Medical History Cardio: History of: Congenital Heart Disease, CHF, Hypertension No history of: Pacemaker, PVD, Valvular Heart Disease, Cardiovascular Problems Psychological: History of: Depression No history of: Anxiety Disorders, ADHD, Behavior Problems, Bipolar Disorder, Previous Suicide Attempt, Psychiatric/Substance Abuse Tx, Schizophrenia, Violent Behavior, Psychiatric Problems Neurology: History of: Peripheral Neuropathy No history of: Brain Aneurysm, Cerebral Hemorrhage, Cerebrovascular Accident , Cerebral Palsy, Dementia, Migraine, Multiple Sclerosis, Parkinson's Disease, Seizures, TIA, Vertigo, Neurologocal Cancer Endocrine: History of: Diabetes Mellitus (IDDM), Diabetes Mellitus (NIDDM), Dyslipidemia No history of: Thyroid Disorder, Endocrine Cancer, Endocrine Problems Rheumatology: History of;: Rheumatoid Arthritis No history of;: Psoriasis, Sjogrens, Systemic Lupus Erythematosus Respiratory: History of: Bronchitis, COPD, Obstructive Sleep Apnea, Pulmonary Embolism, Pneumonia, Respiratory Problems No history of: Intubation, Lung Cancer Renal: History of: Renal Failure No history of: Renal (Kidney) Cancer, Dialysis, Renal Problems Genitourinary: History of: Bladder Problem No history of: Kidney Stones, Recurring Urinary Tract Infections, Genitourinary Cancer, Problems Gastrointestinal: History of: GERD No history of: Crohn's Disease, Diverticulitis/ Diverticulosis, Esophageal Varices, Gastrointestinal Bleed, Liver Problems, Pancreatitis, Polyps, Gastrointestinal Cancer, GI Problems Musculoskeletal: History of: Back/Neck Problems, Osteoporosis No history of: Amputation Hematology: No history of: Anemia, Blood Transfusion Reaction (blood transfusions but no reactions), Bleeding Problems, Clotting Problems, Sickle Cell Disease, Hematologic Cancer, Blood Disorders Reproductive: History of: Sexually Transmitted Disorders (HIV Pos.) Other: No history of: Anesthesia Reactions, Anaphylaxis, Cancer, Eczema, HIV, Malignant Hyperthermia, MRSA, Vancomycin-Resistant Enterococci, Skin Problems, Miscellaneous Medical Problems - Surgical History Cardiac Surgeries: Patient Denies: Femoral-Popliteal Bypass Graft, Cardiac Catheterization, Cardiac Surgery, Carotid Endarterectomy, Internal Defibrillator, Vascular Access Devices Thoracic Surgeries: Patient denies;: Kidney (Renal Surgery), Lithotripsy, Nephrectomy, Organ Transplant, Lobectomy Neurologic Surgeries: Patient denies: Brain Aneurysm, Cerebral Hemorrhage, Neurologic Surgery HEENT Surgeries: Patient denies: Carotid Endarterectomy, Thyroid Surgery Abdominal Surgeries: Surgical HX of: Abdominal Surgery Patient denies: Appendectomy, Cholecystectomy, Colonoscopy, Gastric Bypass Surgery, EGD, Hernia Repair, Splenectomy Reproductive Surgeries: Surgical HX of;: Breast Surgery (multiple abcesses), Section Patient denies;: Cystoscopy, Dilation and Curettage, Genitourinary Surgery, Gynecologic Surgery, Hysterectomy, Tubal Ligation Orthopedic Surgeries: Patient denies;: Implanted Devices, Orthopedic Surgery, Spinal Surgery, Total Hip Replacement, Total Knee Replacement - Family History Family History: Reports;: Family Diabetes (MOTHER), Family Hypertension Denies;: Family Anesthesia Reaction, Family Psychiatric Problems, Family Stroke - Social History Smoking Status: Unknown if ever smoked Frequency of Alcohol Use: None Type of Drug Use: None Marital Status: Unknown Lives With:: Children Functional capacity: uses cane/walker 12 point system: reviewed and no additional remarkable complaints except as stated Exam - Constitutional Vitals: Period Temp Pulse Resp BP Sys/[place] Pulse Ox Last 24 Hr 96.1 F-97.8 F 16-78 16-20 133-179/64-95 90-100 General appearance: no acute distress - Head Head exam: Present: normal inspection - Eye Eye exam: Present: EOMI Pupils: Present: JARAD - ENT ENT exam: Present: normal exam Ear exam: Present: intact Mouth exam: Present: normal external inspection - Neck Neck exam: Present: normal inspection - Respiratory Respiratory exam: Present: clear to auscultation bilaterally - Cardiovascular Cardiovascular exam: Present: RRR - GI/Abdominal GI/Abdominal exam: Present: normal bowel sounds - Extremities Exam Extremities exam: Present: normal inspection - Back Exam Back exam: Present: vertebral tenderness - Neurological Exam Neurological exam: Present: alert, oriented X3 Speech: Present: abnormal - Skin Skin exam: Present: normal color Results - Labs CBC & BMP: 07/24/16 05:20 07/24/16 05:20 Lab Results: I have reviewed the past 24 hour labs Specialty Discharge - Follow Up or Referrals Follow up with: Zuly Lerner MD [Physician] - 1 Week Paula Trujillo MD [Primary Care Provider] -
--- NOTE | 2016-07-24 18:43 | XRay Report ---
Referring Physician: Destinee Esquivel MD Exam: XR chest post lung scan Date: July 24, 2016 at 6:03 PM Reason: Left lung clot Comparison: Chest one view portable July 08, 2016 Findings: The cardiac silhouette is again enlarged. The interstitial markings are prominent bilaterally, and there are hazy opacities at both lung bases. This is concerning for pulmonary edema. Pneumonia is not excluded but is felt less likely. No pneumothorax is identified, but there may be minimal left pleural fluid. No acute osseous process is seen. Impression: 1. Cardiomegaly. 2. Findings are concerning for pulmonary edema. This is similar to before. PROCEDURE INTERPRETED AT [facility] DEPARTMENT OF RADIOLOGY Final Report Signed by: Dr. Duke Garcia
== END 2016-07-24 18:27 | disposition home health service (06) | DRG 194 ==
LOC: EDBD → EDUNIT# → N.ED 17:48 → N.EDINP 07-09 00:03 → SUATTDRO 07-09 00:04 → N.TELES 07-09 01:25
PROVIDERS: ADMIT Internal Medicine; ATTEND Internal Medicine

== ENCOUNTER 2017-05-30 12:29 | Inpatient (IN) ==
[2017-05-30 13:34] LABS: Basophils # 0.1 10*3/uL (0.0-0.2); Basophils % 0.9 % (0.0-0.8); Eosinophils # 0.4 10*3/uL (0.0-0.87); Eosinophils % 6.7 % (0.00-10.9); Hematocrit 30.6 VOL% (35.7-47.0); Hemoglobin 9.6 GM/DL (12.0-16.0); Immature Granulocytes % 0.2 %; Immature Granulocytes Absolute 0.01 #; Lymphocytes # 1.8 10*3/uL (1.4-4.0); Lymphocytes % 30.9 % (21.3-54.2); Mean Corpuscular HGB Conc 31.4 GM/DL (32-36); Mean Corpuscular Hemoglobin 32 PG (27-34); Mean Corpuscular Volume 102.7 FL (87-102); Mean Platelet Volume 10.3 FL (9.6-12.0); Monocytes # 0.4 10*3/uL (0.11-0.8); Monocytes % 6.9 % (1.7-12.7); Neutrophils # 3.2 10*3/uL (1.4-7.4); Neutrophils % 54.4 % (38.7-73.9); Platelet Count 188 T/CUMM (130-400); Red Blood Count 2.98 MC/CUMM (3.8-5.5); Red Cell Distribution Width 14.2 % (9.3-17.3); White Blood Count 5.8 T/CUMM (4-12)
[2017-05-30 13:40] LABS: PT Patient Result 10.9 SECS
[2017-05-30 13:47] LABS: Alanine Aminotransferase 24 U/L (13-56); Albumin 3.3 G/DL (3.4-5.0); Alkaline Phosphatase 137 U/L (45-117); Aspartate Amino Transferase 21 U/L (0-37); Blood Urea Nitrogen 71 MG/DL (7-18); Calcium 8.6 MG/DL (8.5-10.1); Glucose 79 MG/DL (74-106); Osmolality,Calculated 298.4 MOS/KG (273-304); Potassium 4.9 MMOL/L (3.5-5.1); Sodium 140 MMOL/L (136-145); Total Protein 7.4 G/DL (6.4-8.3); Troponin I Only < 0.015 NG/ML (0.00-0.045)
[2017-05-30] MEDS ORDERED: ASPIRIN 325 MG TABLET PO STA (14:31)
[2017-05-30] MEDS ORDERED: ASPIRIN 325 MG TABLET ONE (16:49)
[2017-05-30] MEDS ORDERED: ONDANSETRON 4 MG/2 ML VIAL IV PRN (18:58)
[2017-05-30] MEDS ORDERED: DEXTROSE 50% 25 GM/50 ML VIAL IV PRN (19:02)
[2017-05-30] MEDS ORDERED: GLUCAGON 1 MG VIAL IM PRN (19:02)
[2017-05-30] MEDS ORDERED: OSELTAMIVIR 75 MG CAPSULE PO SCH (21:00)
[2017-05-30] MEDS: LEVOFLOXACIN INJ 750 MG in PREMIX 1 EACH IV SCH (22:45)
[2017-05-30] MEDS: ENOXAPARIN 40 MG/0.4 ML SYRINGE SUBCUT SCH (22:46)
[2017-05-30] MEDS: INSULIN LISPRO 100 UNIT/ML SUBCUT SCH (22:46)
[2017-05-30] MEDS: OSELTAMIVIR 30 MG CAPSULE PO SCH (22:46)
[2017-05-31] MEDS: ALBUTEROL/IPRATROPIUM 3 ML NEB RESP TX SCH ×6 (00:21→20:35)
[2017-05-31 05:40] LABS: Basophils % 0.6 % (0.0-0.8); Eosinophils # 0.4 10*3/uL (0.0-0.87); Eosinophils % 7.2 % (0.00-10.9); Hematocrit 27.8 VOL% (35.7-47.0); Hemoglobin 8.6 GM/DL (12.0-16.0); Immature Granulocytes % 0.4 %; Immature Granulocytes Absolute 0.02 #; Lymphocytes # 1.4 10*3/uL (1.4-4.0); Lymphocytes % 26.1 % (21.3-54.2); Mean Corpuscular HGB Conc 30.9 GM/DL (32-36); Mean Corpuscular Hemoglobin 32 PG (27-34); Mean Corpuscular Volume 102.2 FL (87-102); Mean Platelet Volume 10.5 FL (9.6-12.0); Monocytes # 0.4 10*3/uL (0.11-0.8); Monocytes % 6.8 % (1.7-12.7); Neutrophils # 3.1 10*3/uL (1.4-7.4); Neutrophils % 58.9 % (38.7-73.9); Platelet Count 173 T/CUMM (130-400); Red Blood Count 2.72 MC/CUMM (3.8-5.5); Red Cell Distribution Width 14.3 % (9.3-17.3); White Blood Count 5.3 T/CUMM (4-12)
[2017-05-31 06:23] LABS: Calcium 8.3 MG/DL (8.5-10.1); Magnesium 2.8 MG/DL (1.8-2.4); Osmolality,Calculated 304.1 MOS/KG (273-304); Potassium 5.2 MMOL/L (3.5-5.1)
[2017-05-31] MEDS: INSULIN LISPRO 100 UNIT/ML SUBCUT SCH ×4 (07:43→20:32)
[2017-05-31] MEDS: OSELTAMIVIR 30 MG CAPSULE PO SCH (09:21)
[2017-05-31] MEDS: FUROSEMIDE 40 MG/4 ML VIAL IV SCH (09:21)
[2017-05-31] MEDS ORDERED: LISINOPRIL/HCTZ 20-25 MG TABLET PO SCH (11:30)
[2017-05-31] MEDS: ASPIRIN EC 81 MG TABLET PO SCH (14:35)
[2017-05-31] MEDS: ISOSORBIDE DINITRATE 20 MG TABLET PO SCH ×2 (14:35→20:31)
[2017-05-31] MEDS: GABAPENTIN 300 MG CAPSULE PO SCH ×2 (14:35→20:31)
[2017-05-31] MEDS: hydrALAZINE 25 MG TABLET PO SCH ×2 (14:36→20:31)
[2017-05-31] MEDS: ACETAMINOPHEN 325 MG TABLET PO PRN (14:39)
[2017-05-31] MEDS: CARVEDILOL 25 MG TABLET PO SCH (17:34)
[2017-05-31] MEDS: LEVOFLOXACIN INJ 750 MG in PREMIX 1 EACH IV SCH (20:30)
[2017-05-31] MEDS: ENOXAPARIN 40 MG/0.4 ML SYRINGE SUBCUT SCH (20:32)
[2017-06-01] MEDS: ALBUTEROL/IPRATROPIUM 3 ML NEB RESP TX SCH ×7 (00:45→23:31)
[2017-06-01 06:26] LABS: Basophils % 0.5 % (0.0-0.8); Eosinophils # 0.4 10*3/uL (0.0-0.87); Hemoglobin 8.7 GM/DL (12.0-16.0); Immature Granulocytes % 0.4 %; Immature Granulocytes Absolute 0.02 #; Lymphocytes # 1.7 10*3/uL (1.4-4.0); Lymphocytes % 30.4 % (21.3-54.2); Mean Corpuscular HGB Conc 32.2 GM/DL (32-36); Mean Corpuscular Hemoglobin 33 PG (27-34); Mean Corpuscular Volume 100.7 FL (87-102); Mean Platelet Volume 10.8 FL (9.6-12.0); Monocytes # 0.3 10*3/uL (0.11-0.8); Monocytes % 5.7 % (1.7-12.7); Neutrophils # 3.1 10*3/uL (1.4-7.4); Platelet Count 173 T/CUMM (130-400); Red Blood Count 2.68 MC/CUMM (3.8-5.5); Red Cell Distribution Width 14.5 % (9.3-17.3); White Blood Count 5.6 T/CUMM (4-12)
[2017-06-01 07:01] LABS: Magnesium 2.7 MG/DL (1.8-2.4); Osmolality,Calculated 302.3 MOS/KG (273-304); Potassium 5.2 MMOL/L (3.5-5.1)
[2017-06-01] MEDS: INSULIN LISPRO 100 UNIT/ML SUBCUT SCH ×4 (08:50→21:16)
[2017-06-01] MEDS: ACETAMINOPHEN 325 MG TABLET PO PRN ×2 (08:53→21:14)
[2017-06-01] MEDS: ISOSORBIDE DINITRATE 20 MG TABLET PO SCH ×3 (08:55→21:06)
[2017-06-01] MEDS: hydrALAZINE 25 MG TABLET PO SCH ×3 (08:55→21:06)
[2017-06-01] MEDS: GABAPENTIN 300 MG CAPSULE PO SCH ×3 (08:55→21:06)
[2017-06-01] MEDS: CARVEDILOL 25 MG TABLET PO SCH ×2 (08:55→16:49)
[2017-06-01] MEDS: ASPIRIN EC 81 MG TABLET PO SCH (08:56)
[2017-06-01] MEDS: FUROSEMIDE 40 MG/4 ML VIAL IV SCH (08:57)
[2017-06-01] MEDS: ENOXAPARIN 40 MG/0.4 ML SYRINGE SUBCUT SCH (21:05)
[2017-06-01] MEDS: LEVOFLOXACIN INJ 750 MG in PREMIX 1 EACH IV SCH (21:08)
[2017-06-02] MEDS: ALBUTEROL/IPRATROPIUM 3 ML NEB RESP TX SCH ×5 (03:41→19:53)
[2017-06-02 06:18] LABS: Basophils % 0.3 % (0.0-0.8); Eosinophils # 0.4 10*3/uL (0.0-0.87); Eosinophils % 6.8 % (0.00-10.9); Hematocrit 27.7 VOL% (35.7-47.0); Hemoglobin 8.7 GM/DL (12.0-16.0); Immature Granulocytes % 0.3 %; Immature Granulocytes Absolute 0.02 #; Lymphocytes # 1.6 10*3/uL (1.4-4.0); Lymphocytes % 28.3 % (21.3-54.2); Mean Corpuscular HGB Conc 31.4 GM/DL (32-36); Mean Corpuscular Hemoglobin 32 PG (27-34); Mean Corpuscular Volume 101.1 FL (87-102); Mean Platelet Volume 9.9 FL (9.6-12.0); Monocytes # 0.4 10*3/uL (0.11-0.8); Monocytes % 6.3 % (1.7-12.7); Neutrophils # 3.3 10*3/uL (1.4-7.4); Platelet Count 166 T/CUMM (130-400); Red Blood Count 2.74 MC/CUMM (3.8-5.5); Red Cell Distribution Width 14.6 % (9.3-17.3); White Blood Count 5.8 T/CUMM (4-12)
[2017-06-02 06:46] LABS: Calcium 8.3 MG/DL (8.5-10.1); Magnesium 2.7 MG/DL (1.8-2.4); Osmolality,Calculated 302.1 MOS/KG (273-304); Potassium 5.4 MMOL/L (3.5-5.1)
[2017-06-02] MEDS: INSULIN LISPRO 100 UNIT/ML SUBCUT SCH ×4 (08:10→23:00)
[2017-06-02] MEDS: ISOSORBIDE DINITRATE 20 MG TABLET PO SCH ×3 (08:52→21:42)
[2017-06-02] MEDS: ASPIRIN EC 81 MG TABLET PO SCH (08:53)
[2017-06-02] MEDS: hydrALAZINE 25 MG TABLET PO SCH ×3 (08:53→21:42)
[2017-06-02] MEDS: GABAPENTIN 300 MG CAPSULE PO SCH ×3 (08:53→21:42)
[2017-06-02] MEDS: CARVEDILOL 25 MG TABLET PO SCH ×2 (08:54→17:28)
[2017-06-02] MEDS: ACETAMINOPHEN 325 MG TABLET PO PRN (11:11)
[2017-06-02] MEDS: LEVOFLOXACIN INJ 750 MG in PREMIX 1 EACH IV SCH (21:43)
[2017-06-02] MEDS: ENOXAPARIN 40 MG/0.4 ML SYRINGE SUBCUT SCH (21:44)
[2017-06-03] MEDS: ALBUTEROL/IPRATROPIUM 3 ML NEB RESP TX SCH ×4 (00:25→11:40)
[2017-06-03 05:13] LABS: Basophils % 0.5 % (0.0-0.8); Eosinophils # 0.4 10*3/uL (0.0-0.87); Eosinophils % 6.9 % (0.00-10.9); Hematocrit 28.6 VOL% (35.7-47.0); Hemoglobin 8.9 GM/DL (12.0-16.0); Immature Granulocytes % 0.2 %; Immature Granulocytes Absolute 0.01 #; Lymphocytes # 1.4 10*3/uL (1.4-4.0); Lymphocytes % 25.2 % (21.3-54.2); Mean Corpuscular HGB Conc 31.1 GM/DL (32-36); Mean Corpuscular Hemoglobin 32 PG (27-34); Mean Corpuscular Volume 101.4 FL (87-102); Mean Platelet Volume 10.3 FL (9.6-12.0); Monocytes # 0.4 10*3/uL (0.11-0.8); Monocytes % 6.8 % (1.7-12.7); Neutrophils # 3.3 10*3/uL (1.4-7.4); Neutrophils % 60.4 % (38.7-73.9); Platelet Count 182 T/CUMM (130-400); Red Blood Count 2.82 MC/CUMM (3.8-5.5); Red Cell Distribution Width 14.5 % (9.3-17.3); White Blood Count 5.5 T/CUMM (4-12)
[2017-06-03 05:49] LABS: Calcium 8.1 MG/DL (8.5-10.1); Magnesium 2.8 MG/DL (1.8-2.4); Osmolality,Calculated 301.3 MOS/KG (273-304); Potassium 5.6 MMOL/L (3.5-5.1)
[2017-06-03] MEDS: INSULIN LISPRO 100 UNIT/ML SUBCUT SCH ×2 (09:03→11:42)
[2017-06-03] MEDS: hydrALAZINE 25 MG TABLET PO SCH (09:08)
[2017-06-03] MEDS: CARVEDILOL 25 MG TABLET PO SCH (09:08)
[2017-06-03] MEDS: GABAPENTIN 300 MG CAPSULE PO SCH (09:09)
[2017-06-03] MEDS: ISOSORBIDE DINITRATE 20 MG TABLET PO SCH (09:09)
[2017-06-03] MEDS: ASPIRIN EC 81 MG TABLET PO SCH (09:09)
[2017-06-03 11:57] VITALS: BP 165/101
== END 2017-06-03 13:30 | disposition home or self-care (01) | DRG 113 ==
LOC: EDUNIT# → EDBD → N.ED 12:29 → N.EDINP 12:29 → SUATTDRO 17:21 → N.3E 20:03
PROVIDERS: ADMIT Internal Medicine; ATTEND Internal Medicine Infectious Disease

== ENCOUNTER 2017-09-07 11:39 | Inpatient (IN) ==
[2017-09-07] MEDS ORDERED: LORazepam 2 MG/1 ML VIAL IV STA (12:28)
[2017-09-07] MEDS ORDERED: LORazepam 2 MG/1 ML VIAL ONE (12:31)
[2017-09-07 12:41] LABS: Basophils % 0.7 % (0.0-0.8); Eosinophils # 0.3 10*3/uL (0.0-0.87); Eosinophils % 5.3 % (0.00-10.9); Hematocrit 30.3 VOL% (35.7-47.0); Hemoglobin 9.6 GM/DL (12.0-16.0); Immature Granulocytes % 0.2 %; Immature Granulocytes Absolute 0.01 #; Lymphocytes # 1.6 10*3/uL (1.4-4.0); Mean Corpuscular HGB Conc 31.7 GM/DL (32-36); Mean Corpuscular Hemoglobin 33 PG (27-34); Mean Corpuscular Volume 103.4 FL (87-102); Mean Platelet Volume 10.6 FL (9.6-12.0); Monocytes # 0.4 10*3/uL (0.11-0.8); Monocytes % 6.8 % (1.7-12.7); Neutrophils # 3.7 10*3/uL (1.4-7.4); Platelet Count 174 T/CUMM (130-400); Red Blood Count 2.93 MC/CUMM (3.8-5.5); Red Cell Distribution Width 15.3 % (9.3-17.3)
[2017-09-07 13:01] LABS: Blood Urea Nitrogen 97 MG/DL (7-18); Calcium 8.8 MG/DL (8.5-10.1); Glucose 170 MG/DL (74-106); Osmolality,Calculated 301.2 MOS/KG (273-304); Sodium 134 MMOL/L (136-145); Troponin I Only < 0.015 NG/ML (0.00-0.045)
[2017-09-07] MEDS ORDERED: INSULIN REGULAR 100 UNIT/ML IV STA (13:07)
[2017-09-07] MEDS ORDERED: INSULIN REGULAR 100 UNIT/ML ONE (13:56)
[2017-09-07] MEDS ORDERED: GLUCAGON 1 MG VIAL IM PRN (14:19)
[2017-09-07] MEDS ORDERED: DEXTROSE 50% 25 GM/50 ML VIAL IV PRN (14:19)
[2017-09-07] MEDS ORDERED: ONDANSETRON 4 MG/2 ML VIAL IV PRN (14:19)
[2017-09-07] MEDS ORDERED: ACETAMINOPHEN 325 MG TABLET PO PRN (14:19)
[2017-09-07] MEDS: INSULIN LISPRO 100 UNIT/ML SUBCUT SCH ×2 (16:49→21:21)
[2017-09-07] MEDS: GLIMEPIRIDE 4 MG TABLET PO SCH (17:00)
[2017-09-07] MEDS: CARVEDILOL 25 MG TABLET PO SCH (17:00)
[2017-09-07 17:28] LABS: Calcium 8.4 MG/DL (8.5-10.1); Potassium 5.8 MMOL/L (3.5-5.1)
[2017-09-07] MEDS: ALUMINUM/MAGNES/SIMETH MAX STR 30 ML UDCUP PO PRN (18:45)
[2017-09-07] MEDS ORDERED: EFAVIRENZ 600 MG PO SCH (21:00)
[2017-09-07] MEDS: hydrALAZINE 25 MG TABLET PO SCH (21:21)
[2017-09-07] MEDS: ISOSORBIDE DINITRATE 20 MG TABLET PO SCH (21:21)
[2017-09-07] MEDS: FUROSEMIDE 40 MG TABLET PO SCH (21:21)
[2017-09-07] MEDS: GABAPENTIN 300 MG CAPSULE PO SCH (21:21)
[2017-09-08 04:14] LABS: Basophils % 0.7 % (0.0-0.8); Eosinophils # 0.3 10*3/uL (0.0-0.87); Eosinophils % 4.8 % (0.00-10.9); Hematocrit 26.9 VOL% (35.7-47.0); Hemoglobin 8.5 GM/DL (12.0-16.0); Immature Granulocytes % 0.3 %; Immature Granulocytes Absolute 0.02 #; Lymphocytes # 1.7 10*3/uL (1.4-4.0); Lymphocytes % 28.8 % (21.3-54.2); Mean Corpuscular HGB Conc 31.6 GM/DL (32-36); Mean Corpuscular Hemoglobin 32 PG (27-34); Mean Corpuscular Volume 102.7 FL (87-102); Mean Platelet Volume 10.4 FL (9.6-12.0); Monocytes # 0.4 10*3/uL (0.11-0.8); Monocytes % 6.3 % (1.7-12.7); Neutrophils # 3.5 10*3/uL (1.4-7.4); Neutrophils % 59.1 % (38.7-73.9); Platelet Count 179 T/CUMM (130-400); Red Blood Count 2.62 MC/CUMM (3.8-5.5); White Blood Count 5.9 T/CUMM (4-12)
[2017-09-08 04:52] LABS: Folate 8.7 NG/ML (5.4-24.0)
[2017-09-08 04:54] LABS: Blood Urea Nitrogen 99 MG/DL (7-18); Calcium 8.1 MG/DL (8.5-10.1); Glucose 130 MG/DL (74-106); Osmolality,Calculated 305.8 MOS/KG (273-304); Sodium 137 MMOL/L (136-145); Troponin I Only < 0.015 NG/ML (0.00-0.045)
[2017-09-08 05:06] LABS: Potassium 6.2 MMOL/L (3.5-5.1)
[2017-09-08] MEDS ORDERED: SODIUM POLYSTYRENE SULFATE 15 GM/60 ML BOTTLE PO STA (06:27)
[2017-09-08] MEDS ORDERED: SODIUM POLYSTYRENE SULFATE 15 GM/60 ML BOTTLE PO ONE ×2 (07:32→14:00)
[2017-09-08] MEDS ORDERED: MELOXICAM 7.5 MG TABLET PO SCH (08:00)
[2017-09-08] MEDS ORDERED: Tenofovir Disoproxil Fumarate [Viread] 300 MG PO SCH (08:00)
[2017-09-08] MEDS: INSULIN LISPRO 100 UNIT/ML SUBCUT SCH ×4 (08:10→22:02)
[2017-09-08] MEDS: ASPIRIN EC 81 MG TABLET PO SCH (08:12)
[2017-09-08] MEDS: hydrALAZINE 25 MG TABLET PO SCH ×3 (08:12→22:01)
[2017-09-08] MEDS: GLIMEPIRIDE 4 MG TABLET PO SCH ×2 (08:13→17:23)
[2017-09-08] MEDS: ISOSORBIDE DINITRATE 20 MG TABLET PO SCH ×3 (08:13→22:01)
[2017-09-08] MEDS: CARVEDILOL 25 MG TABLET PO SCH ×2 (08:13→17:24)
[2017-09-08] MEDS: SERTRALINE 50 MG TABLET PO SCH (08:13)
[2017-09-08] MEDS: GABAPENTIN 300 MG CAPSULE PO SCH ×3 (08:13→22:02)
[2017-09-08] MEDS: FUROSEMIDE 40 MG TABLET PO SCH ×2 (08:13→22:01)
[2017-09-08] MEDS ORDERED: LAMIVUDINE 300 MG PO SCH (09:00)
[2017-09-08] MEDS ORDERED: LISINOPRIL/HCTZ 20-25 MG TABLET PO SCH (09:00)
[2017-09-08 13:01] LABS: Calcium 7.9 MG/DL (8.5-10.1); Osmolality,Calculated 304.8 MOS/KG (273-304); Potassium 5.7 MMOL/L (3.5-5.1)
[2017-09-09 04:36] LABS: Basophils # 0.1 10*3/uL (0.0-0.2); Eosinophils # 0.4 10*3/uL (0.0-0.87); Eosinophils % 5.8 % (0.00-10.9); Hematocrit 26.2 VOL% (35.7-47.0); Hemoglobin 8.2 GM/DL (12.0-16.0); Immature Granulocytes % 0.3 %; Immature Granulocytes Absolute 0.02 #; Lymphocytes # 1.9 10*3/uL (1.4-4.0); Lymphocytes % 31.3 % (21.3-54.2); Mean Corpuscular HGB Conc 31.3 GM/DL (32-36); Mean Corpuscular Hemoglobin 33 PG (27-34); Mean Corpuscular Volume 104.4 FL (87-102); Mean Platelet Volume 10.4 FL (9.6-12.0); Monocytes # 0.4 10*3/uL (0.11-0.8); Monocytes % 7.2 % (1.7-12.7); Neutrophils # 3.3 10*3/uL (1.4-7.4); Neutrophils % 54.4 % (38.7-73.9); Platelet Count 170 T/CUMM (130-400); Red Blood Count 2.51 MC/CUMM (3.8-5.5)
[2017-09-09 04:54] LABS: Calcium 7.6 MG/DL (8.5-10.1); Osmolality,Calculated 308.5 MOS/KG (273-304); Potassium 5.6 MMOL/L (3.5-5.1)
[2017-09-09 06:12] LABS: % Iron Saturation 19.8 % (18-50)
[2017-09-09] MEDS ORDERED: SODIUM POLYSTYRENE SULFATE 15 GM/60 ML BOTTLE PO ONE (08:49)
[2017-09-09] MEDS: GABAPENTIN 300 MG CAPSULE PO SCH ×3 (09:56→22:25)
[2017-09-09] MEDS: ASPIRIN EC 81 MG TABLET PO SCH (09:57)
[2017-09-09] MEDS: FUROSEMIDE 40 MG TABLET PO SCH ×2 (09:57→22:26)
[2017-09-09] MEDS: hydrALAZINE 25 MG TABLET PO SCH ×3 (09:57→22:25)
[2017-09-09] MEDS: GLIMEPIRIDE 4 MG TABLET PO SCH ×2 (09:57→17:21)
[2017-09-09] MEDS: ISOSORBIDE DINITRATE 20 MG TABLET PO SCH ×3 (09:57→22:25)
[2017-09-09] MEDS: CARVEDILOL 25 MG TABLET PO SCH ×2 (09:57→17:21)
[2017-09-09] MEDS: SERTRALINE 50 MG TABLET PO SCH (09:57)
[2017-09-09] MEDS: INSULIN LISPRO 100 UNIT/ML SUBCUT SCH ×4 (11:25→22:26)
[2017-09-09] MEDS: ALUMINUM/MAGNES/SIMETH MAX STR 30 ML UDCUP PO PRN (22:25)
[2017-09-10] MEDS: ALUMINUM/MAGNES/SIMETH MAX STR 30 ML UDCUP PO PRN (06:18)
[2017-09-10 07:02] LABS: Calcium 7.6 MG/DL (8.5-10.1); Osmolality,Calculated 303.7 MOS/KG (273-304); Potassium 5.4 MMOL/L (3.5-5.1)
[2017-09-10 07:28] VITALS: BP 160/102
[2017-09-10] MEDS: GABAPENTIN 300 MG CAPSULE PO SCH (08:52)
[2017-09-10] MEDS: GLIMEPIRIDE 4 MG TABLET PO SCH (08:52)
[2017-09-10] MEDS: INSULIN LISPRO 100 UNIT/ML SUBCUT SCH (08:52)
[2017-09-10] MEDS: ASPIRIN EC 81 MG TABLET PO SCH (08:53)
[2017-09-10] MEDS: ISOSORBIDE DINITRATE 20 MG TABLET PO SCH (08:53)
[2017-09-10] MEDS: hydrALAZINE 25 MG TABLET PO SCH (08:53)
[2017-09-10] MEDS: FUROSEMIDE 40 MG TABLET PO SCH (08:54)
[2017-09-10] MEDS: SERTRALINE 50 MG TABLET PO SCH (08:54)
[2017-09-10] MEDS: CARVEDILOL 25 MG TABLET PO SCH (08:54)
[2017-09-10] MEDS ORDERED: ZINC OXIDE PASTE 113 GM TUBE TOP PRN (10:45)
== END 2017-09-10 11:22 | disposition home or self-care (01) | DRG 425 ==
LOC: EDUNIT# → EDBD → N.ED 11:39 → N.EDINP 11:39 → SUATTDRO 13:29 → N.TELES 14:35 → N.5E 09-09 17:13
PROVIDERS: ADMIT Internal Medicine; ATTEND Family Medicine

== ENCOUNTER 2017-12-04 20:44 | Inpatient (IN) ==
[2017-12-15 16:51] VITALS: BP 153/76
== END 2017-12-15 18:35 | disposition home or self-care (01) | DRG 194 ==
LOC: EDBD → EDUNIT# → N.ED 20:44 → N.EDINP 12-05 02:02 → SUATTDRO 12-05 02:02 → N.5E 12-05 03:06
PROVIDERS: ADMIT Internal Medicine Infectious Disease; ATTEND Internal Medicine

== ENCOUNTER 2018-05-12 16:47 | Inpatient (IN) ==
[2018-05-12] MEDS ORDERED: ALBUTEROL 2.5 MG/3 ML NEB RESP TX STA (17:03)
[2018-05-12 17:34] LABS: Basophils % 0.6 % (0.0-0.8); Eosinophils # 0.4 10*3/uL (0.0-0.87); Eosinophils % 5.1 % (0.00-10.9); Hematocrit 30.2 VOL% (35.7-47.0); Immature Granulocytes % 0.4 %; Immature Granulocytes Absolute 0.03 #; Lymphocytes # 1.4 10*3/uL (1.4-4.0); Mean Corpuscular HGB Conc 29.8 GM/DL (32-36); Mean Corpuscular Hemoglobin 30 PG (27-34); Mean Corpuscular Volume 99.7 FL (87-102); Mean Platelet Volume 10.6 FL (9.6-12.0); Monocytes # 0.5 10*3/uL (0.11-0.8); Monocytes % 6.9 % (1.7-12.7); Neutrophils # 4.9 10*3/uL (1.4-7.4); Platelet Count 192 T/CUMM (130-400); Red Blood Count 3.03 MC/CUMM (3.8-5.5); Red Cell Distribution Width 16.9 % (9.3-17.3); White Blood Count 7.1 T/CUMM (4-12)
[2018-05-12 17:52] LABS: Alanine Aminotransferase 35 U/L (13-56); Albumin 3.2 G/DL (3.4-5.0); Alkaline Phosphatase 224 U/L (45-117); Aspartate Amino Transferase 20 U/L (0-37); Bilirubin,Total < 0.39 MG/DL (0.2-1.0); Blood Urea Nitrogen 67 MG/DL (7-18); Glucose 200 MG/DL (74-106); Osmolality,Calculated 301.5 MOS/KG (273-304); Potassium 5.1 MMOL/L (3.5-5.1); Sodium 139 MMOL/L (136-145); Total Protein 7.5 G/DL (6.4-8.3)
[2018-05-12 18:26] LABS: Apearance,Urine Slightly Hazy (Clear); Bilirubin,Urine Negative (Negative); Blood, Urine Small mg/dL (Negative); Glucose,Urine (UA) Negative (Negative); Hyaline Casts,Urine 3 /LPF (0-3); Ketones,Urine Negative (Negative); Mucus,Urine Occasional /LPF (Occasional); Nitrite,Urine Negative (Negative); Protein,Urine 100 MG/DL; RBC,Urine 5 /HPF (0-4); Squamous Epithelial Cell,Urine Occasional /HPF (0-10); Urine Color Yellow (Yellow); Urine Urobilinogen < 2.0 EU/DL (0.2-1.0); WBC,Urine 2 /HPF (0-6)
[2018-05-12 18:38] LABS: Barbiturates Screen,Urine Negative (Negative); Benzodiazepines Screen,Urine Negative (Negative); Cannabinoid Screen,Urine Negative (Negative); Opiate Screen,Urine Positive (Negative); Phencyclidine Screen,Urine Negative (Negative)
[2018-05-12] MEDS ORDERED: FUROSEMIDE 40 MG/4 ML VIAL IV STA (18:45)
[2018-05-12] MEDS ORDERED: EFAVIRENZ 600 MG PO SCH (21:00)
[2018-05-13] MEDS ORDERED: GLUCAGON 1 MG VIAL IM PRN (00:08)
[2018-05-13] MEDS ORDERED: DEXTROSE 50% 25 GM/50 ML VIAL IV PRN (00:08)
[2018-05-13] MEDS: ISOSORBIDE DINITRATE 20 MG TABLET PO SCH ×4 (01:19→20:54)
[2018-05-13] MEDS: INSULIN LISPRO 100 UNIT/ML SUBCUT SCH ×5 (01:20→21:57)
[2018-05-13] MEDS: hydrALAZINE 25 MG TABLET PO SCH ×4 (01:20→20:54)
[2018-05-13 05:07] LABS: Basophils % 0.6 % (0.0-0.8); Eosinophils # 0.3 10*3/uL (0.0-0.87); Eosinophils % 5.8 % (0.00-10.9); Hematocrit 29.3 VOL% (35.7-47.0); Hemoglobin 8.8 GM/DL (12.0-16.0); Immature Granulocytes % 0.2 %; Immature Granulocytes Absolute 0.01 #; Lymphocytes # 1.4 10*3/uL (1.4-4.0); Lymphocytes % 28.8 % (21.3-54.2); Mean Corpuscular Hemoglobin 30 PG (27-34); Mean Corpuscular Volume 98.3 FL (87-102); Mean Platelet Volume 10.5 FL (9.6-12.0); Monocytes # 0.4 10*3/uL (0.11-0.8); Monocytes % 8.2 % (1.7-12.7); Neutrophils # 2.8 10*3/uL (1.4-7.4); Neutrophils % 56.4 % (38.7-73.9); Platelet Count 194 T/CUMM (130-400); Red Blood Count 2.98 MC/CUMM (3.8-5.5); Red Cell Distribution Width 16.8 % (9.3-17.3)
[2018-05-13 05:34] LABS: Blood Urea Nitrogen 65 MG/DL (7-18); Calcium 8.2 MG/DL (8.5-10.1); Glucose 151 MG/DL (74-106); Osmolality,Calculated 300.4 MOS/KG (273-304); Sodium 140 MMOL/L (136-145); Troponin I < 0.015 NG/ML (0.00-0.045)
[2018-05-13] MEDS: CHOLECALCIFEROL 1,000 UNIT TABLET PO SCH (08:00)
[2018-05-13] MEDS ORDERED: Tenofovir Disoproxil Fumarate [Viread] 300 MG PO SCH (08:00)
[2018-05-13] MEDS: OMEGA 3 ACID ETHYL ESTERS 1 GM CAPSULE PO SCH (08:03)
[2018-05-13] MEDS: PANTOPRAZOLE 40 MG TABLET PO SCH (08:03)
[2018-05-13] MEDS: GLIMEPIRIDE 4 MG TABLET PO SCH ×2 (08:03→19:15)
[2018-05-13] MEDS: CARVEDILOL 25 MG TABLET PO SCH ×2 (08:03→19:16)
[2018-05-13] MEDS: SERTRALINE 100 MG TABLET PO SCH (08:03)
[2018-05-13] MEDS: CYANOCOBALAMIN 500 MCG TABLET PO SCH (08:05)
[2018-05-13] MEDS: ALLOPURINOL 100 MG TABLET PO SCH (08:17)
[2018-05-13] MEDS: ASPIRIN EC 81 MG TABLET PO SCH (08:17)
[2018-05-13] MEDS ORDERED: PNEUMOCOCCAL VACCINE (13 VALENT) 0.5 ML SYRINGE IM ONE (09:00)
[2018-05-13] MEDS ORDERED: ENOXAPARIN 40 MG/0.4 ML SYRINGE SUBCUT SCH (09:00)
[2018-05-13] MEDS ORDERED: COD LIVER OIL PO SCH (09:00)
[2018-05-13] MEDS ORDERED: Lamivudine [Lamivudine] 300 MG PO SCH (09:00)
[2018-05-13] MEDS ORDERED: INFLUENZA VIRUS VACCINE 0.5 ML SYRINGE IM ONE (09:00)
[2018-05-13] MEDS: FUROSEMIDE 40 MG/4 ML VIAL IV SCH (15:33)
[2018-05-13] MEDS: ENOXAPARIN 30 MG/0.3 ML SYRINGE SUBCUT SCH (15:40)
[2018-05-13] MEDS ORDERED: FLUCONAZOLE INJ 200 MG in PREMIX 1 EACH IV ONE (16:53)
[2018-05-13] MEDS: NYSTATIN POWDER 15 GM BOTTLE TOP SCH ×2 (19:14→20:58)
[2018-05-14 06:21] LABS: Basophils % 0.6 % (0.0-0.8); Eosinophils # 0.3 10*3/uL (0.0-0.87); Eosinophils % 7.3 % (0.00-10.9); Hematocrit 27.8 VOL% (35.7-47.0); Hemoglobin 8.1 GM/DL (12.0-16.0); Immature Granulocytes % 0.2 %; Immature Granulocytes Absolute 0.01 #; Lymphocytes # 1.3 10*3/uL (1.4-4.0); Lymphocytes % 28.8 % (21.3-54.2); Mean Corpuscular HGB Conc 29.1 GM/DL (32-36); Mean Corpuscular Hemoglobin 29 PG (27-34); Mean Platelet Volume 10.6 FL (9.6-12.0); Monocytes # 0.4 10*3/uL (0.11-0.8); Monocytes % 8.6 % (1.7-12.7); Neutrophils # 2.5 10*3/uL (1.4-7.4); Neutrophils % 54.5 % (38.7-73.9); Platelet Count 180 T/CUMM (130-400); Red Blood Count 2.78 MC/CUMM (3.8-5.5); Red Cell Distribution Width 16.9 % (9.3-17.3); White Blood Count 4.7 T/CUMM (4-12)
[2018-05-14 06:56] LABS: Calcium 7.9 MG/DL (8.5-10.1); Osmolality,Calculated 296.4 MOS/KG (273-304); Potassium 5.2 MMOL/L (3.5-5.1)
[2018-05-14] MEDS: OMEGA 3 ACID ETHYL ESTERS 1 GM CAPSULE PO SCH (09:43)
[2018-05-14] MEDS: CYANOCOBALAMIN 500 MCG TABLET PO SCH (09:43)
[2018-05-14] MEDS: PANTOPRAZOLE 40 MG TABLET PO SCH (09:43)
[2018-05-14] MEDS: ISOSORBIDE DINITRATE 20 MG TABLET PO SCH ×3 (09:43→21:45)
[2018-05-14] MEDS: CHOLECALCIFEROL 1,000 UNIT TABLET PO SCH (09:43)
[2018-05-14] MEDS: FUROSEMIDE 40 MG/4 ML VIAL IV SCH ×2 (09:44→18:38)
[2018-05-14] MEDS: SERTRALINE 100 MG TABLET PO SCH (09:44)
[2018-05-14] MEDS: GLIMEPIRIDE 4 MG TABLET PO SCH ×2 (09:44→18:38)
[2018-05-14] MEDS: hydrALAZINE 25 MG TABLET PO SCH ×3 (09:44→21:45)
[2018-05-14] MEDS: CARVEDILOL 25 MG TABLET PO SCH ×2 (09:44→18:38)
[2018-05-14] MEDS: ALLOPURINOL 100 MG TABLET PO SCH (09:44)
[2018-05-14] MEDS: NYSTATIN POWDER 15 GM BOTTLE TOP SCH ×2 (09:45→21:45)
[2018-05-14] MEDS: INSULIN LISPRO 100 UNIT/ML SUBCUT SCH ×4 (10:19→21:43)
[2018-05-14] MEDS: ASPIRIN EC 81 MG TABLET PO SCH (10:19)
[2018-05-14] MEDS ORDERED: SODIUM POLYSTYRENE SULFATE 15 GM/60 ML BOTTLE PO PRN (13:02)
[2018-05-14] MEDS: ENOXAPARIN 30 MG/0.3 ML SYRINGE SUBCUT SCH (13:12)
[2018-05-15 06:31] LABS: Basophils % 0.7 % (0.0-0.8); Eosinophils # 0.3 10*3/uL (0.0-0.87); Eosinophils % 6.6 % (0.00-10.9); Hematocrit 28.1 VOL% (35.7-47.0); Hemoglobin 8.3 GM/DL (12.0-16.0); Immature Granulocytes % 0.2 %; Immature Granulocytes Absolute 0.01 #; Lymphocytes # 1.3 10*3/uL (1.4-4.0); Lymphocytes % 31.1 % (21.3-54.2); Mean Corpuscular HGB Conc 29.5 GM/DL (32-36); Mean Corpuscular Hemoglobin 30 PG (27-34); Mean Corpuscular Volume 100.7 FL (87-102); Mean Platelet Volume 10.8 FL (9.6-12.0); Monocytes # 0.3 10*3/uL (0.11-0.8); Neutrophils # 2.3 10*3/uL (1.4-7.4); Neutrophils % 53.4 % (38.7-73.9); Platelet Count 171 T/CUMM (130-400); Red Blood Count 2.79 MC/CUMM (3.8-5.5); White Blood Count 4.2 T/CUMM (4-12)
[2018-05-15 06:41] LABS: Calcium 7.8 MG/DL (8.5-10.1); Osmolality,Calculated 298.4 MOS/KG (273-304); Potassium 5.2 MMOL/L (3.5-5.1)
[2018-05-15] MEDS: INSULIN LISPRO 100 UNIT/ML SUBCUT SCH ×4 (08:00→21:12)
[2018-05-15] MEDS: CYANOCOBALAMIN 500 MCG TABLET PO SCH (10:30)
[2018-05-15] MEDS: ALLOPURINOL 100 MG TABLET PO SCH (10:30)
[2018-05-15] MEDS: PANTOPRAZOLE 40 MG TABLET PO SCH (10:31)
[2018-05-15] MEDS: SERTRALINE 100 MG TABLET PO SCH (10:31)
[2018-05-15] MEDS: OMEGA 3 ACID ETHYL ESTERS 1 GM CAPSULE PO SCH (10:31)
[2018-05-15] MEDS: ISOSORBIDE DINITRATE 20 MG TABLET PO SCH ×3 (10:31→21:13)
[2018-05-15] MEDS: GLIMEPIRIDE 4 MG TABLET PO SCH ×2 (10:31→18:13)
[2018-05-15] MEDS: CARVEDILOL 25 MG TABLET PO SCH ×2 (10:32→18:13)
[2018-05-15] MEDS: FUROSEMIDE 40 MG/4 ML VIAL IV SCH ×2 (10:32→18:11)
[2018-05-15] MEDS: hydrALAZINE 25 MG TABLET PO SCH ×3 (10:32→21:13)
[2018-05-15] MEDS: CHOLECALCIFEROL 1,000 UNIT TABLET PO SCH (10:33)
[2018-05-15] MEDS: ASPIRIN EC 81 MG TABLET PO SCH (10:33)
[2018-05-15] MEDS: NYSTATIN POWDER 15 GM BOTTLE TOP SCH (10:33)
[2018-05-15] MEDS: ONDANSETRON 4 MG/2 ML VIAL IV PRN (12:13)
[2018-05-15] MEDS: ENOXAPARIN 40 MG/0.4 ML SYRINGE SUBCUT SCH (18:10)
[2018-05-16] MEDS: NYSTATIN POWDER 15 GM BOTTLE TOP SCH ×3 (00:31→21:10)
[2018-05-16] MEDS: diphenhydrAMINE CAP 25 MG CAPSULE PO PRN ×2 (00:55→21:12)
[2018-05-16 05:52] LABS: Basophils % 0.5 % (0.0-0.8); Eosinophils # 0.1 10*3/uL (0.0-0.87); Eosinophils % 3.8 % (0.00-10.9); Hematocrit 27.9 VOL% (35.7-47.0); Hemoglobin 8.1 GM/DL (12.0-16.0); Immature Granulocytes % 0.3 %; Immature Granulocytes Absolute 0.01 #; Lymphocytes % 28.2 % (21.3-54.2); Mean Corpuscular Hemoglobin 29 PG (27-34); Mean Corpuscular Volume 100.4 FL (87-102); Mean Platelet Volume 10.7 FL (9.6-12.0); Monocytes # 0.3 10*3/uL (0.11-0.8); Monocytes % 8.5 % (1.7-12.7); Neutrophils # 2.1 10*3/uL (1.4-7.4); Neutrophils % 58.7 % (38.7-73.9); Platelet Count 173 T/CUMM (130-400); Red Blood Count 2.78 MC/CUMM (3.8-5.5); Red Cell Distribution Width 16.9 % (9.3-17.3); White Blood Count 3.7 T/CUMM (4-12)
[2018-05-16 06:37] LABS: Osmolality,Calculated 296.5 MOS/KG (273-304); Potassium 5.5 MMOL/L (3.5-5.1)
[2018-05-16] MEDS: CARVEDILOL 25 MG TABLET PO SCH ×2 (08:06→17:20)
[2018-05-16] MEDS: CHOLECALCIFEROL 1,000 UNIT TABLET PO SCH (08:06)
[2018-05-16] MEDS: GLIMEPIRIDE 4 MG TABLET PO SCH ×2 (08:06→17:20)
[2018-05-16] MEDS: CYANOCOBALAMIN 500 MCG TABLET PO SCH (08:06)
[2018-05-16] MEDS: ALLOPURINOL 100 MG TABLET PO SCH (08:07)
[2018-05-16] MEDS: ASPIRIN EC 81 MG TABLET PO SCH (08:07)
[2018-05-16] MEDS: SERTRALINE 100 MG TABLET PO SCH (08:07)
[2018-05-16] MEDS: hydrALAZINE 25 MG TABLET PO SCH ×3 (08:07→21:09)
[2018-05-16] MEDS: ISOSORBIDE DINITRATE 20 MG TABLET PO SCH ×3 (08:07→21:09)
[2018-05-16] MEDS: OMEGA 3 ACID ETHYL ESTERS 1 GM CAPSULE PO SCH (08:07)
[2018-05-16] MEDS: PANTOPRAZOLE 40 MG TABLET PO SCH (08:08)
[2018-05-16] MEDS: FUROSEMIDE 40 MG/4 ML VIAL IV SCH ×2 (08:09→17:21)
[2018-05-16] MEDS: ONDANSETRON 4 MG/2 ML VIAL IV PRN (09:56)
[2018-05-16] MEDS: INSULIN LISPRO 100 UNIT/ML SUBCUT SCH ×3 (11:20→17:21)
[2018-05-16] MEDS: ENOXAPARIN 40 MG/0.4 ML SYRINGE SUBCUT SCH (12:26)
[2018-05-17] MEDS: INSULIN LISPRO 100 UNIT/ML SUBCUT SCH ×3 (00:14→12:02)
[2018-05-17 04:27] LABS: Basophils % 0.3 % (0.0-0.8); Eosinophils # 0.2 10*3/uL (0.0-0.87); Eosinophils % 5.5 % (0.00-10.9); Hematocrit 25.6 VOL% (35.7-47.0); Hemoglobin 7.8 GM/DL (12.0-16.0); Immature Granulocytes % 0.3 %; Immature Granulocytes Absolute 0.01 #; Lymphocytes # 1.3 10*3/uL (1.4-4.0); Lymphocytes % 33.5 % (21.3-54.2); Mean Corpuscular HGB Conc 30.5 GM/DL (32-36); Mean Corpuscular Hemoglobin 31 PG (27-34); Mean Platelet Volume 10.7 FL (9.6-12.0); Monocytes # 0.3 10*3/uL (0.11-0.8); Monocytes % 7.8 % (1.7-12.7); Neutrophils % 52.6 % (38.7-73.9); Platelet Count 155 T/CUMM (130-400); Red Blood Count 2.56 MC/CUMM (3.8-5.5); Red Cell Distribution Width 16.8 % (9.3-17.3); White Blood Count 3.9 T/CUMM (4-12)
[2018-05-17 04:40] LABS: Calcium 8.2 MG/DL (8.5-10.1); Osmolality,Calculated 297.4 MOS/KG (273-304); Potassium 5.3 MMOL/L (3.5-5.1)
[2018-05-17] MEDS: ISOSORBIDE DINITRATE 20 MG TABLET PO SCH ×2 (08:45→16:44)
[2018-05-17] MEDS: hydrALAZINE 25 MG TABLET PO SCH ×2 (08:45→16:44)
[2018-05-17] MEDS: OMEGA 3 ACID ETHYL ESTERS 1 GM CAPSULE PO SCH (08:45)
[2018-05-17] MEDS: FUROSEMIDE 40 MG/4 ML VIAL IV SCH (08:46)
[2018-05-17] MEDS: CHOLECALCIFEROL 1,000 UNIT TABLET PO SCH (08:47)
[2018-05-17] MEDS: CYANOCOBALAMIN 500 MCG TABLET PO SCH (08:48)
[2018-05-17] MEDS: SERTRALINE 100 MG TABLET PO SCH (08:48)
[2018-05-17] MEDS: PANTOPRAZOLE 40 MG TABLET PO SCH (08:48)
[2018-05-17] MEDS: ALLOPURINOL 100 MG TABLET PO SCH (08:48)
[2018-05-17] MEDS: CARVEDILOL 25 MG TABLET PO SCH (08:49)
[2018-05-17] MEDS: GLIMEPIRIDE 4 MG TABLET PO SCH (08:49)
[2018-05-17] MEDS: NYSTATIN POWDER 15 GM BOTTLE TOP SCH (08:49)
[2018-05-17] MEDS: ASPIRIN EC 81 MG TABLET PO SCH (08:56)
[2018-05-17] MEDS: ONDANSETRON 4 MG/2 ML VIAL IV PRN (09:36)
[2018-05-17] MEDS: ENOXAPARIN 40 MG/0.4 ML SYRINGE SUBCUT SCH (16:43)
[2018-05-17 16:56] VITALS: BP 140/87
== END 2018-05-17 17:57 | disposition home health service (06) | DRG 194 ==
LOC: EDBD → EDUNIT# → N.ED 16:47 → SUATTDRO 20:28 → N.EDINP 20:28 → N.5E 21:15
PROVIDERS: ADMIT Internal Medicine; ATTEND Internal Medicine

== ENCOUNTER 2018-08-13 16:24 | Inpatient (IN) ==
[2018-08-13] MEDS ORDERED: FUROSEMIDE 40 MG/4 ML VIAL IV STA (17:16)
[2018-08-13 18:07] LABS: Basophils % 0.6 % (0.0-0.8); Eosinophils # 0.2 10*3/uL (0.0-0.87); Hematocrit 28.3 VOL% (35.7-47.0); Hemoglobin 8.7 GM/DL (12.0-16.0); Immature Granulocytes % 0.3 %; Immature Granulocytes Absolute 0.02 #; Lymphocytes % 15.9 % (21.3-54.2); Mean Corpuscular HGB Conc 30.7 GM/DL (32-36); Mean Corpuscular Hemoglobin 30 PG (27-34); Mean Corpuscular Volume 95.9 FL (87-102); Mean Platelet Volume 10.8 FL (9.6-12.0); Monocytes # 0.4 10*3/uL (0.11-0.8); Monocytes % 6.3 % (1.7-12.7); Neutrophils # 4.7 10*3/uL (1.4-7.4); Neutrophils % 73.9 % (38.7-73.9); Platelet Count 202 T/CUMM (130-400); Red Blood Count 2.95 MC/CUMM (3.8-5.5); White Blood Count 6.4 T/CUMM (4-12)
[2018-08-13 18:16] LABS: ABG Base Excess -0.9 MMOL/L (-2.5-2.5); ABG Oxygen Saturation 93.8 % (95-100); ABG PCO2 47.7 MM HG (35-48); ABG PH 7.338 (7.35-7.45); ABG PO2 70.6 MM HG (80-95); ABG TCO2 26.5 MMOL/L (23-27); Allen Test Positive
[2018-08-13 18:27] LABS: Alanine Aminotransferase 20 U/L (13-56); Albumin 3.4 G/DL (3.4-5.0); Alkaline Phosphatase 244 U/L (45-117); Aspartate Amino Transferase 13 U/L (0-37); Bilirubin,Total < 0.39 MG/DL (0.2-1.0); Blood Urea Nitrogen 139 MG/DL (7-18); Calcium 7.8 MG/DL (8.5-10.1); Glucose 82 MG/DL (74-106); Osmolality,Calculated 300.1 MOS/KG (273-304); Potassium 4.3 MMOL/L (3.5-5.1); Sodium 128 MMOL/L (136-145); Total Protein 8.5 G/DL (6.4-8.3)
[2018-08-13 19:04] LABS: Apearance,Urine CLOUDY (Clear); Bacteria,Urine Many /HPF (Few); Bilirubin,Urine Negative (Negative); Blood, Urine Moderate mg/dL (Negative); Glucose,Urine (UA) Negative (Negative); Hyaline Casts,Urine 32 /LPF (0-3); Ketones,Urine Negative (Negative); Nitrite,Urine Negative (Negative); Protein,Urine 100 MG/DL; RBC,Urine 97 /HPF (0-4); Squamous Epithelial Cell,Urine Occasional /HPF (0-10); Urine Color Yellow (Yellow); Urine Specific Gravity 1.013 (1.001-1.035); Urine Urobilinogen < 2.0 EU/DL (0.2-1.0); WBC,Urine 1023 /HPF (0-6)
[2018-08-13] MEDS ORDERED: NICOTINE 21 MG/24 HR PATCH TRANSDERM PRN (21:27)
[2018-08-13] MEDS ORDERED: guaiFENesin/DM ER 600-30 MG TABLET PO PRN (21:27)
[2018-08-13] MEDS ORDERED: diphenhydrAMINE CAP 25 MG CAPSULE PO PRN (21:27)
[2018-08-13] MEDS ORDERED: ACETAMINOPHEN 325 MG TABLET PO PRN (21:27)
[2018-08-13] MEDS ORDERED: ZALEPLON 5 MG CAPSULE PO PRN (21:27)
[2018-08-13] MEDS ORDERED: MORPHINE 4 MG/1 ML VIAL IV PRN (21:27)
[2018-08-13] MEDS ORDERED: DEXTROSE 50% 25 GM/50 ML SYRINGE IV PRN (21:39)
[2018-08-13] MEDS ORDERED: GLUCAGON 1 MG VIAL IM PRN (21:39)
[2018-08-13] MEDS ORDERED: CYCLOBENZAPRINE 10 MG TABLET PO PRN (22:42)
[2018-08-13] MEDS ORDERED: NON-FORMULARY MEDICATION (Albuterol Sulfate [Ventolin Hfa] 2 PUFF) INH PRN (22:42)
[2018-08-13] MEDS: INSULIN REGULAR 100 UNIT/ML SUBCUT SCH (23:59)
[2018-08-14] MEDS: cefTRIAXone 1,000 MG in SYRINGE 1 EACH IV SCH ×2 (00:47→12:34)
[2018-08-14 05:14] LABS: Basophils % 0.6 % (0.0-0.8); Eosinophils # 0.2 10*3/uL (0.0-0.87); Eosinophils % 3.2 % (0.00-10.9); Hematocrit 27.8 VOL% (35.7-47.0); Hemoglobin 8.5 GM/DL (12.0-16.0); Immature Granulocytes % 0.4 %; Immature Granulocytes Absolute 0.02 #; Lymphocytes # 1.1 10*3/uL (1.4-4.0); Lymphocytes % 19.9 % (21.3-54.2); Mean Corpuscular HGB Conc 30.6 GM/DL (32-36); Mean Corpuscular Hemoglobin 30 PG (27-34); Mean Corpuscular Volume 96.5 FL (87-102); Mean Platelet Volume 10.1 FL (9.6-12.0); Monocytes # 0.4 10*3/uL (0.11-0.8); Monocytes % 7.6 % (1.7-12.7); Neutrophils # 3.6 10*3/uL (1.4-7.4); Neutrophils % 68.3 % (38.7-73.9); Platelet Count 178 T/CUMM (130-400); Red Blood Count 2.88 MC/CUMM (3.8-5.5); Red Cell Distribution Width 15.9 % (9.3-17.3); White Blood Count 5.3 T/CUMM (4-12)
[2018-08-14 05:43] LABS: Albumin 3.5 G/DL (3.4-5.0); Bilirubin,Total 0.7 MG/DL (0.2-1.0); Calcium 7.7 MG/DL (8.5-10.1); Osmolality,Calculated 304.8 MOS/KG (273-304); Potassium 4.2 MMOL/L (3.5-5.1)
[2018-08-14] MEDS: INSULIN REGULAR 100 UNIT/ML SUBCUT SCH ×4 (06:25→23:57)
[2018-08-14] MEDS: SERTRALINE 100 MG TABLET PO SCH (08:07)
[2018-08-14] MEDS: ASCORBIC ACID 500 MG TABLET PO SCH (08:07)
[2018-08-14] MEDS: CARVEDILOL 25 MG TABLET PO SCH ×2 (08:07→16:35)
[2018-08-14] MEDS: FUROSEMIDE 40 MG/4 ML VIAL IV SCH ×2 (08:07→15:08)
[2018-08-14] MEDS: PANTOPRAZOLE 40 MG TABLET PO SCH (08:07)
[2018-08-14] MEDS: GABAPENTIN 300 MG CAPSULE PO SCH ×3 (08:11→20:42)
[2018-08-14] MEDS: CHOLECALCIFEROL 1,000 UNIT TABLET PO SCH ×2 (08:11→20:42)
[2018-08-14] MEDS: ASPIRIN EC 81 MG TABLET PO SCH (08:13)
[2018-08-14] MEDS: ALLOPURINOL 100 MG TABLET PO SCH (08:13)
[2018-08-14] MEDS ORDERED: HYDRALAZINE PO SCH (09:00)
[2018-08-14] MEDS ORDERED: [UNRECOGNIZED DRUG - OTHER] PO SCH (09:00)
[2018-08-14] MEDS ORDERED: LISINOPRIL/HCTZ 20-25 MG TABLET PO SCH (09:00)
[2018-08-14] MEDS ORDERED: NON-FORMULARY MEDICATION (Cod Liver Oil [Cod Liver Oil] 1 EACH) PO SCH (09:00)
[2018-08-14] MEDS ORDERED: FLUTICASONE 50 MCG BOTH NARES SCH (09:00)
[2018-08-14] MEDS: metOLazone 5 MG TABLET PO SCH (12:34)
[2018-08-14 13:11] LABS: Apearance,Urine CLOUDY (Clear); Bilirubin,Urine Negative (Negative); Blood, Urine Large mg/dL (Negative); Glucose,Urine (UA) Negative (Negative); Hyaline Casts,Urine 139 /LPF (0-3); Ketones,Urine Negative (Negative); Mucus,Urine Occasional /LPF (Occasional); Nitrite,Urine Negative (Negative); Protein,Urine 30 MG/DL; RBC,Urine 95 /HPF (0-4); Urine Color Yellow (Yellow); Urine Specific Gravity 1.008 (1.001-1.035); Urine Urobilinogen < 2.0 EU/DL (0.2-1.0); WBC,Urine 603 /HPF (0-6)
[2018-08-14] MEDS: hydrALAZINE 25 MG TABLET PO SCH ×2 (15:08→20:42)
[2018-08-14] MEDS: ISOSORBIDE MONONITRATE 30 MG TABLET PO SCH (16:35)
[2018-08-15] MEDS: cefTRIAXone 1,000 MG in SYRINGE 1 EACH IV SCH ×3 (00:54→23:56)
[2018-08-15 04:52] LABS: Basophils % 0.4 % (0.0-0.8); Eosinophils # 0.2 10*3/uL (0.0-0.87); Eosinophils % 3.9 % (0.00-10.9); Hemoglobin 8.3 GM/DL (12.0-16.0); Immature Granulocytes % 0.2 %; Immature Granulocytes Absolute 0.01 #; Lymphocytes # 0.9 10*3/uL (1.4-4.0); Mean Corpuscular HGB Conc 30.7 GM/DL (32-36); Mean Corpuscular Hemoglobin 30 PG (27-34); Mean Corpuscular Volume 96.1 FL (87-102); Mean Platelet Volume 10.6 FL (9.6-12.0); Monocytes # 0.3 10*3/uL (0.11-0.8); Monocytes % 7.4 % (1.7-12.7); Neutrophils # 3.1 10*3/uL (1.4-7.4); Neutrophils % 68.1 % (38.7-73.9); Platelet Count 183 T/CUMM (130-400); Red Blood Count 2.81 MC/CUMM (3.8-5.5); Red Cell Distribution Width 16.2 % (9.3-17.3); White Blood Count 4.6 T/CUMM (4-12)
[2018-08-15 05:06] LABS: Albumin 3.3 G/DL (3.4-5.0); Bilirubin,Total 0.8 MG/DL (0.2-1.0); Calcium 7.6 MG/DL (8.5-10.1); Osmolality,Calculated 309.8 MOS/KG (273-304); Potassium 4.1 MMOL/L (3.5-5.1); Total Protein 7.8 G/DL (6.4-8.3)
[2018-08-15] MEDS: ONDANSETRON 4 MG/2 ML VIAL IV PRN (05:11)
[2018-08-15] MEDS: INSULIN REGULAR 100 UNIT/ML SUBCUT SCH ×4 (05:39→23:55)
[2018-08-15] MEDS ORDERED: NITROGLYCERIN SL 0.4 MG TABLET SL ONE (07:34)
[2018-08-15] MEDS ORDERED: NITROGLYCERIN SL 0.4 MG TABLET SL PRN (07:37)
[2018-08-15] MEDS ORDERED: ASPIRIN CHEW 81 MG TABLET PO ONE (07:37)
[2018-08-15] MEDS ORDERED: ASPIRIN 325 MG TABLET ONE (07:38)
[2018-08-15 07:49] LABS: Basophils % 0.4 % (0.0-0.8); Eosinophils # 0.2 10*3/uL (0.0-0.87); Eosinophils % 2.9 % (0.00-10.9); Hematocrit 28.1 VOL% (35.7-47.0); Hemoglobin 8.5 GM/DL (12.0-16.0); Immature Granulocytes % 0.2 %; Immature Granulocytes Absolute 0.01 #; Lymphocytes # 0.8 10*3/uL (1.4-4.0); Lymphocytes % 14.2 % (21.3-54.2); Mean Corpuscular HGB Conc 30.2 GM/DL (32-36); Mean Corpuscular Hemoglobin 29 PG (27-34); Mean Corpuscular Volume 97.2 FL (87-102); Mean Platelet Volume 9.8 FL (9.6-12.0); Monocytes # 0.3 10*3/uL (0.11-0.8); Monocytes % 6.1 % (1.7-12.7); Neutrophils # 4.2 10*3/uL (1.4-7.4); Neutrophils % 76.2 % (38.7-73.9); Platelet Count 170 T/CUMM (130-400); Red Blood Count 2.89 MC/CUMM (3.8-5.5); Red Cell Distribution Width 16.3 % (9.3-17.3); White Blood Count 5.6 T/CUMM (4-12)
[2018-08-15 08:19] LABS: Albumin 3.2 G/DL (3.4-5.0); Bilirubin,Total 0.4 MG/DL (0.2-1.0); Calcium 7.2 MG/DL (8.5-10.1); Osmolality,Calculated 311.8 MOS/KG (273-304); Potassium 4.4 MMOL/L (3.5-5.1); Total Protein 7.6 G/DL (6.4-8.3)
[2018-08-15] MEDS: CARVEDILOL 25 MG TABLET PO SCH (08:55)
[2018-08-15] MEDS: BISACODYL 5 MG TABLET PO PRN (08:57)
[2018-08-15] MEDS: GABAPENTIN 300 MG CAPSULE PO SCH ×2 (08:57→14:50)
[2018-08-15] MEDS: CHOLECALCIFEROL 1,000 UNIT TABLET PO SCH ×2 (08:57→20:32)
[2018-08-15] MEDS: PANTOPRAZOLE 40 MG TABLET PO SCH (08:58)
[2018-08-15] MEDS: SERTRALINE 100 MG TABLET PO SCH (08:58)
[2018-08-15] MEDS: metOLazone 5 MG TABLET PO SCH (08:58)
[2018-08-15] MEDS: ASCORBIC ACID 500 MG TABLET PO SCH (08:59)
[2018-08-15] MEDS: ISOSORBIDE MONONITRATE 30 MG TABLET PO SCH (09:00)
[2018-08-15] MEDS: FUROSEMIDE 40 MG/4 ML VIAL IV SCH ×2 (09:00→15:33)
[2018-08-15] MEDS: ASPIRIN EC 81 MG TABLET PO SCH (09:01)
[2018-08-15] MEDS: hydrALAZINE 25 MG TABLET PO SCH ×3 (09:01→20:32)
[2018-08-15] MEDS: ALLOPURINOL 100 MG TABLET PO SCH (09:04)
[2018-08-15] MEDS ORDERED: fentaNYL 100 MCG/2 ML VIAL ONE (12:13)
[2018-08-15] MEDS ORDERED: MIDAZOLAM 2 MG/2 ML VIAL ONE (12:13)
[2018-08-15] MEDS ORDERED: ceFAZolin 1,000 MG VIAL ONE (12:13)
[2018-08-15] MEDS ORDERED: LIDOCAINE 1% 20 ML VIAL ONE (12:13)
[2018-08-15] MEDS ORDERED: TISSUE ADHESIVE 1 EACH APPLICATOR TOP ONE (12:14)
[2018-08-16 04:55] LABS: Basophils % 0.6 % (0.0-0.8); Eosinophils # 0.1 10*3/uL (0.0-0.87); Eosinophils % 2.8 % (0.00-10.9); Hemoglobin 8.5 GM/DL (12.0-16.0); Immature Granulocytes % 0.2 %; Immature Granulocytes Absolute 0.01 #; Lymphocytes # 0.9 10*3/uL (1.4-4.0); Lymphocytes % 18.2 % (21.3-54.2); Mean Corpuscular HGB Conc 30.4 GM/DL (32-36); Mean Corpuscular Hemoglobin 30 PG (27-34); Mean Corpuscular Volume 97.6 FL (87-102); Mean Platelet Volume 10.9 FL (9.6-12.0); Monocytes # 0.4 10*3/uL (0.11-0.8); Monocytes % 8.1 % (1.7-12.7); Neutrophils # 3.5 10*3/uL (1.4-7.4); Neutrophils % 70.1 % (38.7-73.9); Platelet Count 184 T/CUMM (130-400); Red Blood Count 2.87 MC/CUMM (3.8-5.5); Red Cell Distribution Width 16.1 % (9.3-17.3); White Blood Count 5.1 T/CUMM (4-12)
[2018-08-16 05:09] LABS: Albumin 3.3 G/DL (3.4-5.0); Bilirubin,Total 0.6 MG/DL (0.2-1.0); Calcium 7.1 MG/DL (8.5-10.1); Osmolality,Calculated 309.9 MOS/KG (273-304)
[2018-08-16] MEDS: INSULIN REGULAR 100 UNIT/ML SUBCUT SCH ×3 (06:31→17:18)
[2018-08-16] MEDS: ONDANSETRON 4 MG/2 ML VIAL IV PRN ×3 (08:07→23:14)
[2018-08-16] MEDS: FUROSEMIDE 40 MG/4 ML VIAL IV SCH ×2 (08:08→15:52)
[2018-08-16] MEDS: metOLazone 5 MG TABLET PO SCH (08:11)
[2018-08-16] MEDS: CHOLECALCIFEROL 1,000 UNIT TABLET PO SCH ×2 (08:11→20:22)
[2018-08-16] MEDS: PANTOPRAZOLE 40 MG TABLET PO SCH (08:12)
[2018-08-16] MEDS: ASCORBIC ACID 500 MG TABLET PO SCH (08:12)
[2018-08-16] MEDS: ISOSORBIDE MONONITRATE 30 MG TABLET PO SCH (08:12)
[2018-08-16] MEDS: ASPIRIN EC 81 MG TABLET PO SCH (08:13)
[2018-08-16] MEDS: hydrALAZINE 25 MG TABLET PO SCH ×3 (08:13→20:22)
[2018-08-16] MEDS: ALLOPURINOL 100 MG TABLET PO SCH (08:14)
[2018-08-16] MEDS: SERTRALINE 100 MG TABLET PO SCH (08:14)
[2018-08-16] MEDS: cefTRIAXone 1,000 MG in SYRINGE 1 EACH IV SCH (11:44)
[2018-08-17] MEDS: cefTRIAXone 1,000 MG in SYRINGE 1 EACH IV SCH ×2 (00:05→12:06)
[2018-08-17] MEDS: INSULIN REGULAR 100 UNIT/ML SUBCUT SCH ×5 (00:20→23:26)
[2018-08-17 05:53] LABS: Basophils % 0.2 % (0.0-0.8); Eosinophils # 0.1 10*3/uL (0.0-0.87); Eosinophils % 2.1 % (0.00-10.9); Hematocrit 29.2 VOL% (35.7-47.0); Hemoglobin 8.6 GM/DL (12.0-16.0); Immature Granulocytes % 0.4 %; Immature Granulocytes Absolute 0.02 #; Lymphocytes # 0.7 10*3/uL (1.4-4.0); Lymphocytes % 14.5 % (21.3-54.2); Mean Corpuscular HGB Conc 29.5 GM/DL (32-36); Mean Corpuscular Hemoglobin 29 PG (27-34); Mean Corpuscular Volume 99.3 FL (87-102); Mean Platelet Volume 10.7 FL (9.6-12.0); Monocytes # 0.4 10*3/uL (0.11-0.8); Monocytes % 7.6 % (1.7-12.7); Neutrophils # 3.6 10*3/uL (1.4-7.4); Neutrophils % 75.2 % (38.7-73.9); Platelet Count 183 T/CUMM (130-400); Red Blood Count 2.94 MC/CUMM (3.8-5.5); Red Cell Distribution Width 16.2 % (9.3-17.3); White Blood Count 4.8 T/CUMM (4-12)
[2018-08-17 06:00] LABS: Calcium 7.4 MG/DL (8.5-10.1); Osmolality,Calculated 310.1 MOS/KG (273-304); Potassium 4.5 MMOL/L (3.5-5.1)
[2018-08-17] MEDS: FUROSEMIDE 40 MG/4 ML VIAL IV SCH ×2 (08:24→15:17)
[2018-08-17] MEDS: metOLazone 5 MG TABLET PO SCH (08:26)
[2018-08-17] MEDS: ISOSORBIDE MONONITRATE 30 MG TABLET PO SCH (08:26)
[2018-08-17] MEDS: ASPIRIN EC 81 MG TABLET PO SCH (08:26)
[2018-08-17] MEDS: CHOLECALCIFEROL 1,000 UNIT TABLET PO SCH ×2 (08:26→21:17)
[2018-08-17] MEDS: SERTRALINE 100 MG TABLET PO SCH (08:27)
[2018-08-17] MEDS: ASCORBIC ACID 500 MG TABLET PO SCH (08:27)
[2018-08-17] MEDS: hydrALAZINE 25 MG TABLET PO SCH ×3 (08:27→21:17)
[2018-08-17] MEDS: ALLOPURINOL 100 MG TABLET PO SCH (08:28)
[2018-08-17] MEDS: PANTOPRAZOLE 40 MG TABLET PO SCH (08:28)
[2018-08-17] MEDS: BISACODYL 5 MG TABLET PO PRN (08:32)
[2018-08-17] MEDS: POLYETHYLENE GLYCOL POWDER 17 GM PACK PO SCH (10:55)
[2018-08-18] MEDS: cefTRIAXone 1,000 MG in SYRINGE 1 EACH IV SCH (00:14)
[2018-08-18 04:45] LABS: Basophils % 0.4 % (0.0-0.8); Eosinophils # 0.1 10*3/uL (0.0-0.87); Eosinophils % 2.4 % (0.00-10.9); Hematocrit 29.2 VOL% (35.7-47.0); Hemoglobin 8.7 GM/DL (12.0-16.0); Immature Granulocytes % 0.8 %; Immature Granulocytes Absolute 0.04 #; Lymphocytes # 0.7 10*3/uL (1.4-4.0); Lymphocytes % 13.9 % (21.3-54.2); Mean Corpuscular HGB Conc 29.8 GM/DL (32-36); Mean Corpuscular Hemoglobin 29 PG (27-34); Mean Corpuscular Volume 98.6 FL (87-102); Mean Platelet Volume 10.8 FL (9.6-12.0); Monocytes # 0.4 10*3/uL (0.11-0.8); Monocytes % 8.8 % (1.7-12.7); Neutrophils # 3.6 10*3/uL (1.4-7.4); Neutrophils % 73.7 % (38.7-73.9); Platelet Count 173 T/CUMM (130-400); Red Blood Count 2.96 MC/CUMM (3.8-5.5); Red Cell Distribution Width 16.2 % (9.3-17.3); White Blood Count 4.9 T/CUMM (4-12)
[2018-08-18 05:05] LABS: Calcium 7.2 MG/DL (8.5-10.1); Osmolality,Calculated 310.9 MOS/KG (273-304); Potassium 4.4 MMOL/L (3.5-5.1)
[2018-08-18] MEDS: INSULIN REGULAR 100 UNIT/ML SUBCUT SCH ×4 (07:04→23:55)
[2018-08-18] MEDS: ISOSORBIDE MONONITRATE 30 MG TABLET PO SCH (08:44)
[2018-08-18] MEDS: hydrALAZINE 25 MG TABLET PO SCH ×3 (08:45→21:27)
[2018-08-18] MEDS: FUROSEMIDE 40 MG/4 ML VIAL IV SCH ×2 (08:46→15:08)
[2018-08-18] MEDS: PANTOPRAZOLE 40 MG TABLET PO SCH (09:43)
[2018-08-18] MEDS: POLYETHYLENE GLYCOL POWDER 17 GM PACK PO SCH (09:43)
[2018-08-18] MEDS: ASPIRIN EC 81 MG TABLET PO SCH (09:43)
[2018-08-18] MEDS: ASCORBIC ACID 500 MG TABLET PO SCH (09:43)
[2018-08-18] MEDS: CHOLECALCIFEROL 1,000 UNIT TABLET PO SCH ×2 (09:44→21:27)
[2018-08-18] MEDS: SERTRALINE 100 MG TABLET PO SCH (09:44)
[2018-08-18] MEDS: metOLazone 5 MG TABLET PO SCH (09:44)
[2018-08-18] MEDS: ALLOPURINOL 100 MG TABLET PO SCH (09:45)
[2018-08-18] MEDS: ONDANSETRON 4 MG/2 ML VIAL IV PRN ×2 (11:09→17:47)
[2018-08-18] MEDS: metroNIDAZOLE INJ 500 MG in PREMIX 1 EACH IV SCH ×2 (11:18→19:34)
[2018-08-18] MEDS ORDERED: ENOXAPARIN 40 MG/0.4 ML SYRINGE SUBCUT SCH (17:00)
[2018-08-18] MEDS: PROMETHAZINE 25 MG/1 ML VIAL IM PRN (19:28)
[2018-08-19] MEDS: metroNIDAZOLE INJ 500 MG in PREMIX 1 EACH IV SCH ×3 (03:16→19:29)
[2018-08-19] MEDS: BISACODYL 5 MG TABLET PO PRN (03:17)
[2018-08-19 05:00] LABS: Basophils % 0.2 % (0.0-0.8); Eosinophils # 0.1 10*3/uL (0.0-0.87); Eosinophils % 1.9 % (0.00-10.9); Hematocrit 29.4 VOL% (35.7-47.0); Hemoglobin 8.6 GM/DL (12.0-16.0); Immature Granulocytes % 0.4 %; Immature Granulocytes Absolute 0.02 #; Lymphocytes # 0.7 10*3/uL (1.4-4.0); Lymphocytes % 14.1 % (21.3-54.2); Mean Corpuscular HGB Conc 29.3 GM/DL (32-36); Mean Corpuscular Hemoglobin 29 PG (27-34); Mean Corpuscular Volume 98.7 FL (87-102); Mean Platelet Volume 10.7 FL (9.6-12.0); Monocytes # 0.4 10*3/uL (0.11-0.8); Monocytes % 8.3 % (1.7-12.7); Neutrophils # 3.5 10*3/uL (1.4-7.4); Neutrophils % 75.1 % (38.7-73.9); Platelet Count 163 T/CUMM (130-400); Red Blood Count 2.98 MC/CUMM (3.8-5.5); Red Cell Distribution Width 16.4 % (9.3-17.3); White Blood Count 4.7 T/CUMM (4-12)
[2018-08-19 05:28] LABS: Calcium 7.3 MG/DL (8.5-10.1); Osmolality,Calculated 315.8 MOS/KG (273-304); Potassium 4.1 MMOL/L (3.5-5.1)
[2018-08-19] MEDS: INSULIN REGULAR 100 UNIT/ML SUBCUT SCH ×3 (06:01→18:40)
[2018-08-19] MEDS: metOLazone 5 MG TABLET PO SCH (09:49)
[2018-08-19] MEDS: CHOLECALCIFEROL 1,000 UNIT TABLET PO SCH ×2 (09:50→20:40)
[2018-08-19] MEDS: ASCORBIC ACID 500 MG TABLET PO SCH (09:51)
[2018-08-19] MEDS: SERTRALINE 100 MG TABLET PO SCH (09:52)
[2018-08-19] MEDS: hydrALAZINE 25 MG TABLET PO SCH ×3 (09:52→20:40)
[2018-08-19] MEDS: ISOSORBIDE MONONITRATE 30 MG TABLET PO SCH (09:52)
[2018-08-19] MEDS: ASPIRIN EC 81 MG TABLET PO SCH (09:53)
[2018-08-19] MEDS: PANTOPRAZOLE 40 MG TABLET PO SCH (09:53)
[2018-08-19] MEDS: ALLOPURINOL 100 MG TABLET PO SCH (09:53)
[2018-08-19] MEDS: cefTRIAXone 1,000 MG in SYRINGE 1 EACH IV SCH (09:53)
[2018-08-19] MEDS: FUROSEMIDE 40 MG/4 ML VIAL IV SCH ×2 (09:54→15:41)
[2018-08-19] MEDS: POLYETHYLENE GLYCOL POWDER 17 GM PACK PO SCH (09:54)
[2018-08-19] MEDS ORDERED: SODIUM PHOSPHATE ENEMA 133 ML BOTTLE RECTAL ONE (10:28)
[2018-08-19] MEDS: CARVEDILOL 3.125 MG TABLET PO SCH ×3 (11:26→20:40)
[2018-08-19] MEDS: ONDANSETRON 4 MG/2 ML VIAL IV PRN (15:40)
[2018-08-19] MEDS: LACTULOSE 20 GM/30 ML UDCUP PO SCH (15:41)
[2018-08-19] MEDS: PROMETHAZINE 25 MG/1 ML VIAL IM PRN (18:23)
[2018-08-19] MEDS: GLIMEPIRIDE 4 MG TABLET PO SCH (18:40)
[2018-08-20] MEDS: INSULIN REGULAR 100 UNIT/ML SUBCUT SCH ×4 (01:15→17:55)
[2018-08-20] MEDS: metroNIDAZOLE INJ 500 MG in PREMIX 1 EACH IV SCH (03:30)
[2018-08-20 04:16] LABS: Basophils % 0.4 % (0.0-0.8); Eosinophils # 0.1 10*3/uL (0.0-0.87); Eosinophils % 1.2 % (0.00-10.9); Hematocrit 25.9 VOL% (35.7-47.0); Hemoglobin 7.8 GM/DL (12.0-16.0); Immature Granulocytes % 0.4 %; Immature Granulocytes Absolute 0.02 #; Lymphocytes # 0.6 10*3/uL (1.4-4.0); Lymphocytes % 11.6 % (21.3-54.2); Mean Corpuscular HGB Conc 30.1 GM/DL (32-36); Mean Corpuscular Hemoglobin 29 PG (27-34); Mean Corpuscular Volume 97.4 FL (87-102); Mean Platelet Volume 10.2 FL (9.6-12.0); Monocytes # 0.4 10*3/uL (0.11-0.8); Monocytes % 8.2 % (1.7-12.7); Neutrophils # 3.9 10*3/uL (1.4-7.4); Neutrophils % 78.2 % (38.7-73.9); Platelet Count 137 T/CUMM (130-400); Red Blood Count 2.66 MC/CUMM (3.8-5.5); Red Cell Distribution Width 15.9 % (9.3-17.3)
[2018-08-20 04:35] LABS: Calcium 7.4 MG/DL (8.5-10.1); Osmolality,Calculated 313.7 MOS/KG (273-304); Potassium 3.6 MMOL/L (3.5-5.1)
[2018-08-20] MEDS: hydrALAZINE 25 MG TABLET PO SCH ×3 (08:31→20:33)
[2018-08-20] MEDS: ASCORBIC ACID 500 MG TABLET PO SCH (08:31)
[2018-08-20] MEDS: GLIMEPIRIDE 4 MG TABLET PO SCH ×2 (08:31→17:01)
[2018-08-20] MEDS: LACTULOSE 20 GM/30 ML UDCUP PO SCH (08:31)
[2018-08-20] MEDS: ASPIRIN EC 81 MG TABLET PO SCH (08:31)
[2018-08-20] MEDS: metOLazone 5 MG TABLET PO SCH (08:31)
[2018-08-20] MEDS: SERTRALINE 100 MG TABLET PO SCH (08:32)
[2018-08-20] MEDS: POLYETHYLENE GLYCOL POWDER 17 GM PACK PO SCH ×2 (08:32→20:33)
[2018-08-20] MEDS: ISOSORBIDE MONONITRATE 30 MG TABLET PO SCH (08:32)
[2018-08-20] MEDS: PANTOPRAZOLE 40 MG TABLET PO SCH (08:32)
[2018-08-20] MEDS: ALLOPURINOL 100 MG TABLET PO SCH (08:32)
[2018-08-20] MEDS: CARVEDILOL 6.25 MG TABLET PO SCH ×2 (08:37→20:33)
[2018-08-20] MEDS: FUROSEMIDE 40 MG/4 ML VIAL IV SCH ×2 (08:41→15:41)
[2018-08-20] MEDS: cefTRIAXone 1,000 MG in SYRINGE 1 EACH IV SCH (08:45)
[2018-08-20] MEDS: CHOLECALCIFEROL 1,000 UNIT TABLET PO SCH ×2 (10:32→20:47)
[2018-08-20 22:26] LABS: Creatinine 24 Hr Urine Result 1.54 G/24HR (0.60-1.80)
[2018-08-20 22:27] LABS: Creatinine Clearance Urine 15.18 ML/MIN (70-115)
[2018-08-21] MEDS: INSULIN REGULAR 100 UNIT/ML SUBCUT SCH ×4 (00:17→18:16)
[2018-08-21] MEDS: ONDANSETRON 4 MG/2 ML VIAL IV PRN ×2 (01:39→09:04)
[2018-08-21 05:18] LABS: Basophils % 0.5 % (0.0-0.8); Eosinophils # 0.1 10*3/uL (0.0-0.87); Eosinophils % 2.8 % (0.00-10.9); Hematocrit 27.7 VOL% (35.7-47.0); Hemoglobin 8.3 GM/DL (12.0-16.0); Immature Granulocytes % 0.2 %; Immature Granulocytes Absolute 0.01 #; Lymphocytes # 0.7 10*3/uL (1.4-4.0); Lymphocytes % 15.2 % (21.3-54.2); Mean Corpuscular Hemoglobin 29 PG (27-34); Mean Corpuscular Volume 97.5 FL (87-102); Mean Platelet Volume 10.1 FL (9.6-12.0); Monocytes # 0.4 10*3/uL (0.11-0.8); Monocytes % 9.7 % (1.7-12.7); Neutrophils # 3.1 10*3/uL (1.4-7.4); Neutrophils % 71.6 % (38.7-73.9); Platelet Count 138 T/CUMM (130-400); Red Blood Count 2.84 MC/CUMM (3.8-5.5); White Blood Count 4.4 T/CUMM (4-12)
[2018-08-21 05:36] LABS: Calcium 7.9 MG/DL (8.5-10.1); Osmolality,Calculated 309.7 MOS/KG (273-304); Potassium 3.6 MMOL/L (3.5-5.1)
[2018-08-21] MEDS: FUROSEMIDE 40 MG/4 ML VIAL IV SCH ×2 (09:00→15:36)
[2018-08-21] MEDS: ALLOPURINOL 100 MG TABLET PO SCH (09:00)
[2018-08-21] MEDS: CHOLECALCIFEROL 1,000 UNIT TABLET PO SCH (09:00)
[2018-08-21] MEDS: metOLazone 5 MG TABLET PO SCH (09:00)
[2018-08-21] MEDS: CARVEDILOL 6.25 MG TABLET PO SCH (09:00)
[2018-08-21] MEDS: GLIMEPIRIDE 4 MG TABLET PO SCH ×2 (09:00→16:44)
[2018-08-21] MEDS: hydrALAZINE 25 MG TABLET PO SCH ×2 (09:00→15:36)
[2018-08-21] MEDS: ASPIRIN EC 81 MG TABLET PO SCH (09:00)
[2018-08-21] MEDS: POLYETHYLENE GLYCOL POWDER 17 GM PACK PO SCH (09:00)
[2018-08-21] MEDS: ASCORBIC ACID 500 MG TABLET PO SCH (09:00)
[2018-08-21] MEDS: SERTRALINE 100 MG TABLET PO SCH (09:00)
[2018-08-21] MEDS: ISOSORBIDE MONONITRATE 30 MG TABLET PO SCH (09:00)
[2018-08-21] MEDS: PANTOPRAZOLE 40 MG TABLET PO SCH (09:00)
[2018-08-21] MEDS: LACTULOSE 20 GM/30 ML UDCUP PO SCH (09:01)
[2018-08-21 16:11] VITALS: BP 150/78
[2018-08-21] MEDS ORDERED: SODIUM CHLORIDE 0.65% NASAL SPRAY 45 ML BOTTLE BOTH NARES PRN (16:41)
== END 2018-08-21 19:08 | disposition home health service (06) | DRG 194 ==
LOC: EDUNIT# → EDBD → N.EDINP 16:24 → N.ED 16:24 → N.3E 22:09 → SUATTDRO 08-14 14:41
PROVIDERS: ADMIT Internal Medicine; ATTEND Internal Medicine

== ENCOUNTER 2018-10-30 08:56 | Inpatient (IN) ==
[2018-10-30 09:37] LABS: Calcium 8.1 MG/DL (8.5-10.1); Osmolality,Calculated 314.4 MOS/KG (273-304)
[2018-10-30 10:58] LABS: Basophils % 0.6 % (0.0-0.8); Eosinophils # 0.2 10*3/uL (0.0-0.87); Eosinophils % 3.1 % (0.00-10.9); Hematocrit 26.8 VOL% (35.7-47.0); Hemoglobin 7.9 GM/DL (12.0-16.0); Immature Granulocytes % 0.5 %; Immature Granulocytes Absolute 0.03 #; Lymphocytes # 0.9 10*3/uL (1.4-4.0); Lymphocytes % 14.7 % (21.3-54.2); Mean Corpuscular HGB Conc 29.5 GM/DL (32-36); Mean Corpuscular Volume 95.7 FL (87-102); Mean Platelet Volume 10.9 FL (9.6-12.0); Monocytes % 5.8 % (1.7-12.7); Neutrophils % 75.3 % (38.7-73.9); Platelet Count 165 T/CUMM (130-400); Red Cell Distribution Width 17.2 % (9.3-17.3); White Blood Count 6.4 T/CUMM (4-12)
[2018-10-30 11:50] LABS: Amorphous Crystals,Urine Occasional /HPF (Few); Apearance,Urine CLOUDY (Clear); Bilirubin,Urine Negative (Negative); Blood, Urine Moderate mg/dL (Negative); Glucose,Urine (UA) 50 mg/dL (Negative); Hyaline Casts,Urine 630 /LPF (0-3); Ketones,Urine 5 mg/dL (Negative); Mucus,Urine Moderate /LPF (Occasional); Nitrite,Urine Negative (Negative); Protein,Urine 30 MG/DL; RBC,Urine 887 /HPF (0-4); Squamous Epithelial Cell,Urine Many /HPF (0-10); Urine Color Yellow (Yellow); Urine Specific Gravity 1.019 (1.001-1.035); Urine Urobilinogen < 2.0 EU/DL (0.2-1.0); WBC,Urine 131 /HPF (0-6)
[2018-10-30] MEDS ORDERED: ACETAMINOPHEN 325 MG TABLET PO PRN (13:18)
[2018-10-30] MEDS ORDERED: GLUCAGON 1 MG VIAL IM PRN (13:18)
[2018-10-30] MEDS ORDERED: MAGNESIUM SULF RIDER 4 GM in PREMIX 1 EACH IV PRN (13:18)
[2018-10-30] MEDS ORDERED: DEXTROSE 50% 25 GM/50 ML VIAL IV PRN (13:18)
[2018-10-30] MEDS ORDERED: MAGNESIUM SULF RIDER 2 GM in PREMIX 1 EACH IV PRN (13:18)
[2018-10-30] MEDS ORDERED: ENOXAPARIN 30 MG/0.3 ML SYRINGE SUBCUT SCH (14:00)
[2018-10-30] MEDS: INSULIN LISPRO 100 UNIT/ML SUBCUT SCH (16:42)
[2018-10-30] MEDS: FUROSEMIDE 40 MG/4 ML VIAL IV SCH (16:45)
[2018-10-31] MEDS: hydrALAZINE 25 MG TABLET PO SCH ×4 (00:11→21:31)
[2018-10-31] MEDS: INSULIN LISPRO 100 UNIT/ML SUBCUT SCH ×5 (00:11→21:32)
[2018-10-31] MEDS: GLIMEPIRIDE 4 MG TABLET PO SCH ×3 (00:12→21:32)
[2018-10-31] MEDS: cefTRIAXone 1,000 MG in SYRINGE 1 EACH IV SCH ×2 (00:12→21:33)
[2018-10-31] MEDS: ISOSORBIDE DINITRATE 20 MG TABLET PO SCH ×4 (00:12→21:32)
[2018-10-31 05:54] LABS: Basophils % 0.6 % (0.0-0.8); Eosinophils # 0.2 10*3/uL (0.0-0.87); Eosinophils % 4.1 % (0.00-10.9); Hematocrit 26.5 VOL% (35.7-47.0); Hemoglobin 7.9 GM/DL (12.0-16.0); Immature Granulocytes % 0.6 %; Immature Granulocytes Absolute 0.03 #; Lymphocytes # 0.9 10*3/uL (1.4-4.0); Lymphocytes % 17.2 % (21.3-54.2); Mean Corpuscular HGB Conc 29.8 GM/DL (32-36); Mean Platelet Volume 10.8 FL (9.6-12.0); Monocytes % 6.1 % (1.7-12.7); Neutrophils % 71.4 % (38.7-73.9); Platelet Count 153 T/CUMM (130-400); Red Blood Count 2.79 MC/CUMM (3.8-5.5); Red Cell Distribution Width 17.2 % (9.3-17.3); White Blood Count 5.4 T/CUMM (4-12)
[2018-10-31 06:19] LABS: Calcium 8.2 MG/DL (8.5-10.1); Osmolality,Calculated 305.8 MOS/KG (273-304)
[2018-10-31] MEDS: FUROSEMIDE 40 MG/4 ML VIAL IV SCH ×3 (09:11→21:32)
[2018-10-31] MEDS: ALLOPURINOL 100 MG TABLET PO SCH (09:13)
[2018-10-31] MEDS: PANTOPRAZOLE 40 MG TABLET PO SCH (09:13)
[2018-10-31] MEDS: metOLazone 5 MG TABLET PO SCH ×2 (13:23→21:31)
[2018-10-31] MEDS: HEPARIN 5,000 UNIT/1 ML VIAL SUBCUT SCH (21:32)
[2018-11-01 05:22] LABS: Basophils % 0.5 % (0.0-0.8); Eosinophils # 0.3 10*3/uL (0.0-0.87); Eosinophils % 4.5 % (0.00-10.9); Hematocrit 26.2 VOL% (35.7-47.0); Hemoglobin 7.6 GM/DL (12.0-16.0); Immature Granulocytes % 0.5 %; Immature Granulocytes Absolute 0.03 #; Lymphocytes # 1.1 10*3/uL (1.4-4.0); Lymphocytes % 17.1 % (21.3-54.2); Monocytes % 8.2 % (1.7-12.7); Neutrophils % 69.2 % (38.7-73.9); Platelet Count 157 T/CUMM (130-400); Red Blood Count 2.73 MC/CUMM (3.8-5.5); Red Cell Distribution Width 17.3 % (9.3-17.3); White Blood Count 6.5 T/CUMM (4-12)
[2018-11-01 05:48] LABS: Osmolality,Calculated 309.4 MOS/KG (273-304)
[2018-11-01] MEDS: INSULIN LISPRO 100 UNIT/ML SUBCUT SCH ×4 (07:52→22:45)
[2018-11-01] MEDS: FUROSEMIDE 40 MG/4 ML VIAL IV SCH ×3 (08:53→22:40)
[2018-11-01] MEDS: HEPARIN 5,000 UNIT/1 ML VIAL SUBCUT SCH ×2 (08:53→22:42)
[2018-11-01] MEDS: ALLOPURINOL 100 MG TABLET PO SCH (08:55)
[2018-11-01] MEDS: ISOSORBIDE DINITRATE 20 MG TABLET PO SCH ×4 (08:55→22:38)
[2018-11-01] MEDS: metOLazone 5 MG TABLET PO SCH ×2 (08:55→22:38)
[2018-11-01] MEDS: hydrALAZINE 25 MG TABLET PO SCH ×4 (08:55→22:45)
[2018-11-01] MEDS: PANTOPRAZOLE 40 MG TABLET PO SCH (08:55)
[2018-11-01] MEDS: GLIMEPIRIDE 4 MG TABLET PO SCH ×2 (08:55→22:38)
[2018-11-01] MEDS: ONDANSETRON 4 MG/2 ML VIAL IV PRN (10:08)
[2018-11-01] MEDS: cefTRIAXone 1,000 MG in SYRINGE 1 EACH IV SCH (22:36)
[2018-11-02 06:00] LABS: Basophils # 0.1 10*3/uL (0.0-0.2); Basophils % 0.8 % (0.0-0.8); Eosinophils % 0.5 % (0.00-10.9); Hematocrit 26.6 VOL% (35.7-47.0); Hemoglobin 7.6 GM/DL (12.0-16.0); Immature Granulocytes % 0.8 %; Immature Granulocytes Absolute 0.05 #; Lymphocytes # 0.7 10*3/uL (1.4-4.0); Lymphocytes % 11.3 % (21.3-54.2); Mean Corpuscular HGB Conc 28.6 GM/DL (32-36); Mean Corpuscular Volume 97.4 FL (87-102); Mean Platelet Volume 10.1 FL (9.6-12.0); Monocytes % 4.8 % (1.7-12.7); Neutrophils % 81.8 % (38.7-73.9); Platelet Count 163 T/CUMM (130-400); Red Blood Count 2.73 MC/CUMM (3.8-5.5); Red Cell Distribution Width 17.3 % (9.3-17.3); White Blood Count 6.4 T/CUMM (4-12)
[2018-11-02 06:16] LABS: Calcium 7.9 MG/DL (8.5-10.1); Osmolality,Calculated 307.7 MOS/KG (273-304)
[2018-11-02] MEDS: GLIMEPIRIDE 4 MG TABLET PO SCH ×2 (08:41→22:07)
[2018-11-02] MEDS: ALLOPURINOL 100 MG TABLET PO SCH (08:41)
[2018-11-02] MEDS: hydrALAZINE 25 MG TABLET PO SCH ×3 (08:41→22:07)
[2018-11-02] MEDS: HEPARIN 5,000 UNIT/1 ML VIAL SUBCUT SCH ×2 (08:42→22:17)
[2018-11-02] MEDS: metOLazone 5 MG TABLET PO SCH ×2 (08:42→22:07)
[2018-11-02] MEDS: ISOSORBIDE DINITRATE 20 MG TABLET PO SCH ×3 (08:42→22:08)
[2018-11-02] MEDS: PANTOPRAZOLE 40 MG TABLET PO SCH (08:42)
[2018-11-02] MEDS: FUROSEMIDE 40 MG/4 ML VIAL IV SCH ×2 (08:42→17:46)
[2018-11-02] MEDS: INSULIN LISPRO 100 UNIT/ML SUBCUT SCH ×4 (10:42→22:18)
[2018-11-02] MEDS: ONDANSETRON 4 MG/2 ML VIAL IV PRN ×2 (17:52→22:18)
[2018-11-02] MEDS: FUROSEMIDE 100 MG/10 ML VIAL IV SCH (22:09)
[2018-11-02] MEDS: cefTRIAXone 1,000 MG in SYRINGE 1 EACH IV SCH (22:16)
[2018-11-03 05:30] LABS: Basophils % 0.4 % (0.0-0.8); Eosinophils # 0.1 10*3/uL (0.0-0.87); Hematocrit 25.5 VOL% (35.7-47.0); Hemoglobin 7.5 GM/DL (12.0-16.0); Immature Granulocytes % 0.4 %; Immature Granulocytes Absolute 0.03 #; Lymphocytes # 0.8 10*3/uL (1.4-4.0); Lymphocytes % 10.6 % (21.3-54.2); Mean Corpuscular HGB Conc 29.4 GM/DL (32-36); Mean Corpuscular Volume 95.5 FL (87-102); Mean Platelet Volume 10.7 FL (9.6-12.0); Monocytes % 7.2 % (1.7-12.7); Neutrophils % 80.4 % (38.7-73.9); Platelet Count 166 T/CUMM (130-400); Red Blood Count 2.67 MC/CUMM (3.8-5.5); Red Cell Distribution Width 17.5 % (9.3-17.3); White Blood Count 7.1 T/CUMM (4-12)
[2018-11-03 06:03] LABS: Calcium 8.1 MG/DL (8.5-10.1); Osmolality,Calculated 303.9 MOS/KG (273-304)
[2018-11-03] MEDS: ONDANSETRON 4 MG/2 ML VIAL IV PRN ×2 (06:54→21:01)
[2018-11-03] MEDS: PANTOPRAZOLE 40 MG TABLET PO SCH (09:17)
[2018-11-03] MEDS: metOLazone 5 MG TABLET PO SCH (09:17)
[2018-11-03] MEDS: ISOSORBIDE DINITRATE 20 MG TABLET PO SCH ×3 (09:17→21:03)
[2018-11-03] MEDS: hydrALAZINE 25 MG TABLET PO SCH ×3 (09:18→20:58)
[2018-11-03] MEDS: ALLOPURINOL 100 MG TABLET PO SCH (09:18)
[2018-11-03] MEDS: FUROSEMIDE 100 MG/10 ML VIAL IV SCH ×3 (09:19→21:03)
[2018-11-03] MEDS: HEPARIN 5,000 UNIT/1 ML VIAL SUBCUT SCH ×2 (09:20→21:08)
[2018-11-03] MEDS: DOLUTEGRAVIR RILPIVIRINE PO SCH (09:22)
[2018-11-03] MEDS: GLIMEPIRIDE 4 MG TABLET PO SCH ×2 (09:24→22:19)
[2018-11-03] MEDS: INSULIN LISPRO 100 UNIT/ML SUBCUT SCH ×4 (09:24→20:59)
[2018-11-03 13:38] LABS: Hepatitis B Core IgM Quant 0.07 Index; Hepatitis B Surface Ag Quant 0.42 Index; Hepatitis B Surface Ag Result Negative (Negative); Hepatitis C Virus Ab Quant 0.09 Index; Hepatitis C Virus Ab Result Negative (Negative)
[2018-11-03] MEDS ORDERED: ceFAZolin 1,000 MG in SYRINGE 1 EACH IV ONE (14:19)
[2018-11-04] MEDS: metOLazone 5 MG TABLET PO SCH ×2 (01:26→08:59)
[2018-11-04 05:35] LABS: Basophils % 0.6 % (0.0-0.8); Eosinophils % 0.3 % (0.00-10.9); Hematocrit 25.4 VOL% (35.7-47.0); Hemoglobin 7.4 GM/DL (12.0-16.0); Immature Granulocytes % 0.6 %; Immature Granulocytes Absolute 0.04 #; Lymphocytes # 0.7 10*3/uL (1.4-4.0); Lymphocytes % 10.4 % (21.3-54.2); Mean Corpuscular HGB Conc 29.1 GM/DL (32-36); Mean Corpuscular Volume 96.9 FL (87-102); Mean Platelet Volume 9.6 FL (9.6-12.0); Monocytes % 7.8 % (1.7-12.7); Neutrophils % 80.3 % (38.7-73.9); Platelet Count 161 T/CUMM (130-400); Red Blood Count 2.62 MC/CUMM (3.8-5.5); Red Cell Distribution Width 17.5 % (9.3-17.3)
[2018-11-04 05:57] LABS: Calcium 8.1 MG/DL (8.5-10.1); Osmolality,Calculated 306.9 MOS/KG (273-304)
[2018-11-04] MEDS ORDERED: ceFAZolin 1,000 MG in SYRINGE 1 EACH IV ONE (08:00)
[2018-11-04] MEDS ORDERED: BUPIVACAINE 0.25% /EPI 10 ML VIAL ONE (08:32)
[2018-11-04] MEDS ORDERED: HEPARIN 5,000 UNIT/1 ML VIAL ONE (08:32)
[2018-11-04] MEDS ORDERED: LIDOCAINE 1%/EPI INJ 20 ML VIAL ONE (08:33)
[2018-11-04] MEDS: INSULIN LISPRO 100 UNIT/ML SUBCUT SCH ×4 (08:38→21:32)
[2018-11-04] MEDS: GLIMEPIRIDE 4 MG TABLET PO SCH ×2 (08:57→21:28)
[2018-11-04] MEDS: hydrALAZINE 25 MG TABLET PO SCH ×3 (08:57→21:27)
[2018-11-04] MEDS: DOLUTEGRAVIR RILPIVIRINE PO SCH (08:57)
[2018-11-04] MEDS: FUROSEMIDE 100 MG/10 ML VIAL IV SCH ×2 (08:58→16:05)
[2018-11-04] MEDS: ISOSORBIDE DINITRATE 20 MG TABLET PO SCH ×3 (08:58→21:27)
[2018-11-04] MEDS: HEPARIN 5,000 UNIT/1 ML VIAL SUBCUT SCH ×2 (08:58→21:26)
[2018-11-04] MEDS: ALLOPURINOL 100 MG TABLET PO SCH (08:59)
[2018-11-04] MEDS: PANTOPRAZOLE 40 MG TABLET PO SCH (08:59)
[2018-11-04] MEDS ORDERED: HEPARIN 10,000 UNIT/10 ML VIAL IV SCH (12:30)
[2018-11-05 07:40] LABS: Basophils % 0.5 % (0.0-0.8); Eosinophils # 0.1 10*3/uL (0.0-0.87); Eosinophils % 1.5 % (0.00-10.9); Hematocrit 23.2 VOL% (35.7-47.0); Hemoglobin 6.9 GM/DL (12.0-16.0); Immature Granulocytes % 0.5 %; Immature Granulocytes Absolute 0.03 #; Lymphocytes # 0.7 10*3/uL (1.4-4.0); Lymphocytes % 11.1 % (21.3-54.2); Mean Corpuscular HGB Conc 29.7 GM/DL (32-36); Mean Corpuscular Volume 94.3 FL (87-102); Mean Platelet Volume 10.1 FL (9.6-12.0); Monocytes % 11.4 % (1.7-12.7); Platelet Count 156 T/CUMM (130-400); Red Blood Count 2.46 MC/CUMM (3.8-5.5); Red Cell Distribution Width 17.9 % (9.3-17.3); White Blood Count 6.1 T/CUMM (4-12)
[2018-11-05] MEDS: ISOSORBIDE DINITRATE 20 MG TABLET PO SCH ×3 (08:11→20:20)
[2018-11-05] MEDS: DOLUTEGRAVIR RILPIVIRINE PO SCH (08:11)
[2018-11-05] MEDS: ALLOPURINOL 100 MG TABLET PO SCH (08:11)
[2018-11-05] MEDS: PANTOPRAZOLE 40 MG TABLET PO SCH (08:11)
[2018-11-05] MEDS: GLIMEPIRIDE 4 MG TABLET PO SCH ×2 (08:11→20:21)
[2018-11-05 08:12] LABS: Albumin 3.8 G/DL (3.4-5.0); Bilirubin,Total 0.7 MG/DL (0.2-1.0); Calcium 8.2 MG/DL (8.5-10.1); Osmolality,Calculated 301.7 MOS/KG (273-304); Total Protein 8.4 G/DL (6.4-8.3)
[2018-11-05] MEDS: HEPARIN 5,000 UNIT/1 ML VIAL SUBCUT SCH ×2 (08:12→20:19)
[2018-11-05] MEDS: hydrALAZINE 25 MG TABLET PO SCH ×3 (08:12→20:20)
[2018-11-05] MEDS: INSULIN LISPRO 100 UNIT/ML SUBCUT SCH ×4 (08:54→20:21)
[2018-11-05 15:10] LABS: ABG Base Excess -4.7 MMOL/L (-2.5-2.5); ABG HCO3 20.5 MMOL/L (20-26); ABG Oxygen Saturation 95.6 % (95-100); ABG PCO2 46.9 MM HG (35-48); ABG PH 7.278 (7.35-7.45); ABG PO2 75.7 MM HG (80-95); ABG TCO2 20.9 MMOL/L (23-27)
[2018-11-06 05:18] LABS: Basophils % 0.5 % (0.0-0.8); Eosinophils # 0.2 10*3/uL (0.0-0.87); Eosinophils % 2.6 % (0.00-10.9); Hematocrit 22.2 VOL% (35.7-47.0); Hemoglobin 6.8 GM/DL (12.0-16.0); Immature Granulocytes % 0.5 %; Immature Granulocytes Absolute 0.03 #; Lymphocytes % 17.2 % (21.3-54.2); Mean Corpuscular HGB Conc 30.6 GM/DL (32-36); Mean Corpuscular Volume 93.3 FL (87-102); Mean Platelet Volume 10.4 FL (9.6-12.0); Monocytes % 13.4 % (1.7-12.7); NRBC # 0.02 10*3/uL; Neutrophils % 65.8 % (38.7-73.9); Platelet Count 154 T/CUMM (130-400); Red Blood Count 2.38 MC/CUMM (3.8-5.5); White Blood Count 5.7 T/CUMM (4-12)
[2018-11-06 05:53] LABS: Calcium 8.3 MG/DL (8.5-10.1); Osmolality,Calculated 298.4 MOS/KG (273-304)
[2018-11-06] MEDS: hydrALAZINE 25 MG TABLET PO SCH ×4 (07:53→20:36)
[2018-11-06] MEDS: HEPARIN 5,000 UNIT/1 ML VIAL SUBCUT SCH ×3 (07:53→20:52)
[2018-11-06] MEDS: ISOSORBIDE DINITRATE 20 MG TABLET PO SCH ×4 (07:54→20:36)
[2018-11-06] MEDS: ALLOPURINOL 100 MG TABLET PO SCH ×2 (07:54→10:23)
[2018-11-06] MEDS: GLIMEPIRIDE 4 MG TABLET PO SCH ×3 (07:54→20:37)
[2018-11-06] MEDS: INSULIN LISPRO 100 UNIT/ML SUBCUT SCH ×3 (07:54→20:55)
[2018-11-06] MEDS: PANTOPRAZOLE 40 MG TABLET PO SCH ×2 (07:54→10:23)
[2018-11-06] MEDS: DOLUTEGRAVIR RILPIVIRINE PO SCH (08:12)
[2018-11-06] MEDS ORDERED: EPOETIN ALFA 10,000 UNIT/1 ML VIAL IV PRN (09:13)
[2018-11-06] MEDS ORDERED: SODIUM CHLORIDE 0.9% 1,000 ML IV PRN (09:14)
[2018-11-06 09:39] LABS: % Iron Saturation 20.9 % (18-50)
[2018-11-06 17:45] LABS: Hematocrit 26.4 VOL% (35.7-47.0)
[2018-11-07 07:42] LABS: Basophils % 0.7 % (0.0-0.8); Eosinophils # 0.1 10*3/uL (0.0-0.87); Eosinophils % 2.3 % (0.00-10.9); Hematocrit 26.4 VOL% (35.7-47.0); Immature Granulocytes % 0.5 %; Immature Granulocytes Absolute 0.03 #; Mean Corpuscular HGB Conc 30.3 GM/DL (32-36); Mean Corpuscular Volume 93.3 FL (87-102); Mean Platelet Volume 10.7 FL (9.6-12.0); Monocytes % 11.1 % (1.7-12.7); NRBC # 0.05 10*3/uL; Neutrophils % 68.4 % (38.7-73.9); Platelet Count 149 T/CUMM (130-400); Red Blood Count 2.83 MC/CUMM (3.8-5.5); Red Cell Distribution Width 18.1 % (9.3-17.3); White Blood Count 5.8 T/CUMM (4-12)
[2018-11-07] MEDS: INSULIN LISPRO 100 UNIT/ML SUBCUT SCH ×4 (07:47→20:14)
[2018-11-07 08:12] LABS: Albumin 3.5 G/DL (3.4-5.0); Bilirubin,Total 0.9 MG/DL (0.2-1.0); Calcium 8.2 MG/DL (8.5-10.1); Osmolality,Calculated 290.4 MOS/KG (273-304); Total Protein 7.8 G/DL (6.4-8.3)
[2018-11-07] MEDS: hydrALAZINE 25 MG TABLET PO SCH ×3 (08:40→21:04)
[2018-11-07] MEDS: GLIMEPIRIDE 4 MG TABLET PO SCH ×2 (08:40→21:04)
[2018-11-07] MEDS: ALLOPURINOL 100 MG TABLET PO SCH (08:41)
[2018-11-07] MEDS: ISOSORBIDE DINITRATE 20 MG TABLET PO SCH ×3 (08:41→21:04)
[2018-11-07] MEDS: PANTOPRAZOLE 40 MG TABLET PO SCH (08:41)
[2018-11-07] MEDS: HEPARIN 5,000 UNIT/1 ML VIAL SUBCUT SCH ×2 (08:41→21:05)
[2018-11-07] MEDS: DOLUTEGRAVIR RILPIVIRINE PO SCH (08:41)
[2018-11-07] MEDS ORDERED: POLYETHYLENE GLYCOL POWDER 17 GM PACK PO PRN (20:00)
[2018-11-07] MEDS ORDERED: MAGNESIUM HYDROXIDE SUSP 30 ML UDCUP PO PRN (20:00)
[2018-11-08 05:23] LABS: Basophils % 0.5 % (0.0-0.8); Eosinophils # 0.1 10*3/uL (0.0-0.87); Eosinophils % 2.5 % (0.00-10.9); Hemoglobin 8.1 GM/DL (12.0-16.0); Immature Granulocytes % 0.9 %; Immature Granulocytes Absolute 0.05 #; Lymphocytes # 1.1 10*3/uL (1.4-4.0); Lymphocytes % 19.1 % (21.3-54.2); Mean Corpuscular HGB Conc 31.2 GM/DL (32-36); Mean Corpuscular Volume 92.2 FL (87-102); Mean Platelet Volume 10.8 FL (9.6-12.0); NRBC # 0.07 10*3/uL; Platelet Count 140 T/CUMM (130-400); Red Blood Count 2.82 MC/CUMM (3.8-5.5); Red Cell Distribution Width 18.1 % (9.3-17.3); White Blood Count 5.5 T/CUMM (4-12)
[2018-11-08 05:50] LABS: Albumin 2.8 G/DL (3.4-5.0); Bilirubin,Total 0.5 MG/DL (0.2-1.0); Calcium 7.8 MG/DL (8.5-10.1); Osmolality,Calculated 286.7 MOS/KG (273-304); Total Protein 6.6 G/DL (6.4-8.3)
[2018-11-08] MEDS: INSULIN LISPRO 100 UNIT/ML SUBCUT SCH ×4 (07:58→20:36)
[2018-11-08] MEDS: ISOSORBIDE DINITRATE 20 MG TABLET PO SCH ×3 (07:59→22:41)
[2018-11-08] MEDS: GLIMEPIRIDE 4 MG TABLET PO SCH ×2 (07:59→22:41)
[2018-11-08] MEDS: DOLUTEGRAVIR RILPIVIRINE PO SCH (07:59)
[2018-11-08] MEDS: hydrALAZINE 25 MG TABLET PO SCH ×3 (07:59→22:41)
[2018-11-08] MEDS: HEPARIN 5,000 UNIT/1 ML VIAL SUBCUT SCH ×2 (07:59→22:42)
[2018-11-08] MEDS: PANTOPRAZOLE 40 MG TABLET PO SCH (08:05)
[2018-11-08] MEDS: ALLOPURINOL 100 MG TABLET PO SCH (08:05)
[2018-11-09 05:42] LABS: Basophils % 0.5 % (0.0-0.8); Eosinophils # 0.2 10*3/uL (0.0-0.87); Eosinophils % 2.9 % (0.00-10.9); Hematocrit 26.3 VOL% (35.7-47.0); Immature Granulocytes % 0.8 %; Immature Granulocytes Absolute 0.05 #; Lymphocytes # 1.4 10*3/uL (1.4-4.0); Lymphocytes % 21.2 % (21.3-54.2); Mean Corpuscular HGB Conc 30.4 GM/DL (32-36); Mean Corpuscular Volume 93.6 FL (87-102); Mean Platelet Volume 11.2 FL (9.6-12.0); Monocytes % 11.2 % (1.7-12.7); NRBC # 0.13 10*3/uL; Neutrophils % 63.4 % (38.7-73.9); Platelet Count 141 T/CUMM (130-400); Red Blood Count 2.81 MC/CUMM (3.8-5.5); Red Cell Distribution Width 18.1 % (9.3-17.3); White Blood Count 6.6 T/CUMM (4-12)
[2018-11-09 06:07] LABS: Alanine Aminotransferase < 9 U/L (13-56); Albumin 2.7 G/DL (3.4-5.0); Alkaline Phosphatase 104 U/L (45-117); Aspartate Amino Transferase 9 U/L (0-37); Blood Urea Nitrogen 37 MG/DL (7-18); Calcium 8.1 MG/DL (8.5-10.1); Glucose 98 MG/DL (74-106); Total Protein 6.6 G/DL (6.4-8.3)
[2018-11-09] MEDS: INSULIN LISPRO 100 UNIT/ML SUBCUT SCH ×4 (07:53→22:38)
[2018-11-09] MEDS: hydrALAZINE 25 MG TABLET PO SCH ×3 (08:38→22:37)
[2018-11-09] MEDS: ISOSORBIDE DINITRATE 20 MG TABLET PO SCH ×3 (08:38→22:38)
[2018-11-09] MEDS: GLIMEPIRIDE 4 MG TABLET PO SCH ×2 (08:38→22:38)
[2018-11-09] MEDS: PANTOPRAZOLE 40 MG TABLET PO SCH (08:39)
[2018-11-09] MEDS: ALLOPURINOL 100 MG TABLET PO SCH (08:39)
[2018-11-09] MEDS: HEPARIN 5,000 UNIT/1 ML VIAL SUBCUT SCH ×2 (08:40→22:40)
[2018-11-09] MEDS: DOLUTEGRAVIR RILPIVIRINE PO SCH (08:43)
[2018-11-10] MEDS: PANTOPRAZOLE 40 MG TABLET PO SCH (09:12)
[2018-11-10] MEDS: hydrALAZINE 25 MG TABLET PO SCH ×3 (09:12→15:39)
[2018-11-10] MEDS: GLIMEPIRIDE 4 MG TABLET PO SCH (09:13)
[2018-11-10] MEDS: ISOSORBIDE DINITRATE 20 MG TABLET PO SCH ×2 (09:14→15:39)
[2018-11-10] MEDS: DOLUTEGRAVIR RILPIVIRINE PO SCH (09:15)
[2018-11-10] MEDS: HEPARIN 5,000 UNIT/1 ML VIAL SUBCUT SCH (09:28)
[2018-11-10] MEDS: ALLOPURINOL 100 MG TABLET PO SCH (09:37)
[2018-11-10] MEDS: INSULIN LISPRO 100 UNIT/ML SUBCUT SCH ×2 (09:40→15:38)
[2018-11-10 15:54] VITALS: BP 120/75
== END 2018-11-10 16:25 | disposition home health service (06) | DRG 194 ==
LOC: EDUNIT# → EDBD → N.ED 08:56 → SUATTDRO 12:09 → N.EDINP 12:09 → N.5E 14:42
PROVIDERS: ADMIT Internal Medicine; ATTEND Internal Medicine

== ENCOUNTER 2019-06-25 12:15 | Inpatient (IN) ==
[2019-06-25] MEDS ORDERED: DICYCLOMINE 20 MG/2 ML AMP IM ONE (12:39)
[2019-06-25] MEDS ORDERED: ONDANSETRON 4 MG/2 ML VIAL IV STA (12:39)
[2019-06-25] MEDS ORDERED: METOCLOPRAMIDE 10 MG/2 ML VIAL IV STA (12:39)
[2019-06-25] MEDS ORDERED: PANTOPRAZOLE 40 MG VIAL IV STA ×2 (12:39)
[2019-06-25 12:54] LABS: Basophils # 0.1 10*3/uL (0.0-0.2); Basophils % 0.7 % (0.0-0.8); Eosinophils # 0.2 10*3/uL (0.0-0.87); Eosinophils % 2.6 % (0.00-10.9); Hematocrit 40.5 VOL% (35.7-47.0); Hemoglobin 12.6 GM/DL (12.0-16.0); Immature Granulocytes % 0.1 %; Immature Granulocytes Absolute 0.01 #; Lymphocytes # 1.8 10*3/uL (1.4-4.0); Lymphocytes % 24.8 % (21.3-54.2); Mean Corpuscular HGB Conc 31.1 GM/DL (32-36); Mean Platelet Volume 10.3 FL (9.6-12.0); Monocytes % 5.4 % (1.7-12.7); Neutrophils % 66.4 % (38.7-73.9); Platelet Count 184 T/CUMM (130-400); Red Blood Count 3.97 MC/CUMM (3.8-5.5); Red Cell Distribution Width 13.8 % (9.3-17.3); White Blood Count 7.4 T/CUMM (4-12)
[2019-06-25 13:26] LABS: Alanine Aminotransferase 12 U/L (13-56); Albumin 2.9 G/DL (3.4-5.0); Alkaline Phosphatase 128 U/L (45-117); Amylase 22 U/L (25-115); Aspartate Amino Transferase 15 U/L (0-37); Bilirubin,Total < 0.39 MG/DL (0.2-1.0); Blood Urea Nitrogen 15 MG/DL (7-18); Calcium 8.6 MG/DL (8.5-10.1); Estimated Glom Filtration Rate 20 ML/MIN; Glucose 191 MG/DL (74-106); Osmolality,Calculated 275.1 MOS/KG (273-304); Total Protein 7.8 G/DL (6.4-8.3)
[2019-06-25] MEDS ORDERED: fentaNYL 100 MCG/2 ML VIAL IV PRN (16:41)
[2019-06-25] MEDS ORDERED: ONDANSETRON 4 MG/2 ML VIAL IV PRN (16:41)
[2019-06-25] MEDS ORDERED: DEXTROSE 10% 250 ML BAG IV PRN (16:41)
[2019-06-25] MEDS ORDERED: GLUCAGON 1 MG VIAL IM PRN (16:41)
[2019-06-25] MEDS: PIPERACILLIN/TAZOBACTAM 3,375 MG in SODIUM CHLORIDE 0.9% 100 ML IV SCH (17:43)
[2019-06-25] MEDS ORDERED: LACTULOSE 20 GM/30 ML UDCUP PO PRN (18:52)
[2019-06-25] MEDS: carvediloL 25 MG TABLET PO SCH (19:06)
[2019-06-25] MEDS: METOCLOPRAMIDE 10 MG/2 ML VIAL IV SCH (19:06)
[2019-06-25] MEDS: ALBUTEROL/IPRATROPIUM 3 ML NEB RESP TX SCH (19:54)
[2019-06-25] MEDS ORDERED: ISOSORBIDE DINITRATE 20 MG TABLET PO SCH (21:00)
[2019-06-25] MEDS: ISOSORBIDE DINITRATE 20 MG TABLET PO SCH (22:39)
[2019-06-25] MEDS: SEVELAMER CARBONATE 800 MG TABLET PO SCH (22:40)
[2019-06-25] MEDS: GLIMEPIRIDE 4 MG TABLET PO SCH (22:40)
[2019-06-25] MEDS: GABAPENTIN 300 MG CAPSULE PO SCH (22:40)
[2019-06-25] MEDS: INSULIN REGULAR 100 UNIT/ML SUBCUT SCH (22:41)
[2019-06-25] MEDS: hydrALAZINE 25 MG TABLET PO SCH (22:41)
[2019-06-26] MEDS: ALBUTEROL/IPRATROPIUM 3 ML NEB RESP TX SCH ×4 (01:40→20:10)
[2019-06-26] MEDS: METOCLOPRAMIDE 10 MG/2 ML VIAL IV SCH ×4 (02:47→17:21)
[2019-06-26] MEDS: PIPERACILLIN/TAZOBACTAM 3,375 MG in SODIUM CHLORIDE 0.9% 100 ML IV SCH ×3 (02:52→16:20)
[2019-06-26] MEDS ORDERED: ceFAZolin 1,000 MG in SYRINGE 1 EACH IV ONE (07:01)
[2019-06-26] MEDS: hydrALAZINE 25 MG TABLET PO SCH ×3 (07:15→21:16)
[2019-06-26] MEDS: GABAPENTIN 300 MG CAPSULE PO SCH ×3 (07:15→21:15)
[2019-06-26] MEDS: carvediloL 25 MG TABLET PO SCH ×2 (07:15→16:23)
[2019-06-26] MEDS: PANTOPRAZOLE 40 MG TABLET PO SCH (07:15)
[2019-06-26] MEDS: SERTRALINE 100 MG TABLET PO SCH (07:15)
[2019-06-26] MEDS: GLIMEPIRIDE 4 MG TABLET PO SCH ×2 (07:15→21:15)
[2019-06-26] MEDS: ISOSORBIDE DINITRATE 20 MG TABLET PO SCH ×3 (07:15→21:16)
[2019-06-26 08:59] LABS: Basophils # 0.1 10*3/uL (0.0-0.2); Basophils % 0.7 % (0.0-0.8); Eosinophils # 0.2 10*3/uL (0.0-0.87); Eosinophils % 2.2 % (0.00-10.9); Hemoglobin 11.9 GM/DL (12.0-16.0); Immature Granulocytes % 0.4 %; Immature Granulocytes Absolute 0.03 #; Lymphocytes # 1.4 10*3/uL (1.4-4.0); Lymphocytes % 20.3 % (21.3-54.2); Mean Corpuscular HGB Conc 31.3 GM/DL (32-36); Mean Corpuscular Volume 104.4 FL (87-102); Mean Platelet Volume 9.8 FL (9.6-12.0); Monocytes % 6.4 % (1.7-12.7); Platelet Count 173 T/CUMM (130-400); Red Blood Count 3.64 MC/CUMM (3.8-5.5); Red Cell Distribution Width 13.9 % (9.3-17.3); White Blood Count 6.9 T/CUMM (4-12)
[2019-06-26 09:14] LABS: Calcium 8.5 MG/DL (8.5-10.1)
[2019-06-26] MEDS: SEVELAMER CARBONATE 800 MG TABLET PO SCH ×3 (09:52→17:20)
[2019-06-26] MEDS: LAMIVUDINE 100 MG PO SCH (09:52)
[2019-06-26] MEDS: INSULIN REGULAR 100 UNIT/ML SUBCUT SCH ×4 (09:52→21:16)
[2019-06-26] MEDS ORDERED: TISSUE ADHESIVE 1 EACH APPLICATOR TOP ONE (10:51)
[2019-06-26] MEDS ORDERED: BUPIVACAINE MPF 0.25% 30 ML VIAL ONE (10:51)
[2019-06-26] MEDS ORDERED: LIDOCAINE 1%/EPI INJ 20 ML VIAL ONE (10:51)
[2019-06-26] MEDS ORDERED: LACTATED RINGERS 1,000 ML IV SCH (11:00)
[2019-06-26] MEDS: DOLUTEGRAVIR RILPIVIRINE PO SCH (12:17)
[2019-06-26] MEDS ORDERED: propofoL 200 MG/20 ML VIAL IV ONE (13:32)
[2019-06-26] MEDS ORDERED: LIDOCAINE 2% 5 ML VIAL ONE (13:32)
[2019-06-26] MEDS ORDERED: ONDANSETRON 4 MG/2 ML VIAL ONE ×2 (13:33→13:50)
[2019-06-26] MEDS ORDERED: SEVOFLURANE 1 UNIT/15 MINUTE INH ONE (13:33)
[2019-06-26] MEDS ORDERED: METOPROLOL TARTRATE 5 MG/5 ML VIAL IV ONE (13:33)
[2019-06-26] MEDS ORDERED: GLYCOPYRROLATE 0.4 MG/2 ML VIAL ONE (13:33)
[2019-06-26] MEDS ORDERED: ETOMIDATE 40 MG/20 ML VIAL IV ONE (13:33)
[2019-06-26] MEDS ORDERED: PHENYLEPHRINE 1 MG/10 ML SYRINGE IV ONE (13:33)
[2019-06-26] MEDS ORDERED: fentaNYL 100 MCG/2 ML VIAL ONE (13:33)
[2019-06-26] MEDS ORDERED: MIDAZOLAM 2 MG/2 ML VIAL ONE (13:33)
[2019-06-26] MEDS ORDERED: SUCCINYLCHOLINE 200 MG/10 ML VIAL ONE (13:34)
[2019-06-26] MEDS ORDERED: NEOSTIGMINE 10 MG/10 ML VIAL ONE (13:34)
[2019-06-26] MEDS ORDERED: ROCURONIUM 100 MG/10 ML VIAL IV ONE (13:34)
[2019-06-26] MEDS ORDERED: MEPERIDINE 25 MG/1 ML VIAL IV PRN (13:36)
[2019-06-26] MEDS ORDERED: ONDANSETRON 4 MG/2 ML VIAL IV PRN (13:36)
[2019-06-26] MEDS ORDERED: diphenhydrAMINE 50 MG/1 ML VIAL IV PRN (13:36)
[2019-06-26] MEDS ORDERED: PROMETHAZINE INJ 25 MG in SODIUM CHLORIDE 0.9% 50 ML IV PRN (13:36)
[2019-06-26] MEDS ORDERED: MEPERIDINE 25 MG/1 ML VIAL ONE (13:50)
[2019-06-26] MEDS ORDERED: HYDROmorphone 2 MG/1 ML VIAL IV PRN (15:32)
[2019-06-26] MEDS: INSULIN GLARGINE 100 UNIT/ML SUBCUT SCH (16:20)
[2019-06-26] MEDS ORDERED: SODIUM CHLORIDE 0.9% 500 ML IV ONE (18:47)
[2019-06-26] MEDS ORDERED: ALBUTEROL 2.5 MG/3 ML NEB RESP TX PRN (19:00)
[2019-06-26 19:25] LABS: Hematocrit 35.3 VOL% (35.7-47.0); Hemoglobin 10.6 GM/DL (12.0-16.0)
[2019-06-26] MEDS: ACETAMINOPHEN 325 MG TABLET PO PRN (21:42)
[2019-06-27] MEDS: METOCLOPRAMIDE 10 MG/2 ML VIAL IV SCH ×4 (00:10→17:34)
[2019-06-27] MEDS: ALBUTEROL/IPRATROPIUM 3 ML NEB RESP TX SCH ×4 (00:31→19:37)
[2019-06-27] MEDS: PIPERACILLIN/TAZOBACTAM 3,375 MG in SODIUM CHLORIDE 0.9% 100 ML IV SCH ×3 (01:33→17:37)
[2019-06-27 05:39] LABS: Basophils % 0.6 % (0.0-0.8); Eosinophils # 0.2 10*3/uL (0.0-0.87); Eosinophils % 2.7 % (0.00-10.9); Hematocrit 39.4 VOL% (35.7-47.0); Immature Granulocytes % 0.3 %; Immature Granulocytes Absolute 0.02 #; Lymphocytes # 1.4 10*3/uL (1.4-4.0); Lymphocytes % 19.9 % (21.3-54.2); Mean Corpuscular HGB Conc 30.5 GM/DL (32-36); Mean Corpuscular Volume 106.2 FL (87-102); Mean Platelet Volume 10.2 FL (9.6-12.0); Monocytes % 5.7 % (1.7-12.7); Neutrophils % 70.8 % (38.7-73.9); Platelet Count 177 T/CUMM (130-400); Red Blood Count 3.71 MC/CUMM (3.8-5.5); Red Cell Distribution Width 13.8 % (9.3-17.3); White Blood Count 7.1 T/CUMM (4-12)
[2019-06-27 06:08] LABS: Albumin 2.5 G/DL (3.4-5.0); Bilirubin,Total 1.1 MG/DL (0.2-1.0); Calcium 8.4 MG/DL (8.5-10.1); Osmolality,Calculated 274.5 MOS/KG (273-304); Total Protein 6.9 G/DL (6.4-8.3)
[2019-06-27 08:55] LABS: ABG Base Excess 0.5 MMOL/L (-2.5-2.5); ABG HCO3 26.4 MMOL/L (20-26); ABG Oxygen Saturation 93.7 % (95-100); ABG PCO2 47.5 MM HG (35-48); ABG PH 7.362 (7.35-7.45); ABG PO2 68.3 MM HG (80-95); ABG TCO2 27.8 MMOL/L (23-27); Allen Test Positive
[2019-06-27] MEDS ORDERED: SODIUM CHLORIDE 0.9% 500 ML IV ONE (09:09)
[2019-06-27] MEDS: DOLUTEGRAVIR RILPIVIRINE PO SCH (09:11)
[2019-06-27] MEDS: LAMIVUDINE 100 MG PO SCH (09:11)
[2019-06-27] MEDS: INSULIN REGULAR 100 UNIT/ML SUBCUT SCH ×6 (09:48→22:54)
[2019-06-27] MEDS: ASCORBIC ACID 500 MG TABLET PO SCH (09:49)
[2019-06-27] MEDS: INSULIN GLARGINE 100 UNIT/ML SUBCUT SCH (09:49)
[2019-06-27] MEDS: GABAPENTIN 300 MG CAPSULE PO SCH ×3 (09:49→22:53)
[2019-06-27] MEDS: GLIMEPIRIDE 4 MG TABLET PO SCH ×2 (09:49→22:53)
[2019-06-27] MEDS: SERTRALINE 100 MG TABLET PO SCH (09:49)
[2019-06-27] MEDS: PANTOPRAZOLE 40 MG TABLET PO SCH (09:49)
[2019-06-27] MEDS: CHOLECALCIFEROL 1,000 UNIT TABLET PO SCH (09:49)
[2019-06-27] MEDS: SEVELAMER CARBONATE 800 MG TABLET PO SCH ×3 (09:49→17:33)
[2019-06-27] MEDS: carvediloL 25 MG TABLET PO SCH (10:07)
[2019-06-27] MEDS ORDERED: NALOXONE 0.4 MG/ML VIAL IV ONE (11:00)
[2019-06-27] MEDS ORDERED: HEPARIN 10,000 UNIT/10 ML VIAL IV SCH (14:00)
[2019-06-28] MEDS: ALBUTEROL/IPRATROPIUM 3 ML NEB RESP TX SCH ×4 (00:43→19:24)
[2019-06-28] MEDS: METOCLOPRAMIDE 10 MG/2 ML VIAL IV SCH ×5 (00:58→23:48)
[2019-06-28] MEDS: PIPERACILLIN/TAZOBACTAM 3,375 MG in SODIUM CHLORIDE 0.9% 100 ML IV SCH ×3 (01:01→17:03)
[2019-06-28] MEDS ORDERED: diphenhydrAMINE CAP 25 MG CAPSULE PO PRN (04:26)
[2019-06-28 04:56] LABS: Basophils % 0.5 % (0.0-0.8); Eosinophils # 0.3 10*3/uL (0.0-0.87); Eosinophils % 3.9 % (0.00-10.9); Hematocrit 33.4 VOL% (35.7-47.0); Hemoglobin 9.9 GM/DL (12.0-16.0); Immature Granulocytes % 0.3 %; Immature Granulocytes Absolute 0.02 #; Lymphocytes # 1.6 10*3/uL (1.4-4.0); Lymphocytes % 24.5 % (21.3-54.2); Mean Corpuscular HGB Conc 29.6 GM/DL (32-36); Mean Corpuscular Volume 107.7 FL (87-102); Mean Platelet Volume 9.6 FL (9.6-12.0); Monocytes % 7.9 % (1.7-12.7); Neutrophils % 62.9 % (38.7-73.9); Platelet Count 160 T/CUMM (130-400); Red Cell Distribution Width 14.2 % (9.3-17.3); White Blood Count 6.5 T/CUMM (4-12)
[2019-06-28 05:15] LABS: Albumin 2.2 G/DL (3.4-5.0); Bilirubin,Total 0.5 MG/DL (0.2-1.0); Calcium 7.9 MG/DL (8.5-10.1); Osmolality,Calculated 278.5 MOS/KG (273-304); Total Protein 6.2 G/DL (6.4-8.3)
[2019-06-28] MEDS: INSULIN REGULAR 100 UNIT/ML SUBCUT SCH ×8 (08:20→20:48)
[2019-06-28] MEDS: GABAPENTIN 300 MG CAPSULE PO SCH ×3 (09:21→20:49)
[2019-06-28] MEDS: CHOLECALCIFEROL 1,000 UNIT TABLET PO SCH (09:22)
[2019-06-28] MEDS: INSULIN GLARGINE 100 UNIT/ML SUBCUT SCH (09:22)
[2019-06-28] MEDS: DOLUTEGRAVIR RILPIVIRINE PO SCH (09:23)
[2019-06-28] MEDS: GLIMEPIRIDE 4 MG TABLET PO SCH ×2 (09:23→20:47)
[2019-06-28] MEDS: SEVELAMER CARBONATE 800 MG TABLET PO SCH ×3 (09:23→17:04)
[2019-06-28] MEDS: SERTRALINE 100 MG TABLET PO SCH (09:23)
[2019-06-28] MEDS: LAMIVUDINE 100 MG PO SCH (09:23)
[2019-06-28] MEDS: PANTOPRAZOLE 40 MG TABLET PO SCH (09:23)
[2019-06-28] MEDS: ASCORBIC ACID 500 MG TABLET PO SCH (12:28)
[2019-06-28] MEDS: ACETAMINOPHEN 325 MG TABLET PO PRN (20:49)
[2019-06-29] MEDS: ALBUTEROL/IPRATROPIUM 3 ML NEB RESP TX SCH ×3 (00:22→14:30)
[2019-06-29] MEDS: PIPERACILLIN/TAZOBACTAM 3,375 MG in SODIUM CHLORIDE 0.9% 100 ML IV SCH (01:57)
[2019-06-29 04:54] LABS: Basophils % 0.5 % (0.0-0.8); Eosinophils # 0.3 10*3/uL (0.0-0.87); Eosinophils % 4.9 % (0.00-10.9); Hematocrit 34.1 VOL% (35.7-47.0); Hemoglobin 10.2 GM/DL (12.0-16.0); Immature Granulocytes % 0.2 %; Immature Granulocytes Absolute 0.01 #; Lymphocytes # 1.5 10*3/uL (1.4-4.0); Lymphocytes % 25.7 % (21.3-54.2); Mean Corpuscular HGB Conc 29.9 GM/DL (32-36); Mean Corpuscular Volume 107.2 FL (87-102); Mean Platelet Volume 10.2 FL (9.6-12.0); Monocytes % 7.2 % (1.7-12.7); Neutrophils % 61.5 % (38.7-73.9); Platelet Count 166 T/CUMM (130-400); Red Blood Count 3.18 MC/CUMM (3.8-5.5); Red Cell Distribution Width 14.3 % (9.3-17.3); White Blood Count 5.7 T/CUMM (4-12)
[2019-06-29 05:27] LABS: Albumin 2.3 G/DL (3.4-5.0); Bilirubin,Total 0.6 MG/DL (0.2-1.0); Calcium 7.9 MG/DL (8.5-10.1); Total Protein 6.7 G/DL (6.4-8.3)
[2019-06-29] MEDS: METOCLOPRAMIDE 10 MG/2 ML VIAL IV SCH ×2 (06:12→12:24)
[2019-06-29] MEDS ORDERED: FLUCONAZOLE 200 MG TABLET PO ONE (07:13)
[2019-06-29] MEDS ORDERED: ASPIRIN EC 81 MG TABLET PO SCH (09:00)
[2019-06-29] MEDS ORDERED: OMEGA 3 ACID ETHYL ESTERS 1 GM CAPSULE PO SCH (09:00)
[2019-06-29] MEDS ORDERED: COD LIVER OIL PO SCH (09:00)
[2019-06-29] MEDS: INSULIN GLARGINE 100 UNIT/ML SUBCUT SCH (09:00)
[2019-06-29] MEDS: INSULIN REGULAR 100 UNIT/ML SUBCUT SCH ×6 (09:01→17:25)
[2019-06-29] MEDS: ASCORBIC ACID 500 MG TABLET PO SCH (09:01)
[2019-06-29] MEDS: PANTOPRAZOLE 40 MG TABLET PO SCH (09:01)
[2019-06-29] MEDS: CHOLECALCIFEROL 1,000 UNIT TABLET PO SCH (09:02)
[2019-06-29] MEDS: GLIMEPIRIDE 4 MG TABLET PO SCH (09:02)
[2019-06-29] MEDS: SERTRALINE 100 MG TABLET PO SCH (09:02)
[2019-06-29] MEDS: SEVELAMER CARBONATE 800 MG TABLET PO SCH ×3 (09:02→16:21)
[2019-06-29] MEDS: GABAPENTIN 300 MG CAPSULE PO SCH ×2 (09:02→16:17)
[2019-06-29] MEDS: DOLUTEGRAVIR RILPIVIRINE PO SCH (09:03)
[2019-06-29] MEDS: LAMIVUDINE 100 MG PO SCH (09:03)
[2019-06-29 17:08] VITALS: BP 112/58
== END 2019-06-29 18:06 | disposition home or self-care (01) | DRG 263 ==
LOC: EDUNIT# → EDBD → N.ED 12:15 → N.EDINP 12:15 → N.3E 18:23
PROVIDERS: ADMIT Student in an Organized Health Care Education/Training Program; ATTEND Student in an Organized Health Care Education/Training Program
PROC: LAPCHOL (2019-06-26 11:30)

== ENCOUNTER 2019-09-08 12:00 | Inpatient (IN) ==
[2019-09-08] MEDS ORDERED: ONDANSETRON 4 MG/2 ML VIAL IV STA (12:40)
[2019-09-08 13:07] LABS: Basophils % 0.3 % (0.0-0.8); Eosinophils # 0.1 10*3/uL (0.0-0.87); Eosinophils % 0.4 % (0.00-10.9); Hematocrit 40.1 VOL% (35.7-47.0); Hemoglobin 12.5 GM/DL (12.0-16.0); Immature Granulocytes % 0.5 %; Immature Granulocytes Absolute 0.06 #; Lymphocytes % 8.6 % (21.3-54.2); Mean Corpuscular HGB Conc 31.2 GM/DL (32-36); Mean Platelet Volume 10.6 FL (9.6-12.0); Monocytes % 4.2 % (1.7-12.7); Platelet Count 190 T/CUMM (130-400); Red Blood Count 3.97 MC/CUMM (3.8-5.5); Red Cell Distribution Width 13.4 % (9.3-17.3); White Blood Count 11.4 T/CUMM (4-12)
[2019-09-08 13:28] LABS: Bilirubin,Total 0.6 MG/DL (0.2-1.0); Calcium 8.7 MG/DL (8.5-10.1); Osmolality,Calculated 273.7 MOS/KG (273-304); Total Protein 7.9 G/DL (6.4-8.3)
[2019-09-08 14:25] LABS: Risk Ratio 2.07; VLDL CHOLESTEROL 19.8 MG/DL
[2019-09-08] MEDS ORDERED: MAGNESIUM SULF RIDER 4 GM in PREMIX 1 EACH IV PRN (14:31)
[2019-09-08] MEDS ORDERED: MAGNESIUM SULF RIDER 2 GM in PREMIX 1 EACH IV PRN (14:31)
[2019-09-08] MEDS ORDERED: hydrALAZINE 20 MG/1 ML VIAL IV PRN (14:57)
[2019-09-08 15:46] LABS: ABG Base Excess 1.1 MMOL/L (-2.5-2.5); ABG HCO3 25.3 MMOL/L (20-26); ABG Oxygen Saturation 97.3 % (95-100); ABG PCO2 43.2 MM HG (35-48); ABG PH 7.392 (7.35-7.45); ABG PO2 92.1 MM HG (80-95); ABG TCO2 23.2 MMOL/L (23-27)
[2019-09-08] MEDS ORDERED: AZITHROMYCIN INJ 250 MG in SODIUM CHLORIDE 0.9% 250 ML IV SCH (20:00)
[2019-09-08] MEDS: ONDANSETRON 4 MG/2 ML VIAL IV PRN (21:35)
[2019-09-08] MEDS ORDERED: diphenhydrAMINE CAP 25 MG CAPSULE PO ONE (22:54)
[2019-09-09 05:47] LABS: Basophils % 0.5 % (0.0-0.8); Eosinophils # 0.1 10*3/uL (0.0-0.87); Eosinophils % 0.9 % (0.00-10.9); Hematocrit 39.7 VOL% (35.7-47.0); Immature Granulocytes % 0.3 %; Immature Granulocytes Absolute 0.02 #; Lymphocytes # 1.7 10*3/uL (1.4-4.0); Lymphocytes % 22.5 % (21.3-54.2); Mean Corpuscular HGB Conc 30.2 GM/DL (32-36); Mean Corpuscular Volume 102.8 FL (87-102); Mean Platelet Volume 10.3 FL (9.6-12.0); Monocytes % 6.3 % (1.7-12.7); Neutrophils % 69.5 % (38.7-73.9); Platelet Count 187 T/CUMM (130-400); Red Blood Count 3.86 MC/CUMM (3.8-5.5); Red Cell Distribution Width 13.9 % (9.3-17.3); White Blood Count 7.7 T/CUMM (4-12)
[2019-09-09 06:15] LABS: Albumin 2.9 G/DL (3.4-5.0); Bilirubin,Total 1.4 MG/DL (0.2-1.0); Calcium 8.5 MG/DL (8.5-10.1); Osmolality,Calculated 273.7 MOS/KG (273-304); Total Protein 7.8 G/DL (6.4-8.3)
[2019-09-09] MEDS: MORPHINE 4 MG/1 ML VIAL IV PRN ×2 (06:25→21:09)
[2019-09-09] MEDS ORDERED: POTASSIUM CHLORIDE 20 MEQ TABLET PO ONE (08:05)
[2019-09-09] MEDS: PANTOPRAZOLE 40 MG VIAL IV SCH (10:08)
[2019-09-09] MEDS ORDERED: DEXTROSE 50% 25 GM/50 ML VIAL IV PRN ×2 (10:25→17:20)
[2019-09-09] MEDS ORDERED: GLUCAGON 1 MG VIAL IM PRN ×2 (10:25→17:20)
[2019-09-09] MEDS ORDERED: DEXTROSE 10% 250 ML BAG IV PRN (10:27)
[2019-09-09] MEDS ORDERED: ONDANSETRON ODT 4 MG TABLET PO PRN (10:33)
[2019-09-09] MEDS ORDERED: FLUCONAZOLE 200 MG TABLET PO ONE (11:00)
[2019-09-09] MEDS: NYSTATIN POWDER 15 GM BOTTLE TOP SCH ×2 (12:24→21:24)
[2019-09-09] MEDS: INSULIN REGULAR 100 UNIT/ML SUBCUT SCH (21:09)
[2019-09-09] MEDS: ONDANSETRON 4 MG/2 ML VIAL IV PRN (21:24)
[2019-09-10 06:39] LABS: Basophils % 0.3 % (0.0-0.8); Eosinophils # 0.1 10*3/uL (0.0-0.87); Hematocrit 38.6 VOL% (35.7-47.0); Immature Granulocytes % 0.5 %; Immature Granulocytes Absolute 0.03 #; Lymphocytes # 1.5 10*3/uL (1.4-4.0); Lymphocytes % 22.3 % (21.3-54.2); Mean Corpuscular HGB Conc 31.1 GM/DL (32-36); Mean Corpuscular Volume 102.1 FL (87-102); Mean Platelet Volume 10.3 FL (9.6-12.0); Monocytes % 8.2 % (1.7-12.7); Neutrophils % 66.7 % (38.7-73.9); Platelet Count 166 T/CUMM (130-400); Red Blood Count 3.78 MC/CUMM (3.8-5.5); Red Cell Distribution Width 13.9 % (9.3-17.3); White Blood Count 6.5 T/CUMM (4-12)
[2019-09-10 06:52] LABS: Albumin 2.8 G/DL (3.4-5.0); Bilirubin,Total 0.5 MG/DL (0.2-1.0); Calcium 8.5 MG/DL (8.5-10.1); Osmolality,Calculated 283.4 MOS/KG (273-304); Total Protein 7.6 G/DL (6.4-8.3)
[2019-09-10] MEDS: NYSTATIN POWDER 15 GM BOTTLE TOP SCH ×2 (09:01→21:49)
[2019-09-10] MEDS: PANTOPRAZOLE 40 MG VIAL IV SCH (09:01)
[2019-09-10] MEDS: SODIUM CHLORIDE 0.9% 1,000 ML IV SCH (09:01)
[2019-09-10] MEDS: INSULIN REGULAR 100 UNIT/ML SUBCUT SCH ×4 (09:53→21:48)
[2019-09-10] MEDS ORDERED: fentaNYL 100 MCG/2 ML VIAL ONE (12:29)
[2019-09-10] MEDS ORDERED: LIDOCAINE 2% 5 ML VIAL ONE (12:30)
[2019-09-10] MEDS ORDERED: propofoL 200 MG/20 ML VIAL IV ONE (12:30)
[2019-09-10] MEDS ORDERED: MIDAZOLAM 2 MG/2 ML VIAL ONE (12:30)
[2019-09-10] MEDS ORDERED: SUCCINYLCHOLINE 200 MG/10 ML VIAL ONE (12:30)
[2019-09-10] MEDS ORDERED: MOISTURIZING CREAM (EUCERIN) 106 GM JAR TOP PRN (12:59)
[2019-09-10] MEDS: MORPHINE 4 MG/1 ML VIAL IV PRN (18:05)
[2019-09-10] MEDS: diphenhydrAMINE CAP 50 MG CAPSULE PO PRN (18:05)
[2019-09-11] MEDS: diphenhydrAMINE CAP 50 MG CAPSULE PO PRN ×3 (00:09→20:30)
[2019-09-11 07:48] LABS: Basophils % 0.7 % (0.0-0.8); Eosinophils # 0.2 10*3/uL (0.0-0.87); Eosinophils % 2.5 % (0.00-10.9); Hematocrit 37.2 VOL% (35.7-47.0); Hemoglobin 11.3 GM/DL (12.0-16.0); Immature Granulocytes % 0.2 %; Immature Granulocytes Absolute 0.01 #; Lymphocytes # 1.5 10*3/uL (1.4-4.0); Lymphocytes % 24.3 % (21.3-54.2); Mean Corpuscular HGB Conc 30.4 GM/DL (32-36); Mean Corpuscular Volume 103.6 FL (87-102); Mean Platelet Volume 10.4 FL (9.6-12.0); Monocytes % 6.5 % (1.7-12.7); Neutrophils % 65.8 % (38.7-73.9); Platelet Count 168 T/CUMM (130-400); Red Blood Count 3.59 MC/CUMM (3.8-5.5)
[2019-09-11 08:10] LABS: Albumin 2.7 G/DL (3.4-5.0); Bilirubin,Total 0.7 MG/DL (0.2-1.0); Calcium 8.7 MG/DL (8.5-10.1); Total Protein 7.2 G/DL (6.4-8.3)
[2019-09-11] MEDS ORDERED: PANTOPRAZOLE 40 MG TABLET PO SCH (09:00)
[2019-09-11] MEDS: SODIUM CHLORIDE 0.9% 1,000 ML IV SCH (10:30)
[2019-09-11] MEDS: NYSTATIN POWDER 15 GM BOTTLE TOP SCH ×2 (10:30→20:15)
[2019-09-11] MEDS: INSULIN REGULAR 100 UNIT/ML SUBCUT SCH ×4 (10:31→20:15)
[2019-09-11] MEDS: ONDANSETRON 4 MG/2 ML VIAL IV PRN ×2 (14:30→21:44)
[2019-09-11] MEDS: MORPHINE 4 MG/1 ML VIAL IV PRN ×2 (14:38→20:24)
[2019-09-11] MEDS: METOCLOPRAMIDE 10 MG TABLET PO SCH (15:48)
[2019-09-11] MEDS: PANTOPRAZOLE 40 MG TABLET PO SCH (20:15)
[2019-09-12 05:58] LABS: Basophils % 0.4 % (0.0-0.8); Eosinophils # 0.2 10*3/uL (0.0-0.87); Eosinophils % 3.2 % (0.00-10.9); Hematocrit 34.1 VOL% (35.7-47.0); Hemoglobin 10.2 GM/DL (12.0-16.0); Immature Granulocytes % 0.1 %; Immature Granulocytes Absolute 0.01 #; Lymphocytes # 1.8 10*3/uL (1.4-4.0); Lymphocytes % 26.3 % (21.3-54.2); Mean Corpuscular HGB Conc 29.9 GM/DL (32-36); Mean Corpuscular Volume 104.3 FL (87-102); Monocytes % 7.3 % (1.7-12.7); Neutrophils % 62.7 % (38.7-73.9); Platelet Count 147 T/CUMM (130-400); Red Blood Count 3.27 MC/CUMM (3.8-5.5); Red Cell Distribution Width 13.8 % (9.3-17.3); White Blood Count 6.8 T/CUMM (4-12)
[2019-09-12 06:20] LABS: Macrocytosis Slight
[2019-09-12 06:21] LABS: Hypochromasia Slight; Platelet Estimate Adequate; Target Cells Slight
[2019-09-12 06:40] LABS: Albumin 2.4 G/DL (3.4-5.0); Bilirubin,Total 0.8 MG/DL (0.2-1.0); Calcium 8.1 MG/DL (8.5-10.1); Osmolality,Calculated 282.4 MOS/KG (273-304); Total Protein 6.7 G/DL (6.4-8.3)
[2019-09-12 08:25] VITALS: BP 121/64
[2019-09-12] MEDS: METOCLOPRAMIDE 10 MG TABLET PO SCH ×2 (09:39→11:50)
[2019-09-12] MEDS: NYSTATIN POWDER 15 GM BOTTLE TOP SCH (09:39)
[2019-09-12] MEDS: INSULIN REGULAR 100 UNIT/ML SUBCUT SCH ×2 (09:39→11:49)
[2019-09-12] MEDS: PANTOPRAZOLE 40 MG TABLET PO SCH (09:42)
[2019-09-12] MEDS: MORPHINE 4 MG/1 ML VIAL IV PRN (09:56)
[2019-09-12] MEDS: diphenhydrAMINE CAP 50 MG CAPSULE PO PRN (09:56)
== END 2019-09-12 13:58 | disposition home health service (06) | DRG 48 ==
LOC: EDUNIT# → N.ED 12:00 → SUATTDRO 15:38 → N.EDINP 16:40 → N.2E 17:55
PROVIDERS: ADMIT Internal Medicine; ATTEND Internal Medicine

== ENCOUNTER 2020-03-17 13:00 | Inpatient (IN) ==
[2020-03-17 14:48] LABS: Basophils % 0.2 % (0.0-0.8); Hematocrit 36.5 VOL% (35.7-47.0); Hemoglobin 11.8 GM/DL (12.0-16.0); Immature Granulocytes % 0.6 %; Immature Granulocytes Absolute 0.07 #; Lymphocytes # 0.3 10*3/uL (1.4-4.0); Lymphocytes % 2.7 % (21.3-54.2); Mean Corpuscular HGB Conc 32.3 GM/DL (32-36); Mean Corpuscular Volume 101.1 FL (87-102); Mean Platelet Volume 10.3 FL (9.6-12.0); Monocytes % 4.2 % (1.7-12.7); Neutrophils % 92.3 % (38.7-73.9); Platelet Count 156 T/CUMM (130-400); Red Blood Count 3.61 MC/CUMM (3.8-5.5); Red Cell Distribution Width 15.3 % (9.3-17.3); White Blood Count 11.5 T/CUMM (4-12)
[2020-03-17 15:03] LABS: PT Patient Result 10.8 SECS (9.8-11.9)
[2020-03-17 15:09] LABS: Alanine Aminotransferase 25 U/L (13-56); Albumin 3.1 G/DL (3.4-5.0); Alkaline Phosphatase 148 U/L (45-117); Aspartate Amino Transferase 20 U/L (0-37); Blood Urea Nitrogen 42 MG/DL (7-18); Calcium 9.5 MG/DL (8.5-10.1); Estimated Glom Filtration Rate 12 ML/MIN; Glucose 203 MG/DL (74-106); Osmolality,Calculated 269.4 MOS/KG (273-304); Total Protein 8.3 G/DL (6.4-8.3)
[2020-03-17 15:25] LABS: Lymphocytes 3 % (20-55); Macrocytosis Slight; Segmented Neutrophils 93 % (50-85); Total Cells Counted 100
[2020-03-17 15:26] LABS: Platelet Estimate Adequate
[2020-03-17] MEDS ORDERED: GLUCAGON 1 MG VIAL IM PRN ×2 (15:45→15:52)
[2020-03-17] MEDS ORDERED: DEXTROSE 50% 25 GM/50 ML VIAL IV PRN ×2 (15:45→15:52)
[2020-03-17] MEDS ORDERED: INFLUENZA VIRUS VACCINE 0.5 ML SYRINGE IM ONE (18:32)
[2020-03-17] MEDS: INSULIN REGULAR 100 UNIT/ML SUBCUT SCH ×2 (21:00→21:16)
[2020-03-17] MEDS: PIPERACILLIN/TAZOBACTAM 3,375 MG in SODIUM CHLORIDE 0.9% 100 ML IV SCH (21:17)
[2020-03-17] MEDS: HEPARIN 5,000 UNIT/1 ML VIAL SUBCUT SCH (21:18)
[2020-03-17] MEDS: ACETAMINOPHEN 325 MG TABLET PO PRN (22:46)
[2020-03-17] MEDS ORDERED: VANCOMYCIN INJ 2,500 MG in SODIUM CHLORIDE 0.9% 500 ML IV ONE (23:00)
[2020-03-18] MEDS: HEPARIN 5,000 UNIT/1 ML VIAL SUBCUT SCH ×4 (02:05→23:33)
[2020-03-18] MEDS: ACETAMINOPHEN 325 MG TABLET PO PRN ×2 (02:24→16:30)
[2020-03-18] MEDS: PIPERACILLIN/TAZOBACTAM 3,375 MG in SODIUM CHLORIDE 0.9% 100 ML IV SCH ×2 (05:47→16:51)
[2020-03-18 06:35] LABS: Basophils % 0.3 % (0.0-0.8); Eosinophils % 0.3 % (0.00-10.9); Hematocrit 32.7 VOL% (35.7-47.0); Hemoglobin 10.6 GM/DL (12.0-16.0); Immature Granulocytes % 0.6 %; Immature Granulocytes Absolute 0.07 #; Lymphocytes # 0.5 10*3/uL (1.4-4.0); Lymphocytes % 3.9 % (21.3-54.2); Mean Corpuscular HGB Conc 32.4 GM/DL (32-36); Mean Corpuscular Volume 101.2 FL (87-102); Mean Platelet Volume 10.6 FL (9.6-12.0); Monocytes % 3.7 % (1.7-12.7); Neutrophils % 91.2 % (38.7-73.9); Platelet Count 113 T/CUMM (130-400); Red Blood Count 3.23 MC/CUMM (3.8-5.5); Red Cell Distribution Width 15.4 % (9.3-17.3)
[2020-03-18 06:45] LABS: Albumin 2.5 G/DL (3.4-5.0); Bilirubin,Total 0.8 MG/DL (0.2-1.0); Calcium 8.7 MG/DL (8.5-10.1); Osmolality,Calculated 274.4 MOS/KG (273-304); Total Protein 7.3 G/DL (6.4-8.3)
[2020-03-18 07:24] LABS: Band Neutrophils 3 % (0-10); Lymphocytes 2 % (20-55); Segmented Neutrophils 91 % (50-85); Total Cells Counted 100
[2020-03-18 07:25] LABS: Hypochromasia 2+; Macrocytosis 1+; Ovalocytes Few; Polychromasia Slight
[2020-03-18 07:26] LABS: Platelet Estimate Adequate
[2020-03-18] MEDS: INSULIN REGULAR 100 UNIT/ML SUBCUT SCH ×4 (08:02→21:33)
[2020-03-18] MEDS ORDERED: HEPARIN 10,000 UNIT/10 ML VIAL IV SCH (11:45)
[2020-03-18] MEDS ORDERED: HEPARIN 10,000 UNIT/10 ML VIAL ONE (13:38)
[2020-03-18] MEDS ORDERED: NITROGLYCERIN SL 0.4 MG TABLET SL PRN (13:40)
[2020-03-18] MEDS ORDERED: CERAMIDES TOP PRN (13:40)
[2020-03-18] MEDS ORDERED: ALBUTEROL 2.5 MG/3 ML NEB RESP TX PRN (13:40)
[2020-03-18] MEDS ORDERED: LACTULOSE 20 GM/30 ML UDCUP PO PRN (13:40)
[2020-03-18] MEDS ORDERED: INSULIN NPH/REGULAR 70/30 100 UNIT/ML SUBCUT SCH (14:00)
[2020-03-18] MEDS ORDERED: GABAPENTIN 300 MG CAPSULE PO SCH (15:00)
[2020-03-18] MEDS: SEVELAMER CARBONATE 800 MG TABLET PO SCH (16:55)
[2020-03-18] MEDS: METOCLOPRAMIDE 10 MG TABLET PO SCH ×2 (16:55→21:33)
[2020-03-18] MEDS ORDERED: GLIMEPIRIDE 4 MG TABLET PO SCH (17:00)
[2020-03-18] MEDS ORDERED: VANCOMYCIN INJ 1,250 MG in SODIUM CHLORIDE 0.9% 250 ML IV PRN (17:00)
[2020-03-18] MEDS ORDERED: VANCOMYCIN INJ 1,250 MG in SODIUM CHLORIDE 0.9% 250 ML IV ONE (17:00)
[2020-03-18] MEDS ORDERED: SODIUM CHLORIDE 0.9% 500 ML IV ONE (20:34)
[2020-03-18] MEDS ORDERED: carvediloL 25 MG TABLET PO SCH (21:00)
[2020-03-19] MEDS: PIPERACILLIN/TAZOBACTAM 3,375 MG in SODIUM CHLORIDE 0.9% 100 ML IV SCH ×2 (03:19→17:00)
[2020-03-19 06:08] LABS: Basophils % 0.3 % (0.0-0.8); Eosinophils % 0.1 % (0.00-10.9); Hematocrit 28.7 VOL% (35.7-47.0); Hemoglobin 9.2 GM/DL (12.0-16.0); Immature Granulocytes % 0.4 %; Immature Granulocytes Absolute 0.04 #; Lymphocytes # 0.8 10*3/uL (1.4-4.0); Lymphocytes % 7.5 % (21.3-54.2); Mean Corpuscular HGB Conc 32.1 GM/DL (32-36); Mean Corpuscular Volume 102.5 FL (87-102); Mean Platelet Volume 11.5 FL (9.6-12.0); Monocytes % 7.2 % (1.7-12.7); Neutrophils % 84.5 % (38.7-73.9); Platelet Count 84 T/CUMM (130-400); Red Cell Distribution Width 15.2 % (9.3-17.3); White Blood Count 10.5 T/CUMM (4-12)
[2020-03-19 06:33] LABS: Calcium 8.6 MG/DL (8.5-10.1); Osmolality,Calculated 272.2 MOS/KG (273-304)
[2020-03-19] MEDS: INSULIN REGULAR 100 UNIT/ML SUBCUT SCH ×5 (08:06→21:09)
[2020-03-19] MEDS ORDERED: COD LIVER OIL PO SCH (09:00)
[2020-03-19] MEDS ORDERED: FAMOTIDINE 40 MG PO SCH (09:00)
[2020-03-19] MEDS: METOCLOPRAMIDE 10 MG TABLET PO SCH ×4 (13:13→21:12)
[2020-03-19] MEDS: PANTOPRAZOLE 40 MG TABLET PO SCH (13:13)
[2020-03-19] MEDS: SEVELAMER CARBONATE 800 MG TABLET PO SCH ×3 (13:14→17:45)
[2020-03-19] MEDS: ASPIRIN EC 81 MG TABLET PO SCH (13:14)
[2020-03-19] MEDS: DOLUTEGRAVIR RILPIVIRINE PO SCH ×2 (13:14→13:40)
[2020-03-19] MEDS: HEPARIN 5,000 UNIT/1 ML VIAL SUBCUT SCH ×3 (13:16→23:32)
[2020-03-19] MEDS: OMEGA 3 ACID ETHYL ESTERS 1 GM CAPSULE PO SCH (13:40)
[2020-03-19] MEDS: SERTRALINE 100 MG TABLET PO SCH (13:40)
[2020-03-19] MEDS: INSULIN GLARGINE 100 UNIT/ML SUBCUT SCH (13:40)
[2020-03-19] MEDS: CHOLECALCIFEROL 1,000 UNIT TABLET PO SCH (13:40)
[2020-03-19] MEDS: ASCORBIC ACID 500 MG TABLET PO SCH (13:40)
[2020-03-19] MEDS ORDERED: VANCOMYCIN INJ 1,250 MG in SODIUM CHLORIDE 0.9% 250 ML IV ONE (17:00)
[2020-03-20] MEDS: PIPERACILLIN/TAZOBACTAM 3,375 MG in SODIUM CHLORIDE 0.9% 100 ML IV SCH ×2 (04:42→16:17)
[2020-03-20 06:04] LABS: Basophils % 0.3 % (0.0-0.8); Eosinophils # 0.1 10*3/uL (0.0-0.87); Eosinophils % 1.5 % (0.00-10.9); Hematocrit 28.9 VOL% (35.7-47.0); Hemoglobin 9.1 GM/DL (12.0-16.0); Immature Granulocytes % 0.4 %; Immature Granulocytes Absolute 0.03 #; Lymphocytes % 14.7 % (21.3-54.2); Mean Corpuscular HGB Conc 31.5 GM/DL (32-36); Mean Corpuscular Volume 102.1 FL (87-102); Mean Platelet Volume 11.7 FL (9.6-12.0); Monocytes % 9.1 % (1.7-12.7); Platelet Count 82 T/CUMM (130-400); Red Blood Count 2.83 MC/CUMM (3.8-5.5); White Blood Count 6.9 T/CUMM (4-12)
[2020-03-20 06:16] LABS: Calcium 8.8 MG/DL (8.5-10.1); Osmolality,Calculated 267.1 MOS/KG (273-304)
[2020-03-20] MEDS ORDERED: MEPERIDINE 25 MG/1 ML VIAL IV PRN (06:27)
[2020-03-20] MEDS ORDERED: ONDANSETRON 4 MG/2 ML VIAL IV PRN (06:27)
[2020-03-20] MEDS ORDERED: diphenhydrAMINE 50 MG/1 ML VIAL IV PRN (06:27)
[2020-03-20] MEDS ORDERED: PROMETHAZINE INJ 25 MG in SODIUM CHLORIDE 0.9% 50 ML IV PRN (06:27)
[2020-03-20] MEDS ORDERED: LIDOCAINE 1%/EPI INJ 20 ML VIAL ONE (06:45)
[2020-03-20] MEDS ORDERED: BUPIVACAINE MPF 0.25% 30 ML VIAL ONE (06:45)
[2020-03-20 07:19] LABS: Platelet Estimate Decreased
[2020-03-20 07:20] LABS: Anisocytosis 1+; Basophilic Stippling Slight; Macrocytosis 2+
[2020-03-20] MEDS ORDERED: MIDAZOLAM 2 MG/2 ML VIAL ONE (08:20)
[2020-03-20] MEDS ORDERED: fentaNYL 100 MCG/2 ML VIAL ONE (08:20)
[2020-03-20] MEDS ORDERED: propofoL 200 MG/20 ML VIAL IV ONE (08:20)
[2020-03-20] MEDS ORDERED: DEXMEDETOMIDINE 200 MCG/2 ML VIAL ONE (08:20)
[2020-03-20] MEDS ORDERED: SODIUM CHLORIDE 0.9% 250 ML IV ONE (08:21)
[2020-03-20] MEDS: INSULIN GLARGINE 100 UNIT/ML SUBCUT SCH (10:45)
[2020-03-20] MEDS: INSULIN REGULAR 100 UNIT/ML SUBCUT SCH ×4 (10:58→22:08)
[2020-03-20] MEDS: PANTOPRAZOLE 40 MG TABLET PO SCH (10:59)
[2020-03-20] MEDS: SEVELAMER CARBONATE 800 MG TABLET PO SCH ×3 (10:59→16:18)
[2020-03-20] MEDS: METOCLOPRAMIDE 10 MG TABLET PO SCH ×4 (10:59→22:09)
[2020-03-20] MEDS: HEPARIN 5,000 UNIT/1 ML VIAL SUBCUT SCH ×3 (11:00→23:33)
[2020-03-20] MEDS: ASPIRIN EC 81 MG TABLET PO SCH (11:01)
[2020-03-20] MEDS: OMEGA 3 ACID ETHYL ESTERS 1 GM CAPSULE PO SCH (11:01)
[2020-03-20] MEDS: ASCORBIC ACID 500 MG TABLET PO SCH (11:01)
[2020-03-20] MEDS: CHOLECALCIFEROL 1,000 UNIT TABLET PO SCH (11:02)
[2020-03-20] MEDS: SERTRALINE 100 MG TABLET PO SCH (11:02)
[2020-03-20] MEDS: DOLUTEGRAVIR RILPIVIRINE PO SCH (12:20)
[2020-03-20] MEDS ORDERED: DEXTROSE 50% 25 GM/50 ML VIAL IV PRN (12:26)
[2020-03-20] MEDS ORDERED: GLUCAGON 1 MG VIAL IM PRN (12:26)
[2020-03-21] MEDS: PIPERACILLIN/TAZOBACTAM 3,375 MG in SODIUM CHLORIDE 0.9% 100 ML IV SCH (04:20)
[2020-03-21 05:47] LABS: Basophils % 0.6 % (0.0-0.8); Eosinophils # 0.2 10*3/uL (0.0-0.87); Eosinophils % 2.5 % (0.00-10.9); Hematocrit 27.7 VOL% (35.7-47.0); Immature Granulocytes % 0.6 %; Immature Granulocytes Absolute 0.04 #; Lymphocytes # 1.3 10*3/uL (1.4-4.0); Lymphocytes % 17.6 % (21.3-54.2); Mean Corpuscular HGB Conc 32.5 GM/DL (32-36); Mean Corpuscular Volume 100.4 FL (87-102); Mean Platelet Volume 11.9 FL (9.6-12.0); Monocytes % 11.6 % (1.7-12.7); Neutrophils % 67.1 % (38.7-73.9); Red Blood Count 2.76 MC/CUMM (3.8-5.5); Red Cell Distribution Width 15.1 % (9.3-17.3); White Blood Count 7.2 T/CUMM (4-12)
[2020-03-21 05:52] LABS: Platelet Count 105 T/CUMM (130-400)
[2020-03-21 06:06] LABS: Calcium 8.6 MG/DL (8.5-10.1); Osmolality,Calculated 278.7 MOS/KG (273-304)
[2020-03-21] MEDS: DOLUTEGRAVIR RILPIVIRINE PO SCH (09:35)
[2020-03-21] MEDS: HEPARIN 5,000 UNIT/1 ML VIAL SUBCUT SCH (09:37)
[2020-03-21] MEDS: CHOLECALCIFEROL 1,000 UNIT TABLET PO SCH (09:37)
[2020-03-21] MEDS: OMEGA 3 ACID ETHYL ESTERS 1 GM CAPSULE PO SCH (09:38)
[2020-03-21] MEDS: SERTRALINE 100 MG TABLET PO SCH (09:38)
[2020-03-21] MEDS: ASPIRIN EC 81 MG TABLET PO SCH (09:38)
[2020-03-21] MEDS: INSULIN GLARGINE 100 UNIT/ML SUBCUT SCH (09:38)
[2020-03-21] MEDS: ASCORBIC ACID 500 MG TABLET PO SCH (09:38)
[2020-03-21] MEDS: METOCLOPRAMIDE 10 MG TABLET PO SCH ×2 (09:39→16:19)
[2020-03-21] MEDS: SEVELAMER CARBONATE 800 MG TABLET PO SCH ×2 (09:39→16:20)
[2020-03-21] MEDS: INSULIN REGULAR 100 UNIT/ML SUBCUT SCH ×2 (11:05→16:35)
[2020-03-21 11:42] VITALS: BP 105/48
[2020-03-21] MEDS ORDERED: SODIUM HYPOCHLORITE 0.25% IRRIG 473 ML BOTTLE TOP SCH (12:00)
[2020-03-21] MEDS ORDERED: FAMOTIDINE 20 MG TABLET PO SCH (21:00)
== END 2020-03-21 17:10 | disposition home or self-care (01) | DRG 182 ==
LOC: N.ED 13:00 → SUATTDRO 15:45 → N.EDINP 15:45 → N.3E 16:55
PROVIDERS: ADMIT Internal Medicine; ATTEND Internal Medicine

== ENCOUNTER 2020-05-17 09:26 | Inpatient (IN) ==
[2020-05-17 11:43] LABS: Basophils % 0.3 % (0.0-0.8); Eosinophils # 0.1 10*3/uL (0.0-0.87); Eosinophils % 1.4 % (0.00-10.9); Hematocrit 30.3 VOL% (35.7-47.0); Immature Granulocytes % 0.3 %; Immature Granulocytes Absolute 0.02 #; Mean Corpuscular Volume 98.4 FL (87-102); Monocytes % 5.5 % (1.7-12.7); Neutrophils % 77.5 % (38.7-73.9); Platelet Count 183 T/CUMM (130-400); Red Blood Count 3.08 MC/CUMM (3.8-5.5); Red Cell Distribution Width 13.7 % (9.3-17.3); White Blood Count 6.5 T/CUMM (4-12)
[2020-05-17 11:53] LABS: Alanine Aminotransferase 18 U/L (13-56); Albumin 2.9 G/DL (3.4-5.0); Alkaline Phosphatase 202 U/L (45-117); Aspartate Amino Transferase 10 U/L (0-37); Bilirubin,Total < 0.39 MG/DL (0.2-1.0); Blood Urea Nitrogen 103 MG/DL (7-18); Calcium 7.5 MG/DL (8.5-10.1); Estimated Glom Filtration Rate 4 ML/MIN; Osmolality,Calculated 298.9 MOS/KG (273-304)
[2020-05-17 11:57] LABS: Glucose 503 MG/DL (74-106)
[2020-05-17 12:04] LABS: PT Patient Result 10.6 SECS (9.8-11.9)
[2020-05-17] MEDS ORDERED: INSULIN REGULAR 100 UNIT/ML IV ONE ×2 (12:20→17:00)
[2020-05-17] MEDS ORDERED: SODIUM CHLORIDE 0.9% 1,000 ML IV STA (12:24)
[2020-05-17 13:02] LABS: Troponin I < 0.015 NG/ML (0.00-0.045)
[2020-05-17 14:14] LABS: ABG Base Excess -7.9 MMOL/L (-2.5-2.5); ABG Oxygen Saturation 97.5 % (95-100); ABG PCO2 44.4 MM HG (35-48); ABG PH 7.244 (7.35-7.45)
[2020-05-17] MEDS ORDERED: CERAMIDES TOP PRN (15:46)
[2020-05-17] MEDS ORDERED: NITROGLYCERIN SL 0.4 MG TABLET SL PRN (15:46)
[2020-05-17] MEDS ORDERED: diphenhydrAMINE CAP 25 MG CAPSULE PO PRN (15:46)
[2020-05-17] MEDS ORDERED: [UNRECOGNIZED DRUG - OTHER] TOP PRN (15:46)
[2020-05-17] MEDS ORDERED: LACTULOSE 20 GM/30 ML UDCUP PO PRN (15:46)
[2020-05-17] MEDS ORDERED: INSULIN NPH/REGULAR 70/30 100 UNIT/ML SUBCUT SCH (16:00)
[2020-05-17] MEDS ORDERED: GLUCAGON 1 MG VIAL IM PRN (16:09)
[2020-05-17] MEDS ORDERED: DEXTROSE 50% 25 GM/50 ML VIAL IV PRN (16:09)
[2020-05-17] MEDS ORDERED: ALTEPLASE 2 MG VIAL INTRACATH ONE (18:30)
[2020-05-17] MEDS: INSULIN REGULAR 100 UNIT/ML SUBCUT SCH ×2 (19:30→22:10)
[2020-05-17] MEDS: METOCLOPRAMIDE 5 MG TABLET PO SCH ×2 (19:30→22:11)
[2020-05-17] MEDS: SEVELAMER CARBONATE 800 MG TABLET PO SCH (19:31)
[2020-05-17] MEDS: LAMIVUDINE 50 MG PO SCH (19:31)
[2020-05-17] MEDS: INSULIN GLARGINE 100 UNIT/ML SUBCUT SCH (22:10)
[2020-05-17] MEDS: carvediloL 25 MG TABLET PO SCH (22:10)
[2020-05-17] MEDS: GABAPENTIN 300 MG CAPSULE PO SCH (22:10)
[2020-05-17] MEDS: GLIMEPIRIDE 4 MG TABLET PO SCH (22:10)
[2020-05-18] MEDS: INSULIN REGULAR 100 UNIT/ML SUBCUT SCH ×4 (07:23→20:23)
[2020-05-18] MEDS: SEVELAMER CARBONATE 800 MG TABLET PO SCH ×3 (08:29→17:02)
[2020-05-18] MEDS: METOCLOPRAMIDE 5 MG TABLET PO SCH ×4 (08:29→20:23)
[2020-05-18] MEDS: DOLUTEGRAVIR RILPIVIRINE PO SCH (08:29)
[2020-05-18] MEDS ORDERED: VANCOMYCIN INJ 1,250 MG in SODIUM CHLORIDE 0.9% 250 ML IV PRN (09:00)
[2020-05-18] MEDS ORDERED: OMEGA DHA EPA FISH OIL PO SCH (09:00)
[2020-05-18] MEDS ORDERED: VANCOMYCIN INJ 2,500 MG in SODIUM CHLORIDE 0.9% 500 ML IV ONE (10:00)
[2020-05-18] MEDS ORDERED: ceFAZolin 2,000 MG in PREMIX 1 EACH IV ONE (10:00)
[2020-05-18] MEDS: GABAPENTIN 300 MG CAPSULE PO SCH ×3 (12:25→20:23)
[2020-05-18] MEDS: GLIMEPIRIDE 4 MG TABLET PO SCH ×2 (12:25→20:22)
[2020-05-18] MEDS: SERTRALINE 100 MG TABLET PO SCH (12:25)
[2020-05-18] MEDS: FAMOTIDINE 20 MG TABLET PO SCH (12:25)
[2020-05-18] MEDS: OMEGA 3 ACID ETHYL ESTERS 1 GM CAPSULE PO SCH (12:25)
[2020-05-18] MEDS: ASCORBIC ACID 500 MG TABLET PO SCH (12:25)
[2020-05-18] MEDS: CHOLECALCIFEROL 1,000 UNIT TABLET PO SCH (12:25)
[2020-05-18] MEDS: carvediloL 25 MG TABLET PO SCH ×2 (12:25→20:23)
[2020-05-18] MEDS: ASPIRIN EC 81 MG TABLET PO SCH (12:25)
[2020-05-18] MEDS ORDERED: BUPIVACAINE MPF 0.25% 30 ML VIAL ONE (13:09)
[2020-05-18] MEDS ORDERED: HEPARIN 5,000 UNIT/1 ML VIAL ONE (13:09)
[2020-05-18] MEDS ORDERED: LIDOCAINE 1%/EPI INJ 20 ML VIAL ONE (13:10)
[2020-05-18] MEDS ORDERED: LIDOCAINE 2% 5 ML VIAL ONE (13:11)
[2020-05-18] MEDS ORDERED: propofoL 200 MG/20 ML VIAL IV ONE ×2 (13:11→14:04)
[2020-05-18] MEDS ORDERED: MIDAZOLAM 2 MG/2 ML VIAL ONE (13:57)
[2020-05-18] MEDS ORDERED: fentaNYL 100 MCG/2 ML VIAL ONE (13:57)
[2020-05-18] MEDS ORDERED: PHENYLEPHRINE 1 MG/10 ML SYRINGE IV ONE (15:16)
[2020-05-18] MEDS: LAMIVUDINE 50 MG PO SCH (17:03)
[2020-05-18] MEDS: INSULIN GLARGINE 100 UNIT/ML SUBCUT SCH (20:23)
[2020-05-19] MEDS ORDERED: HEPARIN 10,000 UNIT/10 ML VIAL IV PRN (09:10)
[2020-05-19] MEDS: SEVELAMER CARBONATE 800 MG TABLET PO SCH ×3 (10:45→18:09)
[2020-05-19] MEDS: FAMOTIDINE 20 MG TABLET PO SCH (10:45)
[2020-05-19] MEDS: OMEGA 3 ACID ETHYL ESTERS 1 GM CAPSULE PO SCH (10:46)
[2020-05-19] MEDS: carvediloL 25 MG TABLET PO SCH ×2 (10:47→20:31)
[2020-05-19] MEDS: GLIMEPIRIDE 4 MG TABLET PO SCH ×2 (10:47→20:31)
[2020-05-19] MEDS: CHOLECALCIFEROL 1,000 UNIT TABLET PO SCH (10:47)
[2020-05-19] MEDS: METOCLOPRAMIDE 5 MG TABLET PO SCH ×4 (10:47→20:31)
[2020-05-19] MEDS: ASPIRIN EC 81 MG TABLET PO SCH (10:47)
[2020-05-19] MEDS: GABAPENTIN 300 MG CAPSULE PO SCH ×3 (10:48→20:31)
[2020-05-19] MEDS: ASCORBIC ACID 500 MG TABLET PO SCH (10:48)
[2020-05-19] MEDS: DOLUTEGRAVIR RILPIVIRINE PO SCH (10:50)
[2020-05-19] MEDS: SERTRALINE 100 MG TABLET PO SCH (10:58)
[2020-05-19] MEDS: INSULIN REGULAR 100 UNIT/ML SUBCUT SCH ×4 (11:34→20:31)
[2020-05-19] MEDS ORDERED: VANCOMYCIN INJ 1,250 MG in SODIUM CHLORIDE 0.9% 250 ML IV ONE (17:00)
[2020-05-19] MEDS: LAMIVUDINE 50 MG PO SCH (17:21)
[2020-05-19] MEDS ORDERED: SIMETHICONE CHEW 125 MG TABLET PO PRN (19:50)
[2020-05-19] MEDS: INSULIN GLARGINE 100 UNIT/ML SUBCUT SCH (20:48)
[2020-05-20] MEDS: INSULIN REGULAR 100 UNIT/ML SUBCUT SCH ×4 (08:26→20:41)
[2020-05-20] MEDS: OMEGA 3 ACID ETHYL ESTERS 1 GM CAPSULE PO SCH (08:27)
[2020-05-20] MEDS: ASPIRIN EC 81 MG TABLET PO SCH (08:27)
[2020-05-20] MEDS: METOCLOPRAMIDE 5 MG TABLET PO SCH ×4 (08:27→20:40)
[2020-05-20] MEDS: carvediloL 25 MG TABLET PO SCH ×2 (08:27→20:40)
[2020-05-20] MEDS: CHOLECALCIFEROL 1,000 UNIT TABLET PO SCH (08:27)
[2020-05-20] MEDS: FAMOTIDINE 20 MG TABLET PO SCH (08:27)
[2020-05-20] MEDS: ASCORBIC ACID 500 MG TABLET PO SCH (08:28)
[2020-05-20] MEDS: SEVELAMER CARBONATE 800 MG TABLET PO SCH ×3 (08:28→16:53)
[2020-05-20] MEDS: GABAPENTIN 300 MG CAPSULE PO SCH ×3 (08:28→20:40)
[2020-05-20] MEDS: SERTRALINE 100 MG TABLET PO SCH (08:28)
[2020-05-20] MEDS: GLIMEPIRIDE 4 MG TABLET PO SCH ×2 (08:28→20:40)
[2020-05-20] MEDS: DOLUTEGRAVIR RILPIVIRINE PO SCH ×2 (08:30→17:51)
[2020-05-20] MEDS: LAMIVUDINE 50 MG PO SCH (17:51)
[2020-05-20] MEDS: INSULIN GLARGINE 100 UNIT/ML SUBCUT SCH (20:40)
[2020-05-21] MEDS: INSULIN REGULAR 100 UNIT/ML SUBCUT SCH ×4 (08:00→20:26)
[2020-05-21] MEDS: METOCLOPRAMIDE 5 MG TABLET PO SCH ×4 (08:01→20:26)
[2020-05-21] MEDS: SEVELAMER CARBONATE 800 MG TABLET PO SCH ×3 (08:01→17:07)
[2020-05-21] MEDS: GABAPENTIN 300 MG CAPSULE PO SCH ×3 (10:45→20:26)
[2020-05-21] MEDS: DOLUTEGRAVIR RILPIVIRINE PO SCH (12:27)
[2020-05-21] MEDS: ASPIRIN EC 81 MG TABLET PO SCH (12:28)
[2020-05-21] MEDS: OMEGA 3 ACID ETHYL ESTERS 1 GM CAPSULE PO SCH (12:28)
[2020-05-21] MEDS: CHOLECALCIFEROL 1,000 UNIT TABLET PO SCH (12:28)
[2020-05-21] MEDS: carvediloL 25 MG TABLET PO SCH ×2 (12:28→20:26)
[2020-05-21] MEDS: GLIMEPIRIDE 4 MG TABLET PO SCH ×2 (12:28→20:25)
[2020-05-21] MEDS: SERTRALINE 100 MG TABLET PO SCH (12:29)
[2020-05-21] MEDS: ASCORBIC ACID 500 MG TABLET PO SCH (12:29)
[2020-05-21] MEDS: FAMOTIDINE 20 MG TABLET PO SCH (12:29)
[2020-05-21] MEDS: LAMIVUDINE 50 MG PO SCH (14:45)
[2020-05-21] MEDS ORDERED: VANCOMYCIN INJ 1,250 MG in SODIUM CHLORIDE 0.9% 250 ML IV ONE (17:00)
[2020-05-21] MEDS: INSULIN GLARGINE 100 UNIT/ML SUBCUT SCH (20:26)
[2020-05-22 03:59] LABS: Basophils % 0.8 % (0.0-0.8); Eosinophils # 0.2 10*3/uL (0.0-0.87); Hematocrit 23.8 VOL% (35.7-47.0); Hemoglobin 7.7 GM/DL (12.0-16.0); Immature Granulocytes % 0.2 %; Immature Granulocytes Absolute 0.01 #; Lymphocytes # 1.7 10*3/uL (1.4-4.0); Lymphocytes % 32.4 % (21.3-54.2); Mean Corpuscular HGB Conc 32.4 GM/DL (32-36); Mean Corpuscular Volume 100.8 FL (87-102); Mean Platelet Volume 9.7 FL (9.6-12.0); Monocytes % 8.7 % (1.7-12.7); Neutrophils % 53.9 % (38.7-73.9); Platelet Count 151 T/CUMM (130-400); Red Blood Count 2.36 MC/CUMM (3.8-5.5); White Blood Count 5.3 T/CUMM (4-12)
[2020-05-22 04:17] LABS: Alanine Aminotransferase < 9 U/L (13-56); Albumin 1.9 G/DL (3.4-5.0); Alkaline Phosphatase 85 U/L (45-117); Aspartate Amino Transferase 10 U/L (0-37); Bilirubin,Total < 0.39 MG/DL (0.2-1.0); Blood Urea Nitrogen 51 MG/DL (7-18); Calcium 8.1 MG/DL (8.5-10.1); Estimated Glom Filtration Rate 10 ML/MIN; Glucose 91 MG/DL (74-106); Osmolality,Calculated 283.1 MOS/KG (273-304); Total Protein 6.1 G/DL (6.4-8.3)
[2020-05-22] MEDS ORDERED: SODIUM CHLORIDE 0.9% 1,000 ML IV PRN (06:36)
[2020-05-22] MEDS: FAMOTIDINE 20 MG TABLET PO SCH (08:41)
[2020-05-22] MEDS: ASPIRIN EC 81 MG TABLET PO SCH (08:41)
[2020-05-22] MEDS: CHOLECALCIFEROL 1,000 UNIT TABLET PO SCH (08:41)
[2020-05-22] MEDS: OMEGA 3 ACID ETHYL ESTERS 1 GM CAPSULE PO SCH (08:41)
[2020-05-22] MEDS: carvediloL 25 MG TABLET PO SCH ×2 (08:41→22:00)
[2020-05-22] MEDS: METOCLOPRAMIDE 5 MG TABLET PO SCH ×4 (08:41→22:00)
[2020-05-22] MEDS: SERTRALINE 100 MG TABLET PO SCH (08:42)
[2020-05-22] MEDS: GLIMEPIRIDE 4 MG TABLET PO SCH ×2 (08:42→22:00)
[2020-05-22] MEDS: ASCORBIC ACID 500 MG TABLET PO SCH (08:42)
[2020-05-22] MEDS: GABAPENTIN 300 MG CAPSULE PO SCH ×3 (08:42→22:00)
[2020-05-22] MEDS: INSULIN REGULAR 100 UNIT/ML SUBCUT SCH ×4 (08:44→22:01)
[2020-05-22] MEDS: SEVELAMER CARBONATE 800 MG TABLET PO SCH ×3 (08:45→17:08)
[2020-05-22] MEDS: DOLUTEGRAVIR RILPIVIRINE PO SCH (08:46)
[2020-05-22] MEDS: LAMIVUDINE 50 MG PO SCH (08:47)
[2020-05-22] MEDS: INSULIN GLARGINE 100 UNIT/ML SUBCUT SCH (22:00)
[2020-05-23] MEDS: INSULIN REGULAR 100 UNIT/ML SUBCUT SCH ×4 (08:28→22:00)
[2020-05-23 08:56] LABS: Basophils # 0.1 10*3/uL (0.0-0.2); Basophils % 0.8 % (0.0-0.8); Eosinophils # 0.2 10*3/uL (0.0-0.87); Eosinophils % 3.5 % (0.00-10.9); Hemoglobin 8.3 GM/DL (12.0-16.0); Immature Granulocytes % 0.3 %; Immature Granulocytes Absolute 0.02 #; Lymphocytes # 1.6 10*3/uL (1.4-4.0); Lymphocytes % 26.4 % (21.3-54.2); Mean Corpuscular HGB Conc 31.9 GM/DL (32-36); Mean Corpuscular Volume 101.6 FL (87-102); Mean Platelet Volume 9.7 FL (9.6-12.0); Monocytes % 6.7 % (1.7-12.7); Neutrophils % 62.3 % (38.7-73.9); Platelet Count 190 T/CUMM (130-400); Red Blood Count 2.56 MC/CUMM (3.8-5.5); Red Cell Distribution Width 14.1 % (9.3-17.3); White Blood Count 5.9 T/CUMM (4-12)
[2020-05-23 09:14] LABS: Calcium 8.4 MG/DL (8.5-10.1); Osmolality,Calculated 284.5 MOS/KG (273-304)
[2020-05-23] MEDS: METOCLOPRAMIDE 5 MG TABLET PO SCH ×4 (09:22→20:44)
[2020-05-23] MEDS: DOLUTEGRAVIR RILPIVIRINE PO SCH (09:22)
[2020-05-23] MEDS: OMEGA 3 ACID ETHYL ESTERS 1 GM CAPSULE PO SCH (09:23)
[2020-05-23] MEDS: GABAPENTIN 300 MG CAPSULE PO SCH ×3 (09:23→20:44)
[2020-05-23] MEDS: ASPIRIN EC 81 MG TABLET PO SCH (09:23)
[2020-05-23] MEDS: FAMOTIDINE 20 MG TABLET PO SCH (09:23)
[2020-05-23] MEDS: SEVELAMER CARBONATE 800 MG TABLET PO SCH ×3 (09:23→17:25)
[2020-05-23] MEDS: ASCORBIC ACID 500 MG TABLET PO SCH (09:23)
[2020-05-23] MEDS: CHOLECALCIFEROL 1,000 UNIT TABLET PO SCH (09:23)
[2020-05-23] MEDS: GLIMEPIRIDE 4 MG TABLET PO SCH ×2 (09:23→20:44)
[2020-05-23] MEDS: SERTRALINE 100 MG TABLET PO SCH (09:24)
[2020-05-23] MEDS: LAMIVUDINE 50 MG PO SCH (09:24)
[2020-05-23] MEDS: HEPARIN 5,000 UNIT/1 ML VIAL SUBCUT SCH (12:07)
[2020-05-23] MEDS ORDERED: VANCOMYCIN INJ 1,000 MG in SODIUM CHLORIDE 0.9% 250 ML IV ONE (17:00)
[2020-05-23] MEDS: ROSUVASTATIN 20 MG TABLET PO SCH (20:44)
[2020-05-23] MEDS: INSULIN GLARGINE 100 UNIT/ML SUBCUT SCH (21:59)
[2020-05-24 07:04] LABS: Basophils % 0.5 % (0.0-0.8); Eosinophils # 0.2 10*3/uL (0.0-0.87); Eosinophils % 3.4 % (0.00-10.9); Hematocrit 24.5 VOL% (35.7-47.0); Hemoglobin 7.9 GM/DL (12.0-16.0); Immature Granulocytes % 0.3 %; Immature Granulocytes Absolute 0.02 #; Lymphocytes # 1.7 10*3/uL (1.4-4.0); Lymphocytes % 28.2 % (21.3-54.2); Mean Corpuscular HGB Conc 32.2 GM/DL (32-36); Mean Corpuscular Volume 101.7 FL (87-102); Mean Platelet Volume 9.4 FL (9.6-12.0); Monocytes % 7.3 % (1.7-12.7); Neutrophils % 60.3 % (38.7-73.9); Platelet Count 184 T/CUMM (130-400); Red Blood Count 2.41 MC/CUMM (3.8-5.5); Red Cell Distribution Width 13.8 % (9.3-17.3); White Blood Count 5.9 T/CUMM (4-12)
[2020-05-24] MEDS: INSULIN REGULAR 100 UNIT/ML SUBCUT SCH ×4 (07:23→20:24)
[2020-05-24 07:36] LABS: Calcium 8.2 MG/DL (8.5-10.1); Osmolality,Calculated 285.2 MOS/KG (273-304)
[2020-05-24] MEDS: LAMIVUDINE 50 MG PO SCH (08:39)
[2020-05-24] MEDS: FAMOTIDINE 20 MG TABLET PO SCH (08:39)
[2020-05-24] MEDS: DOLUTEGRAVIR RILPIVIRINE PO SCH (08:39)
[2020-05-24] MEDS: GABAPENTIN 300 MG CAPSULE PO SCH ×3 (08:40→20:23)
[2020-05-24] MEDS: ASPIRIN EC 81 MG TABLET PO SCH (08:40)
[2020-05-24] MEDS: GLIMEPIRIDE 4 MG TABLET PO SCH ×2 (08:40→20:23)
[2020-05-24] MEDS: ASCORBIC ACID 500 MG TABLET PO SCH (08:40)
[2020-05-24] MEDS: OMEGA 3 ACID ETHYL ESTERS 1 GM CAPSULE PO SCH (08:40)
[2020-05-24] MEDS: METOCLOPRAMIDE 5 MG TABLET PO SCH ×4 (08:40→20:23)
[2020-05-24] MEDS: SERTRALINE 100 MG TABLET PO SCH (08:40)
[2020-05-24] MEDS: CHOLECALCIFEROL 1,000 UNIT TABLET PO SCH (08:40)
[2020-05-24] MEDS: SEVELAMER CARBONATE 800 MG TABLET PO SCH ×3 (08:40→16:10)
[2020-05-24] MEDS: HEPARIN 5,000 UNIT/1 ML VIAL SUBCUT SCH ×2 (11:59)
[2020-05-24] MEDS: DESITIN 4OZ/NYSTATIN 15 GRAM MIXTURE PASTE TOP SCH ×2 (17:00→20:24)
[2020-05-24] MEDS: INSULIN GLARGINE 100 UNIT/ML SUBCUT SCH (20:22)
[2020-05-24] MEDS: ROSUVASTATIN 20 MG TABLET PO SCH (20:23)
[2020-05-25] MEDS: HEPARIN 5,000 UNIT/1 ML VIAL SUBCUT SCH ×2 (00:41→14:33)
[2020-05-25 05:41] LABS: Basophils # 0.1 10*3/uL (0.0-0.2); Basophils % 0.7 % (0.0-0.8); Eosinophils # 0.3 10*3/uL (0.0-0.87); Eosinophils % 3.8 % (0.00-10.9); Hematocrit 25.2 VOL% (35.7-47.0); Hemoglobin 7.9 GM/DL (12.0-16.0); Immature Granulocytes % 0.4 %; Immature Granulocytes Absolute 0.03 #; Lymphocytes # 2.2 10*3/uL (1.4-4.0); Lymphocytes % 32.8 % (21.3-54.2); Mean Corpuscular HGB Conc 31.3 GM/DL (32-36); Mean Corpuscular Volume 102.9 FL (87-102); Mean Platelet Volume 9.9 FL (9.6-12.0); Monocytes % 6.2 % (1.7-12.7); Neutrophils % 56.1 % (38.7-73.9); Platelet Count 210 T/CUMM (130-400); Red Blood Count 2.45 MC/CUMM (3.8-5.5); Red Cell Distribution Width 13.8 % (9.3-17.3); White Blood Count 6.8 T/CUMM (4-12)
[2020-05-25 05:54] LABS: Calcium 8.1 MG/DL (8.5-10.1); Osmolality,Calculated 288.4 MOS/KG (273-304)
[2020-05-25] MEDS: SEVELAMER CARBONATE 800 MG TABLET PO SCH ×3 (08:43→16:39)
[2020-05-25] MEDS: LAMIVUDINE 50 MG PO SCH (08:43)
[2020-05-25] MEDS: GABAPENTIN 300 MG CAPSULE PO SCH ×3 (08:43→20:49)
[2020-05-25] MEDS: DOLUTEGRAVIR RILPIVIRINE PO SCH (08:43)
[2020-05-25] MEDS: CHOLECALCIFEROL 1,000 UNIT TABLET PO SCH (08:44)
[2020-05-25] MEDS: METOCLOPRAMIDE 5 MG TABLET PO SCH ×4 (08:44→20:49)
[2020-05-25] MEDS: ASPIRIN EC 81 MG TABLET PO SCH (08:44)
[2020-05-25] MEDS: GLIMEPIRIDE 4 MG TABLET PO SCH ×2 (08:44→20:49)
[2020-05-25] MEDS: FAMOTIDINE 20 MG TABLET PO SCH (08:45)
[2020-05-25] MEDS: SERTRALINE 100 MG TABLET PO SCH (08:45)
[2020-05-25] MEDS: ASCORBIC ACID 500 MG TABLET PO SCH (08:45)
[2020-05-25] MEDS: INSULIN REGULAR 100 UNIT/ML SUBCUT SCH ×4 (08:45→20:49)
[2020-05-25] MEDS: OMEGA 3 ACID ETHYL ESTERS 1 GM CAPSULE PO SCH (08:45)
[2020-05-25] MEDS: DESITIN 4OZ/NYSTATIN 15 GRAM MIXTURE PASTE TOP SCH ×2 (08:52→20:50)
[2020-05-25] MEDS ORDERED: ALTEPLASE 2 MG VIAL IV ONE (10:00)
[2020-05-25] MEDS ORDERED: VANCOMYCIN INJ 1,000 MG in SODIUM CHLORIDE 0.9% 250 ML IV PRN (12:18)
[2020-05-25] MEDS ORDERED: VANCOMYCIN INJ 1,000 MG in SODIUM CHLORIDE 0.9% 250 ML IV ONE (17:00)
[2020-05-25] MEDS: INSULIN GLARGINE 100 UNIT/ML SUBCUT SCH (20:49)
[2020-05-25] MEDS: ROSUVASTATIN 20 MG TABLET PO SCH (20:49)
[2020-05-26] MEDS: HEPARIN 5,000 UNIT/1 ML VIAL SUBCUT SCH ×2 (00:21→12:35)
[2020-05-26 05:18] LABS: Basophils % 0.5 % (0.0-0.8); Eosinophils # 0.3 10*3/uL (0.0-0.87); Eosinophils % 3.9 % (0.00-10.9); Hematocrit 25.4 VOL% (35.7-47.0); Immature Granulocytes % 0.3 %; Immature Granulocytes Absolute 0.02 #; Lymphocytes # 1.6 10*3/uL (1.4-4.0); Lymphocytes % 24.8 % (21.3-54.2); Mean Corpuscular HGB Conc 31.5 GM/DL (32-36); Mean Corpuscular Volume 103.3 FL (87-102); Monocytes % 7.1 % (1.7-12.7); Neutrophils % 63.4 % (38.7-73.9); Platelet Count 198 T/CUMM (130-400); Red Blood Count 2.46 MC/CUMM (3.8-5.5); Red Cell Distribution Width 13.6 % (9.3-17.3); White Blood Count 6.5 T/CUMM (4-12)
[2020-05-26 05:47] LABS: Calcium 8.3 MG/DL (8.5-10.1); Free T4 (Free Thyroxine) 0.64 NG/DL (0.76-1.46); Thyroid Stimulating Hormone 4.42 uIU/ml (0.358-3.74)
[2020-05-26 05:58] LABS: Folate 9.4 NG/ML (5.4-24.0)
[2020-05-26] MEDS ORDERED: VANCOMYCIN INJ 500 MG in SODIUM CHLORIDE 0.9% 100 ML IV SCH (09:00)
[2020-05-26] MEDS: LAMIVUDINE 50 MG PO SCH (10:23)
[2020-05-26] MEDS: DOLUTEGRAVIR RILPIVIRINE PO SCH (10:23)
[2020-05-26] MEDS: INSULIN REGULAR 100 UNIT/ML SUBCUT SCH ×4 (10:23→21:12)
[2020-05-26] MEDS: GLIMEPIRIDE 4 MG TABLET PO SCH ×2 (10:24→21:12)
[2020-05-26] MEDS: ASPIRIN EC 81 MG TABLET PO SCH (10:24)
[2020-05-26] MEDS: GABAPENTIN 300 MG CAPSULE PO SCH ×3 (10:24→21:12)
[2020-05-26] MEDS: SERTRALINE 100 MG TABLET PO SCH (10:24)
[2020-05-26] MEDS: CHOLECALCIFEROL 1,000 UNIT TABLET PO SCH (10:24)
[2020-05-26] MEDS: ASCORBIC ACID 500 MG TABLET PO SCH (10:24)
[2020-05-26] MEDS: METOCLOPRAMIDE 5 MG TABLET PO SCH ×4 (10:25→21:12)
[2020-05-26] MEDS: OMEGA 3 ACID ETHYL ESTERS 1 GM CAPSULE PO SCH (10:25)
[2020-05-26] MEDS: FAMOTIDINE 20 MG TABLET PO SCH (10:25)
[2020-05-26] MEDS: SEVELAMER CARBONATE 800 MG TABLET PO SCH ×3 (10:25→16:36)
[2020-05-26] MEDS: DESITIN 4OZ/NYSTATIN 15 GRAM MIXTURE PASTE TOP SCH ×2 (10:28→21:13)
[2020-05-26] MEDS: ALBUTEROL 2.5 MG/3 ML NEB RESP TX PRN (12:31)
[2020-05-26] MEDS ORDERED: VANCOMYCIN INJ 1,000 MG in SODIUM CHLORIDE 0.9% 250 ML IV ONE (17:00)
[2020-05-26] MEDS: INSULIN GLARGINE 100 UNIT/ML SUBCUT SCH (21:12)
[2020-05-26] MEDS: ROSUVASTATIN 20 MG TABLET PO SCH (21:12)
[2020-05-27] MEDS: HEPARIN 5,000 UNIT/1 ML VIAL SUBCUT SCH ×2 (00:38→12:55)
[2020-05-27 05:58] LABS: Basophils % 0.7 % (0.0-0.8); Eosinophils # 0.2 10*3/uL (0.0-0.87); Eosinophils % 4.4 % (0.00-10.9); Hematocrit 24.4 VOL% (35.7-47.0); Hemoglobin 7.7 GM/DL (12.0-16.0); Immature Granulocytes % 0.4 %; Immature Granulocytes Absolute 0.02 #; Lymphocytes # 1.5 10*3/uL (1.4-4.0); Mean Corpuscular HGB Conc 31.6 GM/DL (32-36); Mean Corpuscular Volume 103.8 FL (87-102); Monocytes % 6.7 % (1.7-12.7); Neutrophils % 60.8 % (38.7-73.9); Platelet Count 207 T/CUMM (130-400); Red Blood Count 2.35 MC/CUMM (3.8-5.5); Red Cell Distribution Width 13.7 % (9.3-17.3); White Blood Count 5.5 T/CUMM (4-12)
[2020-05-27 06:14] LABS: Calcium 7.9 MG/DL (8.5-10.1); Osmolality,Calculated 279.1 MOS/KG (273-304)
[2020-05-27] MEDS: INSULIN REGULAR 100 UNIT/ML SUBCUT SCH ×4 (08:22→20:22)
[2020-05-27] MEDS: SEVELAMER CARBONATE 800 MG TABLET PO SCH ×3 (09:10→16:35)
[2020-05-27] MEDS: DOLUTEGRAVIR RILPIVIRINE PO SCH (09:10)
[2020-05-27] MEDS: ASPIRIN EC 81 MG TABLET PO SCH (09:11)
[2020-05-27] MEDS: METOCLOPRAMIDE 5 MG TABLET PO SCH ×4 (09:11→21:13)
[2020-05-27] MEDS: GLIMEPIRIDE 4 MG TABLET PO SCH (09:11)
[2020-05-27] MEDS: LAMIVUDINE 50 MG PO SCH (09:11)
[2020-05-27] MEDS: DESITIN 4OZ/NYSTATIN 15 GRAM MIXTURE PASTE TOP SCH ×2 (09:12→21:14)
[2020-05-27] MEDS: GABAPENTIN 300 MG CAPSULE PO SCH ×3 (09:12→21:14)
[2020-05-27] MEDS: FAMOTIDINE 20 MG TABLET PO SCH (09:12)
[2020-05-27] MEDS: ASCORBIC ACID 500 MG TABLET PO SCH (09:12)
[2020-05-27] MEDS: SERTRALINE 100 MG TABLET PO SCH (09:13)
[2020-05-27] MEDS: CHOLECALCIFEROL 1,000 UNIT TABLET PO SCH (09:13)
[2020-05-27] MEDS: OMEGA 3 ACID ETHYL ESTERS 1 GM CAPSULE PO SCH (09:13)
[2020-05-27] MEDS ORDERED: INSULIN GLARGINE 100 UNIT/ML SUBCUT SCH (09:20)
[2020-05-27] MEDS: carvediloL 6.25 MG TABLET PO SCH (20:22)
[2020-05-27] MEDS: ROSUVASTATIN 20 MG TABLET PO SCH (21:13)
[2020-05-28] MEDS: HEPARIN 5,000 UNIT/1 ML VIAL SUBCUT SCH ×2 (00:07→11:46)
[2020-05-28 06:05] LABS: Basophils % 0.5 % (0.0-0.8); Eosinophils # 0.3 10*3/uL (0.0-0.87); Eosinophils % 4.5 % (0.00-10.9); Hematocrit 24.3 VOL% (35.7-47.0); Hemoglobin 7.6 GM/DL (12.0-16.0); Immature Granulocytes % 0.4 %; Immature Granulocytes Absolute 0.02 #; Lymphocytes % 35.8 % (21.3-54.2); Mean Corpuscular HGB Conc 31.3 GM/DL (32-36); Mean Corpuscular Volume 105.2 FL (87-102); Mean Platelet Volume 9.9 FL (9.6-12.0); Monocytes % 7.7 % (1.7-12.7); Neutrophils % 51.1 % (38.7-73.9); Platelet Count 203 T/CUMM (130-400); Red Blood Count 2.31 MC/CUMM (3.8-5.5); Red Cell Distribution Width 13.6 % (9.3-17.3); White Blood Count 5.6 T/CUMM (4-12)
[2020-05-28 06:06] LABS: Calcium 8.4 MG/DL (8.5-10.1); Osmolality,Calculated 284.1 MOS/KG (273-304)
[2020-05-28] MEDS: INSULIN REGULAR 100 UNIT/ML SUBCUT SCH ×4 (08:17→21:53)
[2020-05-28] MEDS: ASCORBIC ACID 500 MG TABLET PO SCH (08:19)
[2020-05-28] MEDS: SEVELAMER CARBONATE 800 MG TABLET PO SCH ×3 (08:19→16:44)
[2020-05-28] MEDS: ASPIRIN EC 81 MG TABLET PO SCH (08:19)
[2020-05-28] MEDS: METOCLOPRAMIDE 5 MG TABLET PO SCH ×4 (08:19→21:51)
[2020-05-28] MEDS: GABAPENTIN 300 MG CAPSULE PO SCH ×3 (08:19→21:51)
[2020-05-28] MEDS: carvediloL 6.25 MG TABLET PO SCH ×2 (08:19→21:50)
[2020-05-28] MEDS: CHOLECALCIFEROL 1,000 UNIT TABLET PO SCH (08:19)
[2020-05-28] MEDS: SERTRALINE 100 MG TABLET PO SCH (08:19)
[2020-05-28] MEDS: FAMOTIDINE 20 MG TABLET PO SCH (08:20)
[2020-05-28] MEDS: DOLUTEGRAVIR RILPIVIRINE PO SCH (08:20)
[2020-05-28] MEDS: OMEGA 3 ACID ETHYL ESTERS 1 GM CAPSULE PO SCH (08:20)
[2020-05-28] MEDS: LAMIVUDINE 50 MG PO SCH (08:20)
[2020-05-28] MEDS: DESITIN 4OZ/NYSTATIN 15 GRAM MIXTURE PASTE TOP SCH ×2 (09:10→21:51)
[2020-05-28] MEDS: ALBUTEROL 2.5 MG/3 ML NEB RESP TX PRN (21:07)
[2020-05-28] MEDS: ROSUVASTATIN 20 MG TABLET PO SCH (21:51)
[2020-05-29] MEDS: HEPARIN 5,000 UNIT/1 ML VIAL SUBCUT SCH ×3 (00:04→23:33)
[2020-05-29 06:29] LABS: Basophils # 0.1 10*3/uL (0.0-0.2); Basophils % 0.9 % (0.0-0.8); Eosinophils # 0.3 10*3/uL (0.0-0.87); Eosinophils % 4.7 % (0.00-10.9); Hematocrit 24.1 VOL% (35.7-47.0); Hemoglobin 7.6 GM/DL (12.0-16.0); Immature Granulocytes % 0.2 %; Immature Granulocytes Absolute 0.01 #; Lymphocytes # 1.7 10*3/uL (1.4-4.0); Lymphocytes % 30.8 % (21.3-54.2); Mean Corpuscular HGB Conc 31.5 GM/DL (32-36); Mean Corpuscular Volume 103.9 FL (87-102); Monocytes % 7.6 % (1.7-12.7); Neutrophils % 55.8 % (38.7-73.9); Platelet Count 205 T/CUMM (130-400); Red Blood Count 2.32 MC/CUMM (3.8-5.5); Red Cell Distribution Width 13.3 % (9.3-17.3); White Blood Count 5.4 T/CUMM (4-12)
[2020-05-29 06:58] LABS: Calcium 7.9 MG/DL (8.5-10.1); Osmolality,Calculated 286.5 MOS/KG (273-304)
[2020-05-29] MEDS: INSULIN REGULAR 100 UNIT/ML SUBCUT SCH ×4 (07:39→22:04)
[2020-05-29] MEDS: LAMIVUDINE 50 MG PO SCH (08:35)
[2020-05-29] MEDS: DOLUTEGRAVIR RILPIVIRINE PO SCH (08:35)
[2020-05-29] MEDS: SEVELAMER CARBONATE 800 MG TABLET PO SCH ×3 (08:35→17:41)
[2020-05-29] MEDS: ASPIRIN EC 81 MG TABLET PO SCH (08:36)
[2020-05-29] MEDS: CHOLECALCIFEROL 1,000 UNIT TABLET PO SCH (08:36)
[2020-05-29] MEDS: METOCLOPRAMIDE 5 MG TABLET PO SCH ×4 (08:36→21:14)
[2020-05-29] MEDS: GABAPENTIN 300 MG CAPSULE PO SCH ×3 (08:36→21:15)
[2020-05-29] MEDS: ASCORBIC ACID 500 MG TABLET PO SCH (08:37)
[2020-05-29] MEDS: FAMOTIDINE 20 MG TABLET PO SCH (08:37)
[2020-05-29] MEDS: OMEGA 3 ACID ETHYL ESTERS 1 GM CAPSULE PO SCH (08:37)
[2020-05-29] MEDS: SERTRALINE 100 MG TABLET PO SCH (08:37)
[2020-05-29] MEDS: DESITIN 4OZ/NYSTATIN 15 GRAM MIXTURE PASTE TOP SCH ×2 (08:37→21:17)
[2020-05-29] MEDS: carvediloL 6.25 MG TABLET PO SCH ×2 (08:37→21:16)
[2020-05-29] MEDS ORDERED: FLUCONAZOLE 150 MG TABLET PO ONE (08:57)
[2020-05-29] MEDS: diphenhydrAMINE CAP 25 MG CAPSULE PO PRN ×2 (10:25→17:41)
[2020-05-29] MEDS ORDERED: VANCOMYCIN INJ 1,000 MG in SODIUM CHLORIDE 0.9% 250 ML IV ONE (17:00)
[2020-05-29] MEDS ORDERED: MORPHINE 4 MG/1 ML VIAL IV ONE (18:36)
[2020-05-29] MEDS: ROSUVASTATIN 20 MG TABLET PO SCH (21:15)
[2020-05-29] MEDS: CLOTRIMAZOLE 1% CREAM 15 GM TUBE TOP SCH (21:16)
[2020-05-30 05:32] LABS: Basophils % 0.6 % (0.0-0.8); Eosinophils # 0.2 10*3/uL (0.0-0.87); Eosinophils % 4.5 % (0.00-10.9); Hemoglobin 6.9 GM/DL (12.0-16.0); Immature Granulocytes % 0.2 %; Immature Granulocytes Absolute 0.01 #; Lymphocytes # 0.8 10*3/uL (1.4-4.0); Lymphocytes % 16.9 % (21.3-54.2); Mean Corpuscular HGB Conc 31.4 GM/DL (32-36); Mean Corpuscular Volume 102.8 FL (87-102); Mean Platelet Volume 10.1 FL (9.6-12.0); Monocytes % 10.5 % (1.7-12.7); Neutrophils % 67.3 % (38.7-73.9); Platelet Count 181 T/CUMM (130-400); Red Blood Count 2.14 MC/CUMM (3.8-5.5); Red Cell Distribution Width 13.3 % (9.3-17.3); White Blood Count 4.7 T/CUMM (4-12)
[2020-05-30 05:44] LABS: Calcium 7.7 MG/DL (8.5-10.1); Osmolality,Calculated 285.1 MOS/KG (273-304)
[2020-05-30] MEDS: ASPIRIN EC 81 MG TABLET PO SCH (09:32)
[2020-05-30] MEDS: INSULIN REGULAR 100 UNIT/ML SUBCUT SCH ×3 (09:32→16:37)
[2020-05-30] MEDS: SEVELAMER CARBONATE 800 MG TABLET PO SCH ×3 (09:32→16:47)
[2020-05-30] MEDS: METOCLOPRAMIDE 5 MG TABLET PO SCH ×4 (09:32→20:30)
[2020-05-30] MEDS: DOLUTEGRAVIR RILPIVIRINE PO SCH (09:32)
[2020-05-30] MEDS: ASCORBIC ACID 500 MG TABLET PO SCH (09:33)
[2020-05-30] MEDS: CLOTRIMAZOLE 1% CREAM 15 GM TUBE TOP SCH ×2 (09:33→20:31)
[2020-05-30] MEDS: OMEGA 3 ACID ETHYL ESTERS 1 GM CAPSULE PO SCH (09:33)
[2020-05-30] MEDS: CHOLECALCIFEROL 1,000 UNIT TABLET PO SCH (09:33)
[2020-05-30] MEDS: FAMOTIDINE 20 MG TABLET PO SCH (09:33)
[2020-05-30] MEDS: carvediloL 6.25 MG TABLET PO SCH ×2 (09:33→20:30)
[2020-05-30] MEDS: GABAPENTIN 300 MG CAPSULE PO SCH ×3 (09:33→20:30)
[2020-05-30] MEDS: SERTRALINE 100 MG TABLET PO SCH (09:33)
[2020-05-30] MEDS: LAMIVUDINE 50 MG PO SCH (09:33)
[2020-05-30] MEDS ORDERED: diphenhydrAMINE CAP 50 MG CAPSULE PO ONE (10:00)
[2020-05-30] MEDS: DESITIN 4OZ/NYSTATIN 15 GRAM MIXTURE PASTE TOP SCH (11:21)
[2020-05-30] MEDS: HEPARIN 5,000 UNIT/1 ML VIAL SUBCUT SCH (12:37)
[2020-05-30] MEDS ORDERED: SODIUM CHLORIDE 0.9% 1,000 ML IV PRN ×3 (15:34→17:55)
[2020-05-30] MEDS: diphenhydrAMINE CAP 25 MG CAPSULE PO SCH ×2 (15:58→20:30)
[2020-05-30] MEDS: diphenhydrAMINE 2% CREAM 28 GM TUBE TOP PRN (20:30)
[2020-05-30] MEDS: ROSUVASTATIN 20 MG TABLET PO SCH (20:30)
[2020-05-31] MEDS: HEPARIN 5,000 UNIT/1 ML VIAL SUBCUT SCH ×3 (00:36→23:12)
[2020-05-31] MEDS: INSULIN REGULAR 100 UNIT/ML SUBCUT SCH ×5 (00:41→23:13)
[2020-05-31] MEDS: diphenhydrAMINE CAP 25 MG CAPSULE PO SCH ×4 (03:55→23:12)
[2020-05-31] MEDS: LAMIVUDINE 50 MG PO SCH (09:56)
[2020-05-31] MEDS: DOLUTEGRAVIR RILPIVIRINE PO SCH (09:56)
[2020-05-31] MEDS: SEVELAMER CARBONATE 800 MG TABLET PO SCH ×3 (09:56→16:58)
[2020-05-31] MEDS: OMEGA 3 ACID ETHYL ESTERS 1 GM CAPSULE PO SCH (09:57)
[2020-05-31] MEDS: SERTRALINE 100 MG TABLET PO SCH (09:57)
[2020-05-31] MEDS: FAMOTIDINE 20 MG TABLET PO SCH (09:57)
[2020-05-31] MEDS: METOCLOPRAMIDE 5 MG TABLET PO SCH ×4 (09:57→23:12)
[2020-05-31] MEDS: ASPIRIN EC 81 MG TABLET PO SCH (09:57)
[2020-05-31] MEDS: CHOLECALCIFEROL 1,000 UNIT TABLET PO SCH (09:57)
[2020-05-31] MEDS: GABAPENTIN 300 MG CAPSULE PO SCH ×3 (09:58→23:12)
[2020-05-31] MEDS: carvediloL 6.25 MG TABLET PO SCH ×2 (09:58→23:12)
[2020-05-31] MEDS: ASCORBIC ACID 500 MG TABLET PO SCH (09:58)
[2020-05-31] MEDS: CLOTRIMAZOLE 1% CREAM 15 GM TUBE TOP SCH ×2 (09:58→23:13)
[2020-05-31] MEDS ORDERED: VANCOMYCIN INJ 1,000 MG in SODIUM CHLORIDE 0.9% 250 ML IV ONE (12:00)
[2020-05-31] MEDS: DESITIN 4OZ/NYSTATIN 15 GRAM MIXTURE PASTE TOP SCH (23:12)
[2020-05-31] MEDS: ROSUVASTATIN 20 MG TABLET PO SCH (23:12)
[2020-05-31] MEDS: diphenhydrAMINE 2% CREAM 28 GM TUBE TOP PRN (23:13)
[2020-06-01] MEDS: diphenhydrAMINE CAP 25 MG CAPSULE PO SCH ×2 (05:39→08:14)
[2020-06-01] MEDS: INSULIN REGULAR 100 UNIT/ML SUBCUT SCH (07:31)
[2020-06-01 07:37] VITALS: BP 111/46
[2020-06-01] MEDS: SEVELAMER CARBONATE 800 MG TABLET PO SCH (08:11)
[2020-06-01] MEDS: FAMOTIDINE 20 MG TABLET PO SCH (08:12)
[2020-06-01] MEDS: SERTRALINE 100 MG TABLET PO SCH (08:12)
[2020-06-01] MEDS: OMEGA 3 ACID ETHYL ESTERS 1 GM CAPSULE PO SCH (08:12)
[2020-06-01] MEDS: CHOLECALCIFEROL 1,000 UNIT TABLET PO SCH (08:12)
[2020-06-01] MEDS: METOCLOPRAMIDE 5 MG TABLET PO SCH (08:12)
[2020-06-01] MEDS: ASPIRIN EC 81 MG TABLET PO SCH (08:12)
[2020-06-01] MEDS: ASCORBIC ACID 500 MG TABLET PO SCH (08:12)
[2020-06-01] MEDS: carvediloL 6.25 MG TABLET PO SCH (08:12)
[2020-06-01] MEDS: GABAPENTIN 300 MG CAPSULE PO SCH (08:12)
[2020-06-01] MEDS: DOLUTEGRAVIR RILPIVIRINE PO SCH (08:13)
[2020-06-01] MEDS: LAMIVUDINE 50 MG PO SCH (08:13)
[2020-06-01] MEDS: CLOTRIMAZOLE 1% CREAM 15 GM TUBE TOP SCH (08:14)
== END 2020-06-01 10:51 | DRG 466 ==
LOC: EDBD → EDUNIT# → N.5E 09:26 → N.ED 09:26 → N.5E 17:15 → SUATTDRO 05-18 14:14
PROVIDERS: ADMIT Internal Medicine Geriatric Medicine; ATTEND Internal Medicine

== ENCOUNTER 2020-06-09 10:11 | Observation (INO) ==
[2020-06-09 11:31] LABS: Basophils % 0.2 % (0.0-0.8); Eosinophils % 0.2 % (0.00-10.9); Hematocrit 33.3 VOL% (35.7-47.0); Hemoglobin 10.3 GM/DL (12.0-16.0); Immature Granulocytes % 0.4 %; Immature Granulocytes Absolute 0.02 #; Lymphocytes % 20.3 % (21.3-54.2); Mean Corpuscular HGB Conc 30.9 GM/DL (32-36); Mean Corpuscular Volume 99.7 FL (87-102); Monocytes % 8.7 % (1.7-12.7); Neutrophils % 70.2 % (38.7-73.9); Platelet Count 129 T/CUMM (130-400); Red Blood Count 3.34 MC/CUMM (3.8-5.5); Red Cell Distribution Width 15.8 % (9.3-17.3)
[2020-06-09 11:42] LABS: Albumin 2.6 G/DL (3.4-5.0); Bilirubin,Total 0.4 MG/DL (0.2-1.0); Calcium 7.9 MG/DL (8.5-10.1); Osmolality,Calculated 274.1 MOS/KG (273-304); Total Protein 8.2 G/DL (6.4-8.3)
[2020-06-09] MEDS ORDERED: ONDANSETRON 4 MG/2 ML VIAL ONE (13:39)
[2020-06-09] MEDS ORDERED: ACETAMINOPHEN 325 MG TABLET PO PRN (15:38)
[2020-06-09] MEDS ORDERED: ONDANSETRON 4 MG/2 ML VIAL IV PRN (15:38)
[2020-06-09] MEDS ORDERED: DEXTROSE 50% 25 GM/50 ML VIAL IV PRN (15:38)
[2020-06-09] MEDS ORDERED: GLUCAGON 1 MG VIAL IM PRN (15:38)
[2020-06-09] MEDS ORDERED: DOCUSATE SODIUM 100 MG CAPSULE PO PRN (15:38)
[2020-06-09] MEDS ORDERED: AZITHROMYCIN 250 MG TABLET PO ONE (15:46)
[2020-06-09] MEDS ORDERED: cefTRIAXone 1,000 MG in SYRINGE 1 EACH IV SCH (16:00)
[2020-06-09] MEDS ORDERED: VANCOMYCIN INJ 1,000 MG in SODIUM CHLORIDE 0.9% 250 ML IV PRN (17:00)
[2020-06-09] MEDS ORDERED: INSULIN GLARGINE 100 UNIT/ML SUBCUT SCH (21:00)
[2020-06-09] MEDS: INSULIN LISPRO 100 UNIT/ML SUBCUT SCH (22:55)
[2020-06-09] MEDS: ASCORBIC ACID 500 MG TABLET PO SCH (22:59)
[2020-06-10] MEDS: HEPARIN 5,000 UNIT/1 ML VIAL SUBCUT SCH ×3 (00:18→08:15)
[2020-06-10] MEDS: INSULIN LISPRO 100 UNIT/ML SUBCUT SCH ×3 (06:58→11:36)
[2020-06-10 07:07] LABS: Hematocrit 30.9 VOL% (35.7-47.0); Hemoglobin 9.5 GM/DL (12.0-16.0); Immature Granulocytes % 0.3 %; Immature Granulocytes Absolute 0.01 #; Lymphocytes # 0.8 10*3/uL (1.4-4.0); Lymphocytes % 26.1 % (21.3-54.2); Mean Corpuscular HGB Conc 30.7 GM/DL (32-36); Mean Corpuscular Volume 99.7 FL (87-102); Mean Platelet Volume 10.9 FL (9.6-12.0); Monocytes % 8.3 % (1.7-12.7); Neutrophils % 65.3 % (38.7-73.9); Platelet Count 115 T/CUMM (130-400); Red Cell Distribution Width 15.6 % (9.3-17.3)
[2020-06-10 07:16] LABS: INR 1.1; PT Patient Result 11.9 SECS (9.8-11.9)
[2020-06-10 07:29] LABS: Albumin 2.4 G/DL (3.4-5.0); Bilirubin,Total 0.7 MG/DL (0.2-1.0); Calcium 7.9 MG/DL (8.5-10.1); Osmolality,Calculated 275.1 MOS/KG (273-304); Total Protein 7.2 G/DL (6.4-8.3)
[2020-06-10] MEDS ORDERED: POTASSIUM CHLORIDE 20 MEQ TABLET PO ONE (07:56)
[2020-06-10] MEDS: ASCORBIC ACID 500 MG TABLET PO SCH (08:14)
[2020-06-10] MEDS ORDERED: CHOLECALCIFEROL 1,000 UNIT TABLET PO SCH (09:00)
[2020-06-10] MEDS ORDERED: AZITHROMYCIN 250 MG TABLET PO SCH (09:00)
[2020-06-10] MEDS ORDERED: DEXAMETHASONE 4 MG/1 ML VIAL IV SCH (09:00)
[2020-06-10] MEDS ORDERED: ZINC GLUCONATE 50 MG TABLET PO SCH (09:00)
[2020-06-10] MEDS ORDERED: PANTOPRAZOLE 40 MG TABLET PO SCH (09:00)
[2020-06-10] MEDS ORDERED: CETIRIZINE 10 MG TABLET PO SCH (09:00)
[2020-06-10 11:03] VITALS: BP 112/55
== END 2020-06-10 15:41 | disposition home health service (06) ==
LOC: EDUNIT# → N.EDINP 10:11 → N.ED 10:11 → N.2E 18:24
PROVIDERS: ADMIT Internal Medicine; ATTEND Internal Medicine

== ENCOUNTER 2021-12-18 15:47 | Inpatient (IN) ==
[2021-12-18 19:33] LABS: Basophils % 0.4 % (0.0-0.8); Eosinophils # 0.2 10*3/uL (0.0-0.87); Eosinophils % 2.1 % (0.00-10.9); Hematocrit 31.6 VOL% (35.7-47.0); Hemoglobin 9.9 GM/DL (12.0-16.0); Immature Granulocytes % 0.3 %; Immature Granulocytes Absolute 0.03 #; Lymphocytes # 1.7 10*3/uL (1.4-4.0); Lymphocytes % 15.5 % (21.3-54.2); Mean Corpuscular HGB Conc 31.3 GM/DL (32-36); Mean Corpuscular Volume 105.7 FL (87-102); Mean Platelet Volume 10.1 FL (9.6-12.0); Monocytes # 0.5 10*3/uL (0.11-0.8); Monocytes % 4.6 % (1.7-12.7); Neutrophils % 77.1 % (38.7-73.9); Platelet Count 296 T/CUMM (130-400); Red Blood Count 2.99 MC/CUMM (3.8-5.5); Red Cell Distribution Width 12.8 % (9.3-17.3); White Blood Count 10.8 T/CUMM (4-12)
[2021-12-18 19:53] LABS: Alanine Aminotransferase 15 U/L (13-56); Albumin 2.5 G/DL (3.4-5.0); Alkaline Phosphatase 110 U/L (45-117); Aspartate Amino Transferase 5 U/L (0-37); Bilirubin,Total < 0.39 MG/DL (0.20-1.00); Blood Urea Nitrogen 89 MG/DL (7-18); Calcium 8.8 MG/DL (8.5-10.1); Carbon Dioxide 27 MMOL/L (21-32); Chloride 91 MMOL/L (98-107); Glucose 397 MG/DL (74-106); Osmolality,Calculated 305.7 MOS/KG (273-304); Potassium 4.5 MMOL/L (3.5-5.1); Sodium 131 MMOL/L (136-145); Total Protein 8.4 G/DL (6.4-8.2)
[2021-12-18] MEDS ORDERED: VANCOMYCIN INJ 1,000 MG in SODIUM CHLORIDE 0.9% 250 ML IV STA (20:35)
[2021-12-18] MEDS ORDERED: ACETAMINOPHEN 325 MG TABLET PO PRN (21:08)
[2021-12-18] MEDS ORDERED: GLUCAGON 1 MG VIAL IM PRN (21:08)
[2021-12-18] MEDS ORDERED: DEXTROSE 10% 250 ML BAG IV PRN (21:20)
[2021-12-18] MEDS ORDERED: VANCOMYCIN INJ 1,500 MG in SODIUM CHLORIDE 0.9% 500 ML IV STA (23:12)
[2021-12-18] MEDS ORDERED: CYCLOBENZAPRINE 10 MG TABLET PO PRN (23:24)
[2021-12-18] MEDS ORDERED: PROMETHAZINE 25 MG TABLET PO PRN (23:24)
[2021-12-18] MEDS ORDERED: diphenhydrAMINE 2% CREAM 28 GM TUBE TOP PRN (23:24)
[2021-12-18] MEDS ORDERED: BENZONATATE 100 MG CAPSULE PO PRN (23:57)
[2021-12-19] MEDS: cefTRIAXone 2,000 MG in SODIUM CHLORIDE 0.9% 100 ML IV SCH ×2 (00:05→22:06)
[2021-12-19] MEDS: HEPARIN 5,000 UNIT/1 ML VIAL SUBCUT SCH (00:10)
[2021-12-19] MEDS ORDERED: VANCOMYCIN INJ 1,500 MG in SODIUM CHLORIDE 0.9% 500 ML IV STA (01:00)
[2021-12-19] MEDS ORDERED: ALBUTEROL 2.5 MG/3 ML NEB RESP TX PRN (03:00)
[2021-12-19 05:53] LABS: Basophils % 0.3 % (0.0-0.8); Eosinophils # 0.2 10*3/uL (0.0-0.87); Eosinophils % 2.7 % (0.00-10.9); Hematocrit 26.4 VOL% (35.7-47.0); Hemoglobin 8.3 GM/DL (12.0-16.0); Immature Granulocytes % 0.7 %; Immature Granulocytes Absolute 0.06 #; Lymphocytes # 1.5 10*3/uL (1.4-4.0); Lymphocytes % 17.1 % (21.3-54.2); Mean Corpuscular HGB Conc 31.4 GM/DL (32-36); Mean Corpuscular Volume 105.2 FL (87-102); Mean Platelet Volume 10.4 FL (9.6-12.0); Monocytes # 0.6 10*3/uL (0.11-0.8); Monocytes % 6.4 % (1.7-12.7); Neutrophils % 72.8 % (38.7-73.9); Platelet Count 253 T/CUMM (130-400); Red Blood Count 2.51 MC/CUMM (3.8-5.5); Red Cell Distribution Width 12.7 % (9.3-17.3)
[2021-12-19 06:00] LABS: PT Patient Result 10.8 SECS (10.5-12.0); Partial Thromboplastin Time 29.9 SECS (23.7-32.9)
[2021-12-19 06:04] LABS: Osmolality,Calculated 300.4 MOS/KG (273-304); Potassium 4.8 MMOL/L (3.5-5.1)
[2021-12-19] MEDS: INSULIN NPH/REGULAR 70/30 100 UNIT/ML SUBCUT SCH ×2 (09:55→18:28)
[2021-12-19] MEDS: INSULIN REGULAR 100 UNIT/ML SUBCUT SCH ×4 (09:56→22:05)
[2021-12-19] MEDS: HYDROmorphone 1 MG/1 ML SYRINGE IV PRN (10:49)
[2021-12-19] MEDS: DOCOSAHEXAENOIC ACID 200 MG PO SCH (11:27)
[2021-12-19] MEDS: MULTIVITAMIN (BEROCCA) TABLET PO SCH (11:27)
[2021-12-19] MEDS: LAMIVUDINE 100 MG PO SCH (11:27)
[2021-12-19] MEDS: FERROUS SULFATE 325 MG TABLET PO SCH (11:27)
[2021-12-19] MEDS: DOCUSATE SODIUM 100 MG CAPSULE PO SCH ×2 (11:27→22:00)
[2021-12-19] MEDS: CYANOCOBALAMIN 500 MCG TABLET PO SCH (11:27)
[2021-12-19] MEDS: GABAPENTIN 300 MG CAPSULE PO SCH ×2 (11:27→22:00)
[2021-12-19] MEDS: PANTOPRAZOLE 40 MG TABLET PO SCH (11:27)
[2021-12-19] MEDS: DOLUTEGRAVIR RILPIVIRINE PO SCH (11:27)
[2021-12-19] MEDS: CHOLECALCIFEROL 5,000 UNIT TABLET PO SCH (11:28)
[2021-12-19] MEDS: ASCORBIC ACID 500 MG TABLET PO SCH (11:28)
[2021-12-19] MEDS: SERTRALINE 100 MG TABLET PO SCH (11:28)
[2021-12-19] MEDS ORDERED: propofoL 200 MG/20 ML VIAL IV ONE (13:28)
[2021-12-19] MEDS ORDERED: ROCURONIUM 50 MG/5 ML VIAL IV ONE (13:28)
[2021-12-19] MEDS ORDERED: SUCCINYLCHOLINE 200 MG/10 ML VIAL ONE (13:28)
[2021-12-19] MEDS ORDERED: LIDOCAINE 2% 5 ML VIAL ONE (13:28)
[2021-12-19] MEDS ORDERED: fentaNYL 100 MCG/2 ML VIAL ONE (13:28)
[2021-12-19] MEDS ORDERED: MIDAZOLAM 2 MG/2 ML VIAL ONE (13:31)
[2021-12-19] MEDS ORDERED: HEPARIN 10,000 UNIT/10 ML VIAL IV SCH (15:15)
[2021-12-19] MEDS ORDERED: VANCOMYCIN INJ 1,000 MG in SODIUM CHLORIDE 0.9% 250 ML IV PRN (17:00)
[2021-12-19] MEDS ORDERED: VANCOMYCIN INJ 1,000 MG in SODIUM CHLORIDE 0.9% 250 ML IV ONE (17:00)
[2021-12-20] MEDS: ASCORBIC ACID 500 MG TABLET PO SCH (08:55)
[2021-12-20] MEDS: GABAPENTIN 300 MG CAPSULE PO SCH ×2 (08:55→21:14)
[2021-12-20] MEDS: SERTRALINE 100 MG TABLET PO SCH (08:55)
[2021-12-20] MEDS: FERROUS SULFATE 325 MG TABLET PO SCH (08:55)
[2021-12-20] MEDS: PANTOPRAZOLE 40 MG TABLET PO SCH (08:55)
[2021-12-20] MEDS: CYANOCOBALAMIN 500 MCG TABLET PO SCH (08:55)
[2021-12-20] MEDS: HYDROmorphone 1 MG/1 ML SYRINGE IV PRN (08:55)
[2021-12-20] MEDS: MULTIVITAMIN (BEROCCA) TABLET PO SCH (08:55)
[2021-12-20] MEDS: CHOLECALCIFEROL 5,000 UNIT TABLET PO SCH (08:56)
[2021-12-20] MEDS: INSULIN NPH/REGULAR 70/30 100 UNIT/ML SUBCUT SCH ×2 (08:57→16:53)
[2021-12-20] MEDS: DOCUSATE SODIUM 100 MG CAPSULE PO SCH ×2 (09:09→21:16)
[2021-12-20] MEDS: DOLUTEGRAVIR RILPIVIRINE PO SCH (09:09)
[2021-12-20] MEDS: LAMIVUDINE 100 MG PO SCH (09:09)
[2021-12-20] MEDS: INSULIN REGULAR 100 UNIT/ML SUBCUT SCH ×4 (09:09→22:06)
[2021-12-20] MEDS: DOCOSAHEXAENOIC ACID 200 MG PO SCH (09:09)
[2021-12-20 10:08] LABS: Calcium 8.2 MG/DL (8.5-10.1); Osmolality,Calculated 291.1 MOS/KG (273-304); Potassium 4.9 MMOL/L (3.5-5.1)
[2021-12-20] MEDS: SEVELAMER CARBONATE 800 MG TABLET PO SCH ×2 (12:33→16:53)
[2021-12-20] MEDS: SIMETHICONE CHEW 125 MG TABLET PO PRN (18:20)
[2021-12-20] MEDS ORDERED: HEPARIN 5,000 UNIT/1 ML VIAL IV ONE (21:44)
[2021-12-20] MEDS: cefTRIAXone 2,000 MG in SODIUM CHLORIDE 0.9% 100 ML IV SCH (22:00)
[2021-12-21 05:13] LABS: Basophils % 0.4 % (0.0-0.8); Eosinophils # 0.3 10*3/uL (0.0-0.87); Eosinophils % 3.4 % (0.00-10.9); Hematocrit 25.1 VOL% (35.7-47.0); Hemoglobin 7.7 GM/DL (12.0-16.0); Immature Granulocytes % 0.5 %; Immature Granulocytes Absolute 0.04 #; Lymphocytes # 1.7 10*3/uL (1.4-4.0); Lymphocytes % 22.5 % (21.3-54.2); Mean Corpuscular HGB Conc 30.7 GM/DL (32-36); Mean Corpuscular Volume 107.3 FL (87-102); Mean Platelet Volume 10.1 FL (9.6-12.0); Monocytes # 0.5 10*3/uL (0.11-0.8); Monocytes % 6.7 % (1.7-12.7); Neutrophils % 66.5 % (38.7-73.9); Platelet Count 246 T/CUMM (130-400); Red Blood Count 2.34 MC/CUMM (3.8-5.5); Red Cell Distribution Width 12.8 % (9.3-17.3); White Blood Count 7.6 T/CUMM (4-12)
[2021-12-21 05:26] LABS: Calcium 8.2 MG/DL (8.5-10.1); Osmolality,Calculated 285.1 MOS/KG (273-304); Potassium 4.7 MMOL/L (3.5-5.1)
[2021-12-21] MEDS: INSULIN REGULAR 100 UNIT/ML SUBCUT SCH ×4 (07:09→22:06)
[2021-12-21] MEDS: INSULIN NPH/REGULAR 70/30 100 UNIT/ML SUBCUT SCH ×2 (07:10→16:55)
[2021-12-21] MEDS: DOLUTEGRAVIR RILPIVIRINE PO SCH (07:10)
[2021-12-21] MEDS: SEVELAMER CARBONATE 800 MG TABLET PO SCH ×3 (08:14→16:04)
[2021-12-21] MEDS: FERROUS SULFATE 325 MG TABLET PO SCH (08:14)
[2021-12-21] MEDS: GABAPENTIN 300 MG CAPSULE PO SCH ×2 (08:14→20:57)
[2021-12-21] MEDS: ASCORBIC ACID 500 MG TABLET PO SCH (08:15)
[2021-12-21] MEDS: PANTOPRAZOLE 40 MG TABLET PO SCH (08:15)
[2021-12-21] MEDS: SERTRALINE 100 MG TABLET PO SCH (08:15)
[2021-12-21] MEDS: MULTIVITAMIN (BEROCCA) TABLET PO SCH (08:15)
[2021-12-21] MEDS: CHOLECALCIFEROL 5,000 UNIT TABLET PO SCH (08:15)
[2021-12-21] MEDS: CYANOCOBALAMIN 500 MCG TABLET PO SCH (08:15)
[2021-12-21] MEDS ORDERED: ALTEPLASE 2 MG VIAL IV SCH (10:00)
[2021-12-21] MEDS: DOCOSAHEXAENOIC ACID 200 MG PO SCH (10:22)
[2021-12-21] MEDS: DOCUSATE SODIUM 100 MG CAPSULE PO SCH ×2 (10:22→20:57)
[2021-12-21] MEDS: LAMIVUDINE 100 MG PO SCH (10:22)
[2021-12-21] MEDS: HYDROmorphone 1 MG/1 ML SYRINGE IV PRN ×2 (16:01→21:55)
[2021-12-21] MEDS ORDERED: VANCOMYCIN INJ 1,000 MG in SODIUM CHLORIDE 0.9% 250 ML IV ONE (17:00)
[2021-12-21] MEDS: HEPARIN 5,000 UNIT/1 ML VIAL SUBCUT SCH (20:57)
[2021-12-21] MEDS: cefTRIAXone 2,000 MG in SODIUM CHLORIDE 0.9% 100 ML IV SCH (21:30)
[2021-12-22 06:15] LABS: Basophils # 0.1 10*3/uL (0.0-0.2); Basophils % 0.8 % (0.0-0.8); Eosinophils # 0.4 10*3/uL (0.0-0.87); Eosinophils % 5.1 % (0.00-10.9); Hemoglobin 7.9 GM/DL (12.0-16.0); Immature Granulocytes % 0.5 %; Immature Granulocytes Absolute 0.04 #; Lymphocytes # 1.7 10*3/uL (1.4-4.0); Lymphocytes % 22.3 % (21.3-54.2); Mean Corpuscular HGB Conc 30.4 GM/DL (32-36); Mean Corpuscular Volume 108.8 FL (87-102); Mean Platelet Volume 10.1 FL (9.6-12.0); Monocytes # 0.5 10*3/uL (0.11-0.8); Monocytes % 6.6 % (1.7-12.7); Neutrophils % 64.7 % (38.7-73.9); Platelet Count 240 T/CUMM (130-400); Red Blood Count 2.39 MC/CUMM (3.8-5.5); Red Cell Distribution Width 13.1 % (9.3-17.3); White Blood Count 7.7 T/CUMM (4-12)
[2021-12-22 06:29] LABS: Calcium 8.6 MG/DL (8.5-10.1); Osmolality,Calculated 289.2 MOS/KG (273-304); Potassium 4.9 MMOL/L (3.5-5.1)
[2021-12-22] MEDS: INSULIN REGULAR 100 UNIT/ML SUBCUT SCH ×4 (08:33→21:19)
[2021-12-22] MEDS: DOLUTEGRAVIR RILPIVIRINE PO SCH (08:33)
[2021-12-22] MEDS: GABAPENTIN 300 MG CAPSULE PO SCH ×2 (08:34→21:18)
[2021-12-22] MEDS: SEVELAMER CARBONATE 800 MG TABLET PO SCH ×3 (08:34→16:52)
[2021-12-22] MEDS: FERROUS SULFATE 325 MG TABLET PO SCH (08:34)
[2021-12-22] MEDS: MULTIVITAMIN (BEROCCA) TABLET PO SCH (08:34)
[2021-12-22] MEDS: PANTOPRAZOLE 40 MG TABLET PO SCH (08:34)
[2021-12-22] MEDS: ASCORBIC ACID 500 MG TABLET PO SCH (08:34)
[2021-12-22] MEDS: CYANOCOBALAMIN 500 MCG TABLET PO SCH (08:34)
[2021-12-22] MEDS: SERTRALINE 100 MG TABLET PO SCH (08:34)
[2021-12-22] MEDS: DOCUSATE SODIUM 100 MG CAPSULE PO SCH ×2 (08:34→21:18)
[2021-12-22] MEDS: HEPARIN 5,000 UNIT/1 ML VIAL SUBCUT SCH ×2 (08:34→21:21)
[2021-12-22] MEDS: CHOLECALCIFEROL 5,000 UNIT TABLET PO SCH (08:34)
[2021-12-22] MEDS: DOCOSAHEXAENOIC ACID 200 MG PO SCH (08:35)
[2021-12-22] MEDS: HYDROmorphone 1 MG/1 ML SYRINGE IV PRN (08:44)
[2021-12-22] MEDS: INSULIN NPH/REGULAR 70/30 100 UNIT/ML SUBCUT SCH ×3 (09:04→16:52)
[2021-12-22] MEDS: LAMIVUDINE 100 MG PO SCH (10:13)
[2021-12-22] MEDS: SIMETHICONE CHEW 125 MG TABLET PO PRN (18:10)
[2021-12-22] MEDS: cefTRIAXone 2,000 MG in SODIUM CHLORIDE 0.9% 100 ML IV SCH (21:20)
[2021-12-23] MEDS ORDERED: SUCCINYLCHOLINE 200 MG/10 ML VIAL ONE (06:30)
[2021-12-23] MEDS ORDERED: propofoL 200 MG/20 ML VIAL IV ONE (06:30)
[2021-12-23] MEDS ORDERED: fentaNYL 100 MCG/2 ML VIAL ONE (06:30)
[2021-12-23] MEDS ORDERED: SEVOFLURANE 1 UNIT/15 MINUTE INH ONE (06:30)
[2021-12-23] MEDS ORDERED: ROCURONIUM 50 MG/5 ML VIAL IV ONE (06:30)
[2021-12-23] MEDS ORDERED: ONDANSETRON 4 MG/2 ML VIAL ONE (06:30)
[2021-12-23] MEDS ORDERED: LIDOCAINE 2% 5 ML VIAL ONE (06:30)
[2021-12-23] MEDS ORDERED: PHENYLEPHRINE 1 MG/10 ML SYRINGE IV ONE (06:30)
[2021-12-23] MEDS ORDERED: MIDAZOLAM 2 MG/2 ML VIAL ONE (06:34)
[2021-12-23] MEDS: HYDROmorphone 1 MG/1 ML SYRINGE IV PRN ×3 (10:10→21:26)
[2021-12-23] MEDS ORDERED: ONDANSETRON 4 MG/2 ML VIAL IV PRN (10:12)
[2021-12-23] MEDS: DOLUTEGRAVIR RILPIVIRINE PO SCH (10:29)
[2021-12-23] MEDS: DOCOSAHEXAENOIC ACID 200 MG PO SCH (10:29)
[2021-12-23] MEDS: SEVELAMER CARBONATE 800 MG TABLET PO SCH ×3 (10:29→16:36)
[2021-12-23] MEDS: LAMIVUDINE 100 MG PO SCH (10:29)
[2021-12-23] MEDS: INSULIN REGULAR 100 UNIT/ML SUBCUT SCH ×4 (10:29→21:09)
[2021-12-23] MEDS: INSULIN NPH/REGULAR 70/30 100 UNIT/ML SUBCUT SCH ×2 (10:46→16:36)
[2021-12-23] MEDS: GABAPENTIN 300 MG CAPSULE PO SCH ×2 (10:58→21:07)
[2021-12-23] MEDS: MULTIVITAMIN (BEROCCA) TABLET PO SCH (10:58)
[2021-12-23] MEDS: DOCUSATE SODIUM 100 MG CAPSULE PO SCH ×2 (10:58→21:07)
[2021-12-23] MEDS: FERROUS SULFATE 325 MG TABLET PO SCH (10:58)
[2021-12-23] MEDS: ASCORBIC ACID 500 MG TABLET PO SCH (10:59)
[2021-12-23] MEDS: CYANOCOBALAMIN 500 MCG TABLET PO SCH (10:59)
[2021-12-23] MEDS: HEPARIN 5,000 UNIT/1 ML VIAL SUBCUT SCH ×2 (10:59→21:07)
[2021-12-23] MEDS: PANTOPRAZOLE 40 MG TABLET PO SCH (10:59)
[2021-12-23] MEDS: CHOLECALCIFEROL 5,000 UNIT TABLET PO SCH (10:59)
[2021-12-23] MEDS: SERTRALINE 100 MG TABLET PO SCH (10:59)
[2021-12-23] MEDS ORDERED: VANCOMYCIN INJ 1,000 MG in SODIUM CHLORIDE 0.9% 250 ML IV ONE (17:00)
[2021-12-23] MEDS: cefTRIAXone 2,000 MG in SODIUM CHLORIDE 0.9% 100 ML IV SCH (21:14)
[2021-12-24] MEDS: INSULIN REGULAR 100 UNIT/ML SUBCUT SCH ×4 (07:28→21:40)
[2021-12-24] MEDS: PANTOPRAZOLE 40 MG TABLET PO SCH (08:21)
[2021-12-24] MEDS: MULTIVITAMIN (BEROCCA) TABLET PO SCH (08:21)
[2021-12-24] MEDS: CHOLECALCIFEROL 5,000 UNIT TABLET PO SCH (08:21)
[2021-12-24] MEDS: DOCUSATE SODIUM 100 MG CAPSULE PO SCH ×2 (08:21→21:39)
[2021-12-24] MEDS: FERROUS SULFATE 325 MG TABLET PO SCH (08:21)
[2021-12-24] MEDS: CYANOCOBALAMIN 500 MCG TABLET PO SCH (08:21)
[2021-12-24] MEDS: SEVELAMER CARBONATE 800 MG TABLET PO SCH ×3 (08:21→16:26)
[2021-12-24] MEDS: GABAPENTIN 300 MG CAPSULE PO SCH ×2 (08:21→21:40)
[2021-12-24] MEDS: HYDROmorphone 1 MG/1 ML SYRINGE IV PRN ×2 (08:21→22:01)
[2021-12-24] MEDS: SERTRALINE 100 MG TABLET PO SCH (08:21)
[2021-12-24] MEDS: ASCORBIC ACID 500 MG TABLET PO SCH (08:21)
[2021-12-24] MEDS: INSULIN NPH/REGULAR 70/30 100 UNIT/ML SUBCUT SCH ×2 (08:22→16:26)
[2021-12-24] MEDS: HEPARIN 5,000 UNIT/1 ML VIAL SUBCUT SCH ×2 (08:30→21:40)
[2021-12-24] MEDS: DOLUTEGRAVIR RILPIVIRINE PO SCH (09:11)
[2021-12-24] MEDS: DOCOSAHEXAENOIC ACID 200 MG PO SCH (09:11)
[2021-12-24] MEDS: LAMIVUDINE 100 MG PO SCH (09:11)
[2021-12-24] MEDS: SIMETHICONE CHEW 125 MG TABLET PO PRN (16:26)
[2021-12-24] MEDS: cefTRIAXone 2,000 MG in SODIUM CHLORIDE 0.9% 100 ML IV SCH (21:40)
[2021-12-24] MEDS: diphenhydrAMINE CAP 25 MG CAPSULE PO PRN (22:01)
[2021-12-25 06:18] LABS: Basophils % 0.4 % (0.0-0.8); Eosinophils # 0.4 10*3/uL (0.0-0.87); Eosinophils % 5.6 % (0.00-10.9); Hematocrit 21.6 VOL% (35.7-47.0); Hemoglobin 6.5 GM/DL (12.0-16.0); Immature Granulocytes % 0.6 %; Immature Granulocytes Absolute 0.05 #; Lymphocytes # 1.6 10*3/uL (1.4-4.0); Mean Corpuscular HGB Conc 30.1 GM/DL (32-36); Mean Corpuscular Volume 109.1 FL (87-102); Monocytes # 0.5 10*3/uL (0.11-0.8); Monocytes % 5.8 % (1.7-12.7); Neutrophils % 66.6 % (38.7-73.9); Platelet Count 229 T/CUMM (130-400); Red Blood Count 1.98 MC/CUMM (3.8-5.5); Red Cell Distribution Width 13.1 % (9.3-17.3); White Blood Count 7.8 T/CUMM (4-12)
[2021-12-25] MEDS ORDERED: SODIUM CHLORIDE 0.9% 1,000 ML IV PRN ×2 (07:37→09:12)
[2021-12-25] MEDS: DOCUSATE SODIUM 100 MG CAPSULE PO SCH ×2 (08:03→21:43)
[2021-12-25] MEDS: ASCORBIC ACID 500 MG TABLET PO SCH (08:04)
[2021-12-25] MEDS: FERROUS SULFATE 325 MG TABLET PO SCH (08:04)
[2021-12-25] MEDS: SERTRALINE 100 MG TABLET PO SCH (08:04)
[2021-12-25] MEDS: GABAPENTIN 300 MG CAPSULE PO SCH ×2 (08:04→21:43)
[2021-12-25] MEDS: MULTIVITAMIN (BEROCCA) TABLET PO SCH (08:04)
[2021-12-25] MEDS: CYANOCOBALAMIN 500 MCG TABLET PO SCH (08:05)
[2021-12-25] MEDS: PANTOPRAZOLE 40 MG TABLET PO SCH (08:05)
[2021-12-25] MEDS: CHOLECALCIFEROL 5,000 UNIT TABLET PO SCH (08:05)
[2021-12-25] MEDS: INSULIN NPH/REGULAR 70/30 100 UNIT/ML SUBCUT SCH ×2 (08:06→17:02)
[2021-12-25] MEDS: INSULIN REGULAR 100 UNIT/ML SUBCUT SCH ×4 (08:58→21:45)
[2021-12-25] MEDS: DOLUTEGRAVIR RILPIVIRINE PO SCH (08:59)
[2021-12-25] MEDS: LAMIVUDINE 100 MG PO SCH (08:59)
[2021-12-25] MEDS: DOCOSAHEXAENOIC ACID 200 MG PO SCH (08:59)
[2021-12-25] MEDS: HEPARIN 5,000 UNIT/1 ML VIAL SUBCUT SCH ×2 (09:39→21:47)
[2021-12-25] MEDS: SEVELAMER CARBONATE 800 MG TABLET PO SCH ×3 (09:39→17:00)
[2021-12-25] MEDS: diphenhydrAMINE CAP 25 MG CAPSULE PO PRN ×2 (11:24→21:43)
[2021-12-25] MEDS: HYDROmorphone 1 MG/1 ML SYRINGE IV PRN ×2 (11:24→21:47)
[2021-12-25] MEDS: cefTRIAXone 2,000 MG in SODIUM CHLORIDE 0.9% 100 ML IV SCH (21:45)
[2021-12-26] MEDS: INSULIN REGULAR 100 UNIT/ML SUBCUT SCH ×4 (07:50→21:44)
[2021-12-26] MEDS: INSULIN NPH/REGULAR 70/30 100 UNIT/ML SUBCUT SCH ×2 (08:00→16:39)
[2021-12-26] MEDS: DOCOSAHEXAENOIC ACID 200 MG PO SCH (08:00)
[2021-12-26] MEDS: DOLUTEGRAVIR RILPIVIRINE PO SCH (08:00)
[2021-12-26 08:11] LABS: Basophils # 0.1 10*3/uL (0.0-0.2); Basophils % 0.6 % (0.0-0.8); Eosinophils # 0.5 10*3/uL (0.0-0.87); Eosinophils % 5.9 % (0.00-10.9); Hematocrit 28.4 VOL% (35.7-47.0); Hemoglobin 8.9 GM/DL (12.0-16.0); Immature Granulocytes % 0.7 %; Immature Granulocytes Absolute 0.06 #; Lymphocytes # 1.6 10*3/uL (1.4-4.0); Lymphocytes % 19.1 % (21.3-54.2); Mean Corpuscular HGB Conc 31.3 GM/DL (32-36); Mean Corpuscular Volume 103.3 FL (87-102); Mean Platelet Volume 9.3 FL (9.6-12.0); Monocytes # 0.4 10*3/uL (0.11-0.8); Monocytes % 5.2 % (1.7-12.7); Neutrophils % 68.5 % (38.7-73.9); Platelet Count 284 T/CUMM (130-400); Red Blood Count 2.75 MC/CUMM (3.8-5.5); Red Cell Distribution Width 14.5 % (9.3-17.3); White Blood Count 8.5 T/CUMM (4-12)
[2021-12-26] MEDS: CHOLECALCIFEROL 5,000 UNIT TABLET PO SCH (08:41)
[2021-12-26] MEDS: MULTIVITAMIN (BEROCCA) TABLET PO SCH (08:41)
[2021-12-26] MEDS: SEVELAMER CARBONATE 800 MG TABLET PO SCH ×3 (08:41→16:39)
[2021-12-26] MEDS: GABAPENTIN 300 MG CAPSULE PO SCH ×2 (08:42→21:43)
[2021-12-26] MEDS: PANTOPRAZOLE 40 MG TABLET PO SCH (08:42)
[2021-12-26] MEDS: SERTRALINE 100 MG TABLET PO SCH (08:42)
[2021-12-26] MEDS: ASCORBIC ACID 500 MG TABLET PO SCH (08:42)
[2021-12-26] MEDS: DOCUSATE SODIUM 100 MG CAPSULE PO SCH ×2 (08:42→21:43)
[2021-12-26] MEDS: FERROUS SULFATE 325 MG TABLET PO SCH (08:42)
[2021-12-26] MEDS: HEPARIN 5,000 UNIT/1 ML VIAL SUBCUT SCH ×2 (08:45→21:44)
[2021-12-26] MEDS: ONDANSETRON 4 MG/2 ML VIAL IV PRN (08:53)
[2021-12-26] MEDS: HYDROmorphone 1 MG/1 ML SYRINGE IV PRN (09:00)
[2021-12-26] MEDS: LAMIVUDINE 100 MG PO SCH (09:04)
[2021-12-26] MEDS: CYANOCOBALAMIN 500 MCG TABLET PO SCH (09:04)
[2021-12-26] MEDS: diphenhydrAMINE CAP 25 MG CAPSULE PO PRN (21:43)
[2021-12-27] MEDS: diphenhydrAMINE CAP 25 MG CAPSULE PO PRN (04:16)
[2021-12-27] MEDS: DOLUTEGRAVIR RILPIVIRINE PO SCH (08:26)
[2021-12-27] MEDS: DOCOSAHEXAENOIC ACID 200 MG PO SCH (08:26)
[2021-12-27] MEDS: LAMIVUDINE 100 MG PO SCH (08:27)
[2021-12-27] MEDS: INSULIN REGULAR 100 UNIT/ML SUBCUT SCH ×4 (08:56→21:10)
[2021-12-27] MEDS: SEVELAMER CARBONATE 800 MG TABLET PO SCH ×3 (08:58→16:34)
[2021-12-27] MEDS: MULTIVITAMIN (BEROCCA) TABLET PO SCH (08:58)
[2021-12-27] MEDS: INSULIN NPH/REGULAR 70/30 100 UNIT/ML SUBCUT SCH ×2 (08:58→16:34)
[2021-12-27] MEDS: FERROUS SULFATE 325 MG TABLET PO SCH (08:59)
[2021-12-27] MEDS: GABAPENTIN 300 MG CAPSULE PO SCH ×2 (08:59→21:10)
[2021-12-27] MEDS: DOCUSATE SODIUM 100 MG CAPSULE PO SCH ×2 (08:59→21:10)
[2021-12-27] MEDS: SERTRALINE 100 MG TABLET PO SCH (09:00)
[2021-12-27] MEDS: ASCORBIC ACID 500 MG TABLET PO SCH (09:00)
[2021-12-27] MEDS: CYANOCOBALAMIN 500 MCG TABLET PO SCH (09:00)
[2021-12-27] MEDS: CHOLECALCIFEROL 5,000 UNIT TABLET PO SCH (09:00)
[2021-12-27] MEDS: HEPARIN 5,000 UNIT/1 ML VIAL SUBCUT SCH ×2 (09:00→21:13)
[2021-12-27] MEDS: PANTOPRAZOLE 40 MG TABLET PO SCH (09:00)
[2021-12-27] MEDS: HYDROmorphone 1 MG/1 ML SYRINGE IV PRN (09:58)
[2021-12-27] MEDS ORDERED: HYDROCORTISONE 1% CREAM 28 GM TUBE TOP PRN (10:23)
[2021-12-28] MEDS: INSULIN REGULAR 100 UNIT/ML SUBCUT SCH ×3 (08:11→22:01)
[2021-12-28] MEDS: INSULIN NPH/REGULAR 70/30 100 UNIT/ML SUBCUT SCH ×2 (08:13→17:49)
[2021-12-28] MEDS: ONDANSETRON 4 MG/2 ML VIAL IV PRN (08:13)
[2021-12-28] MEDS: DOCUSATE SODIUM 100 MG CAPSULE PO SCH ×2 (08:16→21:51)
[2021-12-28] MEDS: SEVELAMER CARBONATE 800 MG TABLET PO SCH ×3 (08:16→17:49)
[2021-12-28] MEDS: SERTRALINE 100 MG TABLET PO SCH (08:16)
[2021-12-28] MEDS: ASCORBIC ACID 500 MG TABLET PO SCH (08:16)
[2021-12-28] MEDS: MULTIVITAMIN (BEROCCA) TABLET PO SCH (08:16)
[2021-12-28] MEDS: GABAPENTIN 300 MG CAPSULE PO SCH ×2 (08:16→21:51)
[2021-12-28] MEDS: CYANOCOBALAMIN 500 MCG TABLET PO SCH (08:16)
[2021-12-28] MEDS: DOCOSAHEXAENOIC ACID 200 MG PO SCH (08:49)
[2021-12-28] MEDS: DOLUTEGRAVIR RILPIVIRINE PO SCH (08:49)
[2021-12-28] MEDS: FERROUS SULFATE 325 MG TABLET PO SCH (08:51)
[2021-12-28] MEDS: LAMIVUDINE 100 MG PO SCH (08:51)
[2021-12-28] MEDS: PANTOPRAZOLE 40 MG TABLET PO SCH (08:51)
[2021-12-28] MEDS: HEPARIN 5,000 UNIT/1 ML VIAL SUBCUT SCH ×2 (08:54→22:01)
[2021-12-28] MEDS: CHOLECALCIFEROL 5,000 UNIT TABLET PO SCH (08:54)
[2021-12-28] MEDS ORDERED: ALTEPLASE 2 MG VIAL INTRACATH PRN ×2 (13:04→13:30)
[2021-12-28] MEDS: HYDROmorphone 1 MG/1 ML SYRINGE IV PRN ×2 (17:50→22:25)
[2021-12-28] MEDS: diphenhydrAMINE CAP 25 MG CAPSULE PO PRN (21:51)
[2021-12-29 07:44] VITALS: BP 126/82
[2021-12-29] MEDS: DOLUTEGRAVIR RILPIVIRINE PO SCH (08:53)
[2021-12-29] MEDS: INSULIN REGULAR 100 UNIT/ML SUBCUT SCH (08:53)
[2021-12-29] MEDS: INSULIN NPH/REGULAR 70/30 100 UNIT/ML SUBCUT SCH (08:53)
[2021-12-29] MEDS: FERROUS SULFATE 325 MG TABLET PO SCH (08:57)
[2021-12-29] MEDS: DOCUSATE SODIUM 100 MG CAPSULE PO SCH (08:57)
[2021-12-29] MEDS: MULTIVITAMIN (BEROCCA) TABLET PO SCH (08:57)
[2021-12-29] MEDS: DOCOSAHEXAENOIC ACID 200 MG PO SCH (08:57)
[2021-12-29] MEDS: SEVELAMER CARBONATE 800 MG TABLET PO SCH (08:57)
[2021-12-29] MEDS: PANTOPRAZOLE 40 MG TABLET PO SCH (08:58)
[2021-12-29] MEDS: SERTRALINE 100 MG TABLET PO SCH (08:58)
[2021-12-29] MEDS: GABAPENTIN 300 MG CAPSULE PO SCH (08:58)
[2021-12-29] MEDS: CYANOCOBALAMIN 500 MCG TABLET PO SCH (08:58)
[2021-12-29] MEDS: HEPARIN 5,000 UNIT/1 ML VIAL SUBCUT SCH (08:58)
[2021-12-29] MEDS: CHOLECALCIFEROL 5,000 UNIT TABLET PO SCH (08:58)
[2021-12-29] MEDS: LAMIVUDINE 100 MG PO SCH (08:58)
[2021-12-29] MEDS: ASCORBIC ACID 500 MG TABLET PO SCH (08:58)
== END 2021-12-29 09:00 | disposition home health service (06) | DRG 951 ==
LOC: N.ED 15:47 → N.EDINP 21:08 → SUATTDRO 21:08 → N.3E 23:24
PROVIDERS: ADMIT Internal Medicine; ATTEND Internal Medicine